=== PATIENT | female | born 1940 | race Caucasian/White ===

== ENCOUNTER → 2016-10-06 | Outpatient (CLI) | payer MEDICARE ==
--- NOTE | 2016-10-07 19:18 | Diagnostic Imaging Report ---
Bilateral screening mammogram. The current study was also evaluated with a Computer Aided Detection (CAD) system. INDICATION: Screening. No current complaints stated on the questionnaire. COMPARISON: 11/21/13. FINDINGS: The breasts are composed of scattered fibroglandular densities. There are scattered benign-appearing calcifications. Allowing for technique and positional differences, no suspicious change is seen. IMPRESSION: No significant change. ACR BI-RADS Category 2: Benign findings. Result letter will be mailed to the patient. Note: At least 10% of breast cancer is not imaged by mammography. Dictated by: Dictated on workstation # [id number]
== END ==
LOC: RAD 06:57
PROVIDERS: ATTEND Family Medicine
DX: Z12.31 Encounter for screening mammogram for malignant neoplasm of breast (principal)
CPT/HCPCS: 77067

== ENCOUNTER → 2018-02-08 | Outpatient (CLI) | payer MEDICARE ==
--- NOTE | 2018-02-08 13:16 | Diagnostic Imaging Report ---
INDICATION: Routine screening. COMPARISON: 10/06/2016 and 11/21/2013. TECHNIQUE: 2D and 3D bilateral screening mammography was performed with CAD. FINDINGS: Scattered fibroglandular densities are identified bilaterally. The parenchymal pattern is stable. There are benign calcifications bilaterally. No mass or malignant-appearing microcalcifications are seen. The axillae are unremarkable. IMPRESSION: No mammographic features suspicious for malignancy are identified. ACR BI-RADS Category 2: Benign findings. Result letter will be mailed to the patient. Note: At least 10% of breast cancer is not imaged by mammography. Dictated by: Dictated on workstation # [id number]
== END ==
LOC: RAD 07:16
PROVIDERS: ATTEND Nurse Practitioner Family
DX: Z12.31 Encounter for screening mammogram for malignant neoplasm of breast (principal)
CPT/HCPCS: 77067

== ENCOUNTER → 2018-04-02 | Day surgery (SDC) | payer MEDICARE ==
[~2018-04-02] VITALS: Ht 165.1 cm; Wt 86.2 kg
[~2018-04-02] MED LIST: ACET-2650 PO; AMLO5TAB2 PO; ASPI-983 PO; ASPIRIN 325 MG (5 GR) TABLET ONE; ASPIRIN 81 MG CHEW (CHILDREN'S ASA) PO ONE; ATROPINE INJ 0.4 MG/ML SDV ONE; ATROPINE INJECTION 1 MG/1 ML SDV IJ ONE; CALCIUM CHLORIDE 1 GM/10 ML (IMS) SYR INJ ONE; CLOP75TA28 PO; DICL75TA2 PO; DOCU240C24 PO; DOPamine DRIP 250 ML IV SCH; ENOXAPARIN 100 MG/1 ML (LOVENOX) SYR SC ONE; ENOXAPARIN 30 MG/0.3 ML (LOVENOX) SYR ONE; ENOXAPARIN 60 MG/0.6 ML (LOVENOX) SYR ONE; EPINEPHrine INJECTION 1 MG/ML AMP ONE; GENTAMICIN 40 MG/ML 2 ML INJ SDV ONE; HEParin (CATH LAB) 1,000 ML IV ONE; HYDR12.5 PO; IRON150C8 PO; LIDOCAINE 1% INJ 20 ML 20 ML VIAL ONE; LOSA100T28 PO; MIDAZOLAM 10 MG/2 ML (VERSED) VIAL IVP PRN; MIDAZOLAM 5 MG/5 ML (VERSED) VIAL ONE; MULT-166 PO; MULT-974 PO; NEO/POLY/BAC (NEOSPORIN) OINT 15 GM TUBE ONE; NS IV 1000 ML 1,000 ML IV ONE; NS IV 1000 ML 1,000 ML IV SCH; NS IV 1000 ML 1,000 ML ONE; OMG1KC PO; PATIENT MAY USE OWN MEDS, ALL PO SCH; SERT50TA9 PO; SIMV80TA5 PO; ceFAZolin 1,000 MG (ANCEF) VIAL ONE; ceFAZolin INJECTION 1,000 MG in NS (IVPB) 50 ML IV SCH; fentaNYL INJECTION 100 MCG/2 ML AMP ONE; morphine INJ 10 MG/ML 1ML (SYR OR VIAL) IVP STA; morphine INJ 10 MG/ML 1ML (SYR OR VIAL) ONE
[2018-04-02 19:52] LABS: BASOPHILS % (AUTO) 1 % (0-10); EOSINOPHILS # (AUTO) 0.2 10^3/uL (0.0-0.3); EOSINOPHILS % (AUTO) 3 % (0-10); HEMATOCRIT 32 % (35-52); HEMOGLOBIN 10.4 G/DL (11.5-16.0); LYMPHOCYTES # (AUTO) 1.4 X 10^3 (1.0-4.0); LYMPHOCYTES % (AUTO) 30 % (12-44); MEAN CORPUSCULAR HEMOGLOBIN 29 PG (25-34); MEAN CORPUSCULAR HGB CONC 33 G/DL (32-36); MEAN CORPUSCULAR VOLUME 89 FL (80-99); MONOCYTES # (AUTO) 0.6 X 10^3 (0.0-1.0); MONOCYTES % (AUTO) 13 % (0-12); NEUTROPHILS # (AUTO) 2.5 X 10^3 (1.8-7.8); NEUTROPHILS % (AUTO) 53 % (42-75); PLATELET COUNT 123 10^3/uL (130-400); RED BLOOD COUNT 3.58 10^6/uL (4.35-5.85); RED CELL DISTRIBUTION WIDTH 14.1 % (10.0-14.5); WHITE BLOOD COUNT 4.8 10^3/uL (4.3-11.0)
--- NOTE | 2018-04-02 19:59 | ED Cardiac General ---
History of Present Illness General Chief Complaint: Cardiac/General Problems Stated Complaint: IRREGULAR HEART RATE Nursing Triage Note: syncope, bradycardia Source: patient, EMS History of Present Illness Date Seen by Provider: Apr 02, 2018 Time Seen by Provider: 19:28 Initial Comments PT ARRIVES VIA EMS FROM HOME PT HAD SUDDEN ONSET OF FEELING LIKE SHE WAS GOING TO PASS OUT--WAS SITTING AT THE TIME, HAD JUST FINISHED EATING. 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 PT DENIES ANY HISTORY OF HEART PROBLEMS, DENIES ANY HISTORY OF IRREGULAR HEART BEAT, DENIES HISTORY OF CARDIAC CATH. STATES SHE SEES DR BALDWIN FOR HISTORY OF CAROTID DISEASE--HAD 40% BLOCKAGE OF ONE OF HER CAROTID ARTERIES --HAS BEEN SEVERAL YEARS SINCE IT WAS LAST CHECKED, PER PT. TAKES PLAVIX FOR THIS PROBLEM. HAS HISTORY OF HTN PCP: DR. NIETO--JUST SWITCHED F Allergies and Home Medications Allergies Coded Allergies: codeine (Unverified Allergy, Unknown, 04/02/18) Patient Home Medication List Home Medication List Reviewed: Yes Review of Systems Constitutional: No diaphoresis; dizziness EENTM: No Symptoms Reported Respiratory: See HPI, Shortness of Air Cardiovascular: See HPI, Chest Pain; Denies Edema; Irregular Heart Rate, Lightheadedness Gastrointestinal: No Symptoms Reported; Denies Abdominal Pain, Denies Nausea, Denies Vomiting Genitourinary: No Symptoms Reported Musculoskeletal: no symptoms reported Skin: no symptoms reported Psychiatric/Neurological: No Symptoms Reported Endocrine: No Symptoms Reported Hematologic/Lymphatic: No Symptoms Reported Past Nkszjfo-Qcbjir-Yufmnn Hx Patient Social History Alcohol Use: Denies Use Recreational Drug Use: No Smoking Status: Former Smoker (1 PPD, QUIT 2000) 2nd Hand Smoke Exposure: No Recent Foreign Travel: No Contact w/Someone Who Travel: No Recent Infectious Disease Expo: No Recent Hopitalizations: No Immunizations Up To Date Tetanus Booster (TDap): Unknown Seasonal Allergies Seasonal Allergies: No Past Medical History Surgeries: Yes (LEFT KNEE REPLACEMENT 2009, COLONOSCOPY) Adenoidectomy, Tonsillectomy Respiratory: No Cardiac: Yes (CAROTID DISEASE; RBBB ON EKG 08/26/2009) High Cholesterol, Hypertension 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 oz. 86.917562bi; BMI Method:Estimated General Appearance: WD/WN, Anxious, Mild Distress, Other (MOANING) HEENT: PERRL/EOMI Neck: Full Range of Motion, Normal Inspection, Non Tender, Supple; No JVD Respiratory: Normal Breath Sounds, No Accessory Muscle Use, No Respiratory Distress Cardiovascular: No Edema, No JVD, No Murmur, Normal Peripheral Pulses, Bradycardia Gastrointestinal: Normal Bowel Sounds, No Organomegaly, No Pulsatile Mass, Non Tender, Soft Extremity: Normal Capillary Refill, Normal Inspection, Normal Range of Motion, Non Tender, No Calf Tenderness, No Pedal Edema Neurologic/Psychiatric: Alert, Oriented x3, No Motor/Sensory Deficits, Normal Mood/Affect, colleter II-XII Norm as Tested Skin: Warm/Dry; No Diaphoresis; Pallor Progress/Results/Core Measures Results/Orders Lab Results Laboratory Tests Test 04/02/18 19:40 Range/Units White Blood Count 4.8 4.3-11.0 10^3/uL Red Blood Count 3.58 L 4.35-5.85 10^6/uL Hemoglobin 10.4 L 11.5-16.0 G/DL Hematocrit 32 L 35-52 % Mean Corpuscular Volume 89 80-99 FL Mean Corpuscular Hemoglobin 29 25-34 PG Mean Corpuscular Hemoglobin Concent 33 32-36 G/DL Red Cell Distribution Width 14.1 10.0-14.5 % Platelet Count 123 L 130-400 10^3/uL Mean Platelet Volume 10.0 7.4-10.4 FL Neutrophils (%) (Auto) 53 42-75 % Lymphocytes (%) (Auto) 30 12-44 % Monocytes (%) (Auto) 13 H 0-12 % Eosinophils (%) (Auto) 3 0-10 % Basophils (%) (Auto) 1 0-10 % Neutrophils # (Auto) 2.5 1.8-7.8 X 10^3 Lymphocytes # (Auto) 1.4 1.0-4.0 X 10^3 Monocytes # (Auto) 0.6 0.0-1.0 X 10^3 Eosinophils # (Auto) 0.2 0.0-0.3 10^3/uL Basophils # (Auto) 0.0 0.0-0.1 10^3/uL Prothrombin Time 15.0 H 12.2-14.7 SEC INR Comment 1.2 0.8-1.4 Activated Partial Thromboplast Time 32 24-35 SEC Sodium Level 140 135-145 MMOL/L Potassium Level 4.5 3.6-5.0 MMOL/L Chloride Level 106 98-107 MMOL/L Carbon Dioxide Level 21 21-32 MMOL/L Anion Gap 13 5-14 MMOL/L Blood Urea Nitrogen 29 H 7-18 MG/DL Creatinine 1.64 H 0.60-1.30 MG/DL Estimat Glomerular Filtration Rate 30 BUN/Creatinine Ratio 18 Glucose Level 138 H 70-105 MG/DL Calcium Level 10.3 H 8.5-10.1 MG/DL Magnesium Level 2.3 1.8-2.4 MG/DL Total Bilirubin 0.5 0.1-1.0 MG/DL Aspartate Amino Transf (AST/SGOT) 41 H 5-34 U/L Alanine Aminotransferase (ALT/SGPT) 27 0-55 U/L Alkaline Phosphatase 244 H 40-136 U/L Total Creatine Kinase 39 29-168 U/L Creatine Kinase MB 1.1 <6.6 NG/ML Myoglobin 90.9 10.0-92.0 NG/ML Troponin I < 0.30 <0.30 NG/ML B-Type Natriuretic Peptide 295.8 H <100.0 PG/ML Total Protein 7.9 6.4-8.2 GM/DL Albumin 4.1 3.2-4.5 GM/DL Free Thyroxine 0.92 0.70-1.48 NG/DL TSH [place] Testing 8.51 H 0.35-4.94 UIU/ML My Orders Orders - MARLENE BRYAN DO Morphine Injection (Morphine Injection (04/02/18 19:40) Saline Lock/Iv-Start (04/02/18 19:42) Ekg Tracing (04/02/18:42) Catheter(Urinary) Insert & Ass 03,15 (04/02/18 19:42) O2 (04/02/18:42) Monitor-Rhythm Ecg Trace Only (04/02/18:42) BNP (04/02/18:42) Cbc With Automated Diff (04/02/18:42) Comprehensive Metabolic Panel (04/02/18:42) Creatine Kinase (04/02/18:42) Creatine Kinase Mb (04/02/18:42) Magnesium (04/02/18:42) Protime With Inr (04/02/18:42) Partial Thromboplastin Time (04/02/18:42) Thyroid Analyzer (04/02/18:42) Troponin I (04/02/18:42) Chest 1 View, Ap/Pa Only (04/02/18 19:42) Cardiac Profile 1 (04/02/18:42) Myoglobin Serum (04/02/18:42) O2 (04/02/18:42) Lipid Panel (04/03/18 06:00) Aspirin Chewable Tablet (Baby Aspirin Ch (04/02/18 19:45) Saline Lock/Iv-Start (04/02/18 19:42) Enoxaparin Injection (Lovenox Injection) (04/02/18 19:45) Aspirin Tablet (Aspirin Tablet) (04/02/18 19:44) Enoxaparin Injection (Lovenox Injection) (04/02/18 19:44) Enoxaparin Injection (Lovenox Injection) (04/02/18 19:44) Saline Lock/Iv-Start (04/02/18 19:52) Ns Iv 1000 Ml (Sodium Chloride 0.9%) (04/02/18 19:52) Atropine Injection (Atropine Injection) (04/02/18 20:00) Morphine Injection (Morphine Injection (04/02/18 20:04) Midazolam Injection (Versed Injection) (04/02/18 20:05) Midazolam Injection (Versed Injection) (04/02/18 20:15) Morphine Injection (Morphine Injection (04/02/18 20:11) Morphine Injection (Morphine Injection (04/02/18 20:11) Morphine Injection (Morphine Injection (04/02/18 20:12) Free T4 (Free Thyroxine) (04/02/18 19:40) Medications Given in ED Current Medications Medications Dose Ordered Sig/Bryan Route Start Time Stop Time Status Last Admin Dose Admin Aspirin 325 mg STK-MED ONCE .ROUTE 04/02/18 19:44 04/02/18 19:47 DC 04/02/18 19:46 325 MG Atropine Sulfate 1 mg ONCE ONCE IJ 04/02/18 20:00 04/02/18 20:22 DC 04/02/18 19:35 1 MG Enoxaparin Sodium 30 mg STK-MED ONCE .ROUTE 04/02/18 19:44 04/02/18 19:48 DC 04/02/18 19:47 30 MG Enoxaparin Sodium 60 mg STK-MED ONCE .ROUTE 04/02/18 19:44 04/02/18 19:48 DC 04/02/18 19:47 60 MG Midazolam HCl PRN PRN IVP 04/02/18 20:15 04/02/18 20:15 1 MG Midazolam HCl 5 mg STK-MED ONCE .ROUTE 04/02/18 20:05 04/02/18 20:08 DC 04/02/18 20:06 1 MG Morphine Sulfate 10 mg STK-MED ONCE .ROUTE 04/02/18 19:40 04/02/18 19:43 DC 04/02/18 19:41 10 MG Morphine Sulfate 10 mg STK-MED ONCE .ROUTE 04/02/18 20:04 04/02/18 20:07 DC 04/02/18 20:05 10 MG Sodium Chloride 1,000 ml @ 0 mls/hr Q0M ONCE IV 04/02/18 19:52 04/02/18 19:54 DC 04/02/18 20:11 0 MLS/HR Vital Signs/I&O 04/02/18 04/02/18 04/02/18 04/02/18 19:30 19:30 19:35 19:50 Temp 97.9 97.9 Pulse 36 Resp 18 B/P (MAP) 186/84 (118) Pulse Ox 98 98 97 O2 Delivery Room Air Room Air Nasal Cannula O2 Flow Rate 2.00 Blood Pressure Mean: 118 Progress Progress Note : Progress Note PT INITIALLY HYPERTENSIVE WITH HEART RATE IN 30'S GIVEN ATROPINE--NO IMPROVEMENT GIVEN EPINEPHRINE--PT WENT INTO V-TACH/VFIB, SINUS TACH, INTERMITTENT ATRIAL FIB GIVEN ASPIRIN AND LOVENOX PT'S BP AND HEART RATE BEGAN TO DROP, GIVEN FLUIDS, AND PLACED ON EXTERNAL PACEMAKER, WITH CAPTURE IN 70'S AND BP UP TO 110'S SYSTOLIC. PT GIVEN MORPHINE AND VERSED. AND PAIN IMPROVED WITH MORPHINE, PT CALMER WITH VERSED. PT BEGAN TO HAVE DROP IN BP AGAIN, AND ADDITIONAL FLUIDS AND DOPAMINE ORDERED BY DR. THAKKAR CALCIUM ALSO ORDERED BY DR. THAKKAR SEE NURSING/CRITICAL CARE NOTES FOR DETAILS Initial ECG Impression Date: Apr 02, 2018 Initial ECG Impression Time: 19:32 Initial ECG Rate: 35 Initial ECG Rhythm: S.Paul (RBBB, ? HEART BLOCK ? ) Initial ECG Comparisson: Unchanged (EXCEPT FOR DECREASED HEART RATE) EKG : EKG Time: 19:34 Rate: 34 Rhythm: S.Paul (RBBB) Comment EKG #3 AT 1938, RATE 42, IRREGULAR, PAUL CARDIA NOW WITH LBBB EKG #4 AT 1941, RATE 132, IRREGULAR, ATRIAL FIB WITH PVC'S / SHORT RUN OF V-TACH , RBBB AND LAFB EKG #5 AT 1944, RATE 56, ARRHYTHMIA/ ATRIAL FIB, ST DEPRESSION DIFFUSE, RBBB AND LAFB EKG #6 AT 1945, RATE 60, NSR, 1ST DEGREE AV BLOCK, RBBB AND LAFB EKG #7 AT 1950, RATE 59, NSR, 1ST DEGREE AV BLOCK, RBBB AND LAFB Diagnostic Imaging Comments CXR--MILD CARDIOMEGALY AND VASCULAR CONGESTION, PER RADIOLOGIST REPORT @ 2021 Reviewed: Reviewed by Me Critical Care Note Critical Care Start Time: 19:28 Departure Communication (Admissions) 1941--SPOKE WITH DR. THAKKAR, HE WILL BE IN TO SEE PT 2013--DR. THAKKAR HERE, CARE TURNED OVER TO HIM. Impression Primary Impression: Bradycardia Additional Impressions: Heart block CHF (congestive heart failure) Renal insufficiency VENTICULAR ARRHYTHMIAS Transient atrial fibrillation Disposition: ADMITTED INPATIENT Condition: Stable (BUT SERIOUS) Admissions Decision to Admit Reason: Admit from ER (General) (TO CAREGIVERS NON MEDICAL) Decision to Admit/Date: Apr 02, 2018 Time/Decision to Admit Time: 20:15 Departure-Patient Inst. Referrals: CUBA NIETO MD (PCP/Family) Primary Care Physician MARLENE BRYAN DO Apr 02, 2018 19:59
[2018-04-02 20:00] LABS: INR 1.2 (0.8-1.4)
[2018-04-02 20:08] LABS: ALANINE AMINOTRANSFERASE 27 U/L (0-55); ALBUMIN 4.1 GM/DL (3.2-4.5); ALKALINE PHOSPHATASE 244 U/L (40-136); BILIRUBIN,TOTAL 0.5 MG/DL (0.1-1.0); BUN/CREATININE RATIO 18; CALCIUM 10.3 MG/DL (8.5-10.1); CARBON DIOXIDE 21 MMOL/L (21-32); CHLORIDE 106 MMOL/L (98-107); CREATINE KINASE 39 U/L (29-168); CREATININE SERUM 1.64 MG/DL (0.60-1.30); GFR ESTIMATED 30; GLUCOSE 138 MG/DL (70-105); MAGNESIUM 2.3 MG/DL (1.8-2.4); POTASSIUM 4.5 MMOL/L (3.6-5.0); SODIUM 140 MMOL/L (135-145); TOTAL PROTEIN 7.9 GM/DL (6.4-8.2)
--- NOTE | 2018-04-02 20:19 | Diagnostic Imaging Report ---
PATIENT HISTORY: Syncope, bradycardia. TECHNIQUE: Single frontal view of the chest COMPARISON: None FINDINGS: Lung volumes are normal. There is mild cardiomegaly with central vascular congestion. No focal consolidation is seen. There is no pleural effusion or pneumothorax. Aortic atherosclerosis is present. There are degenerative changes in the shoulders and spine. IMPRESSION: Mild cardiomegaly with central vascular congestion. Dictated by: Dictated on workstation # [id number]
[2018-04-02 20:27] LABS: MYOGLOBIN SERUM 90.9 NG/ML (10.0-92.0)
[2018-04-02 20:38] LABS: CREATINE KINASE MB 1.1 NG/ML (<6.6); TSH (THYROID ANALYZER) 8.51 UIU/ML (0.35-4.94)
--- OUTSIDE RECORDS SUMMARY | 2018-04-02 20:40 | XMS REPORT ---
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 Role Phone MARC SWANN Unavailable PROBLEMS Type Condition ICD9-CM Code CVA11-AN Code Onset Dates Condition Status SNOMED Code Problem Periodontitis K05.30 Active 12527638 Problem Mixed hyperlipidemia E78.2 Active 817873180 Problem Cerebrovascular accident (CVA), unspecified mechanism I63.9 Active 773294780 Problem Essential hypertension I10 Active 65049026 Problem Arthritis M19.90 Active 9219506 ALLERGIES Substance Reaction Event Type Date Status Codeine Sulfate Unknown Drug Allergy Nov, Active ENCOUNTERS Encounter Location Date Diagnosis [facility] [address] [phone] Jun, [facility] [id number] [place] [phone] Mar, [facility] [address] [address] Feb, Periodontitis K05.30 [facility] [id number] [place] [phone] Feb, [facility] [id number] [place] [phone] Feb, Essential hypertension I10 ; Mixed hyperlipidemia E78.2 ; Arthritis M19.90 and Cerebrovascular accident (CVA), unspecified mechanism I63.9 [facility] [id number] [place] [phone] Jan, Dental examination Z01.20 [facility] [id number] [place] [address] [phone] Jan, Dental examination Z01.20 [facility] [id number] [place] [address] [phone] December, Dental examination Z01.20 [facility] [address] [id number] [phone] Nov, Dental examination Z01.20 [facility] [address] [id number][place] [phone] Nov, Dental examination Z01.20 [facility] [address] [id number][place] [phone] Sep, Dental examination Z01.20 [facility] [address] [id number][place] [phone] Sep, [facility] [id number] [place] [phone] Aug, Dental examination Z01.20 [facility] [address] [id number][place] [phone] Aug, Dental examination Z01.20 [facility] [address] [id number][place] [phone] Aug, Dental caries K02.9 [facility] [id number] [place] [phone] Aug, Dental examination Z01.20 [facility] [id number] [place] [address] [phone] Jul, Dental examination Z01.20 [facility] [address] [id number][place] [address] Jul, [facility] [address] [id number][place] [phone] Jun, Dental examination Z01.20 [facility] [address] [id number][place] [phone] Jun, Dental examination Z01.20 [facility] [address] [id number][place] [phone] Jun, Dental examination Z01.20 [facility] [address] [id number][place] [phone] May, Dental examination Z01.20 [facility] [address] [id number][place] [phone] May, Dental examination Z01.20 [facility] [address] [id number][place] [phone] May, Dental examination Z01.20 [facility] [address] [id number][place] [phone] May, Dental examination Z01.20 [facility] [address] [id number][place] [phone] Apr, Dental examination Z01.20 [facility] [id number] [place] [phone] Apr, [facility] [id number] [place] [address] [phone] Apr, [facility] [address] [id number] [place] [phone] Mar, Dental examination Z01.20 [facility] [address] [id number], [place] [phone] December, Dental examination Z01.20 [facility] [address] [id number], [place] [phone] Oct, Dental examination Z01.20 [facility] [address] [id number], [place] [phone] Sep, Dental examination Z01.20 [facility] [address] [id number], [place] [phone] Aug, Dental examination Z01.20 [facility] [address] [id number], [place] [phone] Jul, Dental examination Z01.20 [facility] [address] [id number], [place] [phone] Apr, Encounter for dental examination Z01.20 [facility] [address] [id number], [place] [phone] Feb, Dental examination Z01.20 [facility] [address] [facility] [id number][place] [phone] December, Dental examination Z01.20 [facility] [address] [phone] December, [facility] [address]00565100[place] [phone] Nov, Encounter for dental examination Z01.20 [facility] [id number] [place] [address] [phone] Oct, Dental examination Z01.20 [facility] [id number] [place] [phone] Oct, Encounter for dental examination Z01.20 [facility] [id number] [place] [phone] Oct, [facility] [id number] [place] [address] [phone] Oct, Dental examination Z01.20 [facility] [address] [phone] Apr, Dental examination V72.2 [facility] [id number] [place] [phone] Jan, Dental examination V72.2 IMMUNIZATIONS No Known Immunizations SOCIAL HISTORY Never Assessed REASON FOR VISIT crown prep #19 PLAN OF CARE Activity Details Follow Up 3 Weeks Reason:seat crown #19 VITAL SIGNS Blood pressure systolic 146 mmHg 2017-12-10 Blood pressure diastolic 90 mmHg 2017-12-10 MEDICATIONS Medication Instructions Dosage Frequency Start Date End Date Duration Status Amoxicillin 500 MG Orally 1 hour before dental treatment 4 capsules 1 days Active Hydrochlorothiazide Active Amoxicillin Not-Taking Plavix Active Simvastatin Active Diclofenac Active Amlodipine Besy-Benazepril HCl Active Losartan Potassium-HCTZ Active RESULTS No Results PROCEDURES Procedure Date Ordered Result Body Site CROWN - PORCELAIN/CERAMIC SUBSTRATE Jun 25, 2017 INSTRUCTIONS MEDICATIONS ADMINISTERED No Known Medications MEDICAL (GENERAL) HISTORY Type Description Date Medical History HTN Medical History Joint Replacement- Left Knee- 10 years ago Medical History Surgery Requiring rods, pins, screws Medical History Bone Density Medication (Bisphosphonates) (Patient is not aware that she has taken this medication, now or in the past 1-3-18) Medical History ? CVA on plavix Medical History Arthritis Surgical History Knee Replacement 2007 Hospitalization History Knee replacement
--- OUTSIDE RECORDS SUMMARY | 2018-04-02 20:40 | XMS REPORT ---
Author Author MARC SWANN [facility] Address Unknown Care Team Providers Care Block Hand Name Role Phone MARC SWANN Unavailable PROBLEMS Unknown Problems ALLERGIES Substance Reaction Event Type Date Status Codeine Sulfate Unknown Drug Allergy May, Active ENCOUNTERS Encounter Location Date Diagnosis [facility] [address] [id number] [place] [address] [phone] Jan, [facility] [address] [id number] [place] [address] [phone] December, Dental examination Z01.20 [facility] [address] [id number] [place] [address] [phone] Nov, Dental examination Z01.20 [facility] [id number] [place] [address] [phone] Nov, Dental examination Z01.20 [facility] [address] [id number] [place] [address] [phone] Sep, Dental examination Z01.20 [facility] [address] [id number] [place] [address] [phone] Sep, [facility] [address] [id number] [place] [address] [phone] Aug, Dental examination Z01.20 [facility] [address] [id number] [place] [address] [phone] Aug, Dental examination Z01.20 [facility] [address] [id number] [place] [address] [phone] Aug, Dental caries K02.9 [facility] [address] [id number] [place] [address] [phone] Aug, Dental examination Z01.20 [facility] [address] [id number][place] [phone] Jul, Dental examination Z01.20 [facility] [address] [id number][place] [address] Jul, [facility] [address] [id number], [place] [phone] Jun, Dental examination Z01.20 [facility] [address] [id number][place] [phone] Jun, Dental examination Z01.20 [facility] [address] [id number] [place] [address] [phone] Jun, Dental examination Z01.20 [facility] [address] [id number] [place] [address] [phone] May, Dental examination Z01.20 [facility] [address] [id number], [place] [phone] May, Dental examination Z01.20 [facility] [address] [id number], [place] [phone] May, Dental examination Z01.20 [facility] [address] [id number] [place] [address] [phone] May, Dental examination Z01.20 [facility] [address] [id number], [place] [phone] Apr, Dental examination Z01.20 [facility] [address] [id number], [place] [phone] Apr, [facility] [address] [id number], [place] [phone] Apr, [facility] [address] [id number], [place] [phone] Mar, Dental examination Z01.20 [facility] [address] [id number], [place] [phone] December, Dental examination Z01.20 [facility] [address] [id number], [place] [phone] Oct, Dental examination Z01.20 [facility] [address] [id number], [place] [phone] Sep, Dental examination Z01.20 [facility] [address] [id number], [place] [phone] Aug, Dental examination Z01.20 [facility] [address] [id number], [place] [phone] Jul, Dental examination Z01.20 [facility] [address] [id number] [place] [address] [phone] Apr, Encounter for dental examination Z01.20 [facility] [address] [id number] [place] [address] [phone] Feb, Dental examination Z01.20 [facility] [address] [id number] [place] [address] [phone] December, Dental examination Z01.20 [facility] [address] [id number], [place] [phone] December, [facility] [address] [id number] [place] [address] [phone] Nov, Encounter for dental examination Z01.20 [facility] [address] [id number][place] [phone] Oct, Dental examination Z01.20 [facility] [address] [id number], [place] [phone] Oct, Encounter for dental examination Z01.20 [facility] [address] [id number] [phone] Oct, [facility] [address] [id number] [place] [address] [phone] Oct, Dental examination Z01.20 [facility] [address] [id number], [place] [phone] Apr, Dental examination V72.2 [facility] [address] [id number] [place] [address] [phone] Jan, Dental examination V72.2 IMMUNIZATIONS No Known Immunizations SOCIAL HISTORY Never Assessed REASON FOR VISIT MAIK PLAN OF CARE Activity Details Follow Up prn Reason:ENDO VITAL SIGNS MEDICATIONS Medication Instructions Dosage Frequency Start Date End Date Duration Status Diclofenac Active Hydrochlorothiazide Active Losartan Potassium-HCTZ Active Plavix Active Amoxicillin Active Simvastatin Active Amlodipine Besy-Benazepril HCl Active RESULTS No Results PROCEDURES Procedure Date Ordered Result Body Site LTD ORAL EVALUATION - PROBLEM FOCUS Jun 08, 2017 Dental no charge Jun 08, 2017 INSTRUCTIONS MEDICATIONS ADMINISTERED No Known Medications MEDICAL (GENERAL) HISTORY Type Description Date Medical History HBP Medical History Joint Replacement Medical History Surgery Requiring rods, pins, screws Medical History Bone Density Medication (Bisphosphonates) (Patient is not aware that she has taken this medication, now or in the past 1-3-18) Medical History Blood Thinners Medical History Arthritis Surgical History Knee Replacement 2007
--- OUTSIDE RECORDS SUMMARY | 2018-04-02 20:41 | XMS REPORT ---
Author Author MARC SWANN [facility] Address Unknown Care Team Providers Care Coat Checker Name Role Phone MARC SWANN Unavailable PROBLEMS Unknown Problems ALLERGIES Substance Reaction Event Type Date Status Codeine Sulfate Unknown Drug Allergy May, Active ENCOUNTERS Encounter Location Date Diagnosis [facility] [address] [id number] [place] [address] [phone] Jan, [facility] [address] [id number] [place] [address] [phone] December, Dental examination Z01.[address] [facility] [address] [id number] [place] [address] [phone] Nov, Dental examination Z01.20 [facility] [address] [id number] [place] [address] [phone] Nov, Dental examination Z01.[address] [facility] [address] [address] [id number] [place] [address] [phone] Sep, Dental examination Z01.[address] [facility] [address] [id number] [place] [address] [phone] Sep, [facility] [address] [id number] [place] [address] [phone] Aug, Dental examination Z01.[address] [facility] [address] [id number] [place] [address] [phone] Aug, Dental examination Z01.[address] [facility] [address] [id number] [place] [address] [phone] Aug, Dental caries K02.[address] [facility] [address] [id number] [place] [address] [id number] Aug, Dental examination Z01.20 [facility] [address] [id number] [place] [phone] Jul, Dental examination Z01.20 [facility] [address] [id number] [place] [address] Jul, [facility] [address] [id number] [place] [phone] Jun, Dental examination Z01.[address] [address] [id number] [place], [place] [phone] Jun, Dental examination Z01.[address] [facility] [address] [id number] [place] [address] [phone] Jun, Dental examination Z01.[address] [address] [id number] [place] [address] [phone] May, Dental examination Z01.[address] [facility] [address] [id number] [place], [place] [phone] May, Dental examination Z01.[address] [facility] [address] [id number] [place] [phone] May, Dental examination Z01.20 [facility] [address] [id number] [place] [address] [phone] May, Dental examination Z01.[address] [address] [id number] [place] [phone] Apr, Dental examination Z01.20 [facility] [address] [id number] [place], [place] [phone] Apr, [facility] [address] [id number] [place], [place] [phone] Apr, [facility] [address] [id number] [place], [place] [phone] Mar, Dental examination Z01.[address] [address] [id number] [place], [place] [phone] December, Dental examination Z01.20 [facility] [address] [id number] [place], [place] [phone] Oct, Dental examination Z01.20 [facility] [address] [id number] [place], [place] [phone] Sep, Dental examination Z01.20 [facility] [address] [id number] [place] [phone] Aug, Dental examination Z01.20 [facility] [address] [id number] [place] [phone] Jul, Dental examination Z01.20 [facility] [address] [id number] [place] [address] [id number] Apr, Encounter for dental examination Z01.20 [facility] [address] [id number] [place] [address] [id number] Feb, Dental examination Z01.20 [facility] [address] [id number] [place] [address] [phone] December, Dental examination Z01.20 [facility] [address] [id number] [place], [place] [phone] December, [facility] [address] [id number] [place] [address] [id number] Nov, Encounter for dental examination Z01.20 [facility] [address] [id number] [place], [place] [phone] Oct, Dental examination Z01.20 [facility] [address] [id number] [place] [phone] Oct, Encounter for dental examination Z01.20 [facility] [address] [id number] [place] [address] Oct, [facility] [address] [id number] [place] [address] [id number] Oct, Dental examination Z01.20 [facility] [address] [id number] [place], [place] [phone] Apr, Dental examination V72.2 [facility] [address] [id number] [place] [address] [id number] Jan, Dental examination V72.2 IMMUNIZATIONS No Known Immunizations SOCIAL HISTORY Never Assessed REASON FOR VISIT PLAN OF CARE Activity Details Follow Up prn Reason:build up #29 VITAL SIGNS Blood pressure systolic 160 mmHg 2017-06-17 Blood pressure diastolic 73 mmHg 2017-06-17 MEDICATIONS Medication Instructions Dosage Frequency Start Date End Date Duration Status Amoxicillin Active Plavix Active Amlodipine Besy-Benazepril HCl Active Hydrochlorothiazide Active Simvastatin Active Diclofenac Active Losartan Potassium-HCTZ Active RESULTS No Results PROCEDURES Procedure Date Ordered Result Body Site ANTERIOR Jun 17, 2017 INSTRUCTIONS MEDICATIONS ADMINISTERED No Known Medications [...]
--- OUTSIDE RECORDS SUMMARY | 2018-04-02 20:41 | XMS REPORT ---
Author Author MARC SWANN [facility] Address Unknown Care Team Providers Care Casualty Claims Supervisor Name Role Phone MARC SWANN Unavailable PROBLEMS Unknown Problems ALLERGIES No Information ENCOUNTERS Encounter Location Date Diagnosis [facility] [id number] [place] [address] [phone] December, [facility] [address] [phone] Nov, Dental examination Z01.20 [facility] [address] [phone] Sep, Dental examination Z01.20 [facility] [address] [id number] [place] [address] [phone] Sep, [facility] [id number] [place] [address] [phone] Aug, Dental examination Z01.20 [facility] [id number] [place] [address] [phone] Aug, Dental examination Z01.20 [facility] [id number] [place] [address] [phone] Aug, Dental caries K02.9 [facility] [id number] [place] [address] [phone] Aug, Dental examination Z01.20 [facility] [id number] [place] [address] [phone] Jul, Dental examination Z01.20 [facility] [address] [id number] [place] [address] [phone] Jul, [facility] [id number] [place] [address] [phone] Jun, Dental examination Z01.20 [facility] [address] [id number][place] [phone] Jun, Dental examination Z01.20 [facility] [address] [id number], [place] [phone] Jun, Dental examination Z01.20 [facility] [address] [id number], [place] [phone] May, Dental examination Z01.20 [facility] [address] [id number], [place] [phone] May, Dental examination Z01.20 [facility] [address] [id number] [place] [address] [id number] May, Dental examination Z01.20 [facility] [address] [id number] [place] [address] [id number] May, Dental examination Z01.20 [facility] [address] [id number], [place] [phone] Apr, Dental examination Z01.20 [facility] [address] [id number], [place] [phone] Apr, [facility] [address] [id number] [place] [address] [phone] Apr, [facility] [address] [id number], [place] [phone] Mar, Dental examination Z01.20 [facility] [address] [id number], [place] [phone] December, Dental examination Z01.20 [facility] [address] [id number], [place] [phone] Oct, Dental examination Z01.20 [facility] [address] [id number], [place] [phone] Sep, Dental examination Z01.20 [facility] [address] [id number], [place] [phone] Aug, Dental examination Z01.20 [facility] [address]005[place] [phone] Jul, Dental examination Z01.20 [facility] [id number] [place] [address] [id number] Apr, Encounter for dental examination Z01.20 [facility] [address]00565100[place] [phone] Feb, Dental examination Z01.20 [facility] [id number] [place] [address] [phone] December, Dental examination Z01.20 [facility] [id number] [place] [address] [id number] December, [facility] [id number] [place] [address] [id number] Nov, Encounter for dental examination Z01.20 [facility] [id number] [place] [address] [id number] Oct, Dental examination Z01.20 [facility] [id number] [place] [address] [phone] Oct, Encounter for dental examination Z01.20 [facility] [id number] [place] [address] [phone] Oct, [facility] [address] [place] [address] [phone] Oct, Dental examination Z01.20 [facility] [address] [place] [address] [phone] Apr, Dental examination V72.2 [facility] [address] [place] [address] [phone] Jan, Dental examination V72.2 IMMUNIZATIONS No Known Immunizations SOCIAL HISTORY Never Assessed REASON FOR VISIT PLAN OF CARE VITAL SIGNS MEDICATIONS Unknown Medications RESULTS No Results PROCEDURES No Known procedures INSTRUCTIONS MEDICATIONS ADMINISTERED No Known Medications MEDICAL [...]
--- OUTSIDE RECORDS SUMMARY | 2018-04-02 20:41 | XMS REPORT ---
Author Author MARC SWANN [facility] Address Unknown Care Team Providers Care Carbon Grinder Name Role Phone MARC SWANN Unavailable PROBLEMS Unknown Problems ALLERGIES Substance Reaction Event Type Date Status Codeine Sulfate Unknown Drug Allergy May, Active ENCOUNTERS Encounter Location Date Diagnosis [facility] [address] [id number] [place] [address] [phone] Jan, [facility] [address] [id number] [place] [address] [phone] December, [facility]01.20 [facility] [address] [id number] [place] [address] [phone] Nov, Dental examination Z01.20 [facility] [address] [id number] [place] [address] [phone] Nov, [facility]01.20 [facility] [address] [id number] [place] [address] [phone] Sep, [facility] examination Z01.20 [facility] [address] [id number] [place] [address] [id number] Sep, [facility] [address] [id number] [place] [address] [phone] Aug, [facility] examination Z01.20 [facility] [address] [id number] [place] [address] [phone] Aug, Dental examination Z01.20 [facility] [address] [id number] [place] [address] [phone] Aug, Dental caries K02.9 [facility] [address] [id number] [place] [address] [id number] Aug, Dental examination Z01.20 [facility] [address] [id number] [place] [phone] Jul, Dental examination Z01.20 [facility] [address] [id number] [place] [address] Jul, [facility] [address] [id number] [place]ACH[place] [phone] Jun, Dental examination Z01.20 [facility] [address] [id number] [place]ACH[place] [phone] Jun, Dental examination Z01.20 [facility] [address] [id number] [place] [address] [phone] Jun, Dental examination Z01.20 [facility] [address] [id number] [place] [address] [phone] May, Dental examination Z01.20 [facility] [address] [id number] [place]ACH[place] [phone] May, Dental examination Z01.20 [facility] [address] [id number] [place] [phone] May, Dental examination Z01.20 [facility] [address] [id number] [place] [address] [id number] May, Dental examination Z01.20 [facility] [address] [id number] [place]ACH[place] [phone] Apr, Dental examination Z01.20 [facility] [address] [id number] [place] [phone] Apr, [facility] [address] [id number] [place]ACH[place] [phone] Apr, [facility] [address] [id number] [place]ACH[place] [phone] Mar, Dental examination Z01.20 [facility] [address] [id number] [place] [phone] December, Dental examination Z01.20 [facility] [address] [id number] [place]ACH[place] [phone] Oct, Dental examination Z01.20 [facility] [address] [id number] [place]ACH[place] [phone] Sep, Dental examination Z01.20 [facility] [address] [id number] [place]ACH[place] [phone] Aug, Dental examination Z01.20 [facility] [address] [id number] [place]ACH[place] [phone] Jul, Dental examination Z01.20 [facility] [address] [id number] [place] [address] [phone] Apr, Encounter for dental examination Z01.20 [facility] [address] [id number] [place] [address] [phone] Feb, Dental examination Z01.20 [facility] [address] [id number] [place] [address] [phone] December, Dental examination Z01.20 [facility] [address] [id number] [place] [phone] December, [facility] [address] [id number] [place] [address] [id number] Nov, Encounter for dental examination Z01.20 [facility] [address] [id number] [place]ACH[place] [phone] Oct, Dental examination Z01.20 [facility] [address] [id number] [place]ACH[place] [phone] Oct, Encounter for dental examination Z01.20 [facility] [address] [id number] [place] [address] Oct, [facility] [address] [id number] [place] [address] [phone] Oct, Dental examination Z01.20 [facility] [address] [id number] [place]ACH[place] [phone] Apr, Dental examination V72.2 [facility] [address] [id number] [place] [address] [phone] Jan, Dental examination V72.2 IMMUNIZATIONS No Known Immunizations SOCIAL HISTORY Never Assessed REASON FOR VISIT MAIK PLAN OF CARE Activity Details Follow Up prn Reason: VITAL SIGNS MEDICATIONS Medication Instructions Dosage Frequency Start Date End Date Duration Status Amoxicillin Active Plavix Active Hydrochlorothiazide Active Amlodipine Besy-Benazepril HCl Active Losartan Potassium-HCTZ Active Simvastatin Active Diclofenac Active RESULTS No Results PROCEDURES Procedure Date Ordered Result Body Site LTD ORAL EVALUATION - PROBLEM FOCUS Jun 25, 2017 INTRAORL-PERIAPICAL 1 FILM [id number] Jun 25, 2017 INSTRUCTIONS MEDICATIONS ADMINISTERED No [...]
--- OUTSIDE RECORDS SUMMARY | 2018-04-02 20:41 | XMS REPORT ---
Author Author MARC SWANN [facility] Address Unknown Care Team Providers Care Field Case Manager Name Role Phone MARC SWANN Unavailable PROBLEMS Unknown Problems ALLERGIES Substance Reaction Event Type Date Status Codeine Sulfate Unknown Drug Allergy Sep, Active ENCOUNTERS Encounter Location Date Diagnosis [facility] [id number] [place] [address] [phone] Feb, [facility] [address] [id number] [place] [address] [phone] Jan, Dental examination Z01.20 [facility] [address] [id number] [place] [address] [phone] Jan, Dental examination Z01.20 [facility] [address] [id number] [place] [address] [phone] December, Dental examination Z01.20 [facility] [address] [id number] [place] [address] [phone] Nov, Dental examination Z01.20 [facility] [address] [id number], [place] [phone] Nov, Dental examination Z01.20 [facility] [address] [id number] [place] [address] [phone] Sep, Dental examination Z01.20 [facility] [address] [id number] [place] [address] [phone] Sep, [facility] [address] [id number] [place] [address] [phone] Aug, Dental examination Z01.20 [facility] [address] [id number], [place] [phone] Aug, Dental examination Z01.20 [facility] [address] [id number], [place] [phone] Aug, Dental caries K02.9 [facility] [address] [id number], [place] [phone] Aug, Dental examination Z01.20 [facility] [address] [id number], [place] [phone] Jul, Dental examination Z01.20 [facility] [address] [id number], [place] [address] Jul, [facility] [address] [id number] [place] [address] [phone] Jun, Dental examination Z01.20 [facility] [address] [id number] [place] [address] [id number] Jun, Dental examination Z01.20 [facility] [address] [id number] [place] [address] [id number] Jun, Dental examination Z01.20 [facility] [address] [id number], [place] [phone] May, Dental examination Z01.20 [facility] [address] [id number] [place] [address] [phone] May, Dental examination Z01.20 [facility] [address] [id number] [place] [address] [phone] May, Dental examination Z01.20 [facility] [address] [id number], [place] [phone] May, Dental examination Z01.20 [facility] [address] [id number], [place] [phone] Apr, Dental examination Z01.20 [facility] [address] [id number], [place] [phone] Apr, [facility] [address] [id number], [place] [phone] Apr, [facility] [address] [id number] [place] [address] [phone] Mar, Dental examination Z01.20 [facility] [address] [id number], [place] [phone] December, Dental examination Z01.20 [facility] [address] [id number], [place] [phone] Oct, Dental examination Z01.20 [facility] [address] [id number] [place] [address] [phone] Sep, Dental examination Z01.20 [facility] [address] [id number] [place] [address] [id number] Aug, Dental examination Z01.20 [facility] [address] [id number] [place] [address] [id number] Jul, Dental examination Z01.20 [facility] [address] [id number] [place] [address] [id number] Apr, Encounter for dental examination Z01.20 [facility] [address] [id number] [place] [address] [id number] Feb, Dental examination Z01.20 [facility] [address] [id number] [place] [address] [id number] December, Dental examination Z01.20 [facility] [address] [id number] [place] [address] [id number] December, [facility] [address] [id number], [place] [phone] Nov, Encounter for dental examination Z01.20 [facility] [address] [id number], [place] [phone] Oct, Dental examination Z01.20 [facility] [address] [id number] [place] [address] [id number] Oct, Encounter for dental examination Z01.20 [facility] [address] [id number], [place] [phone] Oct, [facility] [address] [id number] [place] [address] [id number] Oct, Dental examination Z01.20 [facility] [address] [id number] [place] [phone] Apr, Dental examination V72.2 [facility] [address] [id number] [place] [phone] Jan, Dental examination V72.2 IMMUNIZATIONS No Known Immunizations SOCIAL HISTORY Never Assessed REASON FOR VISIT CROWN PREP #29 PLAN OF CARE VITAL SIGNS Blood pressure systolic 146 mmHg 2017-10-27 Blood pressure diastolic 66 mmHg 2017-10-27 MEDICATIONS Medication Instructions Dosage Frequency Start Date End Date Duration Status Amoxicillin Not-Taking Diclofenac Active Hydrochlorothiazide Active Simvastatin Active Amoxicillin 500 MG Orally 1 hour before dental treatment 4 capsules 1 days Active Plavix Active Amlodipine Besy-Benazepril HCl Active Losartan Potassium-HCTZ Active RESULTS No Results PROCEDURES Procedure Date Ordered Result Body Site CORE BUILDUP INCLUDING ANY PINS Oct 27, 2017 INSTRUCTIONS MEDICATIONS ADMINISTERED No Known Medications [...]
--- OUTSIDE RECORDS SUMMARY | 2018-04-02 20:41 | XMS REPORT ---
Author Author TINY GALLARDO [facility] eClinical[employer] Address Unknown Phone Unavailable Care Team Providers Care Sanitation Truck Driver Name Role Phone TINY GALLARDO CP Unavailable Allergies, Adverse Reactions, Alerts Substance Reaction Event Type Codeine Sulfate Info Not Available Drug Allergy Problems Problem Type Condition Code Onset Dates Condition Status Assessment Dental examination Z01.20 Active Medications No Known Medications Procedures Procedure Coding System Code Date Dental no charge CPT-4 D0099 March 26, 2016 Results No Known Results Summary Purpose eClinicalWorks Submission
--- OUTSIDE RECORDS SUMMARY | 2018-04-02 20:41 | XMS REPORT ---
Author Author NANCY MUNOZ Organization [facility] Address [address] [place] [address] Care Team Providers Care Nuclear Fuel Enrichment Technician Name Role Phone NANCY MUNOZ Unavailable PROBLEMS Unknown Problems ALLERGIES Substance Reaction Event Type Date Status Codeine Sulfate Unknown Drug Allergy May, Active ENCOUNTERS Encounter Location Date Diagnosis [facility] [address] [place] [address] [phone] Jan, [facility] [address] [place] [address] [phone] December, Dental examination Z01.20 [facility] [address] [place] [address] [phone] Nov, Dental examination Z01.20 [facility] [address] [id number] [place] [address] [phone] Nov, Dental examination Z01.20 [facility] [address] [id number] [place] [address] [phone] Sep, Dental examination Z01.20 [facility] [address] [id number] [place] [address] [id number] Sep, [facility] [address] [id number] [place] [address] [phone] Aug, Dental examination Z01.20 [facility] [address] [id number] [place] [address] [phone] Aug, Dental examination Z01.20 [facility] [address] [id number] [place] [address] [id number] Aug, Dental caries K02.9 [facility] [address] [id number] [place] [address] [phone] Aug, Dental examination Z01.20 [facility] [address] [id number] CITY, [place] [phone] Jul, Dental examination Z01.20 [facility] [address] [id number] [place] [address] Jul, [facility] [address] [id number] CITY, [place] [phone] Jun, Dental examination Z01.20 [facility] [address] [id number] CITY, [place] [phone] Jun, Dental examination Z01.20 [facility] [address] [id number] CITY, [place] [phone] Jun, Dental examination Z01.20 [facility] [address] [id number] CITY, [place] [phone] May, Dental examination Z01.20 [facility] [address] [id number] [place], [place] [phone] May, [facility]01.20 [facility] [address] [id number] CITY, [place] [phone] May, Dental examination Z01.20 [facility] [address] [id number] CITY, [place] [phone] May, Dental examination Z01.20 [facility] [address] [id number] CITY, [place] [phone] Apr, Dental examination Z01.20 [facility] [address] [id number] CITY, [place] [phone] Apr, [facility] [address] [id number] CITY, [place] [phone] Apr, [facility] [address] [id number] CITY, [place] [phone] Mar, Dental examination Z01.20 [facility] [address] [id number] [place], [place] [phone] December, Dental examination Z01.20 [facility] [address] [id number] [place] [phone] Oct, Dental examination Z01.20 [facility] [address] [id number] CITY[place] [phone] Sep, Dental examination Z01.20 [facility] [address] [id number] CITY, [place] [phone] Aug, Dental examination Z01.20 [facility] [address] [id number] [place], [place] [phone] Jul, Dental examination Z01.20 [facility] [address] [id number] [place] [phone] Apr, Encounter for dental examination Z01.20 [facility] [address] [id number] CITY, [place] [phone] Feb, Dental examination Z01.20 [facility] [address] [id number] [place], [place] [phone] December, Dental examination Z01.20 [facility] [address] [id number] CITY, [place] [phone] December, [facility] [address] [id number] [place], [place] [phone] Nov, Encounter for dental examination Z01.20 [facility] [address] [id number] [place], [place] [phone] Oct, Dental examination Z01.20 [facility] [address] [id number] [place], [place] [phone] Oct, Encounter for dental examination Z01.20 [facility] [address] [id number] [place] [address] Oct, [facility] [address] [id number] CITY, [place] [phone] Oct, Dental examination Z01.20 [facility] [address] [id number] [place], [place] [phone] Apr, Dental examination V72.2 [facility] [address] [id number] [place] [phone] Jan, Dental examination V72.2 IMMUNIZATIONS No Known Immunizations SOCIAL HISTORY Never Assessed REASON FOR VISIT chelsi PLAN OF CARE Activity Details Follow Up prn Reason:endo VITAL SIGNS MEDICATIONS Medication Instructions Dosage Frequency Start Date End Date Duration Status Plavix Active Amoxicillin Active Losartan Potassium-HCTZ Active Hydrochlorothiazide Active Simvastatin Active Diclofenac Active Amlodipine Besy-Benazepril HCl Active RESULTS No Results PROCEDURES Procedure Date Ordered Result Body Site LTD ORAL EVALUATION - PROBLEM FOCUS Jun 07, 2017 INTRAORL-PERIAPICAL 1 FILM [id number] Jun 07, 2017 INSTRUCTIONS MEDICATIONS ADMINISTERED No Known Medications [...]
--- OUTSIDE RECORDS SUMMARY | 2018-04-02 20:41 | XMS REPORT ---
Author Author MARC SWANN [facility] Address Unknown Care Team Providers Care Take Away Worker Name Role Phone [facility]RC SWANN Unavailable PROBLEMS Unknown Problems ALLERGIES No Information ENCOUNTERS Encounter Location Date Diagnosis [facility] [id number] [place] [address] [phone] Feb, [facility] [id number] [place] [address] [phone] Jan, Dental examination Z01.20 [facility] [id number] [place] [address] [phone] Jan, Dental examination Z01.20 [facility] [address] [id number] [place] [address] [phone] December, Dental examination Z01.20 [facility] [address] [id number] [place] [address] [phone] Nov, Dental examination Z01.20 [facility] [id number] [place] [address] [phone] Nov, Dental examination Z01.20 [facility] [address] [id number] [place] [address] [phone] Sep, Dental examination Z01.20 [facility] [address] [id number] [place] [address] [phone] Sep, [facility] [address] [id number] [place] [address] [phone] Aug, Dental examination Z01.20 [facility] [address] [id number] [place] [address] [phone] Aug, Dental examination Z01.20 [facility] [address] [id number] [place] [address] [phone] Aug, Dental caries K02.9 [facility] [address] [id number], [place] [phone] Aug, Dental examination Z01.20 [facility] [address] [id number], [place] [phone] Jul, Dental examination Z01.20 [facility] [address] [id number], [place] [phone] Jul, [facility] [address] [id number] [place] [address] [phone] Jun, Dental examination Z01.20 [facility] [address] [id number] [place] [address] [phone] Jun, Dental examination Z01.20 [facility] [address] [id number] [place] [address] [phone] Jun, Dental examination Z01.20 [facility] [address] [id number] [place] [address] [phone] May, Dental examination Z01.20 [facility] [address] [id number], [place] [phone] May, Dental examination Z01.20 [facility] [address] [id number], [place] [phone] May, Dental examination Z01.20 [facility] [address] [id number], [place] [phone] May, Dental examination Z01.20 [facility] [address] [id number], [place] [phone] Apr, Dental examination Z01.20 [facility] [address] [id number], [place] [phone] Apr, [facility] [address] [id number], [place] [phone] Apr, [facility] [address] [id number], [place] [phone] Mar, Dental examination Z01.20 [facility] [address] [id number], [place] [phone] December, Dental examination Z01.20 [facility] [address] [id number], [place] [phone] Oct, Dental examination Z01.20 [facility] [address] [id number], [place] [phone] Sep, Dental examination Z01.20 [facility] [address] [id number] [place] [address] [phone] Aug, Dental examination Z01.20 [facility] [address] [id number] [place] [address] [phone] Jul, Dental examination Z01.20 [facility] [address] [id number] [place] [address] [phone] Apr, Encounter for dental examination Z01.20 [facility] [address] [id number] [place] [address] [phone] Feb, Dental examination Z01.20 [facility] [address] [id number], [place] [phone] December, Dental examination Z01.20 [facility] [address] [id number], [place] [phone] December, [facility] [address] [id number], [place] [phone] Nov, Encounter for dental examination Z01.20 [facility] [address] [id number], [place] [phone] Oct, Dental examination Z01.20 [facility] [address] [id number], [place] [phone] Oct, Encounter for dental examination Z01.20 [facility] [address] [id number], [place] [address] Oct, [facility] [address] [id number], [place] [phone] Oct, Dental examination Z01.20 [facility] [address] [facility] [id number] [place] [phone] Apr, Dental examination V72.2 [facility] [address] [facility] [id number] [place] [phone] Jan, Dental examination V72.2 IMMUNIZATIONS No Known Immunizations SOCIAL HISTORY Never Assessed REASON FOR VISIT Requesting pre-med PLAN OF CARE VITAL SIGNS MEDICATIONS Medication Instructions Dosage Frequency Start Date End Date Duration Status Amoxicillin 500 MG Orally 1 hour before dental treatment 4 capsules Sep, 1 days Active RESULTS No Results PROCEDURES No Known procedures [...]
--- OUTSIDE RECORDS SUMMARY | 2018-04-02 20:42 | XMS REPORT ---
Author Author MARC SWANN [facility] Address Unknown Care Team Providers Care American Indian Policy Specialist Name Role Phone MARC SWANN Unavailable PROBLEMS Unknown Problems ALLERGIES Substance Reaction Event Type Date Status Codeine Sulfate Unknown Drug Allergy Aug, Active ENCOUNTERS Encounter Location Date Diagnosis [facility] [id number] [place] [address] [phone] Feb, [facility] [address] [id number] [place] [address] [phone] Jan, [facility] [id number] [place] [address] [phone] Jan, Dental examination Z01.20 [facility] [address] [id number] [place] [address] [phone] December, Dental examination Z01.20 [facility] [address] [id number] [place] [address] [phone] Nov, Dental examination Z01.20 [facility] [address] [id number] [place] [address] [phone] Nov, Dental examination Z01.20 [facility] [address] [id number] [place] [address] [phone] Sep, Dental examination Z01.20 [facility] [address] [id number] [place] [address] [phone] Sep, [facility] [address] [id number] [place] [address] [phone] Aug, Dental examination Z01.20 [facility] [address] [id number] [place] [address] [phone] Aug, Dental examination Z01.20 [facility] [address] [id number] [place] [address] [phone] Aug, Dental caries K02.9 [facility] [address] [id number], [place] [phone] Aug, Dental examination Z01.20 [facility] [address] [id number], [place] [phone] Jul, Dental examination Z01.20 [facility] [address] [id number], [place] [address] Jul, [facility] [address] [id number] [place] [address] [phone] Jun, Dental examination Z01.20 [facility] [address] [id number] [place] [address] [phone] Jun, Dental examination Z01.20 [facility] [address] [id number], [place] [phone] Jun, Dental examination Z01.20 [facility] [address] [id number], [place] [phone] May, Dental examination Z01.20 [facility] [address] [id number] [place] [address] [id number] May, Dental examination Z01.20 [facility] [address] [id number], [place] [phone] May, Dental examination Z01.20 [facility] [address] [id number], [place] [phone] May, Dental examination Z01.20 [facility] [address] [id number], [place] [phone] Apr, Dental examination Z01.20 [facility] [address] [id number], [place] [phone] Apr, [facility] [address] [id number], [place] [phone] Apr, [facility] [address] [id number], [place] [phone] Mar, Dental examination Z01.20 [facility] [address] [id number], [place] [phone] December, Dental examination Z01.20 [facility] [address] [id number], [place] [phone] Oct, Dental examination Z01.20 [facility] [address] [id number], [place] [phone] Sep, Dental examination Z01.20 [facility] [address] [id number] [place] [address] [phone] Aug, Dental examination Z01.20 [facility] [address] [id number] [place] [address] [phone] Jul, Dental examination Z01.20 [facility] [address] [id number], [place] [phone] Apr, Encounter for dental examination Z01.20 [facility] [address] [id number] [place] [address] [phone] Feb, Dental examination Z01.20 [facility] [address] [id number], [place] [phone] December, Dental examination Z01.20 [facility] [address] [id number], [place] [phone] December, [facility] [address] [id number], [place] [phone] Nov, Encounter for dental examination Z01.20 [facility] [address] [id number], [place] [phone] Oct, Dental examination Z01.20 [facility] [address] [id number], [place] [phone] Oct, Encounter for dental examination Z01.20 [facility] [address] [id number] [place] [address] Oct, [facility] [address] [id number], [place] [phone] Oct, Dental examination Z01.20 [facility] [address] [id number] [place] [phone] Apr, Dental examination V72.2 [facility] [address] [id number] [place] [phone] Jan, Dental examination V72.2 IMMUNIZATIONS No Known Immunizations SOCIAL HISTORY Never Assessed REASON FOR VISIT chelsi PLAN OF CARE Activity Details Follow Up prn Reason:O & R #14- 1 hour VITAL SIGNS Blood pressure systolic 147 mmHg 2017-09-14 Blood pressure diastolic 70 mmHg 2017-09-14 MEDICATIONS Medication Instructions Dosage Frequency Start Date End Date Duration Status Amoxicillin 500 MG Orally at once 4 capsules 20 Aug, 2017 1 days Active Amoxicillin Not-Taking Hydrochlorothiazide Active Plavix Active Amoxicillin 500 MG Orally 1 hour before dental treatment 4 capsules 1 days Active Diclofenac Active Simvastatin Active Losartan Potassium-HCTZ Active Amlodipine Besy-Benazepril HCl Active RESULTS No Results PROCEDURES Procedure Date Ordered Result Body Site LTD ORAL EVALUATION - PROBLEM FOCUS Sep 14, 2017 INTRAORL-PERIAPICAL 1 FILM [id number] Sep 14, 2017 BITEWING - SINGLE FILM Sep 14, 2017 INSTRUCTIONS MEDICATIONS ADMINISTERED No Known Medications [...]
--- OUTSIDE RECORDS SUMMARY | 2018-04-02 20:42 | XMS REPORT ---
Author Author MARC SWANN [facility] Address Unknown Care Team Providers Care Filter Cleaner Name Role Phone MARC SWANN Unavailable PROBLEMS Unknown Problems ALLERGIES Substance Reaction Event Type Date Status Codeine Sulfate Unknown Drug Allergy Jul, Active ENCOUNTERS Encounter Location Date Diagnosis [facility] [address] [id number] [place] [address] [phone] Jan, [facility] [address] [id number] [place] [address] [phone] December, Dental examination Z01.20 [facility] [address] [id number] [place] [address] [phone] Nov, Dental examination Z01.20 [facility] [address] [id number] [place] [address] [phone] Nov, Dental examination Z01.20 [facility] [address] [id number] [place] [address] [phone] Sep, Dental examination Z01.20 [facility] [address] [id number] [place] [address] [phone] Sep, [facility] [address] [id number] [place] [address] [phone] Aug, Dental examination Z01.20 [facility] [address] [id number] [place] [address] [phone] Aug, Dental examination Z01.20 [facility] [address] [id number] [place] [address] [phone] Aug, Dental caries K02.9 [facility] [address] [id number] [place] [address] [phone] Aug, Dental examination Z01.20 [facility] [address] [id number] [place] [phone] Jul, Dental examination Z01.20 [facility] [address] [id number] [place] [phone]- [phone] Jul, [facility] [address] [id number] [place] [phone] Jun, Dental examination Z01.20 [facility] [address] [id number] [place]AMP, [place] [phone] Jun, Dental examination Z01.20 [facility] [address] [id number] [place] [address] [phone] Jun, Dental examination Z01.20 [facility] [address] [id number] [place] [address] [phone] May, Dental examination Z01.20 [facility] [address] [id number] [place] [phone] May, Dental examination Z01.20 [facility] [address] [id number] [place] [phone] May, Dental examination Z01.20 [facility] [address] [id number] [place] [address] [phone] May, Dental examination Z01.20 [facility] [address] [id number] [place] [phone] Apr, Dental examination Z01.20 [facility] [address] [id number] [place], [place] [phone] Apr, [facility] [address] [id number] [place] [phone] Apr, [facility] [address] [id number] [place], [place] [phone] Mar, Dental examination Z01.20 [facility] [address] [id number] [place] [phone] December, Dental examination Z01.20 [facility] [address] [id number] [place] [phone] Oct, Dental examination Z01.20 [facility] [address] [id number] [place] [phone] Sep, Dental examination Z01.20 [facility] [address] [id number] [place] [phone] Aug, Dental examination Z01.20 [facility] [address] [id number] [place] [phone] Jul, Dental examination Z01.20 [facility] [address] [id number] [place] [address] [phone] Apr, Encounter for dental examination Z01.20 [facility] [address] [id number] [place] [address] [phone] Feb, Dental examination Z01.20 [facility] [address] [id number] [place] [address] [phone] December, Dental examination Z01.20 [facility] [address] [id number] [place] [phone] December, [facility] [address] [id number] [place] [address] [phone] Nov, Encounter for dental examination Z01.20 [facility] [address] [id number] [place]AMP, [place] [phone] Oct, Dental examination Z01.20 [facility] [address] [id number] [place] [phone] Oct, Encounter for dental examination Z01.20 [facility] [address] [id number] [place] [address]- [address] Oct, [facility] [address] [id number] [place] [address] [phone] Oct, Dental examination Z01.20 [facility] [address] [id number] [place], [place] [phone] Apr, Dental examination V72.2 [facility] [address] [id number] [place] [address] [phone] Jan, Dental examination V72.2 IMMUNIZATIONS No Known Immunizations SOCIAL HISTORY Never Assessed REASON FOR VISIT crown prep PLAN OF CARE Activity Details Follow Up 3 Weeks Reason:seat crown # 29 VITAL SIGNS Blood pressure systolic 173 mmHg 2017-08-06 Blood pressure diastolic 80 mmHg 2017-08-06 MEDICATIONS Medication Instructions Dosage Frequency Start Date End Date Duration Status Plavix Active Amoxicillin Active Amlodipine Besy-Benazepril HCl Active Hydrochlorothiazide Active Losartan Potassium-HCTZ Active Simvastatin Active Amoxicillin 500 MG Orally 1 hour before dental treatment 4 capsules 1 days Active Diclofenac Active RESULTS No Results PROCEDURES Procedure Date Ordered Result Body Site CROWN - PORCELAIN/CERAMIC SUBSTRATE Apr 01, 2017 INSTRUCTIONS MEDICATIONS ADMINISTERED No Known Medications [...]
--- OUTSIDE RECORDS SUMMARY | 2018-04-02 20:42 | XMS REPORT ---
Author Author MARC SWANN [facility] Address Unknown Care Team Providers Care News Agent Name Role Phone MARC SWANN Unavailable PROBLEMS Unknown Problems ALLERGIES No Information ENCOUNTERS Encounter Location Date Diagnosis [facility] [id number] [place] [address] [phone] December, [facility] [address] [phone] Nov, Dental examination Z01.20 [facility] [address] [phone] Sep, Dental examination Z01.20 [facility] [address] [id number] [place] [address] [phone] Sep, [facility] [id number] [place] [address] [phone] Aug, Dental examination Z01.20 [facility] [id number] [place] [address] [phone] Aug, Dental examination Z01.20 [facility] [id number] [place] [address] [phone] Aug, Dental caries K02.9 [facility] [id number] [place] [address] [phone] Aug, Dental examination Z01.20 [facility] [id number] [place] [address] [phone] Jul, Dental examination Z01.20 [facility] [address] [id number] [place] [address] [phone] Jul, [facility] [id number] [place] [address] [phone] Jun, Dental examination Z01.20 [facility] [address] [id number] MILLS[place] [phone] Jun, [facility] Z01.20 [facility] [address] [id number] MILLS, [place] [phone] Jun, [facility] examination Z01.20 [facility] [address] [id number] MILLS, [place] [phone] May, Dental examination Z01.20 [facility] [address] [id number] MILLS, [place] [phone] May, Dental examination Z01.20 [facility] [address] [id number] [place] [address] [phone] May, Dental examination Z01.20 [facility] [address] [id number] [place] [address] [phone] May, Dental examination Z01.20 [facility] [address] [id number] MILLS[place] [phone] Apr, Dental examination Z01.20 [facility] [address] [id number] MILLS, [place] [phone] Apr, [facility] [address] [id number] [place] [address] [phone] Apr, [facility] [address] [id number] MILLS, [place] [phone] Mar, Dental examination Z01.20 [facility] [address] [id number] MILLS, [place] [phone] December, Dental examination Z01.20 [facility] [address] [id number] MILLS[place] [phone] Oct, Dental examination Z01.20 [facility] [address] [id number] MILLS, [place] [phone] Sep, Dental examination Z01.20 [facility] [address] [id number] MILLS, [place] [phone] Aug, Dental examination Z01.20 [facility] [address]00565100[place] [phone] Jul, Dental examination Z01.20 [facility] [id number] [place] [address] [phone] Apr, Encounter for dental examination Z01.20 [facility] [address]00565100[place] [phone] Feb, Dental examination Z01.20 [facility] [id number] [place] [address] [phone] December, Dental examination Z01.20 [facility] [id number] [place] [address] [phone] December, [facility] [id number] [place] [address] [phone] Nov, Encounter for dental examination Z01.20 [facility] [id number] [place] [address] [phone] Oct, Dental examination Z01.20 [facility] [address] [place] [address] [phone] Oct, Encounter for dental examination Z01.20 [facility] [address] [place] [address] [phone] Oct, [facility] [id number] [place] [address] [phone] Oct, Dental examination Z01.20 [facility] [address] [place] [address] [phone] Apr, Dental examination V72.2 [facility] [address] [place] [address] [phone] Jan, Dental examination V72.2 IMMUNIZATIONS No Known [...]
--- OUTSIDE RECORDS SUMMARY | 2018-04-02 20:42 | XMS REPORT ---
Author Author MARC SWANN [facility] Address Unknown Care Team Providers Care Die Cast Operator Name Role Phone MARC SWANN Unavailable PROBLEMS Type Condition ICD9-CM Code OFL62-CO Code Onset Dates Condition Status SNOMED Code Problem Encounter for dental examination Z01.20 Active 772234044 ALLERGIES Unknown Allergies SOCIAL HISTORY No smoking Hx information available PLAN OF CARE VITAL SIGNS MEDICATIONS Unknown Medications RESULTS No Results PROCEDURES Procedure Date Ordered Related Diagnosis Body Site Billing Notes on claim Aug 11, 2016 IMMUNIZATIONS No Known Immunizations
--- OUTSIDE RECORDS SUMMARY | 2018-04-02 20:42 | XMS REPORT ---
Author Author MARC SWANN [facility] Address Unknown Care Team Providers Care Litigator Name Role Phone HUE MARC Unavailable PROBLEMS Type Condition ICD9-CM Code DMC87-TS Code Onset Dates Condition Status SNOMED Code Problem Encounter for dental examination Z01.20 Active 190403214 ALLERGIES Substance Reaction Event Type Date Status Codeine Sulfate Unknown Drug Allergy December, Active SOCIAL HISTORY Never Assessed PLAN OF CARE Activity Details Follow Up prn Reason:o&r VITAL SIGNS Blood pressure systolic 153 mmHg 2017-01-12 Blood pressure diastolic 83 mmHg 2017-01-12 MEDICATIONS Medication Instructions Dosage Frequency Start Date End Date Duration Status Diclofenac Active Amoxicillin Active Hydrochlorothiazide Active Losartan Potassium-HCTZ Active Amoxicillin 500 MG Orally 1 hour before dental treatment 4 capsules December, 1 days Active Simvastatin Active Plavix Active Amlodipine Besy-Benazepril HCl Active RESULTS No Results PROCEDURES Procedure Date Ordered Result Body Site Dental no charge January 12, 2017 IMMUNIZATIONS No Known Immunizations MEDICAL (GENERAL) HISTORY Type Description Date Medical History HBP Medical History Joint Replacement Medical History Surgery Requiring rods, pins, screws Medical History Bone Density Medication (Bisphosphonates) Medical History Blood Thinners Medical History Arthritis Surgical History Knee Replacement 2007
--- OUTSIDE RECORDS SUMMARY | 2018-04-02 20:42 | XMS REPORT ---
Author Author MARC SWANN [facility] Address Unknown Care Team Providers Care Change Management Administrator Name Role Phone MARC SWANN Unavailable PROBLEMS Unknown Problems ALLERGIES No Information ENCOUNTERS Encounter Location Date Diagnosis [facility] [id number] [place] [address] [phone] Jan, [facility] [address] [place] [address] [phone] December, Dental examination Z01.20 [facility] [address] [place] [address] [phone] Nov, Dental examination Z01.20 [facility] [id number] [place] [address] [phone] Nov, Dental examination Z01.20 [facility] [address] [id number] [place] [address] [phone] Sep, Dental examination Z01.20 [facility] [address] [id number] [place] [address] [phone] Sep, [facility] [id number] [place] [address] [phone] Aug, Dental examination Z01.20 [facility] [id number] [place] [address] [phone] Aug, Dental examination Z01.20 [facility] [address] [id number] [place] [address] [phone] Aug, Dental caries K02.9 [facility] [address] [id number] [place] [address] [phone] Aug, Dental examination Z01.20 [facility] [id number] [place] [address] [phone] Jul, Dental examination Z01.20 [facility] [address] [id number], [place] [phone] Jul, [facility] [address] [id number], [place] [phone] Jun, Dental examination Z01.20 [facility] [address] [id number], [place] [phone] Jun, Dental examination Z01.20 [facility] [address] [id number], [place] [phone] Jun, Dental examination Z01.20 [facility] [address] [id number] [place] [address] [phone] May, Dental examination Z01.20 [facility] [address] [id number], [place] [phone] May, Dental examination Z01.20 [facility] [id number] [place] [address] [phone] May, Dental examination Z01.20 [facility] [address] [id number], [place] [phone] May, Dental examination Z01.20 [facility] [address] [id number] [place] [address] [phone] Apr, Dental examination Z01.20 [facility] [address] [id number], [place] [phone] Apr, [facility] [address] [id number], [place] [phone] Apr, [facility] [address] [id number], [place] [phone] Mar, Dental examination Z01.20 [facility] [address] [id number], [place] [phone] December, Dental examination Z01.20 [facility] [address] [id number], [place] [phone] Oct, Dental examination Z01.20 [facility] [address] [id number], [place] [phone] Sep, Dental examination Z01.20 [facility] [address] [id number], [place] [phone] Aug, Dental examination Z01.20 [facility] [address] [id number], [place] [phone] Jul, Dental examination Z01.20 [facility] [address] [id number] [place] [address] [phone] Apr, Encounter for dental examination Z01.20 [facility] [id number] [place] [address] [phone] Feb, Dental examination Z01.20 [facility] [address] [id number] [place] [address] [phone] December, Dental examination Z01.20 [facility] [id number] [place] [address] [phone] December, [facility] [address] [id number] [place] [address] [phone] Nov, Encounter for dental examination Z01.20 [facility] [address] [id number], [place] [phone] Oct, Dental examination Z01.20 [facility] [address] [id number], [place] [phone] Oct, Encounter for dental examination Z01.20 [facility] [address] [id number], [place] [phone] Oct, [facility] [address] [id number], [place] [phone] Oct, Dental examination Z01.20 [facility] [address] [id number], [place] [phone] Apr, Dental examination V72.2 [facility] [address] [id number], [place] [phone] Jan, Dental examination V72.2 IMMUNIZATIONS No Known Immunizations SOCIAL HISTORY Never Assessed REASON FOR VISIT Medication PLAN OF CARE VITAL SIGNS MEDICATIONS Unknown [...]
--- OUTSIDE RECORDS SUMMARY | 2018-04-02 20:42 | XMS REPORT ---
Author Author AR Velasco Organization [facility] Address Unknown Care Team Providers Care Sand Cutter Operator Name Role Phone AR Velasco Unavailable PROBLEMS Type Condition ICD9-CM Code HCY15-UC Code Onset Dates Condition Status SNOMED Code Problem Encounter for dental examination Z01.20 Active 130464182 ALLERGIES Substance Reaction Event Type Date Status Codeine Sulfate Unknown Drug Allergy Sep, Active SOCIAL HISTORY Never Assessed PLAN OF CARE Activity Details Follow Up 3-4 Weeks Reason:Gaffney seat #13 VITAL SIGNS Blood pressure systolic 167 mmHg 2016-10-26 Blood pressure diastolic 69 mmHg 2016-10-26 MEDICATIONS Medication Instructions Dosage Frequency Start Date End Date Duration Status Diclofenac Active Hydrochlorothiazide Active Amoxicillin 500 MG Orally 1 hrs Before Appointment 4 tablet Sep, 1 days Active Amoxicillin Active Simvastatin Active Losartan Potassium-HCTZ Active Amlodipine Besy-Benazepril HCl Active Plavix Active RESULTS No Results PROCEDURES Procedure Date Ordered Result Body Site CROWN - PORCELAIN/CERAMIC SUBSTRATE Sep 07, 2016 IMMUNIZATIONS No Known Immunizations MEDICAL (GENERAL) HISTORY Type Description Date Medical History HBP Medical History Joint Replacement Medical History Surgery Requiring rods, pins, screws Medical History Bone Density Medication (Bisphosphonates) Medical History Blood Thinners Medical History Arthritis Surgical History Knee Replacement 2007
--- OUTSIDE RECORDS SUMMARY | 2018-04-02 20:42 | XMS REPORT ---
Author Author [facility]ARC SWANN [facility] Address Unknown Care Team Providers Care Metal Hanging Supervisor Name Role Phone MARC SWANN Unavailable PROBLEMS Unknown Problems ALLERGIES Substance Reaction Event Type Date Status Codeine Sulfate Unknown Drug Allergy Jun, Active ENCOUNTERS Encounter Location Date Diagnosis [facility] [address] [id number] [place] [address] [phone] Jan, [facility] [address] [id number] [place] [address] [phone] December, Dental examination Z01.20 [facility] [address] [id number] [place] [address] [phone] Nov, Dental examination Z01.20 [facility] [address] [id number] [place] [address] [phone] Nov, Dental examination Z01.20 [facility] [address] [id number] [place] [address] [phone] Sep, Dental examination Z01.20 [facility] [address] [id number] [place] [address] [phone] Sep, [facility] [address] [id number] [place] [address] [phone] Aug, Dental examination Z01.20 [facility] [address] [id number] [place] [address] [phone] Aug, Dental examination Z01.20 [facility] [address] [id number] [place] [address] [phone] Aug, Dental caries K02.9 [facility] [address] [id number] [place] [address] [phone] Aug, Dental examination Z01.20 [facility] [address] [id number], [place] [phone] Jul, Dental examination Z01.20 [facility] [address] [id number], [place] [phone] Jul, [facility] [address] [id number], [place] [phone] Jun, Dental examination Z01.20 [facility] [address] [id number], [place] [phone] Jun, Dental examination Z01.20 [facility] [address] [id number] [place] [address] [phone] Jun, Dental examination Z01.20 [facility] [address] [id number] [place] [address] [phone] May, Dental examination Z01.20 [facility] [address] [id number], [place] [phone] May, Dental examination Z01.20 [facility] [address] [id number], [place] [phone] May, Dental examination Z01.20 [facility] [address] [id number] [place] [address] [phone] May, Dental examination Z01.20 [facility] [address] [id number], [place] [phone] Apr, Dental examination Z01.20 [facility] [address] [id number], [place] [phone] Apr, [facility] [address] [id number], [place] [phone] Apr, [facility] [address] [id number], [place] [phone] Mar, Dental examination Z01.20 [facility] [address] [id number], [place] [phone] December, Dental examination Z01.20 [facility] [address] [id number], [place] [phone] Oct, Dental examination Z01.20 [facility] [address] [id number], [place] [phone] Sep, Dental examination Z01.20 [facility] [address] [id number], [place] [phone] Aug, Dental examination Z01.20 [facility] [address] [id number], [place] [phone] Jul, Dental examination Z01.20 [facility] [address] [id number] [place] [address] [phone] Apr, Encounter for dental examination Z01.20 [facility] [address] [id number] [place] [address] [phone] Feb, Dental examination Z01.20 [facility] [address] [id number] [place] [address] [phone] December, Dental examination Z01.20 [facility] [address] [id number], [place] [phone] December, [facility] [address] [id number] [place] [address] [phone] Nov, Encounter for dental examination Z01.20 [facility] [address] [id number], [place] [phone] Oct, Dental examination Z01.20 [facility] [address] [id number], [place] [phone] Oct, Encounter for dental examination Z01.20 [facility] [address] [id number], [place] [phone] Oct, [facility] [id number] [place] [address] [phone] Oct, Dental examination Z01.20 [facility] [address] [id number], [place] [phone] Apr, Dental examination V72.2 [facility] [address] [id number] [place] [address] [phone] Jan, Dental examination V72.2 IMMUNIZATIONS No Known Immunizations SOCIAL HISTORY Never Assessed REASON FOR VISIT build up #7 PLAN OF CARE Activity Details Follow Up prn Reason:crown prep #7 VITAL SIGNS Blood pressure systolic 149 mmHg 2017-07-07 Blood pressure diastolic 63 mmHg 2017-07-07 MEDICATIONS Medication Instructions Dosage Frequency Start Date End Date Duration Status Amoxicillin Active Plavix Active Diclofenac Active Hydrochlorothiazide Active Losartan Potassium-HCTZ Active Amlodipine Besy-Benazepril HCl Active Simvastatin Active RESULTS No Results PROCEDURES Procedure Date Ordered Result Body Site PREFABR POST Jul 07, 2017 INSTRUCTIONS MEDICATIONS ADMINISTERED No Known [...]
--- OUTSIDE RECORDS SUMMARY | 2018-04-02 20:42 | XMS REPORT ---
Author Author TINY GALLARDO Organization [employer] Address Unknown Phone Unavailable Care Team Providers Care Paramedic Name Role Phone TINY GALLARDO CP Unavailable Allergies, Adverse Reactions, Alerts Substance Reaction Event Type Codeine Sulfate Info Not Available Drug Allergy Problems Problem Type Condition Code Onset Dates Condition Status Assessment Dental examination Z01.20 Active Medications Medication Code System Code Instructions Start Date End Date Status Dosage Amoxicillin [facility] [address]-59 500 MG Orally Take 4 capsules one hour before dental appointment January 13, 2016 January 17, 2016 4 capsules Hydrochlorothiazide [facility] [address]-03 not defined Amoxicillin [facility] [address]-71 not defined Plavix [facility] [address]-44 not defined Simvastatin [facility] [address]-96 not defined Losartan Potassium-HCTZ [facility] [address]-80 not defined Diclofenac [facility] [address]-01 not defined Amlodipine Besy-Benazepril HCl [facility] [address]-78 not defined Procedures Procedure Coding System Code Date CORE BUILDUP INCLUDING ANY PINS CPT-4 D2950 January 16, 2016 CROWN - PORCELAIN/CERAMIC SUBSTRATE CPT-4 D2740 January 16, 2016 Vital Signs Date/Time: January 16, 2016 Blood Pressure Diastolic 77 mmHg Blood Pressure Systolic 142 mmHg Results No Known Results Summary Purpose [employer] Submission
--- OUTSIDE RECORDS SUMMARY | 2018-04-02 20:42 | XMS REPORT ---
Author Author TANYA SCHROEDER [facility] Address [address] [place] [address] Care Team Providers Care Head Athletic Trainer/Strength Coach Name Role Phone ALEXANDRETANYA Unavailable PROBLEMS Type Condition ICD9-CM Code TIQ88-WK Code Onset Dates Condition Status SNOMED Code Problem Encounter for dental examination Z01.20 Active 820814757 Assessment Encounter for dental examination Z01.20 Apr, Active 012482396 ALLERGIES Substance Reaction Event Type Date Status Codeine Sulfate Unknown Drug Allergy Apr, Active SOCIAL HISTORY No smoking Hx information available PLAN OF CARE VITAL SIGNS Heart Rate 62 bpm 2016-05-19 Blood pressure systolic 147 mmHg 2016-05-19 Blood pressure diastolic 60 mmHg 2016-05-19 MEDICATIONS Medication Instructions Dosage Frequency Start Date End Date Duration Status Losartan Potassium-HCTZ Active Amlodipine Besy-Benazepril HCl Active Hydrochlorothiazide Active Plavix Active Amoxicillin Active Simvastatin Active Diclofenac Active RESULTS No Results PROCEDURES Procedure Date Ordered Related Diagnosis Body Site PERIODIC ORAL EXAMINATION May 19, 2016 INTRAORL-PERIAPICAL 1 FILM 54517 May 19, 2016 BITEWINGS - TWO FILMS May 19, 2016 BITEWING - SINGLE FILM May 19, 2016 TOPICAL FLUORIDE VARNISH May 19, 2016 Periodontal maint procedures May 19, 2016 IMMUNIZATIONS No Known Immunizations
--- OUTSIDE RECORDS SUMMARY | 2018-04-02 20:42 | XMS REPORT ---
Author Author AR Velasco Organization [facility] Address Unknown Care Team Providers Care Wood Scrap Handler Name Role Phone AR Velasco Unavailable PROBLEMS Type Condition ICD9-CM Code XTR63-NA Code Onset Dates Condition Status SNOMED Code Problem Encounter for dental examination Z01.20 Active 528242968 ALLERGIES Substance Reaction Event Type Date Status Codeine Sulfate Unknown Drug Allergy Aug, Active SOCIAL HISTORY No smoking Hx information available PLAN OF CARE Activity Details Follow Up prn Reason:crown #13 VITAL SIGNS Blood pressure systolic 122 mmHg 2016-09-07 Blood pressure diastolic 43 mmHg 2016-09-07 MEDICATIONS Medication Instructions Dosage Frequency Start Date End Date Duration Status Plavix Active Amoxicillin Active Simvastatin Active Hydrochlorothiazide Active Losartan Potassium-HCTZ Active Amlodipine Besy-Benazepril HCl Active Diclofenac Active RESULTS No Results PROCEDURES Procedure Date Ordered Related Diagnosis Body Site LTD ORAL EVALUATION - PROBLEM FOCUS Sep 07, 2016 INTRAORL-PERIAPICAL 1 FILM 50076 Sep 07, 2016 IMMUNIZATIONS No Known Immunizations
--- OUTSIDE RECORDS SUMMARY | 2018-04-02 20:43 | XMS REPORT ---
Author Author MARC SWANN [facility] Address Unknown Care Team Providers Care Financial Services Sales Representative Name Role Phone MARC SWANN Unavailable PROBLEMS Unknown Problems ALLERGIES Substance Reaction Event Type Date Status Codeine Sulfate Unknown Drug Allergy Aug, Active ENCOUNTERS Encounter Location Date Diagnosis [facility] [id number] [place] [phone] Feb, [facility] [id number] [place] [address] [phone] Jan, [facility] [id number] [place] [address] [phone] Jan, Dental examination Z01.20 [facility] [address] [id number] [place] [address] [phone] December, Dental examination Z01.20 [facility] [address] [id number] [place] [address] [phone] Nov, Dental examination Z01.20 [facility] [id number] [place] [address] [phone] Nov, Dental examination Z01.20 [facility] [address] [id number] [place] [address] [phone] Sep, Dental examination Z01.20 [facility] [address] [id number] [place] [address] [phone] Sep, [facility] [address] [id number] [place] [address] [phone] Aug, Dental examination Z01.20 [facility] [address] [id number] [place] [address] [phone] Aug, Dental examination Z01.20 [facility] [address] [id number] [place] [address] [phone] Aug, Dental caries K02.9 [facility] [address] [id number], [place] [phone] Aug, Dental examination Z01.20 [facility] [address] [id number], [place] [phone] Jul, Dental examination Z01.20 [facility] [address] [id number], [place] [address] Jul, [facility] [address] [id number] [place] [address] [phone] Jun, Dental examination Z01.20 [facility] [address] [id number] [place] [address] [phone] Jun, Dental examination Z01.20 [facility] [address] [id number], [place] [phone] Jun, Dental examination Z01.20 [facility] [address] [id number], [place] [phone] May, Dental examination Z01.20 [facility] [id number] [place] [address] [phone] May, Dental examination Z01.20 [facility] [address] [id number], [place] [phone] May, Dental examination Z01.20 [facility] [address] [id number], [place] [phone] May, Dental examination Z01.20 [facility] [address] [id number], [place] [phone] Apr, Dental examination Z01.20 [facility] [address] [id number], [place] [phone] Apr, [facility] [address] [id number], [place] [phone] Apr, [facility] [address] [id number], [place] [phone] Mar, Dental examination Z01.20 [facility] [address] [id number], [place] [phone] December, Dental examination Z01.20 [facility] [address] [id number], [place] [phone] Oct, Dental examination Z01.20 [facility] [address] [id number], [place] [phone] Sep, Dental examination Z01.20 [facility] [address] [id number] [place] [address] [phone] Aug, Dental examination Z01.20 [facility] [address] [id number] [place] [address] [id number] Jul, Dental examination Z01.20 [facility] [address] [id number], [place] [phone] Apr, Encounter for dental examination Z01.20 [facility] [address] [id number] [place] [address] [id number] Feb, Dental examination Z01.20 [facility] [address] [id number], [place] [phone] December, Dental examination Z01.20 [facility] [address] [id number], [place] [phone] December, [facility] [address] [id number], [place] [phone] Nov, Encounter for dental examination Z01.20 [facility] [address] [id number], [place] [phone] Oct, Dental examination Z01.20 [facility] [address] [id number], [place] [phone] Oct, Encounter for dental examination Z01.20 [facility] [address] [id number] [place] [address] Oct, [facility] [address] [id number], [place] [phone] Oct, Dental examination Z01.20 [facility] [address] [id number] [place] [phone] Apr, Dental examination V72.2 [facility] [address] [id number] [place] [phone] Jan, Dental examination V72.2 IMMUNIZATIONS No Known Immunizations SOCIAL HISTORY Never Assessed REASON FOR VISIT ext #15 PLAN OF CARE Activity Details Follow Up prn Reason: VITAL SIGNS Blood pressure systolic 167 mmHg 2017-09-03 Blood pressure diastolic 83 mmHg 2017-09-03 MEDICATIONS Medication Instructions Dosage Frequency Start Date End Date Duration Status Plavix Active Amoxicillin 500 MG Orally 1 hour before dental treatment 4 capsules 1 days Active Amlodipine Besy-Benazepril HCl Active Simvastatin Active Amoxicillin Not-Taking Hydrochlorothiazide Active Losartan Potassium-HCTZ Active Diclofenac Active RESULTS No Results PROCEDURES Procedure Date Ordered Result Body Site EXTRAC ERUPTED TOOTH/EXPOSED ROOT Sep 03, 2017 INSTRUCTIONS MEDICATIONS ADMINISTERED No Known Medications [...]
--- OUTSIDE RECORDS SUMMARY | 2018-04-02 20:43 | XMS REPORT ---
Author Author TINY GALLARDO Organization [employer] Address Unknown Phone Unavailable Care Team Providers Care Director Mortgage Name Role Phone TINY GALLARDO CP Unavailable Allergies, Adverse Reactions, Alerts Substance Reaction Event Type Codeine Sulfate Info Not Available Drug Allergy Problems Problem Type Condition Code Onset Dates Condition Status Assessment Dental examination Z01.20 Active Medications No Known Medications Procedures Procedure Coding System Code Date INTRAORL-PERIAPICAL 1 FILM 23141 CPT-4 D0220 October 29, 2015 BITEWING - SINGLE FILM CPT-4 D0270 October 29, 2015 LTD ORAL EVALUATION - PROBLEM FOCUS CPT-4 D0140 October 29, 2015 Vital Signs Date/Time: October 29, 2015 Blood Pressure Diastolic 61 mmHg Blood Pressure Systolic 139 mmHg Results No Known Results Summary Purpose [employer] Submission
--- OUTSIDE RECORDS SUMMARY | 2018-04-02 20:43 | XMS REPORT ---
Author Author MARC SWANN [facility] Address Unknown Care Team Providers Care Plant Inspector Name Role Phone MARC SWANN Unavailable PROBLEMS Unknown Problems ALLERGIES Substance Reaction Event Type Date Status Codeine Sulfate Unknown Drug Allergy Jun, Active ENCOUNTERS Encounter Location Date Diagnosis [facility] [id number] [place] [address] [phone] Jan, [facility] [address] [id number] [place] [address] [phone] December, Dental examination Z01.20 [facility] [id number] [place] [address] [phone] Nov, Dental examination Z01.20 [facility] [address] [id number] [place] [address] [phone] Nov, Dental examination Z01.20 [facility] [id number] [place] [address] [phone] Sep, Dental examination Z01.20 [facility] [address] [id number] [place] [address] [phone] Sep, [facility] [address] [id number] [place] [address] [phone] Aug, Dental examination Z01.20 [facility] [address] [id number] [place] [address] [phone] Aug, Dental examination Z01.20 [facility] [address] [id number] [place] [address] [phone] Aug, Dental caries K02.9 [facility] [address] [id number] [place] [address] [phone] Aug, Dental examination Z01.20 [facility] [address] [id number], [place] [phone] Jul, Dental examination Z01.20 [facility] [address] [id number], [place] [address] Jul, [facility] [address] [id number], [place] [phone] Jun, Dental examination Z01.20 [facility] [address] [id number], [place] [phone] Jun, Dental examination Z01.20 [facility] [address] [id number] [place] [address] [phone] Jun, Dental examination Z01.20 [facility] [address] [id number] [place] [address] [phone] May, Dental examination Z01.20 [facility] [address] [id number], [place] [phone] May, Dental examination Z01.20 [facility] [address] [id number], [place] [phone] May, Dental examination Z01.20 [facility] [address] [id number] [place] [address] [phone] May, Dental examination Z01.20 [facility] [address] [id number], [place] [phone] Apr, Dental examination Z01.20 [facility] [address] [id number], [place] [phone] Apr, [facility] [address] [id number], [place] [phone] Apr, [facility] [address] [id number], [place] [phone] Mar, Dental examination Z01.20 [facility] [address] [id number], [place] [phone] December, Dental examination Z01.20 [facility] [address] [id number], [place] [phone] Oct, Dental examination Z01.20 [facility] [address] [id number], [place] [phone] Sep, Dental examination Z01.20 [facility] [address] [id number], [place] [phone] Aug, Dental examination Z01.20 [facility] [address] [id number], [place] [phone] Jul, Dental examination Z01.20 [facility] [address] [id number] [place] [address] [phone] Apr, Encounter for dental examination Z01.20 [facility] [address] [id number] [place] [address] [phone] Feb, Dental examination Z01.20 [facility] [address] [id number] [place] [address] [phone] December, Dental examination Z01.20 [facility] [address] [id number], [place] [phone] December, [facility] [address] [id number] [place] [address] [phone] Nov, Encounter for dental examination Z01.20 [facility] [address] [id number], [place] [phone] Oct, Dental examination Z01.20 [facility] [address] [id number], [place] [phone] Oct, Encounter for dental examination Z01.20 [facility] [address] [id number], [place] [phone] Oct, [facility] [address] [id number] [place] [address] [id number] Oct, Dental examination Z01.20 [facility] [address] [id number], [place] [phone] Apr, Dental examination V72.2 [facility] [address] [id number] [place] [address] [phone] Jan, Dental examination V72.2 IMMUNIZATIONS No Known Immunizations SOCIAL HISTORY Never Assessed REASON FOR VISIT CROWN PREP PLAN OF CARE Activity Details Follow Up prn Reason:crown prep VITAL SIGNS Blood pressure systolic 165 mmHg 2017-07-21 Blood pressure diastolic 76 mmHg 2017-07-21 MEDICATIONS Medication Instructions Dosage Frequency Start Date End Date Duration Status Amoxicillin Active Plavix Active Amlodipine Besy-Benazepril HCl Active Hydrochlorothiazide Active Diclofenac Active Simvastatin Active Losartan Potassium-HCTZ Active RESULTS No Results PROCEDURES Procedure Date Ordered Result Body Site PREFABR POST Jul 21, 2017 INSTRUCTIONS MEDICATIONS ADMINISTERED No Known Medications [...]
--- OUTSIDE RECORDS SUMMARY | 2018-04-02 20:43 | XMS REPORT ---
Author Author MARC SWANN [facility] Address Unknown Care Team Providers Care Registered Nurse Practitioner Name Role Phone MARC SWANN Unavailable PROBLEMS Unknown Problems ALLERGIES Substance Reaction Event Type Date Status Codeine Sulfate Unknown Drug Allergy Aug, Active ENCOUNTERS Encounter Location Date Diagnosis [facility] [id number] [place] [address] [phone] Feb, [facility] [id number] [place] [address] [phone] Jan, [facility] [id number] [place] [address] [phone] Jan, Dental examination Z01.20 [facility] [address] [id number] [place] [address] [phone] December, Dental examination Z01.20 [facility] [address] [id number] [place] [address] [phone] Nov, Dental examination Z01.20 [facility] [address] [id number] [place] [address] [id number] Nov, Dental examination Z01.20 [facility] [address] [id number] [place] [address] [phone] Sep, Dental examination Z01.20 [facility] [address] [id number] [place] [address] [id number] Sep, [facility] [address] [id number] [place] [address] [phone] Aug, Dental examination Z01.20 [facility] [address] [id number] [place] [address] [id number] Aug, Dental examination Z01.20 [facility] [address] [id number] [place] [address] [phone] Aug, Dental caries K02.9 [facility] [address] [id number], [place] [phone] Aug, Dental examination Z01.20 [facility] [address] [id number], [place] [phone] Jul, Dental examination Z01.20 [facility] [address] [id number], [place] [address] Jul, [facility] [address] [id number] [place] [address] [phone] Jun, Dental examination Z01.20 [facility] [address] [id number] [place] [address] [phone] Jun, Dental examination Z01.20 [facility] [address] [id number], [place] [phone] Jun, Dental examination Z01.20 [facility] [address] [id number], [place] [phone] May, Dental examination Z01.20 [facility] [address] [id number] [place] [address] [id number] May, Dental examination Z01.20 [facility] [address] [id number], [place] [phone] May, Dental examination Z01.20 [facility] [address] [id number], [place] [phone] May, Dental examination Z01.20 [facility] [address] [id number], [place] [phone] Apr, Dental examination Z01.20 [facility] [address] [id number], [place] [phone] Apr, [facility] [address] [id number], [place] [phone] Apr, [facility] [address] [id number], [place] [phone] Mar, Dental examination Z01.20 [facility] [address] [id number], [place] [phone] December, Dental examination Z01.20 [facility] [address] [id number], [place] [phone] Oct, Dental examination Z01.20 [facility] [address] [id number], [place] [phone] Sep, Dental examination Z01.20 [facility] [address] [id number] [place] [address] [phone] Aug, Dental examination Z01.20 [facility] [address] [id number] [place] [address] [phone] Jul, Dental examination Z01.20 [facility] [address] [id number], [place] [phone] Apr, Encounter for dental examination Z01.20 [facility] [address] [id number] [place] [address] [phone] Feb, Dental examination Z01.20 [facility] [address] [id number], [place] [phone] December, Dental examination Z01.20 [facility] [address] [id number], [place] [phone] December, [facility] [address] [id number], [place] [phone] Nov, Encounter for dental examination Z01.20 [facility] [address] [id number], [place] [phone] Oct, Dental examination Z01.20 [facility] [address] [id number], [place] [phone] Oct, Encounter for dental examination Z01.20 [facility] [address] [id number] [place] [address] Oct, [facility] [address] [id number], [place] [phone] Oct, Dental examination Z01.20 [facility] [address] [id number] [place] [phone] Apr, Dental examination V72.2 [facility] [address] [id number] [place] [phone] Jan, Dental examination V72.2 IMMUNIZATIONS No Known Immunizations SOCIAL HISTORY Never Assessed REASON FOR VISIT chelsi PLAN OF CARE Activity Details Follow Up 2 - 3 Days Reason:te #15 VITAL SIGNS Blood pressure systolic 154 mmHg 2017-09-01 Blood pressure diastolic 73 mmHg 2017-09-01 MEDICATIONS Medication Instructions Dosage Frequency Start Date End Date Duration Status Hydrochlorothiazide Active Amoxicillin 500 MG Orally 1 hour before dental treatment 4 capsules 1 days Active Amoxicillin Active Losartan Potassium-HCTZ Active Plavix Active Simvastatin Active Diclofenac Active Amlodipine Besy-Benazepril HCl Active RESULTS No Results PROCEDURES Procedure Date Ordered Result Body Site LTD ORAL EVALUATION - PROBLEM FOCUS Sep 01, 2017 INTRAORL-PERIAPICAL 1 FILM 72912 Sep 01, 2017 INSTRUCTIONS MEDICATIONS ADMINISTERED No Known [...]
--- OUTSIDE RECORDS SUMMARY | 2018-04-02 20:44 | XMS REPORT ---
Author Author MARC SWANN [facility] Address Unknown Care Team Providers Care Cranberry Bog Supervisor Name Role Phone MARC SWANN Unavailable PROBLEMS Unknown Problems ALLERGIES Substance Reaction Event Type Date Status Codeine Sulfate Unknown Drug Allergy Jun, Active ENCOUNTERS Encounter Location Date Diagnosis [facility] [address] [id number] [place] [address] [id number] Jan, [facility] [address] [id number] [place] [address] [phone] December, Dental examination Z01.20 [facility] [address] [id number] [place] [address] [id number] Nov, Dental examination Z01.20 [facility] [id number] [place] [address] [id number] Nov, Dental examination Z01.20 [facility] [id number] [place] [address] [id number] Sep, Dental examination Z01.20 [facility] [address] [id number] [place] [address] [phone] Sep, [facility] [address] [id number] [place] [address] [id number] Aug, Dental examination Z01.20 [facility] [address] [id number] [place] [address] [id number] Aug, Dental examination Z01.20 [facility] [address] [id number] [place] [address] [id number] Aug, Dental caries K02.9 [facility] [address] [id number] [place] [address] [id number] Aug, Dental examination Z01.20 [facility] [address] [id number], [place] [phone] Jul, Dental examination Z01.20 [facility] [address] [id number], [place] [address] Jul, [facility] [address] [id number][place] [phone] Jun, Dental examination Z01.20 [facility] [address] [id number], [place] [phone] Jun, Dental examination Z01.20 [facility] [address] [id number] [place] [address] [id number] Jun, Dental examination Z01.20 [facility] [address] [id number] [place] [address] [id number] May, Dental examination Z01.20 [facility] [address] [id number], [place] [phone] May, Dental examination Z01.20 [facility] [address] [id number][place] [phone] May, Dental examination Z01.20 [facility] [address] [id number] [place] [address] [id number] May, Dental examination Z01.20 [facility] [address] [id number], [place] [phone] Apr, Dental examination Z01.20 [facility] [address] [id number], [place] [phone] Apr, [facility] [address] [id number], [place] [phone] Apr, [facility] [address] [id number], [place] [phone] Mar, Dental examination Z01.20 [facility] [address] [id number], [place] [phone] December, Dental examination Z01.20 [facility] [address] [id number], [place] [phone] Oct, Dental examination Z01.20 [facility] [address] [id number], [place] [phone] Sep, Dental examination Z01.20 [facility] [address] [id number], [place] [phone] Aug, Dental examination Z01.20 [facility] [address] [id number], [place] [phone] Jul, Dental examination Z01.20 [facility] [address] [id number] [place] [address] [id number] Apr, Encounter for dental examination Z01.20 [facility] [address] [id number] [place] [address] [id number] Feb, Dental examination Z01.20 [facility] [address] [id number] [place] [address] [id number] December, Dental examination Z01.20 [facility] [address] [id number], [place] [phone] December, [facility] [address] [id number] [place] [address] [id number] Nov, Encounter for dental examination Z01.20 [facility] [address] [id number], [place] [phone] Oct, Dental examination Z01.20 [facility] [address] [id number], [place] [phone] Oct, Encounter for dental examination Z01.20 [facility] [address] [id number], [place] [address] Oct, [facility] [address] [id number] [place] [address] [id number] Oct, Dental examination Z01.20 [facility] [address] [id number], [place] [phone] Apr, Dental examination V72.2 [facility] [address] [id number] [place] [address] [phone] Jan, Dental examination V72.2 IMMUNIZATIONS No Known Immunizations SOCIAL HISTORY Never Assessed REASON FOR VISIT MAIK PLAN OF CARE Activity Details Follow Up prn Reason:hygiene/finish crowns VITAL SIGNS MEDICATIONS Medication Instructions Dosage Frequency Start Date End Date Duration Status Losartan Potassium-HCTZ Active Simvastatin Active Hydrochlorothiazide Active Diclofenac Active Amlodipine Besy-Benazepril HCl Active Amoxicillin Active Plavix Active RESULTS No Results PROCEDURES Procedure Date Ordered Result Body Site LTD ORAL EVALUATION - PROBLEM FOCUS Jul 15, 2017 INTRAORL-PERIAPICAL 1 FILM 99307 Jul 15, 2017 BITEWING - SINGLE FILM Jul 15, 2017 INSTRUCTIONS MEDICATIONS ADMINISTERED No Known Medications [...]
--- OUTSIDE RECORDS SUMMARY | 2018-04-02 20:44 | XMS REPORT ---
Author Author TINY GALLARDO Organization [employer] Address Unknown Phone Unavailable Care Team Providers Care Industrial Manufacturing Technician Name Role Phone TINY GALLARDO CP Unavailable Allergies, Adverse Reactions, Alerts Substance Reaction Event Type Codeine Sulfate Info Not Available Drug Allergy Problems Problem Type Condition ICD-9 Code Onset Dates Condition Status Assessment Dental examination V72.2 Active Medications Medication Code System Code Instructions Start Date End Date Status Dosage Diclofenac [facility] [address]-71 not defined Ferrex 150 [facility] [address]-14 not defined Losartan Potassium [facility] [address]-61 not defined Amoxicillin [facility] [address]-49 500 MG Orally May 14, 2015 May 16, 2015 4 capsules one hour prior to dental appt Clopidogrel Bisulfate [facility] [address]-43 not defined Simvastatin [facility] [address]-73 not defined Plavix [facility] [address]-31 not defined Hydrochlorothiazide [facility] [address]-59 not defined Amlodipine Besy-Benazepril HCl [facility] [address]-53 not defined Sertraline HCl [facility] [address]-75 not defined Procedures Procedure Coding System Code Date AMALGAM-TWO SURFACES PRIMARY/PERM CPT-4 D2150 May 14, 2015 Vital Signs Date/Time: May 14, 2015 Blood Pressure Diastolic 75 mmHg Blood Pressure Systolic 159 mmHg Results No Known Results Summary Purpose [employer] Submission
--- OUTSIDE RECORDS SUMMARY | 2018-04-02 20:44 | XMS REPORT | Continuity of Care Document ---
Author Author [facility] Organization [facility] Address Unknown Phone Unavailable Allergies Active Description Code Type Severity Reaction Onset Reported/Identified Relationship to Patient Clinical Status Yes codeine [id number] Drug Allergy Unknown N/A 04/27/2011 Medications There is no data. Problems Date Dx Coded Attending Type Code Diagnosis Diagnosed By 04/27/2011 Ot 558.9 NONINF GASTROENTERIT NEC 04/27/2011 Ot 562.10 DIVERTICULOSIS COLON (W/O MENT OF HEMORR 04/27/2011 Ot 569.82 ULCERATION OF INTESTINE 04/27/2011 Ot V12.72 PERSONAL HISTORY OF COLONIC POLYPS 04/27/2011 Ot V16.0 FAMILY HX-GI MALIGNANCY 04/27/2011 Ot V58.63 LONG-TERM( CURRENT)USE OF ANTIPLATELET/AN 04/27/2011 Ot V58.66 LONG-TERM ( CURRENT) USE OF ASPIRIN 04/27/2011 Ot V58.69 OTH MED,LT, CURRENT USE 04/27/2011 Ot V76.51 SCREEN MAL NEOP-COLON 08/08/2015 Ot V76.12 08/08/2015 GERSON BERGERON, CUBA R Ot V76.12 08/29/2015 GERSON BERGERON, CUBA R Ot S09.90XA 08/29/2015 GERSON BERGERON, CUBA R Ot W19.XXXA 08/29/2015 GERSON BERGERON, CUBA R Ot Y99.8 08/29/2015 GERSON BERGERON, CUBA R Ot Z79.01 10/01/2016 Ot V76.12 OTH SCREEN MAMMO-MALIGN NEOPLASM OF DONTRELL 10/01/2016 GERSON BERGERON, CUBA R Ot V76.12 OTH SCREEN MAMMO-MALIGN NEOPLASM OF DONTRELL 10/01/2016 GERSON BERGERON, CUBA R Ot S09.90XA UNSPECIFIED INJURY OF HEAD, INITIAL ENCO 10/01/2016 GERSON BERGERON, CUBA R Ot W19.XXXA UNSPECIFIED FALL, INITIAL ENCOUNTER 10/01/2016 GERSON BERGERON, CUBA R Ot Y99.8 OTHER EXTERNAL CAUSE STATUS 10/01/2016 CUBA NIETO MD Ot Z79.01 SKILLED NURSING (CURRENT) USE OF ANTICOAGULANT 10/07/2016 CUBA NIETO MD R Ot Z12.31 ENCNTR SCREEN MAMMOGRAM FOR MALIGNANT NE 10/07/2016 CUBA NIETO MD Ot Z12.31 ENCNTR SCREEN MAMMOGRAM FOR MALIGNANT NE 10/12/2016 UCBA NIETO MD R Ot Z12.31 ENCNTR SCREEN MAMMOGRAM FOR MALIGNANT NE 10/27/2016 CUBA NIETO MD Ot Z12.31 ENCNTR SCREEN MAMMOGRAM FOR MALIGNANT NE 02/09/2018 CASSANDRA ROCHE APRN Ot Z12.31 ENCNTR SCREEN MAMMOGRAM FOR MALIGNANT NE 03/03/2018 CASSANDRA ROCHE APRN Ot Z12.31 ENCNTR SCREEN MAMMOGRAM FOR MALIGNANT NE Procedures There is no data. Results There is no data. Encounters ACCT No. Visit Date/Time Discharge Status Pt. Type Provider Facility Loc./Unit Complaint [id number] 02/08/2018 07:16:00 02/08/2018 23:59:59 CLS Outpatient CASSANDRA ROCHE APRN [facility] RAD SCREENING [id number] 10/06/2016 06:57:00 10/06/2016 23:59:59 CLS Outpatient CUBA NIETO MD [facility] RAD SCREENING [id number] 03/05/2016 15:17:00 03/05/2016 23:59:59 CLS Outpatient ARNOLD RESENDEZ [facility] OCC [id number] 08/08/2015 14:18:00 08/08/2015 23:59:59 CLS Outpatient CUBA NIETO MD [facility] RAD FALL [id number] 11/21/2013 08:41:00 11/21/2013 23:59:59 CLS Outpatient CUBA NIETO MD [facility] RAD ROUTINE [id number] 10/05/2011 08:12:00 Document Registration [id number] 04/27/2011 09:54:00 Document Registration [id number] 03/15/2018 09:30:00 03/15/2018 23:59:59 CLS [facility]
[2018-04-02 21:13] LABS: FREE T4 (FREE THYROXINE) 0.92 NG/DL (0.70-1.48)
--- NOTE | 2018-04-02 21:17 | Cardiology History & Physical ---
HPI-Cardiology Cardiology Consultation Date of Consultation 04/02/18 Date of Admission Time Seen by Provider: 21:12 Indication: Complete heart block HPI 77 years old lady with history of hypertension, hyperlipidemia and peripheral arterial disease. Patient was in her usual state of health until this afternoon when she started feeling extremely weak and lethargic, fell to the floor, questionable syncope. Breath by ambulance and she was noted to have complete heart block with a heart rate in the 30s. She was given atropine and epinephrine which induced nonsustained ventricular tachycardia. Transcutaneous pacemaker was placed. She is awake but lethargic:. Denied any palpitation. Denied any similar episode in the past. Had some chest pain after given epinephrine. She has been slightly hypotensive which has been worsening. Started her on dopamine drip and will proceed for emergency pacemaker implant PMH-Cardiology Immunizations Up To Date Tetanus Booster (DTap): Unknown Seasonal Allergies Seasonal Allergies: No Surgeries Yes (LEFT KNEE REPLACEMENT 2009, COLONOSCOPY) Respiratory No Cardiovascular Yes (CAROTID DISEASE; RBBB ON EKG 08/26/2009) Neurological No Reproductive System Menopausal Genitourinary No Gastrointestinal Yes (ILEOCECAL VALVE ULCER, SIGMOID COLITIS, DIVERTICULOSIS NOTED ON SCREENING COLONOSCOPY 08/26/2009) Colitis, Diverticulosis, Ulcer Musculoskeletal Yes Arthritis Endocrine No HEENT No Cancer No Psychosocial No Integumentary No Blood Transfusions No Other PMHx Discussed below Social History Patient Social History Marrital Status: Employed/Student: retired Alcohol Use: Denies Use Recreational Drug Use: No Smoking: Former smoker Recent Foreign Travel: No Contact w/other who traveled: No Recent Infectious Disease Expo: No Family Hx Other Noncontributory to her current condition ROS-Cardiology Review of Systems General: No Chills, No Night Sweats, No Fatigue, No Malaise, No Appetite HEENT: No Head Aches, No Visual Changes, No Eye Pain, No Ear Pain, No Dysphasia , No Sinus Congestion, No Post Nasal Drip, No Sore Throat Pulmonary: No Dyspnea, No Cough, No Pleuritic Chest Pain Cardiovascular: Chest Pain, Lt Headedness; No: Palpitations, Orthopnea, Paroxysmal Noc. Dyspnea, Edema Gastrointestinal: No: Nausea, Vomiting, Abdominal Pain, Diarrhea, Constipation , Melena, Hematochezia Genitourinary: No Dysuria, No Frequency, No Incontinence, No Hematuria, No Retention Musculoskeletal: No: neck pain, shoulder pain, arm pain, back pain, hand pain, leg pain, foot pain Neurological: No: Weakness, Numbness, Incoordination, Change in speech, Confusion, Seizures Home Medications & Allergies Allergies: Coded Allergies: codeine (Unverified Allergy, Unknown, 04/02/18) Home Medication List Reviewed: Yes Exam-Cardiology Vital Signs Vital Signs Date Time Temp Pulse Resp B/P (MAP) Pulse Ox O2 Delivery O2 Flow Rate FiO2 04/02/18 20:54 97.9 36 18 186/84 97 Nasal Cannula 2.00 Exam General Appearance: Alert, Oriented X3, Cooperative, No Acute Distress HEENT: Atraumatic, PERRLA Respiratory: Clear to Auscultation, Normal Air Movement Cardiovascular: Normal S1, Normal S2, Other (Bradycardia, diminished pulse) Abdominal: Normal Bowel Sounds, Soft, No Tenderness, No Hepatosplenomegaly, No Masses Extremities: No Clubbing, No Cyanosis, No Edema, Normal Pulses, No Tenderness/ Swelling Skin: No Rashes, No Breakdown, No Significant Lesion Neuro: Normal Gait, Normal Speech, Strength at 5/5 X4 Ext, Normal Tone, Sensation Intact Psych/Mental Status: Mental Status NL, Mood NL Results Labs Labs Laboratory Tests 04/02/18 19:40: White Blood Count 4.8, Red Blood Count 3.58L, Hemoglobin 10.4L, Hematocrit 32L, Mean Corpuscular Volume 89, Mean Corpuscular Hemoglobin 29, Mean Corpuscular Hemoglobin Concent 33, Red Cell Distribution Width 14.1, Platelet Count 123L, Mean Platelet Volume 10.0, Neutrophils (%) (Auto) 53, Lymphocytes (%) (Auto) 30 , Monocytes (%) (Auto) 13H, Eosinophils (%) (Auto) 3, Basophils (%) (Auto) 1, Neutrophils # (Auto) 2.5, Lymphocytes # (Auto) 1.4, Monocytes # (Auto) 0.6, Eosinophils # (Auto) 0.2, Basophils # (Auto) 0.0, Prothrombin Time 15.0H, INR Comment 1.2, Activated Partial Thromboplast Time 32, Sodium Level 140, Potassium Level 4.5, Chloride Level 106, Carbon Dioxide Level 21, Anion Gap 13, Blood Urea Nitrogen 29H, Creatinine 1.64H, Estimat Glomerular Filtration Rate 30 , BUN/Creatinine Ratio 18, Glucose Level 138H, Calcium Level 10.3H, Magnesium Level 2.3, Total Bilirubin 0.5, Aspartate Amino Transf (AST/SGOT) 41H, Alanine Aminotransferase (ALT/SGPT) 27, Alkaline Phosphatase 244H, Total Creatine Kinase 39, Creatine Kinase MB 1.1, Myoglobin 90.9, Troponin I < 0.30, B-Type Natriuretic Peptide 295.8H, Total Protein 7.9, Albumin 4.1, TSH Norton Testing 8.51H A/P-Cardiology Admission Diagnosis Complete heart block Syncope Severe bradycardia Hypertension Hyperlipidemia Admission Status: Observation Assessment/Plan Complete heart block, patient is severely bradycardic and hypotensive. Did not respond to atropine or epinephrine or calcium, started on dopamine drip, still hypotensive, I'll proceed with pacemaker implantation. Hypertension, currently hypotensive shock due to bradycardia. Monitor blood pressure and restart medications once patient is more stable Hyperlipidemia maintained on simvastatin Carotid stenosis, followed with her care mgr Dr. Brooks. Tobaccoism, stopped smoking in 2010. SHANI THAKKAR MD Apr 02, 2018 21:17
--- NOTE | 2018-04-02 21:18 | Cardiac Procedure Note-CS/ASA ---
Pre-Procedure Note Pre-Op Procedure Note H&P Reviewed The H&P was reviewed, patient examined and no changes noted. Date H&P Reviewed: Apr 02, 2018 Time H&P Reviewed: 21:17 Conscious Sedation Pre-Proced Time Reviewed: 21:17 ASA Class: 3 Airway Mallampati Classification: (comanche appropriate class) I. II. III, IV Lungs Heart ASA score ASA 1: a normal healthy patient ASA 2: a patient with a mild systemic disease (mid diabetes, controlled hypertension, obesity x ASA 3: a patient with a severe systemic disease that limits activity (angina , COPD, prior Myocardial infarction) ASA 4: a patient with an incapacitating disease that is a constant threat to life (CHF, renal failure) ASA 5: a moribund patient not expected to survive 24 hrs. (ruptured aneurysm) ASA 6: a declared brain patient whose organs are being harvested. For emergent operations, add the letter E after the classification Grade 3 Sedation Plan: Analgesia, Amnesia, Plan communicated to team members, Discussed options with patient/fam, Discussed risks with patient/fam Note The patient is an appropriate candidate to undergo the planned procedure, sedation, and anesthesia. The patient immediately re-assessed prior to indication. SHANI THAKKAR MD Apr 02, 2018 21:18
[2018-04-02 21:20] VITALS: BP 93/38
--- NOTE | 2018-04-03 00:52 | Cardiology Discharge Summary ---
Diagnosis/Chief Complaint Date of Admission August 02, 2008 Date of Discharge August 03, 2018 Admission Diagnosis Complete heart block Syncope Severe bradycardia Hypertension Hyperlipidemia Discharge Diagnosis Complete heart block Syncope Pericardial tamponade Hypertension Hyperlipidemia Peripheral arterial disease Chief Complaint/HPI Chief Complaint/HPI Patient was admitted through the emergency room with severe hypotension and severe bradycardia with heart rate 30. Patient has been complaining of fatigue and lethargy and orthostatic hypotension for few weeks, in the afternoon of the admission she had a syncopal episode, she was extremely tired. EMT were called , patient was brought to the emergency room. She was given atropine without improvement, given epinephrine which induced nonsustained ventricular tachycardia and started to have chest pain, return to bradycardia with hypotension with blood pressure ranging between 50 and 80 systolic. Given the large amount of IV fluid and dopamine drip was initiated. Transcutaneous pacing was initiated with persistent hypotension. Patient was brought to the cardiac catheterization laboratory for dual-chamber pacemaker implantation Discharge Summary Hospital Course Hospital Course Patient was brought to the cardiac catheterization laboratory, dual-chamber pacemaker was placed. Good sensing and capture activity. Patient continued to be severely hypotensive. Echocardiogram was done urgently which showed large pericardial effusion and pericardial tamponade. Arrangement for transfer to [facility], Dr. Masterson was called, after discussing the case with him and recommendation was to proceed with pericardiocentesis prior to transferring the patient to achieve adequate blood pressure stabilization prior to the transfer. I visited with the family and explained the situation to them, explained the risks and benefits and decided to proceed with a pericardiocentesis which was done in the [facility], 270 mL of bloody fluid were removed, blood pressure improved, repeat ultrasound showed significant improvement in the pericardial effusion and expansion of the right ventricle. The pigtail catheter was left in the pericardium, patient was arranged to be transfer by air to [place]. I visited with family explain her condition, explained the possibility of having pericardial effusion as a result of the pacemaker versus having underlying pericardial effusion as a cause for her persistent hypotension despite of her percutaneous pacing. They understand the benefit and risk of transfer and approved it. Labs Laboratory Tests 04/02/18 19:40: Red Blood Count 3.58L, Hemoglobin 10.4L, Hematocrit 32L, Platelet Count 123L, Monocytes (%) (Auto) 13H, Prothrombin Time 15.0H, Blood Urea Nitrogen 29H, Creatinine 1.64H, Glucose Level 138H, Calcium Level 10.3H, Aspartate Amino Transf (AST/SGOT) 41H, Alkaline Phosphatase 244H, B-Type Natriuretic Peptide 295.8H, TSH Ney Testing 8.51H Procedures None. Discharge Physical Examination Allergies: Coded Allergies: codeine (Unverified Allergy, Unknown, 04/02/18) Vitals & I&Os Vital Signs Date Time Temp Pulse Resp B/P (MAP) Pulse Ox O2 Delivery O2 Flow Rate FiO2 04/02/18 21:20 98.1 68 16 93/38 98 OxyMask 6.00 General Appearance: Alert, Oriented X3, Cooperative HEENT: Atraumatic, PERRLA Respiratory: Clear to Auscultation Cardiovascular: Regular Rate, Normal S1, Normal S2 Abdominal: Normal Bowel Sounds, Soft Extremities: No Clubbing, No Cyanosis Skin: No Rashes, No Breakdown Neuro: Normal Speech Discharge Home Medications Reviewed and agree with Discharge Medication list on patient's Discharge Instruction sheet Instructions to Patient/Family Please see electronic discharge instructions given to patient. Clinical Quality Measures End of Life/Advance Care Plan: Advance Care discuss with: patient Admission Status Admission Status: Observation SHANI THAKKAR MD Apr 03, 2018 00:52
--- NOTE | 2018-04-03 02:17 | OPERATIVE REPORT ---
DATE OF SERVICE: BRIEF HISTORY: The patient is a 77-year-old lady admitted through the emergency room with severe bradycardia, complete heart block, heart rate 30 and blood pressure 70/50 had few episodes of systolic blood pressure of 50 mmHg. Did not respond to atropine and/or epinephrine, started on dopamine drip with a blood pressure in the 70s and 80s systolic, received large amount of IV fluid bolus. A transcutaneous pacemaker was applied without much improvement in the blood pressure then she was brought to the cardiac catheterization laboratory for emergency dual chamber pacemaker implantation. PROCEDURE NOTE: After explaining the procedure to the patient and her family, all pros and cons were explained, all questions were answered, the patient signed a consent, then placed on the cardiac catheterization laboratory. The left pectoral area was prepped in a sterile fashion, local anesthesia applied. Then, using modified Seldinger technique with Cook needle, I accessed the left subclavian vein, placed a J wire then a separate access to the vein again with the second J wire was placed. Then, a skin incision was made with cauterization and skin pocket was made. Two antibiotic soaks were placed in the pocket. Then, I proceeded with implantation of the ventricular lead. Sheath was placed. Then Medtronic ventricular lead with a serial #[id number] to advance to the right ventricular apex. I was unable to get a good capture, sensing was low. The lead was repositioned without success. After 4 attempts, I readvanced the lead up to the pulmonary artery, then retracted and positioned it again without success in achieving adequate sensing or capture activity. After a total of 7 attempts, I was able to achieve a point with a good sensing and capture activity. The R-wave was measured at 10.1 with impedance of 741. Capture was a pulse width of 0.5 millisecond and 0.9 volts. Then, the lead was secured and I placed an atrial lead. With the first attempt, I was able to achieve adequate sensing. The patient was in atrial tachycardia with a rate of 130 to 140. I was unable to pace the atrium. The T-wave was measured at 3 millivolts with impedance of 600. The atrial lead was Medtronic with serial #[id number]. Then, the skin pocket was irrigated with antibiotic solution and a [employer] device [employer]a MRI DR serial #[id number] attached to the lead and inserted in the pocket. The patient was continuously hypotensive. She has an episode of adequate blood pressure of 150 early in the procedure. After securing the lead and securing the pocket and closing the pocket, I requested an emergency echocardiogram, which showed large pericardial effusion. I assumed it is postoperative finding, although the patient was hypotensive previously and she has been symptomatic according to the family. I discussed the management plan with Dr. Darrius Sorto at [place] who requested that I proceed with pericardiocentesis to stabilize the blood pressure prior to transferring her, pericardiocentesis procedure was done and 270 mL of fluid was removed. Blood pressure has improved 128/66, mean of 80. Arrangement to transfer was made. CONCLUSION: Successful dual chamber pacemaker implantation. Job ID: [id number] DocumentID: [id number] Dictated Date: 04/03/2018 00:39:49 Picking Supervisor Date: 04/03/2018 02:16:35 Dictated By: SHANI THAKKAR MD
--- NOTE | 2018-04-03 02:39 | OPERATIVE REPORT ---
DATE OF SERVICE: 04/02/2018 PERICARDIOCENTESIS REPORT BRIEF HISTORY: The patient is a 77-year-old lady admitted with severe bradycardia and hypotensive shock, underwent emergency dual chamber pacemaker implantation. The patient continued to be severely hypotensive. Bedside echocardiogram was done in the lab clerk, which showed large amount of pericardial effusion, arrangements to transfer the patient to [place] with Dr. Masterson who requested that I proceed with pericardiocentesis prior to transferring her. Procedure was planned to establish adequate blood pressure prior to the transfer. PROCEDURE NOTE: After explaining the procedure to the patient and to her family, the patient was sedated, verbal consent was obtained from the family. Local anesthesia applied. Sterile drapes were placed, then subxiphoid incision was made and using long Cook needle, I advanced it under echocardiograph until I reach serosanguinous blood return. I advanced a J wire, then a dilator, then a pigtail was advanced over the wire with the dilator inside the pigtail. A 270 mL of bloody fluid was removed. Blood pressure has improved immediately to 130/50. The pigtail was taped at the site and stopcock was placed on it. CONCLUSION: Successful pericardiocentesis procedure was done with improvement in the blood pressure. Job ID: [id number] DocumentID: [id number] Dictated Date: 04/03/2018 00:46:12 Senior Manager Mergers & Acquisitions Date: 04/03/2018 02:39:19 Dictated By: SHANI THAKKAR MD [facility]
== END | disposition short-term general hospital (02) ==
LOC: EDUNIT# 19:28 → ER 19:29 → CATH 20:33
PROVIDERS: ATTEND Internal Medicine Cardiovascular Disease
DX: I44.2 Atrioventricular block, complete (principal); I31.3 Pericardial effusion (noninflammatory); I31.4 Cardiac tamponade; I10 Essential (primary) hypertension; E78.5 Hyperlipidemia, unspecified; I73.9 Peripheral vascular disease, unspecified; Z87.891 Personal history of nicotine dependence; Z96.652 Presence of left artificial knee joint
CPT/HCPCS: 33208; 36415; 71045; 80053; 82550; 82553; 83735; 83874; 83880; 84439; 84443; 84484; 85025; 85610; 85730; 93005; 93041; 93306; 96361; 96365; 96372; 96375; 96376

== ENCOUNTER → 2018-08-16 | Outpatient (CLI) | payer MEDICARE ==
[~2018-08-16] MED LIST changes: +AMIO200T4 PO; -AMLO5TAB2 PO; +AMLO5TAB7 PO; -ASPIRIN 325 MG (5 GR) TABLET ONE; -ASPIRIN 81 MG CHEW (CHILDREN'S ASA) PO ONE; -ATROPINE INJ 0.4 MG/ML SDV ONE; -ATROPINE INJECTION 1 MG/1 ML SDV IJ ONE; -CALCIUM CHLORIDE 1 GM/10 ML (IMS) SYR INJ ONE; -DOPamine DRIP 250 ML IV SCH; -ENOXAPARIN 100 MG/1 ML (LOVENOX) SYR SC ONE; -ENOXAPARIN 30 MG/0.3 ML (LOVENOX) SYR ONE; -ENOXAPARIN 60 MG/0.6 ML (LOVENOX) SYR ONE; -EPINEPHrine INJECTION 1 MG/ML AMP ONE; +FURO20TA4 PO; -GENTAMICIN 40 MG/ML 2 ML INJ SDV ONE; -HEParin (CATH LAB) 1,000 ML IV ONE; -LIDOCAINE 1% INJ 20 ML 20 ML VIAL ONE; -LOSA100T28 PO; +LOSA100T8 PO; -MIDAZOLAM 10 MG/2 ML (VERSED) VIAL IVP PRN; -MIDAZOLAM 5 MG/5 ML (VERSED) VIAL ONE; -NEO/POLY/BAC (NEOSPORIN) OINT 15 GM TUBE ONE; -NS IV 1000 ML 1,000 ML IV ONE; -NS IV 1000 ML 1,000 ML IV SCH; -NS IV 1000 ML 1,000 ML ONE; -PATIENT MAY USE OWN MEDS, ALL PO SCH; +POTA20TA8 PO; +RIVA15TA PO; -ceFAZolin 1,000 MG (ANCEF) VIAL ONE; -ceFAZolin INJECTION 1,000 MG in NS (IVPB) 50 ML IV SCH; -fentaNYL INJECTION 100 MCG/2 ML AMP ONE; -morphine INJ 10 MG/ML 1ML (SYR OR VIAL) IVP STA; -morphine INJ 10 MG/ML 1ML (SYR OR VIAL) ONE
[2018-08-16 08:57] LABS: CREATININE SERUM 1.52 MG/DL (0.60-1.30)
== END ==
LOC: RAD 08:06
PROVIDERS: ATTEND Internal Medicine Cardiovascular Disease
DX: I65.23 Occlusion and stenosis of bilateral carotid arteries (principal)
CPT/HCPCS: 36415; 82565; 84520

== ENCOUNTER → 2018-09-20 | Outpatient (CLI) | payer MEDICARE ==
[~2018-09-20] MED LIST changes: -AMLO5TAB7 PO; +AMLO5TAB9 PO; +LOSA100T57 PO; -LOSA100T8 PO; +SIMV80TA21 PO; -SIMV80TA5 PO
[2018-09-20 09:24] LABS: CREATININE SERUM 1.67 MG/DL (0.60-1.30)
== END ==
LOC: RAD 08:54
PROVIDERS: ATTEND Internal Medicine Cardiovascular Disease
DX: I65.23 Occlusion and stenosis of bilateral carotid arteries (principal)
CPT/HCPCS: 36415; 82565; 84520

== ENCOUNTER → 2019-01-17 | Outpatient (CLI) | payer MEDICARE ==
[~2019-01-17] MED LIST changes: -RIVA15TA PO; +RIVA15TA2 PO
--- NOTE | 2019-01-17 09:23 | Diagnostic Imaging Report ---
INDICATION: Post menopausal COMPARISON: None FINDINGS: AP Spine L1-L4: [BMD (g/cm2): 1.150] [T-Score: -0.4] [Z-Score: 0.9] [BMD Previous: N/A] [BMD % Change: N/A] LT Hip Neck: [BMD (g/cm2): 0.917] [T-Score: -0.9] [Z-Score: 0.9] LT Hip Total: [BMD (g/cm2):0.975] [T-Score:-0.3] [Z-Score: 1.4] [BMD Previous: N/A] [BMD % Change: N/A] RT Hip Neck: [BMD (g/cm2):0.901] [T-Score:-1.0] [Z-Score:0.8] RT Hip Total: [BMD (g/cm2):0.950] [T-score:-0.5] [Z-Score:1.2] [BMD Previous:N/A] [BMD % Change:N/A] *Indicates significant change from prior examination based on 95% confidence level. World Health Organization criteria for BMD interpretation classify patients as Normal (T-score at or above -1.0), Osteopenic (T-score between -1.0 and -2.5) or Osteoporotic (T-score at or below -2.5). LIMITATIONS AND MODIFICATION: None. FRACTURE RISK (FRAX SCORE): The ten year probability of (%): Major Osteoporotic Fracture: [N/A] Hip Fracture: [N/A] IMPRESSION: 1. Normal Bone mineral density. 2. Baseline examination. 3. See below National Osteoporosis Foundation guidelines on when to potentially initiate pharmacologic therapy. Based on the National Osteoporosis Foundation Guidelines, pharmacologic treatment should be initiated in any of the following, unless clinical conditions suggest otherwise: * Any patient with prior fragility fracture of the hip or vertebrae. A spine fracture indicates 5X risk for subsequent spine fracture and 2X risk for subsequent hip fracture. * Osteoporosis (T-score <-2.5). * Postmenopausal women and men age 50 and older with low bone mass/osteopenia (T-score between -1.0 and -2.5) by DXA and 10-year major osteoporotic fracture greater than 20% or a 10-year probability of hip fracture greater than 3%. These fracture risks are supplied above in the FRAX score, if applicable. * Clinician judgement and/or patient preferences may indicate treatment for people with 10-year fracture probabilities above or below these levels. Dictated by: Dictated on workstation # [id number]
== END ==
LOC: RAD 08:15
PROVIDERS: ATTEND Family Medicine
DX: Z78.0 Asymptomatic menopausal state (principal)
CPT/HCPCS: 77080

== ENCOUNTER → 2019-01-31 | Outpatient (CLI) | payer MEDICARE | LOC: CARD 12:02 | PROVIDERS: ATTEND Nurse Practitioner Family | DX: R05 Cough (principal); R79.89 Other specified abnormal findings of blood chemistry; I31.3 Pericardial effusion (noninflammatory) | CPT/HCPCS: 93306 ==

== ENCOUNTER → 2019-06-23 | Outpatient (CLI) | payer MEDICARE, OTHER ==
--- NOTE | 2019-06-23 11:55 | Diagnostic Imaging Report ---
PROCEDURE: US Renal Bilateral. TECHNIQUE: Multiple real-time grayscale images were obtained over the kidneys in various projections bilaterally. INDICATION: Chronic kidney disease, stage III and hypertension. FINDINGS: Right kidney measures 10.8 x 3.5 x 4.7 cm and the left kidney measures 10.0 x 3.3 x 4.5 cm. Cortical thickness and echogenicity is normal. No calculi are seen. There is no hydronephrosis. Bladder is unremarkable although bladder jets were not visualized. Note is made of splenomegaly. Spleen measures approximately 18 cm. IMPRESSION: 1. Unremarkable renal ultrasound. No calculi or hydronephrosis is detected. 2. Splenomegaly. Dictated by: Dictated on workstation # [id number]
== END ==
LOC: RAD 10:00
PROVIDERS: ATTEND Internal Medicine Nephrology
DX: I12.9 Hypertensive chronic kidney disease with stage 1 through stage 4 chronic kidney disease, or unspecified chronic kidney disease (principal); N18.3 Chronic kidney disease, stage 3 (moderate); E78.5 Hyperlipidemia, unspecified; R16.1 Splenomegaly, not elsewhere classified
CPT/HCPCS: 76770

== ENCOUNTER 2019-06-30 12:42 | Outpatient (CLI) | payer MEDICARE, OTHER ==
[~2019-06-30] VITALS: Ht 165.1 cm; Wt 85.9 kg
[2019-06-30] MEDS ORDERED: CETI10TA17 PO (12:48)
[2019-06-30] MEDS ORDERED: SERT50TA9 PO (12:48)
[2019-06-30] MEDS ORDERED: [UNRECOGNIZED DRUG - CODE] PO (12:48)
[2019-06-30] MEDS ORDERED: FLUT1BLS12 IH (12:48)
[2019-06-30] MEDS ORDERED: POTA20TA15 PO (12:48)
[2019-06-30] MEDS ORDERED: ATOR40TA70 PO (12:48)
[2019-06-30] MEDS ORDERED: METO-387 PO (12:48)
[2019-06-30] MEDS ORDERED: IRON150C3 PO (12:48)
[2019-06-30] MEDS ORDERED: MV-M1TAB57 PO (12:48)
[2019-06-30] MEDS ORDERED: ACET-2307 PO (12:48)
[2019-06-30] MEDS ORDERED: OMEG1CAP58 PO (12:48)
[2019-06-30] MEDS ORDERED: RIVA15TA PO (12:48)
[2019-06-30] MEDS ORDERED: FURO20TA4 PO (12:48)
[2019-07-04] MEDS ORDERED: PANT40TA2 PO (10:54)
== END 2019-06-30 12:50 | disposition home or self-care (01) ==
LOC: PREOP 12:42
PROVIDERS: ATTEND Surgery
DX: Z01.818 Encounter for other preprocedural examination (principal)

== ENCOUNTER → 2020-02-20 | Outpatient (CLI) | payer MEDICARE ==
[~2020-02-20] MED LIST changes: +ACET650T8 PO; +ATOR40TA70 PO; +CETI10TA17 PO; +FLUT1BLS12 IH; +IRON150C3 PO; +MTP25TSR PO; +MV-M1TAB57 PO; +OMEG1CAP58 PO; +PANT40TA2 PO; +POTA20TA15 PO; +RIVA15TA PO; +[UNRECOGNIZED DRUG - CODE] PO
== END ==
LOC: CARD 09:57
PROVIDERS: ATTEND Internal Medicine Cardiovascular Disease
DX: E78.2 Mixed hyperlipidemia (principal); I10 Essential (primary) hypertension; I44.2 Atrioventricular block, complete; I48.91 Unspecified atrial fibrillation
CPT/HCPCS: 93306

== ENCOUNTER → 2020-04-30 | Outpatient (CLI) | payer MEDICARE ==
[~2020-04-30] MED LIST changes: +CATHETER FLUSH 10 ML SYR IV PRN; +HOLD METFORMIN - RECEIVED CONTRAST 20 ML VIAL IV SCH; +IOHEXOL 350 MG/ML 100 ML (OMNIPAQUE 350) VIAL IV ONE; +NS 100 ML (IVPB) BAG IV ONE
[2020-04-30 14:32] LABS: ALBUMIN 3.3 GM/DL (3.2-4.5); CREATININE SERUM 1.39 MG/DL (0.60-1.30); POTASSIUM 4.3 MMOL/L (3.6-5.0); TOTAL PROTEIN 7.7 GM/DL (6.4-8.2)
--- NOTE | 2020-04-30 15:32 | Diagnostic Imaging Report ---
PROCEDURE: CT angiography of the head and CT angiography of the neck with and without contrast. TECHNIQUE: Contiguous noncontrast images were obtained from the skull base through the vertex. After intravenous contrast administration, helical CT angiography of the neck was performed. Source data was reformatted into 3D MIP projections. Delayed post contrast acquisition was also obtained. Auto Exposure Controls were utilized during the CT exam to meet ALARA standards for radiation dose reduction. INDICATION: Weakness, dizziness, blurry vision, headache, and left eye disturbance. FINDINGS: There is mild prominence of the ventricles and sulci. There is no hydrocephalus. There is no midline shift. There is no mass, hemorrhage, or extra-axial fluid collection. The sinuses and mastoid air cells are clear. There is no evidence of a large vessel occlusion intracranially. There are no vascular malformations or aneurysms. There is a right pleural effusion. The nasopharyngeal, oropharyngeal, and hypopharyngeal tissues are symmetrical without mass effect. The parotid and submandibular glands are unremarkable. There is a small low-density mass in the right lobe of the thyroid. There is moderate cervical spondylosis. The prevertebral soft tissues are within normal limits. The epiglottis is unremarkable. There is no pathologically enlarged adenopathy or mass in the neck. There is a normal branching pattern of the thoracic aorta. There is a dominant right vertebral artery. Both vertebral arteries are widely patent. There is moderate atherosclerotic plaque about the carotid bifurcations bilaterally, left greater than right. There appears to be a less than 50% stenosis on the right although the stenosis on the left is likely approaching 70%. Distal to the bifurcation, the internal carotid arteries are widely patent. There is no dissection or occlusion in the neck. There is very minimal intracranial atherosclerosis in the distal right internal carotid artery. IMPRESSION: Age-appropriate atrophy; however, no acute intracranial abnormality. No evidence of large vessel occlusion to suggest an acute CVA. Moderate atherosclerotic plaque about the carotid bifurcations bilaterally, left greater than right. The possibility of a hemodynamically significant stenosis on the left certainly cannot be excluded. Recommend correlation with carotid Doppler. No dissection or occlusion in the 4 major vessels of the neck. No other acute abnormality in the neck. Dictated by: Dictated on workstation # [id number]
== END ==
LOC: RAD 14:45
PROVIDERS: ATTEND Family Medicine
DX: I63.9 Cerebral infarction, unspecified (principal); I25.10 Atherosclerotic heart disease of native coronary artery without angina pectoris; I65.23 Occlusion and stenosis of bilateral carotid arteries
CPT/HCPCS: 36415; 70496; 70498; 80053

== ENCOUNTER 2020-05-19 08:55 | Outpatient (RCR) | payer MEDICARE ==
[2020-05-17 12:33] VITALS: BP 125/70
[2020-05-17] MEDS: methylPREDNISolone SOD SUCC 1,000 MG in NS (IVPB) 100 ML IV SCH (12:39)
[2020-05-18 08:55] VITALS: BP 123/63
[2020-05-18] MEDS: methylPREDNISolone SOD SUCC 1,000 MG in NS (IVPB) 100 ML IV SCH (09:14)
[~2020-05-19] VITALS: Ht 165 cm
[2020-05-19 08:55] VITALS: BP 135/64
[~2020-05-19 08:55] MED LIST changes: +ASPI-1238 PO; -ASPI-983 PO; -CATHETER FLUSH 10 ML SYR IV PRN; -HOLD METFORMIN - RECEIVED CONTRAST 20 ML VIAL IV SCH; -IOHEXOL 350 MG/ML 100 ML (OMNIPAQUE 350) VIAL IV ONE; -NS 100 ML (IVPB) BAG IV ONE
[2020-05-19] MEDS: methylPREDNISolone SOD SUCC 1,000 MG in NS (IVPB) 100 ML IV SCH (09:05)
== END 2020-05-19 10:10 | disposition home or self-care (01) ==
LOC: SDC 08:55
PROVIDERS: ATTEND Family Medicine
DX: M31.6 Other giant cell arteritis (principal)
CPT/HCPCS: 96365

== ENCOUNTER 2020-05-22 05:39 | Outpatient (CLI) | payer MEDICARE ==
[~2020-05-22] VITALS: Ht 165 cm; Wt 80.9 kg
[2020-05-22] MEDS ORDERED: CITA20TA9 PO (13:08)
[2020-05-22] MEDS ORDERED: FLUT1DIS26 IH (13:09)
== END 2020-05-22 13:18 ==
LOC: PREOP 05:39
PROVIDERS: ATTEND Surgery
DX: Z01.818 Encounter for other preprocedural examination (principal)

== ENCOUNTER 2020-05-23 07:10 | Day surgery (SDC) | payer MEDICARE ==
[~2020-05-23] VITALS: Ht 165 cm; Wt 80.9 kg
[2020-05-23] VITALS (11 sets, daily range): BP systolic 151–171; BP diastolic 69–82
[~2020-05-23 07:10] MED LIST changes: +CITA20TA9 PO; +FLUT1DIS26 IH
[2020-05-23] MEDS ORDERED: BUP/EPI 0.25% 1:200,000 (MARCAINE) 30 ML VIAL ONE (07:16)
[2020-05-23] MEDS ORDERED: LACTATED RINGERS 1,000 ML IV PRN (07:40)
[2020-05-23] MEDS ORDERED: ceFAZolin INJECTION 1,000 MG in WATER (STERILE) FOR INJECTION 10 ML IV ONE (07:45)
--- NOTE | 2020-05-23 07:56 | Progress Note-Pre Operative ---
Pre-Operative Progress Note H&P Reviewed The H&P was reviewed, patient examined and no changes noted. Date Seen by Provider: May 23, 2020 Time Seen by Provider: 07:43 Date H&P Reviewed: May 23, 2020 Time H&P Reviewed: 07:43 Pre-Operative Diagnosis: giant cell arteritis TRINIDAD ADAMS DO May 23, 2020 07:56
[2020-05-23] MEDS ORDERED: CATHETER FLUSH 10 ML SYR IV PRN (08:00)
[2020-05-23 08:05] LABS: BASOPHILS % (AUTO) 0 % (0-10); EOSINOPHILS % (AUTO) 1 % (0-10); HEMATOCRIT 31 % (35-52); HEMOGLOBIN 8.9 g/dL (11.5-16.0); LYMPHOCYTES # (AUTO) 0.7 10^3/uL (1.0-4.0); LYMPHOCYTES % (AUTO) 14 % (12-44); MEAN CORPUSCULAR HEMOGLOBIN 24 pg (25-34); MEAN CORPUSCULAR HGB CONC 29 g/dL (32-36); MEAN CORPUSCULAR VOLUME 84 fL (80-99); MEAN PLATELET VOLUME 10.3 fL (9.0-12.2); MONOCYTES # (AUTO) 0.5 10^3/uL (0.0-1.0); MONOCYTES % (AUTO) 10 % (0-12); NEUTROPHILS # (AUTO) 3.6 10^3/uL (1.8-7.8); NEUTROPHILS % (AUTO) 74 % (42-75); PLATELET COUNT 96 10^3/uL (130-400); WHITE BLOOD COUNT 4.8 10^3/uL (4.3-11.0)
[2020-05-23] MEDS ORDERED: proPOfol 200 MG/20 ML (DIPRIVAN) VIAL IV ONE (08:48)
[2020-05-23] MEDS ORDERED: fentaNYL INJECTION 100 MCG/2 ML AMP ONE (08:48)
[2020-05-23] MEDS ORDERED: LIDOCAINE PF 2% 5 ML (XYLOCAINE) VIAL ONE (08:48)
[2020-05-23] MEDS ORDERED: MIDAZOLAM 2 MG/2 ML (VERSED) VIAL ONE (09:04)
[2020-05-23] MEDS ORDERED: SEVOFLURANE (ULTANE) 15 ML INHAL SOLN ONE (10:04)
[2020-05-23] MEDS ORDERED: ONDANSETRON 4 MG/2 ML (SDV) Z0FRAN ONE (10:04)
[2020-05-23] MEDS ORDERED: MUPIROCIN 2% OINT 22 GM (BACTROBAN) TUBE ONE (10:05)
--- NOTE | 2020-05-23 10:22 | Discharge Inst-Simple/Standard ---
Discharge Inst-Standard Patient Instructions/Follow Up Plan of Care/Instructions/FU: 7-10 days Lesly Activity as Tolerated: Yes Discharge Diet: Regular Diet Other Inst to Patient Follow up Appt: Make appointment for 7-10 days Lesly Instructions: No strenuous activity. May shower in 24 hours, no tub bath or soaking. Use incentive spirometer at home as directed. No Smoking Skin/Wound Care: Keep area clean and dry. Symptoms to Report: Appetite Changes, Extremity Discoloration, Numbness/Tingling, Swelling Increased, Bleeding Excessive, Eyesight Changes, Pain Increased, Urine Color Change, Constipation(Persistent), Fever over 101 degree F, Pain/Pressure in chest, Urinating Difficulty, Cough Up/Vomit Blood, Heart Beat Irreg/Pounding, Pain/Pressure in jaw, Vaginal Bleeding Increase, Cramps in feet or legs, Lightheadedness, Pain/Pressure in shoulder, Diarrhea(Persistent), Memory Changes Suddenly, Questions/Concerns, Weight gain consecutive days, Dizziness/Fainting, Nausea/Vomiting, Shortness of Breath, Weight gain over 2 pounds If questions or concerns contact your physician Or seek help at emergency department. TRINIDAD ADAMS DO May 23, 2020 10:22
--- NOTE | 2020-05-23 10:29 | Progress Note-Post Operative ---
Post-Operative Progess Note Surgeon (s)/Crime Victim Specialist (s) Surgeon TRINIDAD ADAMS DO Crime Victim Specialist: na Pre-Operative Diagnosis giant cell arteritis Post-Operative Diagnosis same Procedure & Operative Findings Date of Procedure 05/23/20 Procedure Performed/Findings left temporal artery biopsy Anesthesia Type gen Estimated Blood Loss Estimated blood loss (mL): minimal Specimens/Packing Specimens Removed left temporal artery TRINIDAD ADAMS DO May 23, 2020 10:29
[2020-05-23] MEDS ORDERED: ONDANSETRON 4 MG/2 ML (SDV) Z0FRAN IVP PRN (10:30)
[2020-05-23] MEDS ORDERED: morphine INJ 10 MG/ML 1ML (SYR OR VIAL) IVP ONE (10:30)
[2020-05-23] MEDS ORDERED: MEPERIDINE (DEMEROL) INJ 50 MG/ML IVP ONE (10:30)
[2020-05-23] MEDS ORDERED: HYDROcodone/APAP 5 MG/325 MG (LORTAB) TAB ONE (11:49)
[2020-05-23] MEDS ORDERED: HYDROcodone/APAP 5 MG/325 MG (LORTAB) TAB PO ONE (12:00)
--- NOTE | 2020-05-23 12:26 | Anesthesia-General Post-Op ---
General Patient Condition Mental Status/LOC: Same as Preop Cardiovascular: Satisfactory Nausea/Vomiting: Absent Respiratory: Satisfactory Pain: Controlled Complications: Absent Post Op Complications Complications None Follow Up Care/Instructions Patient Instructions None needed. Anesthesia/Patient Condition Patient Condition Patient is doing well, no complaints, stable vital signs, no apparent adverse anesthesia problems. No complications reported per nursing. ANGE WALLACE CRNA May 23, 2020 12:26
--- NOTE | 2020-05-24 01:26 | OPERATIVE REPORT ---
DATE OF SERVICE: 05/23/2020 PREOPERATIVE DIAGNOSIS: Giant cell arteritis. POSTOPERATIVE DIAGNOSIS: Giant cell arteritis. PROCEDURE: Left temporal artery biopsy. SURGEON: Trinidad Grace DO ANESTHESIA: General. ESTIMATED BLOOD LOSS: Minimal. COMPLICATIONS: None. INDICATIONS: The patient is an 80-year-old female, felt to have a giant cell arteritis. She was recommended left temporal artery biopsy. She understands the risks and benefits of procedure and wished to proceed with procedure. Consent was signed in the chart. DESCRIPTION OF PROCEDURE: The patient was taken to the operating suite. She was prepped and draped in sterile fashion. Timeout was performed. A 15 blade scalpel was used to make a small skin incision over the left temporal artery that was found by Doppler. [place] were used to dissect down through the subcutaneous tissues and using Doppler to continue to guide dissection. The left temporal artery was then located. This was then dissected around. Using a 3-0 silk suture proximally and distally, this was tied off and an approximately 1.4 cm portion of the temporal artery was sent for pathology. The area was then washed and dried and the skin was then closed using 5-0 Prolene in simple interrupted fashion. The patient tolerated procedure well without any complications. She was taken to recovery room in stable condition. Job ID: [id number] DocumentID: [id number] Dictated Date: 05/23/2020 15:36:04 Transportation Security Screener Date: 05/24/2020 01:25:30 Dictated By: TRINIDAD GRACE DO
== END 2020-05-23 12:24 | disposition home or self-care (01) ==
LOC: SDC 07:10
PROVIDERS: ATTEND Surgery
DX: M31.6 Other giant cell arteritis (principal); I25.10 Atherosclerotic heart disease of native coronary artery without angina pectoris; J44.9 Chronic obstructive pulmonary disease, unspecified; K21.9 Gastro-esophageal reflux disease without esophagitis; M06.9 Rheumatoid arthritis, unspecified; E11.9 Type 2 diabetes mellitus without complications; E78.2 Mixed hyperlipidemia; I48.0 Paroxysmal atrial fibrillation; D63.1 Anemia in chronic kidney disease; I12.9 Hypertensive chronic kidney disease with stage 1 through stage 4 chronic kidney disease, or unspecified chronic kidney disease; N18.9 Chronic kidney disease, unspecified; F17.210 Nicotine dependence, cigarettes, uncomplicated; Z79.01 Long term (current) use of anticoagulants; Z79.899 Other long term (current) drug therapy; Z79.82 Long term (current) use of aspirin; Z88.5 Allergy status to narcotic agent; Z80.9 Family history of malignant neoplasm, unspecified
CPT/HCPCS: 36415; 85025; 87081; 88305

== ENCOUNTER 2020-05-27 14:41 | Outpatient (RCR) | payer MEDICARE ==
[2020-05-03] MEDS: IRON SUCROSE 200 MG/10 ML (VENOFER) VIAL IV SCH (12:52)
[2020-05-03 13:45] VITALS: BP 124/62
[2020-05-13] MEDS: IRON SUCROSE 200 MG/10 ML (VENOFER) VIAL IV SCH (10:31)
[2020-05-13 10:50] VITALS: BP 122/66
[2020-05-20 09:55] VITALS: BP 157/79
[2020-05-20] MEDS: IRON SUCROSE 200 MG/10 ML (VENOFER) VIAL IV SCH (10:07)
[~2020-05-27] VITALS: Ht 160 cm; Wt 85.9 kg
[~2020-05-27 14:41] MED LIST changes: +IRON SUCROSE 200 MG/10 ML (VENOFER) VIAL IV ONE
[2020-05-27] MEDS: IRON SUCROSE 200 MG/10 ML (VENOFER) VIAL IV SCH (15:07)
[2020-05-27 15:42] VITALS: BP 184/87
== END 2020-05-27 15:42 | disposition home or self-care (01) ==
LOC: SDC 14:41
PROVIDERS: ATTEND Family Medicine
DX: D64.9 Anemia, unspecified (principal)
CPT/HCPCS: 96365

== ENCOUNTER → 2020-05-27 | Outpatient (CLI) | payer MEDICARE | LOC: PREOP 05:45 | PROVIDERS: ATTEND Surgery | DX: Z01.818 Encounter for other preprocedural examination (principal) ==

== ENCOUNTER → 2020-06-24 | Outpatient (CLI) | payer MEDICARE ==
[~2020-06-24] MED LIST changes: -AMIO200T4 PO; +AMIO200T6 PO; +AMLO-250 PO; -AMLO5TAB9 PO; -IRON SUCROSE 200 MG/10 ML (VENOFER) VIAL IV ONE
[2020-06-24 16:01] LABS: GLUCOSE,BODY FLUID 164 MG/DL
[2020-06-24 16:02] LABS: AMYLASE,BODY FLUID 47 U/L; LDH,BODY FLUID 39 U/L; TOTAL PROTEIN,BODY FLUID < 0.8 G/DL
[2020-06-24 17:36] LABS: BODY FLUID APPEARENCE SLT CLDY; BODY FLUID COLOR YELLOW; BODY FLUID RBC COUNT 80 /uL; BODY FLUID SOURCE ASCITES; BODY FLUID WBC TOTAL COUNT 83 /uL
[2020-06-24 17:37] LABS: BF OTHER CELLS 15 %; LYMPHOCYTES,BODY FLUID 29 %
--- NOTE | 2020-06-25 04:42 | OPERATIVE REPORT ---
DATE OF SERVICE: 06/24/2020 PREOPERATIVE DIAGNOSIS: Symptomatic ascites. POSTOPERATIVE DIAGNOSIS: Symptomatic ascites. PROCEDURE: Ultrasound-guided paracentesis. SURGEON: Trinidad Grace DO ANESTHESIA: A 4 mL of 1% lidocaine. ESTIMATED BLOOD LOSS: None. COMPLICATIONS: None. INDICATIONS: The patient is an 80-year-old female with symptomatic ascites. She understands risks and benefits of procedure and wished to proceed with procedure. Consent was signed in the chart. DESCRIPTION OF PROCEDURE: The patient was taken to the procedure room. Ultrasound was used to isolate the largest pocket, which was in the left side of the abdomen. The area was then prepped and draped in sterile fashion. A timeout was performed. Local anesthetic was infiltrated and 11 blade scalpel was used to make a small skin incision and [id number]-M-[id number] needle and catheter were then advanced through the abdominal wall in the area isolated by ultrasound until straw-colored fluid was withdrawn. The catheter was then inserted and the needle was removed. A total of 3075 mL of straw-colored fluid was withdrawn. Once done draining the knee, the catheter was then removed and sterile bandage was applied. The patient tolerated the procedure well without any complications. RECOMMENDATIONS: The patient has followup appointment set up with . Job ID: [id number] DocumentID: [id number] Dictated Date: 06/24/2020 22:42:38 Behavioral Health Tech Date: 06/25/2020 04:42:06 Dictated By: TRINIDAD GRACE DO
--- NOTE | 2020-06-25 08:09 | Diagnostic Imaging Report ---
INDICATION: Ascites. Sonographic interrogation of all 4 quadrants of the abdomen was performed to evaluate for ascites. There is moderate ascites present. Largest pocket is located in the left lower quadrant. Guidance was provided for Dr. Grace for performance of paracentesis. IMPRESSION: Moderate ascites. Guidance was provided for Dr. Grace for performance of paracentesis. Dictated by: Dictated on workstation # [id number]
== END ==
LOC: SDC 11:44
PROVIDERS: ATTEND Surgery
DX: R18.8 Other ascites (principal)
CPT/HCPCS: 49083; 82150; 82570; 82945; 83615; 84157; 87070; 87075; 87205; 89051; A7048

== ENCOUNTER → 2021-01-28 | Outpatient (CLI) | payer MEDICARE ==
[~2021-01-28] MED LIST changes: +SERT-413 PO; -SERT50TA9 PO
[2021-01-28 11:03] LABS: BASOPHILS # (AUTO) 0.1 10^3/uL (0.0-0.1); BASOPHILS % (AUTO) 1 % (0-10); EOSINOPHILS # (AUTO) 0.1 10^3/uL (0.0-0.3); EOSINOPHILS % (AUTO) 1 % (0-10); HEMATOCRIT 34 % (35-52); HEMOGLOBIN 10.8 g/dL (11.5-16.0); LYMPHOCYTES % (AUTO) 14 % (12-44); MEAN CORPUSCULAR HEMOGLOBIN 33 pg (25-34); MEAN CORPUSCULAR HGB CONC 32 g/dL (32-36); MEAN CORPUSCULAR VOLUME 101 fL (80-99); MEAN PLATELET VOLUME 9.9 fL (9.0-12.2); MONOCYTES # (AUTO) 0.6 10^3/uL (0.0-1.0); MONOCYTES % (AUTO) 8 % (0-12); NEUTROPHILS # (AUTO) 5.6 10^3/uL (1.8-7.8); NEUTROPHILS % (AUTO) 75 % (42-75); PLATELET COUNT 139 10^3/uL (130-400); WHITE BLOOD COUNT 7.4 10^3/uL (4.3-11.0)
[2021-01-28 11:14] LABS: ALBUMIN 3.2 GM/DL (3.2-4.5)
[2021-01-28 11:15] LABS: POTASSIUM 4.3 MMOL/L (3.6-5.0)
[2021-01-28 11:16] LABS: CALCIUM 8.8 MG/DL (8.5-10.1)
[2021-01-28 11:17] LABS: TOTAL PROTEIN 7.1 GM/DL (6.4-8.2)
[2021-01-28 11:19] LABS: BILIRUBIN,TOTAL 2.3 MG/DL (0.1-1.0)
[2021-01-28 11:21] LABS: CREATININE SERUM 1.98 MG/DL (0.60-1.30)
--- NOTE | 2021-01-28 13:48 | Diagnostic Imaging Report ---
EXAMINATION: CT abdomen and pelvis without contrast. TECHNIQUE: Multiple contiguous axial images were obtained through the abdomen and pelvis without the use of intravenous contrast. All CT scans use one or more of the following dose optimizing techniques: automated exposure control, MA and/or KvP adjustment based on patient size and exam type or iterative reconstruction. HISTORY: Rectal bleeding. COMPARISON: None available. FINDINGS: Limited views of the lower thorax show a pacemaker. Liver is cirrhotic. No focal liver lesions are seen. There is no biliary ductal dilation. Gallbladder is filled with numerous stones. Pancreas is normal. Spleen is enlarged. Adrenal glands are normal. The kidneys are normal. There is no hydronephrosis. Urinary bladder is normal. Visualized bowel is normal in caliber without obstruction or inflammation. There is a small amount of ascites. There is stranding in the omentum likely related to edema. There is a fat-containing lesion with stippled calcifications in the right gluteus mabel measuring 3.0 x 3.0 cm. There is no free air. No abdominal or pelvic lymphadenopathy. There is a 3.7 x 3.0 cm abdominal aortic aneurysm. There are no suspicious osseous lesions. IMPRESSION: 1. Cirrhotic liver with splenomegaly, small volume ascites and omental edema. 2. Indeterminate fat-containing lesion in the right gluteus mabel with internal stippled calcifications. Three-month follow-up is recommended to ensure stability that this is a benign process. Dictated by: Dictated on workstation # [id number]
== END ==
LOC: RAD 10:30
PROVIDERS: ATTEND Family Medicine
DX: K74.60 Unspecified cirrhosis of liver (principal); R16.1 Splenomegaly, not elsewhere classified
CPT/HCPCS: 36415; 74176; 80053; 85025

== ENCOUNTER → 2021-01-31 | Outpatient (CLI) | payer MEDICARE ==
[2021-01-31 11:28] LABS: MEAN CORPUSCULAR VOLUME 100 fL (80-99); MONOCYTES # (AUTO) 0.4 10^3/uL (0.0-1.0)
[2021-01-31 11:30] LABS: BASOPHILS % (AUTO) 1 % (0-10); EOSINOPHILS # (AUTO) 0.1 10^3/uL (0.0-0.3); EOSINOPHILS % (AUTO) 3 % (0-10); HEMATOCRIT 28 % (35-52); HEMOGLOBIN 8.9 g/dL (11.5-16.0); LYMPHOCYTES # (AUTO) 0.7 10^3/uL (1.0-4.0); LYMPHOCYTES % (AUTO) 18 % (12-44); MEAN CORPUSCULAR HEMOGLOBIN 32 pg (25-34); MEAN CORPUSCULAR HGB CONC 32 g/dL (32-36); MEAN PLATELET VOLUME 10.1 fL (9.0-12.2); MONOCYTES % (AUTO) 10 % (0-12); NEUTROPHILS # (AUTO) 2.5 10^3/uL (1.8-7.8); NEUTROPHILS % (AUTO) 68 % (42-75); PLATELET COUNT 93 10^3/uL (130-400); WHITE BLOOD COUNT 3.7 10^3/uL (4.3-11.0)
[2021-01-31 11:49] LABS: ALBUMIN 3.2 GM/DL (3.2-4.5); BILIRUBIN,TOTAL 2.2 MG/DL (0.1-1.0); CALCIUM 8.6 MG/DL (8.5-10.1); CREATININE SERUM 2.27 MG/DL (0.60-1.30); POTASSIUM 4.5 MMOL/L (3.6-5.0)
== END ==
LOC: LAB 11:08
PROVIDERS: ATTEND Family Medicine
DX: K62.5 Hemorrhage of anus and rectum (principal)
CPT/HCPCS: 36415; 80053; 85025

== ENCOUNTER → 2021-02-03 | Outpatient (CLI) | payer MEDICARE ==
[2021-02-03 09:31] LABS: BASOPHILS % (AUTO) 1 % (0-10); EOSINOPHILS # (AUTO) 0.1 10^3/uL (0.0-0.3); EOSINOPHILS % (AUTO) 4 % (0-10); HEMATOCRIT 28 % (35-52); HEMOGLOBIN 8.9 g/dL (11.5-16.0); LYMPHOCYTES # (AUTO) 0.6 X 10^3 (1.0-4.0); LYMPHOCYTES % (AUTO) 18 % (12-44); MEAN CORPUSCULAR HEMOGLOBIN 33 pg (25-34); MEAN CORPUSCULAR HGB CONC 32 g/dL (32-36); MEAN CORPUSCULAR VOLUME 101 fL (80-99); MEAN PLATELET VOLUME 9.7 fL (9.0-12.2); MONOCYTES # (AUTO) 0.3 X 10^3 (0.0-1.0); MONOCYTES % (AUTO) 9 % (0-12); NEUTROPHILS # (AUTO) 2.3 X 10^3 (1.8-7.8); NEUTROPHILS % (AUTO) 68 % (42-75); PLATELET COUNT 94 10^3/uL (130-400); WHITE BLOOD COUNT 3.4 10^3/uL (4.3-11.0)
[2021-02-03 09:52] LABS: ALBUMIN 3.3 GM/DL (3.2-4.5); BILIRUBIN,TOTAL 2.1 MG/DL (0.1-1.0); CREATININE SERUM 2.29 MG/DL (0.60-1.30); POTASSIUM 4.2 MMOL/L (3.6-5.0); TOTAL PROTEIN 7.4 GM/DL (6.4-8.2)
== END ==
LOC: LAB 09:07
PROVIDERS: ATTEND Family Medicine
DX: N18.2 Chronic kidney disease, stage 2 (mild) (principal); Z86.2 Personal history of diseases of the blood and blood-forming organs and certain disorders involving the immune mechanism
CPT/HCPCS: 36415; 80053; 85025

== ENCOUNTER 2021-03-03 08:09 | Emergency (ER) | payer MEDICARE ==
[~2021-03-03] VITALS: Ht 165.1 cm; Wt 65.8 kg
[2021-03-03 08:35] LABS: BASOPHILS % (AUTO) 1 % (0-10); EOSINOPHILS # (AUTO) 0.2 10^3/uL (0.0-0.3); EOSINOPHILS % (AUTO) 4 % (0-10); HEMATOCRIT 32 % (35-52); HEMOGLOBIN 9.8 g/dL (11.5-16.0); LYMPHOCYTES # (AUTO) 1.1 10^3/uL (1.0-4.0); LYMPHOCYTES % (AUTO) 20 % (12-44); MEAN CORPUSCULAR HEMOGLOBIN 31 pg (25-34); MEAN CORPUSCULAR HGB CONC 31 g/dL (32-36); MEAN CORPUSCULAR VOLUME 102 fL (80-99); MEAN PLATELET VOLUME 9.7 fL (9.0-12.2); MONOCYTES # (AUTO) 0.5 10^3/uL (0.0-1.0); MONOCYTES % (AUTO) 9 % (0-12); NEUTROPHILS # (AUTO) 3.7 10^3/uL (1.8-7.8); NEUTROPHILS % (AUTO) 65 % (42-75); PLATELET COUNT 169 10^3/uL (130-400); WHITE BLOOD COUNT 5.6 10^3/uL (4.3-11.0)
[2021-03-03 08:49] LABS: ALBUMIN 3.2 GM/DL (3.2-4.5); POTASSIUM 4.5 MMOL/L (3.6-5.0)
[2021-03-03 08:50] LABS: CALCIUM 8.9 MG/DL (8.5-10.1)
[2021-03-03 08:51] LABS: INR 1.2 (0.8-1.4); PROTHROMBIN TIME PATIENT 15.8 SEC (12.2-14.7)
[2021-03-03 08:52] LABS: TOTAL PROTEIN 7.6 GM/DL (6.4-8.2)
[2021-03-03 08:53] LABS: BILIRUBIN,TOTAL 2.2 MG/DL (0.1-1.0)
[2021-03-03 08:55] LABS: CREATININE SERUM 2.01 MG/DL (0.60-1.30)
--- NOTE | 2021-03-03 09:17 | ED GI ---
General Chief Complaint: Rect Problems Stated Complaint: RETCAL BLEEDING, DIARRHEA Nursing Triage Note: PT ARRIVED BY PRIVATE VEHICLE WITH CHIEF COMPLAINT OF DIARRHEA AND BLOODY STOOL. PT WAS ALERT, ORIENTED X 4 AND AMBULATORY WITH ASSISTANCE TO ROOM 5. PT STATED DIARRHEA STARTED 3 DAYS AGO, UT BLEEDING STARTED AROUND 1130 LAST NIGHT AND AGAIN AT 0530 THIS MORNING. DAUGHTER STATED THE BLOOD WAS BRIGHT RED. PT HAD THIS ISSUE ABOUT A MONTH AGO AND SAW DR. FERGUSON, BUT IT WENT AWAY ON ITS OWN. PT'S DAUGHTER STATED THEY CALLED DR. FERGUSON THIS MORNING AND SHE SAID TO GO TO ER. PT HAS HISTORY OF CIRRHOSIS. PT HAS RECTAL PAIN OF ABOUT A 10. PT HAS HISTORY OF CARDIAC ISSUES AND COPD, KNEE SURGERY AND PACEMAKER. PT IS A FORMER SMOKER. PT HAS HAD BOTH HER MODERNA COVID VACCINES. PT PER REQUEST IS A DNR. VITALS WERE TAKEN, IV WAS STARTED WITH BLOOD DRAW. REPORT GIVEN TO PROVIDER. Source of Information: Patient Exam Limitations: No Limitations History of Present Illness Date Seen by Provider: Mar 03, 2021 Time Seen by Provider: 08:11 Initial Comments This delightful 80-year-old woman presents to the emergency room via private vehicle with complaints of diarrhea and bloody stools. She has had episodes of this intermittently over many months but she had an acute episode that started last night. She had an episode again this morning that was bright red that concerned her and her daughter. This prompted a phone call to the clinic and referral to the emergency department. Vital signs are stable. She denies significant abdominal pain but does have some rectal pain. She has history of diverticulosis. She is afebrile. Allergies and Home Medications Allergies Coded Allergies: codeine (Unverified Allergy, Unknown, Pt has received Morphine in the paste, 05/23/20) Home Medications Atorvastatin Calcium 40 Mg Tablet, 20 MG PO HS, (Reported) Cetirizine HCl 10 Mg Tablet, 10 MG PO DAILY, (Reported) Ciprofloxacin HCl 500 Mg Tablet, 500 MG PO BID Prescribed by: DUNCAN HEMPHILL on 03/03/21 1110 Citalopram Hydrobromide 20 Mg Tablet, 20 MG PO DAILY, (Reported) Fluticasone/Salmeterol 1 Each Blst.w.dev, 1 EACH IH BID, (Reported) Iron Polysaccharide Complex 150 Mg Capsule, 150 MG PO DAILY, (Reported) Metoprolol Succinate 25 Mg Tab.er.24h, 12.5 MG PO HS, (Reported) Metronidazole 500 Mg Tablet, 500 MG PO BID Prescribed by: DUNCAN HEMPHILL on 03/03/21 1110 Mv-Mn/Folic Acid/Calcium/Vit K 1 Each Tablet, 1 EACH PO DAILY, (Reported) Pantoprazole Sodium 40 Mg Tablet.dr, 40 MG PO DAILY Prescribed by: TRINIDAD ADAMS on 07/04/19 1054 Potassium Chloride 20 Meq Tab.er.prt, 10 MEQ PO DAILY, (Reported) Patient Home Medication List Home Medication List Reviewed: Yes Review of Systems Review of Systems Constitutional: no symptoms reported EENTM: No Symptoms Reported Respiratory: No Symptoms Reported Cardiovascular: No Symptoms Reported Gastrointestinal: See HPI Genitourinary: No Symptoms Reported Musculoskeletal: no symptoms reported Skin: no symptoms reported Psychiatric/Neurological: No Symptoms Reported Endocrine: No Symptoms Reported Hematologic/Lymphatic: See HPI Past Rlfrvvg-Wnmsji-Jdupis Hx Patient Social History Tobacco Use?: No Smoking Status: Former Smoker Substance use?: No Alcohol Use?: No Pt feels they are or have been: No Immunizations Up To Date Tetanus Booster (TDap): Unknown COVID19 Vaccine Recoverer: Moderna Seasonal Allergies Seasonal Allergies: Yes Past Medical History Surgeries: Yes (LEFT KNEE REPLACEMENT 2009, ) Adenoidectomy, Pacemaker, Tonsillectomy Respiratory: Yes COPD Currently Using CPAP: No Currently Using BIPAP: No Cardiac: Yes (CAROTID DISEASE; RBBB ON EKG, PACEMAKER) High Cholesterol, Hypertension Neurological: No LAB 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 Sexually Transmitted Disease: No HIV/AIDS: No Genitourinary: No Gastrointestinal: Yes Colitis, Gastroesophageal Reflux, Diverticulosis, Hemorrhoids, Ulcer Musculoskeletal: Yes Arthritis Endocrine: No HEENT: Yes (GLASSES) Loss of Vision: Denies Hearing Impairment: Denies Cancer: No Psychosocial: Yes Anxiety Integumentary: No Blood Disorders: Yes (IRON DEF ANEMIA) Adverse Reaction/Blood Tranf: Yes (HAS HAD BLOOD WITH NO REACTION) Family Medical History Cardiovascular disease SON No Pertinent Family Hx Physical Exam Vital Signs Vital Signs - First Documented 03/03/21 08:25 Temp 35.4 Pulse 82 Resp 18 B/P (MAP) 129/65 (86) Pulse Ox 98 O2 Delivery Room Air Capillary Refill : Less Than 3 Seconds Height/Weight/BMI Height: 5'5.00" Weight: 184lbs. 8.0oz. 83.428290wv; 24.00 BMI Method:Estimated General Appearance: WD/WN, no apparent distress HEENT: normal ENT inspection Neck: normal inspection Respiratory: lungs clear, normal breath sounds, no respiratory distress Cardiovascular: regular rate, rhythm, no edema, no murmur Gastrointestinal: normal bowel sounds, non tender, soft Rectal: hemorrhoids (External, without thrombosis or active bleed) Extremities: normal inspection, no pedal edema Neurologic/Psychiatric: director systems II-XII nml as tested, no motor/sensory deficits, alert, normal mood/affect, oriented x 3 Skin: normal color, warm/dry Progress/Results/Core Measures Results/Orders Lab Results Laboratory Tests Test 03/03/21 08:29 03/03/21 08:52 Range/Units White Blood Count 5.6 4.3-11.0 10^3/uL Red Blood Count 3.12 L 3.80-5.11 10^6/uL Hemoglobin 9.8 L 11.5-16.0 g/dL Hematocrit 32 L 35-52 % Mean Corpuscular Volume 102 H 80-99 fL Mean Corpuscular Hemoglobin 31 25-34 pg Mean Corpuscular Hemoglobin Concent 31 L 32-36 g/dL Red Cell Distribution Width 13.5 10.0-14.5 % Platelet Count 169 130-400 10^3/uL Mean Platelet Volume 9.7 9.0-12.2 fL Immature Granulocyte % (Auto) 1 % Neutrophils (%) (Auto) 65 42-75 % Lymphocytes (%) (Auto) 20 12-44 % Monocytes (%) (Auto) 9 0-12 % Eosinophils (%) (Auto) 4 0-10 % Basophils (%) (Auto) 1 0-10 % Neutrophils # (Auto) 3.7 1.8-7.8 10^3/uL Lymphocytes # (Auto) 1.1 1.0-4.0 10^3/uL Monocytes # (Auto) 0.5 0.0-1.0 10^3/uL Eosinophils # (Auto) 0.2 0.0-0.3 10^3/uL Basophils # (Auto) 0.0 0.0-0.1 10^3/uL Immature Granulocyte # (Auto) 0.0 0.0-0.1 10^3/uL Prothrombin Time 15.8 H 12.2-14.7 SEC INR Comment 1.2 0.8-1.4 Activated Partial Thromboplast Time 33 24-35 SEC Sodium Level 138 135-145 MMOL/L Potassium Level 4.5 3.6-5.0 MMOL/L Chloride Level 109 H 98-107 MMOL/L Carbon Dioxide Level 18 L 21-32 MMOL/L Anion Gap 11 5-14 MMOL/L Blood Urea Nitrogen 39 H 7-18 MG/DL Creatinine 2.01 H 0.60-1.30 MG/DL Estimat Glomerular Filtration Rate 24 BUN/Creatinine Ratio 19 Glucose Level 105 70-105 MG/DL Calcium Level 8.9 8.5-10.1 MG/DL Corrected Calcium 9.5 8.5-10.1 MG/DL Total Bilirubin 2.2 H 0.1-1.0 MG/DL Aspartate Amino Transf (AST/SGOT) 40 H 5-34 U/L Alanine Aminotransferase (ALT/SGPT) 18 0-55 U/L Alkaline Phosphatase 260 H 40-136 U/L C-Reactive Protein High Sensitivity 4.24 H 0.00-0.50 MG/DL Total Protein 7.6 6.4-8.2 GM/DL Albumin 3.2 3.2-4.5 GM/DL Influenza Type A (RT-PCR) Not Detected Not Detecte Influenza Type B (RT-PCR) Not Detected Not Detecte SARS-CoV-2 RNA (RT-PCR) Not Detected Not Detecte My Orders Orders - DUNCAN AGUILERA MD Cbc With Automated Diff (03/03/21 08:29) Comprehensive Metabolic Panel (03/03/21 08:29) Hs C Reactive Protein (03/03/21 08:29) Protime With Inr (03/03/21 08:29) Partial Thromboplastin Time (03/03/21 08:29) Ed Iv/Invasive Line Start (03/03/21 08:29) Covid 19 Inhouse Test (03/03/21 09:08) Influenza A And B By Pcr (03/03/21 09:08) Chest Pa/Lat (2 View) (03/03/21 09:54) Vital Signs/I&O 03/03/21 03/03/21 08:25 11:32 Temp 35.4 Pulse 82 65 Resp 18 20 B/P (MAP) 129/65 (86) 117/83 Pulse Ox 98 98 O2 Delivery Room Air Room Air Blood Pressure Mean: 86 Progress Progress Note : Progress Note Case was discussed with Dr. Ferguson who also presented to the emergency department to evaluate the patient. Because of the mildly elevated CRP in the context of diverticulosis and fresh rectal bleed, we are prescribing antibiotics. She can be discharged home with close observation. See discharge instructions. Departure Impression Primary Impression: Hematochezia Additional Impression: History of diverticulosis Disposition: HOME, SELF-CARE Condition: Stable Departure-Patient Inst. Decision time for Depature: 11:09 Referrals: MICHELINE FERGUSON MD (PCP/Family) Primary Care Physician Patient Instructions: Bloody Stools, Adult (DC), Diverticulosis Add. Discharge Instructions: Adhere to a clear liquid diet today. Gradually advance your diet with small quantities of bland food tomorrow. Complete antibiotics as prescribed. Return to the ER if you have worsening symptoms. Call with questions or concerns. Follow-up with your primary care provider soon as possible. All discharge instructions reviewed with patient and/or family. Voiced understanding. Scripts Metronidazole (Flagyl) 500 Mg Tablet 500 MG PO BID, #14 TAB Prov: DUNCAN AGUILERA MD 03/03/21 Ciprofloxacin HCl (Ciprofloxacin HCl) 500 Mg Tablet 500 MG PO BID, #14 TAB Prov: DUNCAN AGUILERA MD 03/03/21 Copy Copies To 1: MICHELINE FERGUSON MD, JOSHUA T MD Mar 03, 2021 09:17
--- NOTE | 2021-03-03 10:18 | Diagnostic Imaging Report ---
Indication: COPD, tobaccoism, gastrointestinal bleeding PA and lateral chest There is a dual-chamber pacemaker. Heart size and pulmonary vascularity are normal. Lungs are clear. There are no effusions or pneumothoraces. IMPRESSION: No acute abnormalities in the chest Dictated by: Dictated on workstation # [id number]
[2021-03-03] MEDS ORDERED: CIPR500T5 PO (11:10)
[2021-03-03] MEDS ORDERED: METR500T PO (11:10)
[2021-03-03 11:32] VITALS: BP 117/83
== END 2021-03-03 11:32 | disposition home or self-care (01) ==
LOC: EDUNIT# 08:09 → ER 08:11
DX: K92.1 Melena (principal); J44.9 Chronic obstructive pulmonary disease, unspecified; I10 Essential (primary) hypertension; E78.00 Pure hypercholesterolemia, unspecified; F41.9 Anxiety disorder, unspecified; K21.9 Gastro-esophageal reflux disease without esophagitis; Z87.891 Personal history of nicotine dependence; Z20.822 Contact with and (suspected) exposure to COVID-19; Z79.899 Other long term (current) drug therapy
CPT/HCPCS: 36415; 71046; 80053; 85025; 85610; 85730; 86141; 87636

== ENCOUNTER 2021-10-06 13:24 | Inpatient (IN) | payer MEDICARE ==
[~2021-10-06] VITALS: Ht 162.6 cm; Wt 62.4 kg
[~2021-10-06 13:24] MED LIST changes: -AMIO200T6 PO; +AMIO200T65 PO; +CIPR500T5 PO; +METR500T PO; +POTA-169 PO; +POTA-179 PO; -POTA20TA15 PO; -POTA20TA8 PO
[2021-10-06 14:06] LABS: BASOPHILS % (AUTO) 0 % (0-10); EOSINOPHILS # (AUTO) 0.1 10^3/uL (0.0-0.3); EOSINOPHILS % (AUTO) 2 % (0-10); LYMPHOCYTES # (AUTO) 0.6 10^3/uL (1.0-4.0); MEAN CORPUSCULAR VOLUME 98 fL (80-99); MEAN PLATELET VOLUME 10.1 fL (9.0-12.2)
[2021-10-06 14:07] LABS: HEMATOCRIT 31 % (35-52); LYMPHOCYTES % (AUTO) 20 % (12-44); MEAN CORPUSCULAR HEMOGLOBIN 32 pg (25-34); MEAN CORPUSCULAR HGB CONC 33 g/dL (32-36); MONOCYTES # (AUTO) 0.3 10^3/uL (0.0-1.0); MONOCYTES % (AUTO) 10 % (0-12); NEUTROPHILS # (AUTO) 2.1 10^3/uL (1.8-7.8); NEUTROPHILS % (AUTO) 67 % (42-75); PLATELET COUNT 94 10^3/uL (130-400); WHITE BLOOD COUNT 3.2 10^3/uL (4.3-11.0)
[2021-10-06 14:11] LABS: ALBUMIN 2.7 GM/DL (3.2-4.5); POTASSIUM 4.8 MMOL/L (3.6-5.0)
[2021-10-06 14:14] LABS: TOTAL PROTEIN 7.6 GM/DL (6.4-8.2)
--- NOTE | 2021-10-06 14:14 | ED Cough/URI ---
General Stated Complaint: COUGH/WEAKNESS Source: patient, family History of Present Illness Date Seen by Provider: Oct 06, 2021 Time Seen by Provider: 14:03 Initial Comments This is a well-appearing 81-year-old female who presented to the ER via POV with complaints of of cough, generalized weakness, loss of appetite ever since she was diagnosed with Covid 3 weeks ago. States she was seen at her PCP office today where they took an x-ray of her chest and was noted to have diffuse pneumonia. She was referred to the emergency department for additional workup. Received prescription for Doxycyline and steroids and took her dosing prior arrival. No fever, chills, chest pain, nausea, vomiting, abdominal pain. Allergies and Home Medications Allergies Coded Allergies: codeine (Unverified Allergy, Unknown, Pt has received Morphine in the [facility], 05/23/20) Patient Home Medication List Home Medication List Reviewed: Yes Atorvastatin Calcium (Atorvastatin Calcium) 40 Mg Tablet, 20 MG PO HS, (Reported) Entered as Reported by: ISABELLA FLORENTINO on 06/30/19 1248 Cetirizine HCl (Cetirizine HCl) 10 Mg Tablet, 10 MG PO DAILY, (Reported) Entered as Reported by: ISABELLA FLORENTINO on 06/30/19 1248 Ciprofloxacin HCl (Ciprofloxacin HCl) 500 Mg Tablet, 500 MG PO BID Prescribed by: DUNCAN HEMPHILL on 03/03/21 1110 Citalopram Hydrobromide (Citalopram HBr) 20 Mg Tablet, 20 MG PO DAILY, (Reported) Entered as Reported by: TERENCE RODRIGUEZ on 05/22/20 1308 Fluticasone/Salmeterol (Advair 250-50 Diskus) 1 Each Blst.w.dev, 1 EACH IH BID, (Reported) Entered as Reported by: TERENCE RODRIGUEZ on 05/22/20 1309 Iron Polysaccharide Complex (Ferrex 150) 150 Mg Capsule, 150 MG PO DAILY, (Reported) Entered as Reported by: ISABELLA FLORENTINO on 06/30/19 1248 Metoprolol Succinate (Metoprolol Succinate) 25 Mg Tab.er.24h, 12.5 MG PO HS, (Reported) Entered as Reported by: ISABELLA FLORENTINO on 06/30/19 1248 Metronidazole (Flagyl) 500 Mg Tablet, 500 MG PO BID Prescribed by: DUNCAN HEMPHILL on 03/03/21 1110 Mv-Mn/Folic Acid/Calcium/Vit K (Women's 50 Plus Multivit Tab) 1 Each Tablet, 1 EACH PO DAILY, (Reported) Entered as Reported by: ISABELLA FLORENTINO on 06/30/19 1248 Pantoprazole Sodium (Protonix) 40 Mg Tablet.dr, 40 MG PO DAILY Prescribed by: TRINIDAD ADAMS on 07/04/19 1054 Potassium Chloride (Potassium Chloride) 20 Meq Tab.er.prt, 10 MEQ PO DAILY, (Reported) Entered as Reported by: ISABELLA FLORENTINO on 06/30/19 1248 Review of Systems Review of Systems Constitutional: see HPI EENTM: no symptoms reported Respiratory: see HPI Cardiovascular: no symptoms reported Gastrointestinal: see HPI Genitourinary: no symptoms reported Musculoskeletal: no symptoms reported Skin: no symptoms reported Psychiatric/Neurological: No Symptoms Reported Hematologic/Lymphatic: No Symptoms Reported Immunological/Allergic: no symptoms reported Past Sxswser-Enbqdc-Arfrpx Hx Immunizations Up To Date Tetanus Booster (TDap): Unknown Seasonal Allergies Seasonal Allergies: Yes Past Medical History Surgeries: Yes (LEFT KNEE REPLACEMENT 2009, ) Adenoidectomy, Pacemaker, Tonsillectomy Respiratory: Yes COPD Currently Using CPAP: No Currently Using BIPAP: No Cardiac: Yes (CAROTID DISEASE; RBBB ON EKG, PACEMAKER) High Cholesterol, Hypertension 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 Sexually Transmitted Disease: No HIV/AIDS: No Genitourinary: No Gastrointestinal: Yes Colitis, Gastroesophageal Reflux, Diverticulosis, Hemorrhoids, Ulcer Musculoskeletal: Yes Arthritis Endocrine: No HEENT: Yes (GLASSES) Loss of Vision: Denies Hearing Impairment: Denies Cancer: No Psychosocial: Yes Anxiety Integumentary: No Blood Disorders: Yes (IRON DEF ANEMIA) Adverse Reaction/Blood Tranf: Yes (HAS HAD BLOOD WITH NO REACTION) Family Medical History Cardiovascular disease SON No Pertinent Family Hx Physical Exam Vital Signs - First Documented 10/06/21 13:40 Temp 36.1 Pulse 73 Resp 28 B/P (MAP) 166/85 (112) Pulse Ox 94 O2 Delivery Room Air Capillary Refill : Height: 5'5.00" Weight: 184lbs. 8.0oz. 83.850660lw; 24.00 BMI Method:Estimated General Appearance: WD/WN, no apparent distress Eyes: Bilateral Eye Normal Inspection, Bilateral Eye PERRL, Bilateral Eye EOMI HEENT: PERRL/EOMI, normal ENT inspection Neck: full range of motion, supple Respiratory: normal breath sounds, no respiratory distress, no accessory muscle use, decreased breath sounds Cardiovascular: regular rate, rhythm, no edema Gastrointestinal: normal bowel sounds, non tender, soft, tenderness Extremities: non-tender, normal inspection, no pedal edema Neurologic/Psychiatric: no motor/sensory deficits, alert, normal mood/affect, oriented x 3 Skin: normal color, warm/dry Progress/Results/Core Measures Suspected Sepsis SIRS Temperature: Pulse: Respiratory Rate: Laboratory Tests 10/06/21 13:50: White Blood Count 3.2L Blood Pressure / Mean: Laboratory Tests 10/06/21 13:50: Creatinine 1.58H, Platelet Count 94L, Total Bilirubin 2.1H Results/Orders Lab Results Laboratory Tests Test 10/06/21 13:50 10/06/21 14:57 Range/Units White Blood Count 3.2 L 4.3-11.0 10^3/uL Red Blood Count 3.16 L 3.80-5.11 10^6/uL Hemoglobin 10.0 L 11.5-16.0 g/dL Hematocrit 31 L 35-52 % Mean Corpuscular Volume 98 80-99 fL Mean Corpuscular Hemoglobin 32 25-34 pg Mean Corpuscular Hemoglobin Concent 33 32-36 g/dL Red Cell Distribution Width 14.1 10.0-14.5 % Platelet Count 94 L 130-400 10^3/uL Mean Platelet Volume 10.1 9.0-12.2 fL Immature Granulocyte % (Auto) 1 % Neutrophils (%) (Auto) 67 42-75 % Lymphocytes (%) (Auto) 20 12-44 % Monocytes (%) (Auto) 10 0-12 % Eosinophils (%) (Auto) 2 0-10 % Basophils (%) (Auto) 0 0-10 % Neutrophils # (Auto) 2.1 1.8-7.8 10^3/uL Lymphocytes # (Auto) 0.6 L 1.0-4.0 10^3/uL Monocytes # (Auto) 0.3 0.0-1.0 10^3/uL Eosinophils # (Auto) 0.1 0.0-0.3 10^3/uL Basophils # (Auto) 0.0 0.0-0.1 10^3/uL Immature Granulocyte # (Auto) 0.0 0.0-0.1 10^3/uL Percent Immature Platelet Fraction 1.8 0.0-7.6 % D-Dimer 7.14 H 0.00-0.49 UG/ML Sodium Level 134 L 135-145 MMOL/L Potassium Level 4.8 3.6-5.0 MMOL/L Chloride Level 109 H 98-107 MMOL/L Carbon Dioxide Level 17 L 21-32 MMOL/L Anion Gap 8 5-14 MMOL/L Blood Urea Nitrogen 30 H 7-18 MG/DL Creatinine 1.58 H 0.60-1.30 MG/DL Estimat Glomerular Filtration Rate 32 BUN/Creatinine Ratio 19 Glucose Level 119 H 70-105 MG/DL Calcium Level 8.0 L 8.5-10.1 MG/DL Corrected Calcium 9.0 8.5-10.1 MG/DL Total Bilirubin 2.1 H 0.1-1.0 MG/DL Aspartate Amino Transf (AST/SGOT) 38 H 5-34 U/L Alanine Aminotransferase (ALT/SGPT) 13 0-55 U/L Alkaline Phosphatase 209 H 40-136 U/L Total Protein 7.6 6.4-8.2 GM/DL Albumin 2.7 L 3.2-4.5 GM/DL Procalcitonin 0.13 H <0.10 NG/ML Urine Color YELLOW Urine Clarity CLOUDY Urine pH 6.0 5-9 Urine Specific [place] 1.020 1.016-1.022 Urine Protein NEGATIVE NEGATIVE Urine Glucose (UA) NEGATIVE NEGATIVE Urine Ketones NEGATIVE NEGATIVE Urine Nitrite NEGATIVE NEGATIVE Urine Bilirubin NEGATIVE NEGATIVE Urine Urobilinogen 1.0 < = 1.0 MG/DL Urine Leukocyte Esterase 3+ H NEGATIVE Urine RBC (Auto) 1+ H NEGATIVE Urine RBC NONE /HPF Urine WBC 50-100 H /HPF Urine Squamous Epithelial Cells 0-2 /HPF Urine Renal Epithelial Cells NONE /HPF Urine Crystals NONE /LPF Urine Bacteria LARGE H /HPF Urine Casts NONE /LPF Urine Mucus NEGATIVE /LPF Urine Culture Indicated YES Micro Results Microbiology 10/06/21 Urine Culture - Preliminary, Resulted Escherichia coli My Orders Orders - MATTHEW HERNANDEZ RADIOLOGY RN Cbc With Automated Diff (10/06/21 13:56) Comprehensive Metabolic Panel (10/06/21 13:56) Chest 1 View, Ap/Pa Only (10/06/21 13:56) Ekg Tracing (10/06/21 13:56) Urinalysis (10/06/21 13:56) Ns Iv 500 Ml (Sodium Chloride 0.9%) (10/06/21 14:45) Urine Culture (10/06/21 14:57) Procalcitonin (Pct) (10/06/21 15:59) Fibrin Degradation Products (10/06/21 16:06) Procalcitonin (Pct) (10/06/21 16:06) Cefepime Injection (Maxipime Injection) (10/06/21 16:15) Medications Given in ED Vital Signs/I&O 10/06/21 13:40 Temp 36.1 Pulse 73 Resp 28 B/P (MAP) 166/85 (112) Pulse Ox 94 O2 Delivery Room Air Capillary Refill : Diagnostic Imaging Diagonstic Imaging: Xray Comments [facility], [place] NAME: JANICE RUTLEDGE Josey [facility] REC#: [id number] PT STATUS: REG ER : 1940 PHYSICIAN: MATTHEW HERNANDEZ APRN ADMIT DATE: 10/06/21/ER Signed Date of Exam:10/06/21 CHEST 1 VIEW, AP/PA ONLY INDICATION: Cough COMPARISON: 03/03/2021 TECHNIQUE: Single radiograph of the chest dated 10/06/2021 FINDINGS: Pacer device is again identified with a battery pack overlying the left chest. The cardiac silhouette is at the upper limits of normal in size. No significant pulmonary vascular congestion. Extensive mixed interstitial and airspace opacities are identified bilaterally, greatest within the right midlung. Trace right pleural effusion. No significant left pleural effusion. No pneumothorax. Scattered osseous degenerative changes without acute osseous abnormality. IMPRESSION: 1. Development of extensive right greater than left pulmonary opacities, concerning for an infectious infiltrate. COVID 19 should be considered. Recommend radiographic follow-up after appropriate therapy to ensure clearance. 2. Additional postsurgical and chronic findings, as above. Dictated by: Dictated on workstation # [id number] Dict: 10/06/21 1530 Trans: 10/06/21 1556 [facility] [id number] Interpreted by: PRATIMA ROSAS MD Electronically signed by: PRATIMA ROSAS MD 10/06/21 1556 Departure Communication (Admissions) Time/Spoke to Admitting Phy: 16:00 Dr. Ferguson Impression Primary Impression: Pneumonia due to COVID-19 virus Disposition: ADMITTED INPATIENT Condition: Stable Admissions Decision to Admit Reason: Admit from ER (General) Decision to Admit/Date: Oct 06, 2021 Time/Decision to Admit Time: 16:57 Departure-Patient Inst. Referrals: MICHELINE FERGUSON MD (PCP/Family) Primary Care Physician MATTHEW HERNANDEZ RADIOLOGY RN Oct 06, 2021 14:14
[2021-10-06 14:15] LABS: BILIRUBIN,TOTAL 2.1 MG/DL (0.1-1.0)
[2021-10-06 14:17] LABS: CREATININE SERUM 1.58 MG/DL (0.60-1.30)
[2021-10-06] MEDS ORDERED: NS IV 500 ML 500 ML IV ONE (14:45)
[2021-10-06 15:08] LABS: BILIRUBIN,URINE NEGATIVE (NEGATIVE); CLARITY,URINE CLOUDY; COLOR,URINE YELLOW; GLUCOSE, URINE (UA) NEGATIVE (NEGATIVE); KETONES,URINE NEGATIVE (NEGATIVE); LEUKOCYTE ESTERASE ,URINE 3+ (NEGATIVE); NITRITE,URINE NEGATIVE (NEGATIVE); PROTEIN,URINE NEGATIVE (NEGATIVE)
[2021-10-06 15:17] LABS: BACTERIA,URINE LARGE /HPF; SQUAMOUS EPITHELIAL CELL,UR 0-2 /HPF; WBC,URINE 50-100 /HPF
--- NOTE | 2021-10-06 15:35 | Diagnostic Imaging Report ---
INDICATION: Cough COMPARISON: 03/03/2021 TECHNIQUE: Single radiograph of the chest dated 10/06/2021 FINDINGS: Pacer device is again identified with a battery pack overlying the left chest. The cardiac silhouette is at the upper limits of normal in size. No significant pulmonary vascular congestion. Extensive mixed interstitial and airspace opacities are identified bilaterally, greatest within the right midlung. Trace right pleural effusion. No significant left pleural effusion. No pneumothorax. Scattered osseous degenerative changes without acute osseous abnormality. IMPRESSION: 1. Development of extensive right greater than left pulmonary opacities, concerning for an infectious infiltrate. COVID 19 should be considered. Recommend radiographic follow-up after appropriate therapy to ensure clearance. 2. Additional postsurgical and chronic findings, as above. Dictated by: Dictated on workstation # [id number]
[2021-10-06] MEDS ORDERED: CEFEPIME INJECTION 1,000 MG in NS (IVPB) 50 ML IV ONE (16:15)
[2021-10-06] MEDS ORDERED: ENOXAPARIN 60 MG/0.6 ML (LOVENOX) SYR SC ONE (17:30)
[2021-10-06] MEDS ORDERED: ACETAMINOPHEN 325 MG TABLET PO PRN (18:30)
[2021-10-06] MEDS ORDERED: ONDANSETRON 4 MG/2 ML (SDV) Z0FRAN IV PRN (18:30)
[2021-10-06] MEDS ORDERED: RT-ALBUTEROL SULF 2.5 MG/3 ML PRE-MIX VIAL IH PRN (18:30)
[2021-10-06 19:23] VITALS: BP 141/72
[2021-10-06] MEDS ORDERED: RT-ALBUTEROL SULF 2.5 MG/3 ML PRE-MIX VIAL INH PRN (19:45)
[2021-10-06] MEDS: NS IV 1000 ML 1,000 ML IV SCH (19:52)
[2021-10-06 20:00] VITALS: BP 150/80
[2021-10-06] MEDS: FAMOTIDINE 20 MG (PEPCID) TABLET PO SCH (20:22)
[2021-10-06] MEDS: DOXYCYCLINE 100 MG (VIBRAMYCIN) TABLET PO SCH (21:38)
[2021-10-06] MEDS: RT-ALBUTEROL SULF 2.5 MG/3 ML PRE-MIX VIAL INH SCH (22:20)
[2021-10-07 00:21] VITALS: BP 113/66
[2021-10-07] MEDS: RT-ALBUTEROL SULF 2.5 MG/3 ML PRE-MIX VIAL INH SCH ×3 (02:57→21:39)
[2021-10-07 04:32] VITALS: BP 108/65
[2021-10-07 06:00] LABS: BASOPHILS % (AUTO) 0 % (0-10); EOSINOPHILS % (AUTO) 0 % (0-10); HEMOGLOBIN 7.7 g/dL (11.5-16.0); MEAN CORPUSCULAR VOLUME 97 fL (80-99)
[2021-10-07 06:02] LABS: HEMATOCRIT 23 % (35-52); LYMPHOCYTES # (AUTO) 0.5 10^3/uL (1.0-4.0); LYMPHOCYTES % (AUTO) 38 % (12-44); MEAN CORPUSCULAR HEMOGLOBIN 32 pg (25-34); MEAN CORPUSCULAR HGB CONC 33 g/dL (32-36); MEAN PLATELET VOLUME 9.9 fL (9.0-12.2); MONOCYTES # (AUTO) 0.1 10^3/uL (0.0-1.0); MONOCYTES % (AUTO) 7 % (0-12); NEUTROPHILS # (AUTO) 0.7 10^3/uL (1.8-7.8); NEUTROPHILS % (AUTO) 54 % (42-75); PLATELET COUNT 63 10^3/uL (130-400)
[2021-10-07] MEDS: CEFEPIME 1,000 MG/NS 50 ML IVPB IV SCH ×4 (06:03→18:11)
[2021-10-07 06:10] LABS: INR 1.4 (0.8-1.4)
[2021-10-07 06:14] LABS: CALCIUM 7.6 MG/DL (8.5-10.1)
[2021-10-07 06:18] LABS: CREATININE SERUM 1.25 MG/DL (0.60-1.30)
[2021-10-07 06:22] LABS: WHITE BLOOD COUNT 1.3 10^3/uL (4.3-11.0)
--- NOTE | 2021-10-07 07:34 | Diagnostic Imaging Report ---
CLINICAL INDICATION: Patient with pneumonia. EXAM: Portable chest x-ray upright view. COMPARISON: Chest x-ray dated 10/06/2021. FINDINGS: Pulmonary vasculature and cardiac silhouette is within normal limits as visualized. There is interval progression of consolidation involving right midlung field and patchy airspace infiltrates throughout the rest of the right lung field. There is slight progression of infiltrates in the left upper lung field. There is no definite pleural effusion or pneumothorax. There are degenerative spurs involving the spine. Cardiac pacemaker again seen overlying left chest. IMPRESSION: There are bilateral lung infiltrates seen which has slightly progressed in the interim. Dictated by: Dictated on workstation # [id number]
[2021-10-07 08:00] VITALS: BP 137/68
[2021-10-07] MEDS: DOXYCYCLINE 100 MG (VIBRAMYCIN) TABLET PO SCH ×2 (08:12→21:18)
--- NOTE | 2021-10-07 09:14 | Physical Therapy Evaluation ---
PT Evaluation-General Medical Diagnosis Admission Date Oct 06, 2021 at 16:16 Medical Diagnosis: PNA Onset Date: Oct 06, 2021 Therapy Diagnosis Therapy Diagnosis: impaired mobility, strength, endurance Height/Weight Height (Feet): 5 Height (Inches): 5.00 Weight (Pounds): 184 Weight (Ounces): 8.0 Precautions Precautions/Isolations: Fall Prevention, Standard Precautions Referral Physician: Renaldo Reason for Referral: Evaluation/Treatment Medical History Pertinent Medical History: HTN Additional Medical History Past Medical History Surgeries: Yes (LEFT KNEE REPLACEMENT 2009, ) Adenoidectomy, Pacemaker, Tonsillectomy Respiratory: Yes COPD Currently Using CPAP: No Currently Using BIPAP: No Cardiac: Yes (CAROTID DISEASE; RBBB ON EKG, PACEMAKER) High Cholesterol, Hypertension 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 Sexually Transmitted Disease: No HIV/AIDS: No Genitourinary: No Gastrointestinal: Yes Colitis, Gastroesophageal Reflux, Diverticulosis, Hemorrhoids, Ulcer Musculoskeletal: Yes Arthritis Endocrine: No HEENT: Yes (GLASSES) Loss of Vision: Denies Hearing Impairment: Denies Cancer: No Psychosocial: Yes Anxiety Integumentary: No Blood Disorders: Yes (IRON DEF ANEMIA) Adverse Reaction/Blood Tranf: Yes (HAS HAD BLOOD WITH NO REACTION) Reviewed History: Yes Social History Current Living Status: Children Entry Into Home: Stairs Without Railing PT Steps Into Home: 2 patient lives with her daughter Prior Prior Level of Function SCALE: Activities may be completed with or without assistive devices. 2-Tngfqzlfid-ugukdom completes the activity by him/herself with no assistance from a helper. 5-Set-up or Clean-up Assistance-helper sets up or cleans up; patient completes activity. [place] assists only prior to or following the activity. 4-Supervision or Touching Assistance-helper provides verbal cues and/or touching/steadying and/or contact guard assistance as patient completes activity. Assistance may be provided throughout the activity or intermittently. 3-Partial/Moderate Assistance-helper does LESS THAN HALF the effort. [place] lifts, holds or supports trunk or limbs, but provides less than half the effort. 2-Substantial/Maximal Assistance-helper does MORE THAN HALF the effort. [place] l ifts or holds trunk or limbs and provides more than half the effort. 8-Clhupzjrr-rozqmf does ALL the effort. Patient does none of the effort to complete the activity. Or, the assistance of 2 or more helpers is required for the patient to complete the activity. If activity was not attempted, code reason: 7-Patient Refused. 9-Not Applicable-not attempted and the patient did not perform the activity before the current illness, exacerbation or injury. 10-Not Attempted due to Environmental Limitations-(lack of equipment, weather restraints, etc.). 88-Not Attempted due to Medical Conditions or Safety Concerns. Bed Mobility: 6 Transfers (B,C,W/C): 6 Gait: 6 Stairs: 6 Indoor Mobility (Ambulation): Independent Stairs: Independent Patient states she was not using a walker or cane previously PT Evaluation-Current Subjective Patient in bed pre tx, agrees to PT, has no complaints of pain. Pt/Family Goals to be independent at home. Objective Patient Orientation: Person, Place, Situation Attachments: IV ROM/Strength ROM Lower Extremities WNL Strength Lower Extremities grossly 4/5 BLE Sensory Vision: Wears Glasses Hearing: Functional Sensation Right Lower Extremit: Intact Sensation Left Lower Extremity: Intact Transfers Roll Left to Right (QC): 6 Lying to Sitting/Side of Bed(Q: 6 Sit to Stand (QC): 4 Chair/Lcr-ju-Porwo Xfer(QC): 4 Toilet Transfer (QC): 4 Gait Does the Patient Walk?: Yes Mode of Locomotion: Walk Anticipated Mode of Locomotion: Walk Walk 10 feet (QC): 4 Walk 50 ft with 2 Turns(QC): 4 Distance: 120' Gait Assistive Device: FWW Comments/Gait Description slow ambulation, needs cues to keep walker close, slumped posture Balance Sitting Static: Normal Sitting Dynamic: Normal Standing Static: Fair Standing Dynamic: Fair Assessment/Needs Patient on toilet post tx, nurse aide notified, patient instructed to use nurse call when done. Patient has impaired mobility, strength, endurance. 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 Senior Care Goals PT Senior Care Goals Time Frame: Oct 14, 2021 Roll Left & Right (QC): 6 Sit to Lying (QC): 6 Lying-Sitting on Side/Bed(QC): 6 Sit to Stand (QC): 5 Chair/Ivc-xm-Ystfb Xfer(QC): 5 Walk 10 feet (QC): 5 Walk 50ft with 2 Turns (QC): 5 Walk 150 ft (QC): 5 PT Plan Problem List Problem List: Activity Tolerance, Functional Strength, Safety, Balance, Gait, Transfer, ROM Treatment/Plan Treatment Plan: Continue Plan of Care Treatment Plan: Education, Functional Activity [place], Functional Strength, Gait, Safety, Therapeutic Exercise, Transfers Treatment Duration: Oct 14, 2021 Frequency: 6 times per week Estimated Hrs Per Day: .25 hour per day Patient and/or Family Agrees t: Yes Safety Risks/Education Patient Education: Gait Training, Transfer Techniques, Correct Positioning, Safety Issues Teaching Recipient: Patient Teaching Methods: Demonstration, Discussion Response to Teaching: Reinforcement Needed Discharge Recommendations Plan Patient will perform bed mobility and transfer training, balance and endurance training, functional strengthening, stair training, gait training, and education, to improve functional mobility and independence at home. Therapy Discharge Recommendati: Home & Family, Post Acute PT Time/GCodes Time In: 841 Time Out: 851 Total Billed Treatment Time: 10 Total Billed Treatment 1 visit EVL BRENNA LAY PT Oct 07, 2021 09:14
[2021-10-07 12:00] VITALS: BP 137/82
--- NOTE | 2021-10-07 13:18 | History & Physical ---
MEHDI KOHLI 10/07/21 1318: History of Present Illness History of Present Illness Reason for visit/HPI Patient admitted with pneumonia superimposed on recent COVID-19 infection. PMH of cirrhosis, CKD stage 4, COPD, hx of CVA, complete heart block s/p pacemaker, and HTN. Had previously completed course of abx and antivirals outpatient at inital Covid diagnosis. Had follow-up appointment with post-covid weakness and was given nebulizers and encouraged to use IS. Had significantly decreased oral intake before admission, was coughing without sputum, and had sensation of burning during urination. Received LR bolus on admission, cefepime, and doxycycline. This AM, patient feels much better after fluids and eating. In good spirits. Denies dyspnea, chest pain, nausea. Accompanied by daughter. Date of Admission Oct 06, 2021 at 16:16 Date Seen by a Provider: Oct 07, 2021 Time Seen by a Provider: 11:00 I consulted on this patient on 10/07/21 11:00 Attending Physician Micheline Ferguson MD Admitting Physician Micheline Ferguson MD Consult Allergies and Home Medications Allergies Coded Allergies: codeine (Unverified Allergy, Unknown, Pt has received Morphine in the paste, 05/23/20) Patient Home Medication List Home Medication List Reviewed: Yes Cetirizine HCl (Cetirizine HCl) 10 Mg Tablet, 10 MG PO DAILY, (Reported) Entered as Reported by: HOLLI GARDINER on 10/07/211437 Last Action: Converted Fluticasone Propionate (Flonase Allergy Relief) 9.9 Ml Lynn.susp, 1-2 SPRAY NSEACH HS, (Reported) Entered as Reported by: HOLLI GARDINER on 10/07/211437 Last Action: Reviewed Fluticasone/Salmeterol (Advair 250-50 Diskus) 1 Each Blst.w.dev, 1 EACH IH BID, (Reported) Entered as Reported by: HOLLI GARDINER on 10/07/211437 Last Action: Converted Furosemide (Furosemide) 20 Mg Tablet, 20 MG PO Q48H, (Reported) Entered as Reported by: HOLLI GARDINER on 10/07/211437 Last Action: Reviewed Hydroxyzine HCl (Hydroxyzine HCl) 10 Mg Tablet, 10 MG PO BID, (Reported) Entered as Reported by: HOLLI GARDINER on 10/07/211437 Last Action: Continued Iron Ps Cmplx/Vit B12/FA (Ferrex 150 Forte Capsule) 1 Each Capsule, 1 EACH PO DAILY, (Reported) Entered as Reported by: HOLLI GARDINER on 10/07/211437 Last Action: Reviewed Lactulose (Lactulose) 10 Gm/15 Ml Solution, 15 ML PO DAILY, (Reported) Entered as Reported by: HOLLI GARDINER on 10/07/211437 Last Action: Reviewed Lorazepam (Ativan) 1 Mg Tablet, 0.5 MG PO BID, (Reported) Entered as Reported by: HOLLI GARDINER on 10/07/211437 Last Action: Continued Pantoprazole Sodium (Pantoprazole Sodium) 40 Mg Tablet.dr, 40 MG PO DAILY, (Reported) Entered as Reported by: HOLLI GARDINER on 10/07/211437 Last Action: Reviewed Skc929/FA/Omega3/Dha/Fish Oil ( Gummies) 1 Each Tab.chew, 1 EACH PO DAILY, (Reported) Entered as Reported by: HOLLI GARDINER on 10/07/211437 Last Action: Reviewed Spironolactone (Spironolactone) 50 Mg Tablet, 25 MG PO HS, (Reported) Entered as Reported by: HOLLI GARDINER on 10/07/211437 Last Action: Reviewed Discontinued Medications Atorvastatin Calcium (Atorvastatin Calcium) 40 Mg Tablet, 20 MG PO HS, (Reported) Discontinued Reason: No Longer Taking Entered as Reported by: ISABELLA FLORENTINO on 06/30/19 1248 Last Action: Discontinued Cetirizine HCl (Cetirizine HCl) 10 Mg Tablet, 10 MG PO DAILY, (Reported) Discontinued Reason: No Longer Taking Entered as Reported by: ISABELLA FLORENTINO on 06/30/19 124 Last Action: Discontinued Ciprofloxacin HCl (Ciprofloxacin HCl) 500 Mg Tablet, 500 MG PO BID Discontinued Reason: No Longer Taking Prescribed by: DUNCAN HEMPHILL on 03/03/21 1110 Last Action: Discontinued Citalopram Hydrobromide (Citalopram HBr) 20 Mg Tablet, 20 MG PO DAILY, (Reported) Discontinued Reason: No Longer Taking Entered as Reported by: TERENCE RODRIGUEZ on 05/22/20 1308 Last Action: Discontinued Fluticasone/Salmeterol (Advair 250-50 Diskus) 1 Each Blst.w.dev, 1 EACH IH BID, (Reported) Discontinued Reason: No Longer Taking Entered as Reported by: TERENCE RODRIGUEZ on 05/22/20 1309 Last Action: Discontinued Iron Polysaccharide Complex (Ferrex 150) 150 Mg Capsule, 150 MG PO DAILY, (Reported) Discontinued Reason: No Longer Taking Entered as Reported by: ISABELLA FLORENTINO on 06/30/19 1248 Last Action: Discontinued Metoprolol Succinate (Metoprolol Succinate) 25 Mg Tab.er.24h, 12.5 MG PO HS, (Reported) Discontinued Reason: No Longer Taking Entered as Reported by: ISABELLA FLORENTINO on 06/30/19 1248 Last Action: Discontinued Metronidazole (Flagyl) 500 Mg Tablet, 500 MG PO BID Discontinued Reason: No Longer Taking Prescribed by: DUNCAN HEMPHILL on 03/03/21 1110 Last Action: Discontinued Mv-Mn/Folic Acid/Calcium/Vit K (Women's 50 Plus Multivit Tab) 1 Each Tablet, 1 EACH PO DAILY, (Reported) Discontinued Reason: No Longer Taking Entered as Reported by: ISABELLA FLORENTINO on 06/30/19 1248 Last Action: Discontinued Pantoprazole Sodium (Protonix) 40 Mg Tablet.dr, 40 MG PO DAILY Discontinued Reason: No Longer Taking Prescribed by: TRINIDAD ADAMS on 07/04/19 1054 Last Action: Discontinued Potassium Chloride (Potassium Chloride) 20 Meq Tab.er.prt, 10 MEQ PO DAILY, (Reported) Discontinued Reason: No Longer Taking Entered as Reported by: ISABELLA FLORENTINO on 06/30/19 1248 Last Action: Discontinued Past Wdwzixc-Zbfzfw-Ytivjc Hx Patient Social History Tobacco Use?: No Smoking Status: Former Smoker Smokeless Tobacco Frequency: Former User Use of E-Cig and/or Vaping dev: No Substance use?: No Alcohol Use?: No Pt feels they are or have been: No Immunizations Up To Date Date of Influenza Vaccine: May 30, 2019 First/Initial COVID19 Vaccinat: yes unknown date Second COVID19 Vaccination Juan Pablo: yes unknown date Tetanus Booster (TDap): Unknown Date of Pneumonia Vaccine: Apr 10, 2012 Seasonal Allergies Seasonal Allergies: Yes Current Status status: No status: No Advance Directives: Yes Advance Directive Location: Copy placed in chart Communicates: Verbally Primary Language: Libyan Preferred Spoken Language: Libyan Is interpretation needed?: No Sensory deficits: Hearing impairment Implanted or Applied Medical D: Orthopedic hardware, Pacemaker Past Medical History Surgeries: Adenoidectomy, Pacemaker, Tonsillectomy COPD Currently Using CPAP: No Currently Using BIPAP: No High Cholesterol, Hypertension 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 Sexually Transmitted Disease: No HIV/AIDS: No Colitis, Gastroesophageal Reflux, Diverticulosis, Hemorrhoids, Ulcer Arthritis Loss of Vision: Denies Hearing Impairment: Denies Anxiety Blood Disorders: Yes (IRON DEF ANEMIA) Adverse Reaction/Blood Tranf: Yes (HAS HAD BLOOD WITH NO REACTION) PMHx: Osteoarthritis HTN HLD Complete heart block s/p pacemaker placement PSurgHx: Left knee replacement Pacemaker placement Cardioversion for atrial fibrillation Family Medical History Cardiovascular disease SON No Pertinent Family Hx Review of Systems Constitutional: weight loss (poor po intake) Respiratory: cough Cardiovascular: Hx of Intervention (pacemaker) Gastrointestinal: no symptoms reported Genitourinary: dysuria : No Musculoskeletal: muscle weakness Skin: no symptoms reported Psychiatric/Neurological: No Symptoms Reported Physical Exam Vital Signs Vital Signs - First Documented 10/06/21 13:40 Temp 36.1 Pulse 73 Resp 28 B/P (MAP) 166/85 (112) Pulse Ox 94 O2 Delivery Room Air Capillary Refill : Less Than 3 Seconds Height, Weight, BMI Height: 5'5.00" Weight: 184lbs. 8.0oz. 83.894839yh; 23.60 BMI Method:Estimated General Appearance: No Apparent Distress Eyes: Bilateral Eye EOMI Respiratory: Lungs Clear, No Accessory Muscle Use Cardiovascular: Regular Rate, Rhythm (pacemaker), Systolic Murmur Gastrointestinal: Normal Bowel Sounds, Non Tender Extremity: No Pedal Edema Skin: Pallor Assessment/Plan Assessment and Plan Assessment: 81 yof admitted with pneumonia superimposed of prior Covid-19 infection found to have likely UTI on UA, pending cultures. After rehydration labs have showed pancytopenia, notable leukopenia of 1.3K, which maybe due to viral suppression of bone marrow or underlying liver disease. Plan Pneumonia -satting 95% on RA -received cefepime and doxy Pancytopenia -possibly secondary to viral suppression -Hg 7.7WBC 1.3K plt 63 2/8 UTI -pending cultures on cefepime and doxy Malnutrition -Hypoalbuminemia and recent weight loss 2/2 poor po intake -Dietary consult for PEM Hx cirrhosis Hx complete heart block s/p pacemaker placement Admission Diagnosis Reason for Inpatient Admission: Requiring IV abx while pancytopenic MICHELINE FREGUSON MD 10/07/212150: Allergies and Home Medications Allergies Coded Allergies: codeine (Unverified Allergy, Unknown, Pt has received Morphine in the paste, 05/23/20) Patient Home Medication List Home Medication List Reviewed: Yes Cetirizine HCl (Cetirizine HCl) 10 Mg Tablet, 10 MG PO DAILY, (Reported) Entered as Reported by: HOLLI GARDINER on 10/07/211437 Last Action: Converted Fluticasone Propionate (Flonase Allergy Relief) 9.9 Ml Lynn.susp, 1-2 SPRAY NSEACH HS, (Reported) Entered as Reported by: HOLLI GARDINER on 10/07/211437 Last Action: Reviewed Fluticasone/Salmeterol (Advair 250-50 Diskus) 1 Each Blst.w.dev, 1 EACH IH BID, (Reported) Entered as Reported by: HOLLI GARDINER on 10/07/211437 Last Action: Converted Furosemide (Furosemide) 20 Mg Tablet, 20 MG PO Q48H, (Reported) Entered as Reported by: HOLLI GARDINER on 10/07/211437 Last Action: Reviewed Hydroxyzine HCl (Hydroxyzine HCl) 10 Mg Tablet, 10 MG PO BID, (Reported) Entered as Reported by: HOLLI GARDINER on 10/07/211437 Last Action: Continued Iron Ps Cmplx/Vit B12/FA (Ferrex 150 Forte Capsule) 1 Each Capsule, 1 EACH PO DAILY, (Reported) Entered as Reported by: HOLLI GARDINER on 10/07/211437 Last Action: Reviewed Lactulose (Lactulose) 10 Gm/15 Ml Solution, 15 ML PO DAILY, (Reported) Entered as Reported by: HOLLI GARDINER on 10/07/211437 Last Action: Reviewed Lorazepam (Ativan) 1 Mg Tablet, 0.5 MG PO BID, (Reported) Entered as Reported by: HOLLI GARDINER on 10/07/211437 Last Action: Continued Pantoprazole Sodium (Pantoprazole Sodium) 40 Mg Tablet.dr, 40 MG PO DAILY, (Reported) Entered as Reported by: HOLLI GARDINER on 10/07/211437 Last Action: Reviewed Bup557/FA/Omega3/Dha/Fish Oil ( Gummies) 1 Each Tab.chew, 1 EACH PO DAILY, (Reported) Entered as Reported by: HOLLI GARDINER on 10/07/211437 Last Action: Reviewed Spironolactone (Spironolactone) 50 Mg Tablet, 25 MG PO HS, (Reported) Entered as Reported by: HOLLI GARDINER on 10/07/211437 Last Action: Reviewed Discontinued Medications Atorvastatin Calcium (Atorvastatin Calcium) 40 Mg Tablet, 20 MG PO HS, (Reported) Discontinued Reason: No Longer Taking Entered as Reported by: ISABELLA FLORENTINO on 06/30/191247 Last Action: Discontinued Cetirizine HCl (Cetirizine HCl) 10 Mg Tablet, 10 MG PO DAILY, (Reported) Discontinued Reason: No Longer Taking Entered as Reported by: ISABELLA FLORENTINO on 06/30/191247 Last Action: Discontinued Ciprofloxacin HCl (Ciprofloxacin HCl) 500 Mg Tablet, 500 MG PO BID Discontinued Reason: No Longer Taking Prescribed by: DUNCAN HEMPHILL on 03/03/21 1110 Last Action: Discontinued Citalopram Hydrobromide (Citalopram HBr) 20 Mg Tablet, 20 MG PO DAILY, (Reported) Discontinued Reason: No Longer Taking Entered as Reported by: TERENCE RODRIGUEZ on 05/22/20 1308 Last Action: Discontinued Fluticasone/Salmeterol (Advair 250-50 Diskus) 1 Each Blst.w.dev, 1 EACH IH BID, (Reported) Discontinued Reason: No Longer Taking Entered as Reported by: TERENCE RODRIGUEZ on 05/22/20 1309 Last Action: Discontinued Iron Polysaccharide Complex (Ferrex 150) 150 Mg Capsule, 150 MG PO DAILY, (Reported) Discontinued Reason: No Longer Taking Entered as Reported by: ISABELLA FLORENTINO on 06/30/198 Last Action: Discontinued Metoprolol Succinate (Metoprolol Succinate) 25 Mg Tab.er.24h, 12.5 MG PO HS, (Reported) Discontinued Reason: No Longer Taking Entered as Reported by: ISABELLA FLORENTINO on 06/30/198 Last Action: Discontinued Metronidazole (Flagyl) 500 Mg Tablet, 500 MG PO BID Discontinued Reason: No Longer Taking Prescribed by: DUNCAN HEMPHILL on 03/03/21 1110 Last Action: Discontinued Mv-Mn/Folic Acid/Calcium/Vit K (Women's 50 Plus Multivit Tab) 1 Each Tablet, 1 EACH PO DAILY, (Reported) Discontinued Reason: No Longer Taking Entered as Reported by: ISABELLA FLORENTINO on 06/30/191247 Last Action: Discontinued Pantoprazole Sodium (Protonix) 40 Mg Tablet.dr, 40 MG PO DAILY Discontinued Reason: No Longer Taking Prescribed by: TRINIDAD ADAMS on 07/04/19 1054 Last Action: Discontinued Potassium Chloride (Potassium Chloride) 20 Meq Tab.er.prt, 10 MEQ PO DAILY, (Reported) Discontinued Reason: No Longer Taking Entered as Reported by: ISABELLA FLORENTINO on 06/30/191247 Last Action: Discontinued Past Yatcjqg-Tozpjf-Ugazav Hx Patient Social History [facility]: [facility] Family Medical History Cardiovascular disease SON Review of Systems Constitutional: No chills, No fever; malaise, weakness EENTM: no symptoms reported; No mouth pain, No nose congestion, No throat pain Respiratory: dyspnea on exertion Cardiovascular: no symptoms reported; No chest pain, No edema, No palpitations Gastrointestinal: no symptoms reported; No abdominal pain, No constipation, No diarrhea, No nausea, No vomiting Genitourinary: No dysuria; frequency; No hematuria : No Musculoskeletal: no symptoms reported; No back pain, No joint pain, No muscle pain Skin: pruritus Psychiatric/Neurological: No Symptoms Reported Physical Exam General Appearance: No Apparent Distress HEENT: PERRL/EOMI Neck: Full Range of Motion, Normal Inspection, Non Tender Respiratory: Chest Non Tender, Lungs Clear, Normal Breath Sounds, No Accessory Muscle Use, No Respiratory Distress Cardiovascular: Regular Rate, Rhythm, Systolic Murmur Gastrointestinal: Normal Bowel Sounds, Non Tender, Soft Extremity: Normal Capillary Refill, Normal Range of Motion, Non Tender, No Calf Tenderness, No Pedal Edema Neurologic/Psychiatric: Alert, Oriented x3, No Motor/Sensory Deficits, Normal Mood/Affect, online producer II-XII Norm as Tested Skin: Normal Color, Warm/Dry Lymphatic: No Adenopathy Assessment/Plan Assessment and Plan Problems: (1) Pneumonia due to COVID-19 virus Status: Acute (2) Hypercoagulable state associated with COVID-19 Status: Acute Assessment & Plan: - VQ scan due to CKD, concerning for PE, Discussed case with Dr Adams due to patient's chronic anemia and unable to tolerate OAC. Will consider CTA after moderate hydration (3) Iron deficiency anemia Status: Chronic Qualifiers: Qualified Codes: D50.0 - Iron deficiency anemia secondary to blood loss (chronic) (4) CKD (chronic kidney disease) Status: Chronic Qualifiers: Qualified Codes: N18.32 - Chronic kidney disease, stage 3b (5) CAD (coronary artery disease) Status: Chronic Qualifiers: Qualified Codes: I25.10 - Atherosclerotic heart disease of [place] coronary artery without angina pectoris (6) Cirrhosis of liver Status: Chronic Qualifiers: Qualified Codes: K70.30 - Alcoholic cirrhosis of liver without ascites (7) Hypertension Status: Chronic Qualifiers: Qualified Codes: I10 - Essential (primary) hypertension (8) DVT prophylaxis Status: Acute Admission Diagnosis Admission Status: Inpatient Order (span 2 midnights) Reason for Inpatient Admission: failed outpatient treatment and requiring IV antibiotics Supervisory-Addendum Brief Verification & Attestation Participated in pt care: history, physical Personally performed: exam, history Care discussed with: Medical Student Procedures: n/a Verification and Attestation of Medical Student E/M Service A medical student performed and documented this service in my presence. I reviewed and verified all information documented by the medical student and made modifications to such information, when appropriate. I personally performed the physical exam and medical decision making. Micheline Ferguson, Oct 07, 2021,22:12 MEHDI KOHLI Oct 07, 2021 13:18 MICHELINE FERGUSON MD Oct 07, 2021 21:51
[2021-10-07] MEDS ORDERED: PANT40TA52 PO (14:38)
[2021-10-07] MEDS ORDERED: SPIR50TA4 PO (14:38)
[2021-10-07] MEDS ORDERED: FLUT1DIS26 IH (14:38)
[2021-10-07] MEDS ORDERED: CETI10TA17 PO (14:38)
[2021-10-07] MEDS ORDERED: PNV11TAB5 PO (14:38)
[2021-10-07] MEDS ORDERED: LORA-405 PO (14:38)
[2021-10-07] MEDS ORDERED: HYDR-3584 PO (14:38)
[2021-10-07] MEDS ORDERED: IRON1CAP9 PO (14:38)
[2021-10-07] MEDS ORDERED: FURO20TA4 PO (14:38)
[2021-10-07] MEDS ORDERED: LACT10SO27 PO (14:38)
[2021-10-07] MEDS ORDERED: FLUT9.9S NSEACH (14:38)
[2021-10-07 16:06] VITALS: BP 122/58
[2021-10-07] MEDS: ENOXAPARIN 60 MG/0.6 ML (LOVENOX) SYR SC SCH (18:10)
[2021-10-07] MEDS: NS IV 1000 ML 1,000 ML IV SCH (18:11)
--- NOTE | 2021-10-07 18:11 | Diagnostic Imaging Report ---
INDICATION: 10 days post COVID-19. TECHNIQUE: Patient was administered 5.4 mCi technetium 99m MAA intravenously and imaging over the chest was performed in multiple obliquities. FINDINGS: There is a large perfusion defect in the right mid posterior lung. This appears to be wedge shaped and extends to the pleural surface. No significant pleural-based perfusion defect in the left lung is identified. IMPRESSION: There is a large perfusion defect in the right midlung, which would be concerning for pulmonary embolism. Dictated by: Dictated on workstation # [id number]
[2021-10-07 19:36] VITALS: BP 131/60
[2021-10-07] MEDS: FAMOTIDINE 20 MG (PEPCID) TABLET PO SCH (21:18)
[2021-10-07] MEDS ORDERED: diphenhydrAMINE 25 MG TAB (BENADRYL) PO PRN (21:45)
[2021-10-08 00:33] VITALS: BP 160/87
[2021-10-08] MEDS: RT-ALBUTEROL SULF 2.5 MG/3 ML PRE-MIX VIAL INH SCH ×2 (02:55→10:24)
[2021-10-08 04:01] VITALS: BP 124/71
[2021-10-08] MEDS: CEFEPIME 1,000 MG/NS 50 ML IVPB IV SCH ×4 (05:04→17:52)
[2021-10-08] MEDS: NS IV 1000 ML 1,000 ML IV SCH (05:05)
[2021-10-08 06:42] LABS: BASOPHILS % (AUTO) 0 % (0-10); HEMATOCRIT 27 % (35-52); MEAN CORPUSCULAR VOLUME 99 fL (80-99)
[2021-10-08 06:44] LABS: EOSINOPHILS % (AUTO) 0 % (0-10); HEMOGLOBIN 8.6 g/dL (11.5-16.0); LYMPHOCYTES # (AUTO) 0.3 10^3/uL (1.0-4.0); LYMPHOCYTES % (AUTO) 23 % (12-44); MEAN CORPUSCULAR HEMOGLOBIN 31 pg (25-34); MEAN CORPUSCULAR HGB CONC 32 g/dL (32-36); MONOCYTES # (AUTO) 0.1 10^3/uL (0.0-1.0); MONOCYTES % (AUTO) 8 % (0-12); NEUTROPHILS % (AUTO) 69 % (42-75); PLATELET COUNT 69 10^3/uL (130-400)
[2021-10-08 06:49] LABS: WHITE BLOOD COUNT 1.4 10^3/uL (4.3-11.0)
[2021-10-08 06:54] LABS: ALBUMIN 2.3 GM/DL (3.2-4.5); POTASSIUM 4.2 MMOL/L (3.6-5.0)
[2021-10-08 06:55] LABS: CALCIUM 7.8 MG/DL (8.5-10.1)
[2021-10-08 06:56] LABS: TOTAL PROTEIN 6.7 GM/DL (6.4-8.2)
[2021-10-08 06:58] LABS: BILIRUBIN,TOTAL 1.2 MG/DL (0.1-1.0)
[2021-10-08 07:00] LABS: CREATININE SERUM 1.36 MG/DL (0.60-1.30)
[2021-10-08 07:30] VITALS: BP 138/73
[2021-10-08] MEDS: LORazepam 0.5 MG (ATIVAN) TABLET PO SCH ×2 (09:02→20:09)
[2021-10-08] MEDS: LORATADINE (CLARITIN) 10 MG TAB PO SCH (09:02)
[2021-10-08] MEDS: DOXYCYCLINE 100 MG (VIBRAMYCIN) TABLET PO SCH (09:02)
[2021-10-08] MEDS: hydrOXYzine (ATARAX) 10 MG TAB PO SCH ×2 (09:03→20:09)
[2021-10-08] MEDS: RT--FLUTICASONE/SALMETEROL 113-14 (AIRDUO RespiCLICK) IH SCH ×2 (10:24→22:14)
[2021-10-08] MEDS ORDERED: RT-ALBUTEROL/IPRATROPIUM 3 ML (DUONEB) VIAL INH PRN (10:30)
--- NOTE | 2021-10-08 11:42 | Physical Therapy Daily Note ---
PT Daily Note-Current Subjective Patient presented in bed and agreed to participate in physical therapy. Mental Status Patient Orientation: Person Attachments: IV Transfers SCALE: Activities may be completed with or without assistive devices. 6-Bkhgxcagfo-hsibtph completes the activity by him/herself with no assistance from a helper. 5-Set-up or Clean-up Assistance-helper sets up or cleans up; patient completes activity. [place] assists only prior to or following the activity. 4-Supervision or Touching Assistance-helper provides verbal cues and/or touching/steadying and/or contact guard assistance as patient completes activity. Assistance may be provided throughout the activity or intermittently. 3-Partial/Moderate Assistance-helper does LESS THAN HALF the effort. [place] lifts, holds or supports trunk or limbs, but provides less than half the effort. 2-Substantial/Maximal Assistance-helper does MORE THAN HALF the effort. [place] lifts or holds trunk or limbs and provides more than half the effort. 3-Dufmycdug-rryjzp does ALL the effort. Patient does none of the effort to complete the activity. Or, the assistance of 2 or more helpers is required for the patient to complete the activity. If activity was not attempted, code reason: 7-Patient Refused. 9-Not Applicable-not attempted and the patient did not perform the activity before the current illness, exacerbation or injury. 10-Not Attempted due to Environmental Limitations-(lack of equipment, weather restraints, etc.). 88-Not Attempted due to Medical Conditions or Safety Concerns. Sit to Stand (QC): 4 Chair/Vle-rv-Akjfj Xfer(QC): 4 Patient required cues for hand placement on sit to stand and was CGA for all transfers. Gait Training Does the Patient Walk?: Yes Distance: 150' Walk 10 feet (QC): 4 Walk 50 ft with 2 Turns(QC): 4 Walk 150 ft (QC): 4 Gait Assistive Device: FWW Patient ambulated for 150' with CGA and FWW. Patient didn't want to walk with the walker but was convinced it was the safer option at this point. Treatments Bed mobility Ambulation Assessment Patient ambulated and performed bed mobility. Patient did not report any SOA with ambulation today. Patient required cues to walk within the walker while ambulating today. Patient reported fatigue after ambulation today. PT Residential Goals Residential Goals PT Residential Goals Time Frame: Oct 14, 2021 Roll Left & Right (QC): 6 Sit to Lying (QC): 6 Lying-Sitting on Side/Bed(QC): 6 Sit to Stand (QC): 5 Chair/Kqp-ue-Vxwqv Xfer(QC): 5 Walk 10 feet (QC): 5 Walk 50ft with 2 Turns (QC): 5 Walk 150 ft (QC): 5 PT Plan Problem List Problem List: Activity Tolerance, Functional Strength, Safety, Balance, Gait, Transfer, Bed Mobility, ROM Treatment/Plan Treatment Plan: Continue Plan of Care Treatment Plan: Education, Functional Activity [place], Functional Strength, Gait, Safety, Therapeutic Exercise, Transfers Treatment Duration: Oct 14, 2021 Frequency: 6 times per week Estimated Hrs Per Day: .25 hour per day Patient and/or Family Agrees t: Yes Safety Risks/Education Patient Education: Gait Training, Transfer Techniques, Safety Issues Teaching Recipient: Patient Teaching Methods: Discussion Response to Teaching: Reinforcement Needed Time/GCodes Time In: 1120 Time Out: 1133 Total Billed Treatment Time: 13 Total Billed Treatment 1 Visit Gait 13 min BRENNA ABRAHAM PT Oct 08, 2021 11:42
[2021-10-08 12:05] VITALS: BP 144/64
[2021-10-08] MEDS: RT-ALBUTEROL/IPRATROPIUM 3 ML (DUONEB) VIAL INH SCH ×2 (14:38→22:09)
[2021-10-08 15:30] VITALS: BP 108/68
[2021-10-08] MEDS: ENOXAPARIN 60 MG/0.6 ML (LOVENOX) SYR SC SCH (17:52)
--- NOTE | 2021-10-08 19:11 | Progress Note ---
CHRISTANNE-MARIEMEHDI 10/08/211910: Progress Note Progress Notes/Assess & Plan Date Seen 10/08/21 Assessment & Plan S: Had V/Q scan showing likely PE in right mid post lobe. Satting well on RA. Denies SOB and CP. Patient did not sleep well last with pruritis. Family is bringing topical from home. Also has been kicking legs in sleep but was doing this before recent illness. Was able to walk around the floor yd with assistance. Using IS. Assessment: 81 yof admitted with pneumonia superimposed of prior Covid-19 infection found to have e coli UTI. After rehydration labs have showed pancytopenia, notable leukopenia of 1.3K, which maybe due to viral suppression of bone marrow or underlying liver disease. PE: Gen'l: NAD, sitting in chair Cardio: RRR, systolic ejection murmur Pulm: expiratory crackles, no increased work of breathing Abd: non-tender, positive bowel sounds Extremities: no edema PLAN Likely PE -pt asymptomatic -d-dimer elevated on admission but this is also seen non-specifically in COVID -TREVOR on CKD makes CVA difficult to obtain, 150 mL urine output yd -hx of transfusion dependent anemia and diverticular bleeds on eloquis -considering low dose eloquis in IPR Pneumonia -satting 95% on RA -received cefepime and doxy Pancytopenia -possibly secondary to viral suppression -Hg 8.6 WBC 1.4 Plt 69 on 10/08 -consider IV iron before d/c E coli UTI -on cefepime and doxy Hypoalbuminemia -Does not technically meet stds for malnutrition -Dietary consult gave pt recommendations including boost shakes Weakness -Pt feels weak post-covid and with recent hospitalization -Gait evaluation considering potential rehab before going home Hx cirrhosis Hx complete heart block s/p pacemaker placement Focused Exam Respiratory: No Respiratory Distress, Expiration, Wheezing Cardiovascular: Regular Rate, Rhythm, Systolic Murmur Capillary Refill: Less Than 3 Seconds Skin: pallor MICHELINE MACARIO MD 10/08/212126: Progress Note Progress Notes/Assess & Plan Time Seen by Provider: 10:45 Supervisory-Addendum Brief Verification & Attestation Participated in pt care: history, physical Personally performed: exam, history Care discussed with: Medical Student Procedures: n/a Verification and Attestation of Medical Student E/M Service A medical student performed and documented this service in my presence. I reviewed and verified all information documented by the medical student and made modifications to such information, when appropriate. I personally performed the physical exam and medical decision making. Micheline Macario, Oct 08, 2021,21:24 Elevated D dimer, Probable PE with V/Q scan concerning for moderate defect, Currently on treatment dose lovenox. Monitoring Hgb closely as patient has h/o anemia resulting in transfusion and multiple diverticular bleeds. Unable to get CTA due to CKD. Consider aggressive hydration with CTA in future due to high risk with OAC. Covid PNA: Doing well. D/c Doxy today. Encourage IS Debility: Consider Rehab Otherwise agree with above plan MEHDI KOHLI Oct 08, 2021 19:11 MICHELINE MACARIO MD Oct 08, 2021 21:27
[2021-10-08 20:00] VITALS: BP 120/66
[2021-10-08] MEDS: FAMOTIDINE 20 MG (PEPCID) TABLET PO SCH (20:09)
[2021-10-08] MEDS: polyethylene glycoL POWDER 17 GM (MIRALAX) PACK PO PRN (22:22)
[2021-10-09 00:21] VITALS: BP 121/69
[2021-10-09] MEDS: RT-ALBUTEROL/IPRATROPIUM 3 ML (DUONEB) VIAL INH SCH ×4 (03:13→20:08)
[2021-10-09 04:19] VITALS: BP 124/63
[2021-10-09] MEDS: NS IV 1000 ML 1,000 ML IV SCH ×2 (05:36→20:47)
[2021-10-09] MEDS: CEFEPIME 1,000 MG/NS 50 ML IVPB IV SCH ×4 (05:37→17:38)
[2021-10-09 06:04] LABS: BASOPHILS % (AUTO) 0 % (0-10); EOSINOPHILS % (AUTO) 0 % (0-10); HEMOGLOBIN 7.5 g/dL (11.5-16.0); LYMPHOCYTES # (AUTO) 0.3 10^3/uL (1.0-4.0); LYMPHOCYTES % (AUTO) 25 % (12-44); MEAN CORPUSCULAR VOLUME 99 fL (80-99)
[2021-10-09 06:05] LABS: HEMATOCRIT 24 % (35-52); MEAN CORPUSCULAR HEMOGLOBIN 32 pg (25-34); MEAN CORPUSCULAR HGB CONC 32 g/dL (32-36); MEAN PLATELET VOLUME 10.1 fL (9.0-12.2); MONOCYTES # (AUTO) 0.1 10^3/uL (0.0-1.0); MONOCYTES % (AUTO) 9 % (0-12); NEUTROPHILS # (AUTO) 0.9 10^3/uL (1.8-7.8); NEUTROPHILS % (AUTO) 66 % (42-75); PLATELET COUNT 70 10^3/uL (130-400)
[2021-10-09 06:23] LABS: WHITE BLOOD COUNT 1.3 10^3/uL (4.3-11.0)
[2021-10-09 06:24] LABS: ALBUMIN 2.2 GM/DL (3.2-4.5); BILIRUBIN,TOTAL 1.3 MG/DL (0.1-1.0); CALCIUM 7.7 MG/DL (8.5-10.1); CREATININE SERUM 1.36 MG/DL (0.60-1.30); POTASSIUM 4.8 MMOL/L (3.6-5.0); TOTAL PROTEIN 6.6 GM/DL (6.4-8.2)
[2021-10-09 08:12] VITALS: BP 122/61
[2021-10-09] MEDS: LORazepam 0.5 MG (ATIVAN) TABLET PO SCH ×2 (08:36→20:47)
[2021-10-09] MEDS: hydrOXYzine (ATARAX) 10 MG TAB PO SCH ×2 (08:36→20:46)
[2021-10-09] MEDS: LORATADINE (CLARITIN) 10 MG TAB PO SCH (08:36)
--- NOTE | 2021-10-09 11:55 | Physical Therapy Daily Note ---
PT Daily Note-Current Subjective Patient presented laying in bed and agrees to PT. Mental Status Patient Orientation: Person, Place Attachments: IV Transfers SCALE: Activities may be completed with or without assistive devices. 5-Bsyywzybxc-kzkryzn completes the activity by him/herself with no assistance from a helper. 5-Set-up or Clean-up Assistance-helper sets up or cleans up; patient completes activity. [place] assists only prior to or following the activity. 4-Supervision or Touching Assistance-helper provides verbal cues and/or touching/steadying and/or contact guard assistance as patient completes activity. Assistance may be provided throughout the activity or intermittently. 3-Partial/Moderate Assistance-helper does LESS THAN HALF the effort. [place] lifts, holds or supports trunk or limbs, but provides less than half the effort. 2-Substantial/Maximal Assistance-helper does MORE THAN HALF the effort. [place] lifts or holds trunk or limbs and provides more than half the effort. 0-Dhnhnxwto-cnvlin does ALL the effort. Patient does none of the effort to complete the activity. Or, the assistance of 2 or more helpers is required for the patient to complete the activity. If activity was not attempted, code reason: 7-Patient Refused. 9-Not Applicable-not attempted and the patient did not perform the activity before the current illness, exacerbation or injury. 10-Not Attempted due to Environmental Limitations-(lack of equipment, weather restraints, etc.). 88-Not Attempted due to Medical Conditions or Safety Concerns. Lying to Sitting/Side of Bed(Q: 4 Sit to Stand (QC): 4 Chair/Qvh-iv-Rqkyp Xfer(QC): 4 Patient performed all transfers with CGA. Gait Training Does the Patient Walk?: Yes Distance: 125' Walk 10 feet (QC): 4 Walk 50 ft with 2 Turns(QC): 4 Gait Assistive Device: FWW Patient ambulated for 125' with CGA and FWW. Patient required cues to keep her body within the walker. Exercises Seated Therapy Exercises: Long arc quads, Hip flexion Seated Reps: 10 Treatments Seated exercises Ambulation Assessment Patient ambulated and performed all transfers with CGA. Patient required cues to walk within her walker. Patient reported fatigue after ambulation but agreed to participate in seated exercises. Patient left post tx in her chair with nurse call, phone, and all needs met. PT Skilled Nursing Goals Bottom Turning Lathe Tender Goals PT Skilled Nursing Goals Time Frame: Oct 14, 2021 Roll Left & Right (QC): 6 Sit to Lying (QC): 6 Lying-Sitting on Side/Bed(QC): 6 Sit to Stand (QC): 5 Chair/Avi-vf-Voppm Xfer(QC): 5 Walk 10 feet (QC): 5 Walk 50ft with 2 Turns (QC): 5 Walk 150 ft (QC): 5 PT Plan Problem List Problem List: Activity Tolerance, Functional Strength, Safety, Balance, Gait, Transfer, Bed Mobility, ROM Treatment/Plan Treatment Plan: Continue Plan of Care Treatment Plan: Education, Functional Activity [place], Functional Strength, Gait, Safety, Therapeutic Exercise, Transfers Treatment Duration: Oct 14, 2021 Frequency: 6 times per week Estimated Hrs Per Day: .25 hour per day Patient and/or Family Agrees t: Yes Time/GCodes Time In: 1113 Time Out: 1126 Total Billed Treatment Time: 13 Total Billed Treatment 1 Visit FA 13 min ANAIS CAMP PT Oct 09, 2021 11:55
[2021-10-09 12:06] VITALS: BP 139/65
--- NOTE | 2021-10-09 14:21 | Progress Note ---
MEHDI KOHLI 10/09/21 1421: Progress Note Progress Notes/Assess & Plan Date Seen 10/09/21 Assessment & Plan Assessment & Plan S: Feeling improved since yesterday. Having a dry cough. Denies SOB and CP. Using walker with PT. Eating and drinking well. Assessment: 81 yof admitted with pneumonia superimposed of prior Covid-19 infection found to have e coli UTI. After rehydration labs have showed pancytopenia, notable leukopenia of 1.3K, which maybe due to viral suppression of bone marrow or underlying liver disease. PE: Gen'l: NAD, sitting in chair Cardio: RRR, systolic ejection murmur Pulm: expiratory crackles improved from yesterday Abd: non-tender, positive bowel sounds Extremities: no edema PLAN Likely PE -pt asymptomatic -d-dimer elevated on admission but this is also seen non-specifically in COVID -TREVOR on CKD makes CVA difficult to obtain, 150 mL urine output yd -hx of transfusion dependent anemia and diverticular bleeds on eloquis Pneumonia -satting 95% on RA -received cefepime and doxy -encourage IS Pancytopenia -possibly secondary to viral suppression E coli UTI -on cefepime and doxy Hypoalbuminemia -Does not technically meet stds for malnutrition -Dietary consult gave pt recommendations including boost shakes Weakness -Pt feels weak post-covid and with recent hospitalization -PT consult Hx cirrhosis Hx complete heart block s/p pacemaker placement Dispo: Likely home tomorrow Focused Exam Respiratory: Expiration (crackles) Cardiovascular: Regular Rate, Rhythm, Systolic Murmur Skin: normal color MICHELINE MACARIO MD 10/09/212124: Progress Note Progress Notes/Assess & Plan Time Seen by Provider: 12:05 Supervisory-Addendum Brief Verification & Attestation Participated in pt care: history, physical Personally performed: exam, history Care discussed with: Medical Student Procedures: n/a Verification and Attestation of Medical Student E/M Service A medical student performed and documented this service in my presence. I reviewed and verified all information documented by the medical student and made modifications to such information, when appropriate. I personally performed the physical exam and medical decision making. Micheline Macario, Oct 09, 2021,21:24 MEHDI KOHLI Oct 09, 2021 14:21 MICHELINE MACARIO MD Oct 09, 2021 21:25
[2021-10-09 16:00] VITALS: BP 141/63
[2021-10-09] MEDS: ENOXAPARIN 60 MG/0.6 ML (LOVENOX) SYR SC SCH (17:38)
[2021-10-09 20:00] VITALS: BP 133/62
[2021-10-09] MEDS: RT--FLUTICASONE/SALMETEROL 113-14 (AIRDUO RespiCLICK) IH SCH (20:08)
[2021-10-09] MEDS: FAMOTIDINE 20 MG (PEPCID) TABLET PO SCH (20:47)
[2021-10-09] MEDS: polyethylene glycoL POWDER 17 GM (MIRALAX) PACK PO PRN (20:48)
[2021-10-10] VITALS: BP 138/73
[2021-10-10] MEDS: RT-ALBUTEROL/IPRATROPIUM 3 ML (DUONEB) VIAL INH SCH ×3 (03:10→15:05)
[2021-10-10 04:00] VITALS: BP 152/69
[2021-10-10] MEDS: CEFEPIME 1,000 MG/NS 50 ML IVPB IV SCH ×2 (06:08)
[2021-10-10 06:23] LABS: MEAN CORPUSCULAR VOLUME 100 fL (80-99); MONOCYTES % (AUTO) 9 % (0-12)
[2021-10-10 06:25] LABS: BASOPHILS % (AUTO) 1 % (0-10); EOSINOPHILS % (AUTO) 1 % (0-10); HEMATOCRIT 26 % (35-52); HEMOGLOBIN 8.1 g/dL (11.5-16.0); LYMPHOCYTES # (AUTO) 0.5 10^3/uL (1.0-4.0); LYMPHOCYTES % (AUTO) 30 % (12-44); MEAN CORPUSCULAR HEMOGLOBIN 31 pg (25-34); MEAN CORPUSCULAR HGB CONC 31 g/dL (32-36); MEAN PLATELET VOLUME 9.6 fL (9.0-12.2); MONOCYTES # (AUTO) 0.1 10^3/uL (0.0-1.0); NEUTROPHILS # (AUTO) 0.9 10^3/uL (1.8-7.8); NEUTROPHILS % (AUTO) 58 % (42-75); PLATELET COUNT 72 10^3/uL (130-400); WHITE BLOOD COUNT 1.5 10^3/uL (4.3-11.0)
[2021-10-10 06:47] LABS: ALBUMIN 2.3 GM/DL (3.2-4.5); BILIRUBIN,TOTAL 1.2 MG/DL (0.1-1.0); CALCIUM 7.8 MG/DL (8.5-10.1); CREATININE SERUM 1.44 MG/DL (0.60-1.30); POTASSIUM 4.5 MMOL/L (3.6-5.0); TOTAL PROTEIN 6.7 GM/DL (6.4-8.2)
[2021-10-10] MEDS: RT--FLUTICASONE/SALMETEROL 113-14 (AIRDUO RespiCLICK) IH SCH (07:10)
[2021-10-10 07:47] VITALS: BP 143/61
[2021-10-10] MEDS: hydrOXYzine (ATARAX) 10 MG TAB PO SCH (09:25)
[2021-10-10] MEDS: LORATADINE (CLARITIN) 10 MG TAB PO SCH (09:25)
[2021-10-10] MEDS: LORazepam 0.5 MG (ATIVAN) TABLET PO SCH (09:25)
--- NOTE | 2021-10-10 11:56 | Discharge Summary ---
Diagnosis/Chief Complaint Date of Admission Oct 06, 2021 at 16:16 Date of Discharge 10/10/21 Admission Diagnosis Admission Diagnosis COVID Pneumonia Discharge Diagnosis See above Discharge Summary-Simple/Stand Discharge Physical Examination Allergies: Coded Allergies: codeine (Unverified Allergy, Unknown, Pt has received Morphine in the paste, 05/23/20) Vitals & I&Os Vital Sign - Last 12Hours Date Time Temp Pulse Resp B/P (MAP) Pulse Ox O2 Delivery O2 Flow Rate FiO2 10/10/21 08:00 97 Room Air 10/10/21 07:47 36.6 71 18 143/61 (88) 10/08/21 02:55 21 Intake and Output 10/10/21 00:00 Intake Total 2150 ml Balance 2150 ml General Appearance: Alert, Oriented X3, No Acute Distress HEENT: EOMI Respiratory: Normal Air Movement Cardiovascular: Regular Rate Abdominal: Normal Bowel Sounds, No Tenderness Extremities: No Edema Skin: No Significant Lesion Hospital Course Was the Problem List Reviewed?: Yes See final discharge diagnosis. Discussion & Recommendations 81-year-old female admitted for COVID Pneumonia. Found to have E. coli UTI on admission. PMH of CKD stage 3, cirrhosis, COPD, complete heart block s/p PM, WARD requiring transfusion on OAC, and diverticulosis. COVID positive 2 wks ago and devoloped CAP on CXR. Dehydrated on admission with diffuse crackles. Did not require O2 during admission. V/Q scan showed moderate filling defect of RUL, likely PE. CTA was not obtained due to underlying CKD. Patient was asymptomatic without CP or SOB. Had pancytopenia with leukopenia of 1.3K after volume repletion. Suspect this was due to cirrhosis or viral suppression. COVID pneumonia and UTI responded well to cefepime and doxycycline. Transitioned to oral cefdinir for discharge. Started on low-dose Eliquis 2.5mg BID for suspected PE with return precautions for GI bleeding with hx of diverticulosis. Will f/u in clinic next week. Discharge Condition at discharge COVID Pneumonia Instructions to patient/family Please see electronic discharge instructions given to patient. Discharge Medications Reviewed and agree with Discharge Medication list on patient's Discharge Instruction sheet Clinical Quality Measures Pneumonia: Pseudomonal Risk: COPD Antibiotic last taken at: home on oral abx. MEHDI KOHLI Oct 10, 2021 11:56
[2021-10-10 12:16] VITALS: BP 140/65
--- NOTE | 2021-10-10 12:20 | Physical Therapy Daily Note ---
PT Daily Note-Current Subjective Patient presented laying in her bed and requests to get up and walk. Mental Status Patient Orientation: Person, Place, Situation Attachments: IV Transfers SCALE: Activities may be completed with or without assistive devices. 1-Iozgoctyso-pfpfbnc completes the activity by him/herself with no assistance from a helper. 5-Set-up or Clean-up Assistance-helper sets up or cleans up; patient completes activity. [place] assists only prior to or following the activity. 4-Supervision or Touching Assistance-helper provides verbal cues and/or touching/steadying and/or contact guard assistance as patient completes activity. Assistance may be provided throughout the activity or intermittently. 3-Partial/Moderate Assistance-helper does LESS THAN HALF the effort. [place] lifts, holds or supports trunk or limbs, but provides less than half the effort. 2-Substantial/Maximal Assistance-helper does MORE THAN HALF the effort. [place] lifts or holds trunk or limbs and provides more than half the effort. 9-Luttxclcl-taifmk does ALL the effort. Patient does none of the effort to complete the activity. Or, the assistance of 2 or more helpers is required for the patient to complete the activity. If activity was not attempted, code reason: 7-Patient Refused. 9-Not Applicable-not attempted and the patient did not perform the activity before the current illness, exacerbation or injury. 10-Not Attempted due to Environmental Limitations-(lack of equipment, weather restraints, etc.). 88-Not Attempted due to Medical Conditions or Safety Concerns. Lying to Sitting/Side of Bed(Q: 4 Sit to Stand (QC): 4 Chair/Cvj-ec-Tktme Xfer(QC): 4 Patient required CGA for bed mobility and transfers. Gait Training Does the Patient Walk?: Yes Distance: 250' Walk 10 feet (QC): 4 Walk 50 ft with 2 Turns(QC): 4 Walk 150 ft (QC): 4 Gait Assistive Device: FWW Patient ambulated for 250' with CGA. Patient required a couple rest breaks during ambulation due to SOA. Patient ambulated slowly during therapy session. Assessment Patient ambulated and performed bed mobility. Patient required CGA for all entire therapy session. Patient required standing rest breaks during ambulation due to SOA but was able to continue walking within a few seconds. Patient required cues to keep her body within her walker while ambulating. PT Carton Packaging Machine Operator Goals Senior Living Goals PT Carton Packaging Machine Operator Goals Time Frame: Oct 14, 2021 Roll Left & Right (QC): 6 Sit to Lying (QC): 6 Lying-Sitting on Side/Bed(QC): 6 Sit to Stand (QC): 5 Chair/Wox-bl-Hlqiu Xfer(QC): 5 Walk 10 feet (QC): 5 Walk 50ft with 2 Turns (QC): 5 Walk 150 ft (QC): 5 PT Plan Problem List Problem List: Activity Tolerance, Functional Strength, Safety, Balance, Gait, Transfer, Bed Mobility, ROM Treatment/Plan Treatment Plan: Continue Plan of Care Treatment Plan: Education, Functional Activity [place], Functional Strength, Gait, Safety, Therapeutic Exercise, Transfers Treatment Duration: Oct 14, 2021 Frequency: 6 times per week Estimated Hrs Per Day: .25 hour per day Patient and/or Family Agrees t: Yes Safety Risks/Education Patient Education: Gait Training, Safety Issues Time/GCodes Time In: 1005 Time Out: 1015 Total Billed Treatment Time: 10 Total Billed Treatment 1 Visit FA 10 min ANAIS CAMP PT Oct 10, 2021 12:20
[2021-10-10] MEDS ORDERED: APIX2.5T PO (13:11)
[2021-10-10] MEDS ORDERED: CEFD300C3 PO (13:11)
[2021-10-10] MEDS ORDERED: DEXA4TAB PO (13:11)
--- NOTE | 2021-10-10 13:12 | Discharge Summary ---
Discharge [facility] Reconcile Patient Problems Problems Reviewed?: Yes Discharge Medications New, Converted or Re-Newed RX: Transmitted to Pharmacy New Medications: Apixaban (Eliquis) 2.5 Mg Tablet 2.5 MG PO BID, #60 TAB Cefdinir (Cefdinir) 300 Mg Capsule 300 MG PO DAILY, #5 CAP Dexamethasone (Dexamethasone) 4 Mg Tablet 4 MG PO DAILY, #7 TAB take 1 tab x 5 days then take 1/2 tab x 4 days Continued Medications: Cetirizine HCl (Cetirizine HCl) 10 Mg Tablet 10 MG PO DAILY, TAB Fluticasone Propionate (Flonase Allergy Relief) 9.9 Ml [place].susp 1-2 SPRAY NSEACH HS, EACH Fluticasone/Salmeterol (Advair 250-50 Diskus) 1 Each Blst.w.dev 1 EACH IH BID Furosemide (Furosemide) 20 Mg Tablet 20 MG PO Q48H, TAB Hydroxyzine HCl (Hydroxyzine HCl) 10 Mg Tablet 10 MG PO BID, TAB Iron Ps Cmplx/Vit B12/FA (Ferrex 150 Forte Capsule) 1 Each Capsule 1 EACH PO DAILY, CAP Lactulose (Lactulose) 10 Gm/15 Ml Solution 15 ML PO DAILY, EA Lorazepam (Ativan) 1 Mg Tablet 0.5 MG PO BID, TAB TAKES OF A 1MG TAB Pantoprazole Sodium (Pantoprazole Sodium) 40 Mg Tablet.dr 40 MG PO DAILY, TAB Bof476/FA/Omega3/Dha/Fish Oil ( Gummies) 1 Each Tab.chew 1 EACH PO DAILY, TAB Spironolactone (Spironolactone) 50 Mg Tablet 25 MG PO HS, TAB TAKES OF A 50MG Patient Instructions Goal/Follow Up Appt: Addy next week Activity & Diet Discharge Diet: Cardiac Diet Activity as Tolerated: Yes MICHELINE FERGUSON MD Oct 10, 2021 13:12
[2021-10-10 15:25] VITALS: BP 140/65
== END 2021-10-10 15:25 | disposition home or self-care (01) | DRG 177 ==
LOC: EDUNIT# 13:24 → ER 13:27 → 4TH 16:16
PROVIDERS: ADMIT Family Medicine; ATTEND Family Medicine
DX: U07.1 COVID-19 (principal); J12.82 Pneumonia due to coronavirus disease 2019; I26.99 Other pulmonary embolism without acute cor pulmonale; N39.0 Urinary tract infection, site not specified; J44.0 Chronic obstructive pulmonary disease with (acute) lower respiratory infection; I44.2 Atrioventricular block, complete; D61.818 Other pancytopenia; N18.4 Chronic kidney disease, stage 4 (severe); E46 Unspecified protein-calorie malnutrition; B96.20 Unspecified Escherichia coli [E. coli] as the cause of diseases classified elsewhere; Z95.0 Presence of cardiac pacemaker; D50.9 Iron deficiency anemia, unspecified; Z79.01 Long term (current) use of anticoagulants; K57.90 Diverticulosis of intestine, part unspecified, without perforation or abscess without bleeding; K74.60 Unspecified cirrhosis of liver; R53.1 Weakness; E88.09 Other disorders of plasma-protein metabolism, not elsewhere classified; Z73.0 Burn-out; I12.9 Hypertensive chronic kidney disease with stage 1 through stage 4 chronic kidney disease, or unspecified chronic kidney disease; Z87.891 Personal history of nicotine dependence; E78.00 Pure hypercholesterolemia, unspecified; K21.9 Gastro-esophageal reflux disease without esophagitis; M19.90 Unspecified osteoarthritis, unspecified site; F41.9 Anxiety disorder, unspecified; Z96.652 Presence of left artificial knee joint; R53.81 Other malaise; Z68.23 Body mass index [BMI] 23.0-23.9, adult
CPT/HCPCS: 36415; 71045; 80048; 80053; 81000; 84145; 85025; 85379; 85610; 87077; 87088; 87186; 93005; 94640; 94664; 94760

== ENCOUNTER 2022-01-02 10:46 | Emergency (ER) | payer MEDICARE ==
[~2022-01-02] VITALS: Ht 170.2 cm; Wt 65.8 kg
[~2022-01-02 10:46] MED LIST changes: +APIX2.5T PO; +CEFD300C3 PO; +DEXA4TAB PO; +FLUT9.9S NSEACH; +HYDR-3584 PO; +IRON1CAP9 PO; +LACT10SO27 PO; +LORA-405 PO; +PANT40TA52 PO; +PNV11TAB5 PO; +SPIR50TA4 PO
[2022-01-02] MEDS ORDERED: OCTREOTIDE (FOR BOLUS) 50 MCG/ML SYR (SandoSTATIN) IVP STA (10:52)
[2022-01-02] MEDS ORDERED: NS IV STA (10:52)
[2022-01-02] MEDS ORDERED: OCTREOTIDE IV STA (10:52)
--- NOTE | 2022-01-02 10:56 | ED GI ---
General Stated Complaint: VOMITING BLOOD Source of Information: Patient (VERY POOR HISTORIAN, DOES NOT ANSWER MOST QUESTIONS), EMS, Family (DAUGHTER), Old Records History of Present Illness Date Seen by Provider: January 02, 2022 Time Seen by Provider: 10:49 Initial Comments PT ARRIVES VIA EMS FROM HOME--DAUGHTER CALLED EMS FOR PT WITH GI BLEEDING SINCE THIS MORNING. DAUGHTER IS NOT WITH PT ON ARRIVAL PT HAS BEEN VOMITING UP BRIGHT RED BLOOD WITH LARGE CLOTS, AND PASSING BLACK LIQUID STOOLS TODAY--UNKNOWN NUMBER OF EACH DAUGHTER REPORTED TO EMS THAT SHE HAD A NORMAL BROWN BM LAST NIGHT PT IS UNABLE TO GIVE ANY INFORMATION, AND IS NOT ANSWERING QUESTIONS PT UNABLE TO STATE IF SHE IS HAVING PAIN BUT IS GRIMACING, AND PT IS VERY LETHARGIC EMS REPORT THAT PT HIS HISTORY OF CIRRHOSIS AND HAS HISTORY OF THE SAME, ACCORDING TO EMS, BUT DID NOT REQUIRE ANY TREATMENT. PER EMS EMS REPORT THAT PT WAS TOO WEAK TO STAND FOR THEM. EMS REPORT THAT DAUGHTER STATED PT IS NOT ON BLOOD THINNERS. PCP: [facility]: DR. FERGUSON Allergies and Home Medications Allergies Coded Allergies: codeine (Unverified Allergy, Unknown, Pt has received Morphine in the paste, 05/23/20) Patient Home Medication List Home Medication List Reviewed: Yes Apixaban (Eliquis) 2.5 Mg Tablet, 2.5 MG PO BID Prescribed by: MICHELINE FERGUSON on 10/10/21 131 Cefdinir (Cefdinir) 300 Mg Capsule, 300 MG PO DAILY Prescribed by: MICHELINE FERGUSON on 10/10/21 131 Cetirizine HCl (Cetirizine HCl) 10 Mg Tablet, 10 MG PO DAILY, (Reported) Entered as Reported by: HOLLI GARDINER on 10/07/21 143 Dexamethasone (Dexamethasone) 4 Mg Tablet, 4 MG PO DAILY Prescribed by: MICHELINE FERGUSON on 10/10/21 131 Fluticasone Propionate (Flonase Allergy Relief) 9.9 Ml [place].susp, 1-2 SPRAY NSEACH HS, (Reported) Entered as Reported by: HOLLI GARDINER on 10/07/21 143 Fluticasone/Salmeterol (Advair 250-50 Diskus) 1 Each Blst.w.dev, 1 EACH IH BID, (Reported) Entered as Reported by: HOLLI GARDINER on 10/07/211437 Furosemide (Furosemide) 20 Mg Tablet, 20 MG PO Q48H, (Reported) Entered as Reported by: HOLLI GARDINER on 10/07/211437 Hydroxyzine HCl (Hydroxyzine HCl) 10 Mg Tablet, 10 MG PO BID, (Reported) Entered as Reported by: HOLLI GARDINER on 10/07/211437 Iron Ps Cmplx/Vit B12/FA (Ferrex 150 Forte Capsule) 1 Each Capsule, 1 EACH PO DAILY, (Reported) Entered as Reported by: HOLLI GARDINER on 10/07/211437 Lactulose (Lactulose) 10 Gm/15 Ml Solution, 15 ML PO DAILY, (Reported) Entered as Reported by: HOLLI GARDINER on 10/07/211437 Lorazepam (Ativan) 1 Mg Tablet, 0.5 MG PO BID, (Reported) Entered as Reported by: HOLLI GARDINER on 10/07/211437 Pantoprazole Sodium (Pantoprazole Sodium) 40 Mg Tablet.dr, 40 MG PO DAILY, (Reported) Entered as Reported by: HOLLI GARDINER on 10/07/211437 Pya280/FA/Omega3/Dha/Fish Oil ( Gummies) 1 Each Tab.chew, 1 EACH PO DAILY, (Reported) Entered as Reported by: HOLLI GARDINER on 10/07/211437 Spironolactone (Spironolactone) 50 Mg Tablet, 25 MG PO HS, (Reported) Entered as Reported by: HOLLI GARDINER on 10/07/211437 Review of Systems Review of Systems Constitutional: see HPI, malaise, weakness, other (PT NOT ANSWERING QUESTIONS) Gastrointestinal: See HPI Psychiatric/Neurological: See HPI Past [id number] Hx Patient Social History Tobacco Use?: Yes Smoking Status: Former Smoker Alcohol Use?: Yes Immunizations Up To Date Tetanus Booster (TDap): Unknown First/Initial COVID19 Vaccinat: yes unknown date Second COVID19 Vaccination Juan Pablo: yes unknown date Third COVID19 Vaccination Date: yes unknown date Seasonal Allergies Seasonal Allergies: Yes Past Medical History Surgeries: Yes (L TKR 2009;CARDIOVERSION FOR AFIB;BANDING ESOPH. 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 Sexually Transmitted Disease: No HIV/AIDS: No Genitourinary: Yes (CHRONIC RENAL INSUFFICIENCY) Gastrointestinal: Yes (ELEVATED AMMONIA;ESOPHAGEAL VARICES BANDING ) Colitis, Gastroesophageal Reflux, Liver Disease/Jaundice, Gastrointestinal Bleed, Diverticulosis, Hemorrhoids, Esophageal Varices, Ulcer, Cirrhosis Musculoskeletal: Yes Arthritis Endocrine: No HEENT: Yes (GLASSES) Loss of Vision: Denies Hearing Impairment: Denies Cancer: No Psychosocial: Yes Anxiety Integumentary: No Blood Disorders: Yes (IRON DEF ANEMIA) Adverse Reaction/Blood Tranf: Yes (HAS HAD BLOOD WITH NO REACTION) Family Medical History Cardiovascular disease SON No Pertinent Family Hx SOCIAL HISTORY: -HX OF HEAVY CIGARETTE SMOKING--QUIT AGE 63 -HX OF HEAVY ALCOHOL USE--QUIT AGE 63 ESOPHAGEAL BANDING 2019 Physical Exam Vital Signs Vital Signs - First Documented 01/02/22 01/02/22 10:48 12:27 Temp 36.4 Pulse 111 Resp 15 B/P (MAP) 111/55 (73) Pulse Ox 100 O2 Delivery Room Air Capillary Refill : Height/Weight/BMI Height: 5'5.00" Weight: 184lbs. 8.0oz. [id number]; 23.60 BMI Method:Estimated General Appearance: WD/WN, other (LETHARGIC, PALE, ANSWERS WHEN ASKED HER NAME, BUT OTHERWISE NOT ANSWERING QUESTIONS, GRIMACING. ) HEENT: PERRL/EOMI, scleral icterus (R), scleral icterus (L), pale conjunctivae (R), pale conjunctivae (L), other (MOUTH OPEN, ORAL MUCOSA DRY) Neck: normal inspection Respiratory: normal breath sounds, no respiratory distress, no accessory muscle use Cardiovascular: regular rate, rhythm, no edema Gastrointestinal: soft, other (ROTUND, ASCITES. GRIMACING ON PALPATION. ) Extremities: normal inspection, no pedal edema, other (DECREASED CAP REFILL IN FEET / TOES, BUT NORMAL CAP REFILL IN HANDS/FINGERS) Neurologic/Psychiatric: no motor/sensory deficits (GROSSLY INTACT--MOVES ALL EXTREMITIES, BUT NOT ANSWERING QUESTIONS OR FOLLOWING COMMANDS), other (KEEPS EYES CLOSED, GRIMACING. ) Skin: warm/dry, jaundice, pallor Focused Exam Lactate Level 01/02/22 10:58: Lactic Acid Level 2.00 Lactic Acid Level Laboratory Tests Test 01/02/22 10:58 Lactic Acid Level 2.00 MMOL/L (0.50-2.00) Progress/Results/Core Measures Results/Orders Lab Results Laboratory Tests Test 01/02/22 10:58 01/02/22 12:17 01/02/22 13:00 Range/Units White Blood Count 5.7 2.6 L 4.3-11.0 10^3/uL Red Blood Count 2.76 L 2.19 L 3.80-5.11 10^6/uL Hemoglobin 8.5 L 6.9 *L 11.5-16.0 g/dL Hematocrit 27 L 22 L 35-52 % Mean Corpuscular Volume 98 102 H 80-99 fL Mean Corpuscular Hemoglobin 31 32 25-34 pg Mean Corpuscular Hemoglobin Concent 31 L 31 L 32-36 g/dL Red Cell Distribution Width 14.5 14.6 H 10.0-14.5 % Platelet Count 137 67 L 130-400 10^3/uL Mean Platelet Volume 10.5 10.2 9.0-12.2 fL Immature Granulocyte % (Auto) 1 % Neutrophils (%) (Auto) 56 42-75 % Lymphocytes (%) (Auto) 32 12-44 % Monocytes (%) (Auto) 8 0-12 % Eosinophils (%) (Auto) 3 0-10 % Basophils (%) (Auto) 1 0-10 % Neutrophils # (Auto) 3.2 1.8-7.8 10^3/uL Lymphocytes # (Auto) 1.8 1.0-4.0 10^3/uL Monocytes # (Auto) 0.5 0.0-1.0 10^3/uL Eosinophils # (Auto) 0.2 0.0-0.3 10^3/uL Basophils # (Auto) 0.0 0.0-0.1 10^3/uL Immature Granulocyte # (Auto) 0.0 0.0-0.1 10^3/uL Percent Immature Platelet Fraction 1.7 0.0-7.6 % Prothrombin Time 17.1 H 12.2-14.7 SEC INR Comment 1.4 0.8-1.4 Activated Partial Thromboplast Time 35 24-35 SEC Sodium Level 138 135-145 MMOL/L Potassium Level 6.0 H 3.6-5.0 MMOL/L Chloride Level 110 H 98-107 MMOL/L Carbon Dioxide Level 17 L 21-32 MMOL/L Anion Gap 11 5-14 MMOL/L Blood Urea Nitrogen 41 H 7-18 MG/DL Creatinine 2.02 H 0.60-1.30 MG/DL Estimat Glomerular Filtration Rate 24 BUN/Creatinine Ratio 20 Glucose Level 121 H 70-105 MG/DL Lactic Acid Level 2.00 0.50-2.00 MMOL/L Calcium Level 8.2 L 8.5-10.1 MG/DL Corrected Calcium 9.3 8.5-10.1 MG/DL Magnesium Level 1.9 1.6-2.4 MG/DL Total Bilirubin 2.0 H 0.1-1.0 MG/DL Aspartate Amino Transf (AST/SGOT) 65 H 5-34 U/L Alanine Aminotransferase (ALT/SGPT) 22 0-55 U/L Alkaline Phosphatase 171 H 40-136 U/L Ammonia 147 H 11-32 UMOL/L Total Protein 7.2 6.4-8.2 GM/DL Albumin 2.6 L 3.2-4.5 GM/DL Amylase Level 79 25-125 U/L Lipase 42 8-78 U/L Acetaminophen Level < 10 L 10-30 UG/ML Serum Alcohol < 10 <10 MG/DL Urine Color YELLOW Urine Clarity SL CLOUDY Urine pH 6.0 5-9 Urine Specific [place] 1.010 L 1.016-1.022 Urine Protein NEGATIVE NEGATIVE Urine Glucose (UA) NEGATIVE NEGATIVE Urine Ketones NEGATIVE NEGATIVE Urine Nitrite NEGATIVE NEGATIVE Urine Bilirubin NEGATIVE NEGATIVE Urine Urobilinogen 1.0 < = 1.0 MG/DL Urine Leukocyte Esterase NEGATIVE NEGATIVE Urine RBC (Auto) NEGATIVE NEGATIVE Urine RBC NONE /HPF Urine WBC NONE /HPF Urine Squamous Epithelial Cells NONE /HPF Urine Crystals NONE /LPF Urine Bacteria NEGATIVE /HPF Urine Casts NONE /LPF Urine Mucus NEGATIVE /LPF Urine Culture Indicated NO My Orders Orders - MARLENE BRYAN DO Ed Iv/Invasive Line Start (01/02/22 10:52) Catheter(Urinary) Insert & Ass 03,15 (01/02/22 10:52) O2 (01/02/22 10:52) Monitor-Rhythm Ecg Trace Only (01/02/22 10:52) Chest 1 View, Ap/Pa Only (01/02/22 10:52) Acetaminophen (01/02/22 10:52) Alcohol (01/02/22 10:52) Ammonia (01/02/22 10:52) Amylase (01/02/22 10:52) Cbc With Automated Diff (01/02/22 10:52) Comprehensive Metabolic Panel (01/02/22 10:52) Lipase (01/02/22 10:52) Magnesium (01/02/22 10:52) Protime With Inr (01/02/22 10:52) Partial Thromboplastin Time (01/02/22 10:52) Ua Culture If Indicated (01/02/22 10:52) Type And Screen (01/02/22 10:52) Ondansetron Injection (Zofran Injectio (01/02/22 11:00) Octreotide Injection (Sandostatin Inje (01/02/22 10:52) Ns (Ivpb) (Sodium C... W/Octreotide Inj (01/02/22 10:52) Ed Iv/Invasive Line Start (01/02/22 10:52) Ns Iv 1000 Ml (Sodium Chloride 0.9%) (01/02/22 11:00) Pantoprazole Injection (Protonix Injecti (01/02/22 11:00) Ns (Ivpb) (Sodium C... W/Pantoprazole In (01/02/22 11:00) Lactic Acid Analyzer (01/02/22 10:56) Pantoprazole Injection (Protonix Injecti (01/02/22 11:36) Calcium Chloride 10% Injection (Calcium (01/02/22 12:00) Albuterol Pre-Mix Nebs (Rt) (Proventil (01/02/22 11:50) Rt Request For Service (01/02/22 11:50) Svn Small Volume Nebulizer (01/02/22 11:50) D50w (Emergency) Syringe (Dextrose 50% 5 (01/02/22 12:00) Insulin (Regular) Human (Novolin R (Per (01/02/22 12:00) Ed Iv/Invasive Line Start (01/02/22 11:50) Ns Iv 1000 Ml (Sodium Chloride 0.9%) (01/02/22 12:00) Albuterol Pre-Mix Nebs (Rt) (Proventil (01/02/22 12:28) Svn Small Volume Nebulizer (01/02/22 12:28) Calc Gluc 1 Gm/100 Ml Ivpb (Calcium Gluc (01/02/22 12:30) Calc Gluc 1 Gm/100 Ml Ivpb (Calcium Gluc (01/02/22 13:00) Cbc No Diff (01/02/22 13:09) Red Cells Leukocytes Reduced (01/02/22 13:35) Medications Given in ED Vital Signs/I&O 01/02/22 01/02/22 01/02/22 01/02/22 10:48 12:27 14:42 14:52 Temp 36.4 36.0 36.3 Pulse 111 75 71 Resp 15 20 20 B/P (MAP) 111/55 (73) 126/54 103/60 Pulse Ox 100 94 94 O2 Delivery Room Air Room Air Room Air Room Air 01/02/22 15:00 Temp 36.0 Pulse 74 Resp 16 B/P (MAP) 106/67 Pulse Ox 96 O2 Delivery Room Air 01/02/22 23:59 Intake Total 1000 ml Balance 1000 ml Progress Progress Note : Progress Note 2 LARGE BORE IV'S STARTED PT GIVEN: -IV FLUIDS -ZOFRAN -PROTONIX BOLUS AND DRIP -OCTREOTIDE BOLUS AND DRIP -CALCIUM CHLORIDE -D50 + REGULAR INSULIN -ALBUTEROL NEB TREATMENT VITALS REMAINED STABLE PT DID HAVE DROP IN HGB, AND BLOOD TRANSFUSION DONE. PT DID NOT HAVE ANY VOMITING OR PASS ANY STOOLS DURING ER STAY Diagnostic Imaging Comments CXR--PER RADIOLOGIST REPORT AT 1205 Correlation is made with prior chest from 10/07/2021. FINDINGS: Heart size stable. There is a dual-lead left subclavian cardiac pacer. Infiltrates noted in both lungs in September have largely cleared. There continues to be an abnormal opacity right midlung field extending towards the right hilum. Mass cannot be entirely excluded. No effusion or pneumothorax is seen. IMPRESSION: Clearing of previously noted infiltrates. However, there is a persistent opacity in the right midlung field. While this may represent an area of consolidation, mass cannot be entirely excluded. CT chest would be recommended for further evaluation. Reviewed: Reviewed by Me Departure Communication (Admissions) Family Conversation 1220--DAUGHTER IN ROOM, SHE STATES THAT PT HAS LIVED WITH HER FOR 1 1/2 YEARS SHE REPORTS THAT PT HAS HISTORY OF GI BLEEDING WITH ESOPHAGEAL VARICES AND BANDING APPROXIMATELY 1 1/2 YEARS AGO, BELIEVES WAS AT [facility] SHE ALSO REPORTS THAT PT HAS HISTORY OF HEAVY SMOKING AND DRINKING, QUIT AGE 63 SHE PROVIDES ADDITIONAL PAST MEDICAL HISTORY WELL SHE CONFIRMS THAT PT IS NOT CURRENTLY TAKING ANY ASPIRIN OR BLOOD THINNERS SHE REPORTS THAT SHE NOTICED THAT PT HAS BEEN HAVING CONFUSION SINCE YESTERDAY SHE BELIEVES THAT PT HAS BEEN TAKING ALL OF HER MEDICATIONS, BUT IS NOT SURE HOW MUCH LACTULOSE SHE HAS BEEN TAKING. 1103--CALLED [facility], FOR CURRENT MEDICATION LIST--THEY WILL FAX LIST 1140--SPOKE WITH DR. CHOE, SURGEON, ADVISED TRANSFER DUE TO HIGH LIKELIHOOD OF ESOPHAGEAL VARICES WITH HX OF CIRRHOSIS, AND DO NOT HAVE ABILITY TO TREAT HERE. 1142--CALLED [facility] 1145--SPOKE WITH DR. MERRITT, CLOTHES SEPARATOR, AGREES WITH PLAN OF CARE. ADVISES TO ADMIT TO [facility] OPERATOR AND HE WILL SEE PT IN CONSULT AND PLANS ON TAKING TO ENDOSCOPY TODAY 1155--SPOKE WITH DR. LONDONO, MULTISKILL OPERATOR, ACCEPTS PT FOR TRANSFER. AGREES WITH PLAN OF CARE. PT'S CXR WILL BE CLOUDED TO [facility]. MARKED DELAY IN TRANSPORT DUE TO LOCAL EMS NOT AVAILABLE FOR TRANSPORT, THEY ARE CURRENTLY ON A TRANSFER TO OTHER AREA EMS SERVICES CONTACTED AND NONE ARE AVAILABLE FOR TRANSPORT AT THIS TIME. PT'S HGB DROPPED AND REQUIRED BLOOD TRANSFUSION, [facility] WERE THEN CONTACTED TO TRANSFER PT Impression Primary Impression: Upper gastrointestinal bleed Additional Impressions: Hx of cirrhosis Hyperkalemia Hyperammonemia DECREASED MENTATION AND LETHARGY Anemia HX ESOPHAGEAL VARICES History of atrial fibrillation Renal insufficiency Hepatic encephalopathy History of ETOH abuse HX OF HEAVY CIGARETTE SMOKING Disposition: XFER SHT-TRM HOSP Condition: Stable Transfer Transfer Reason: Exceeds level of care Transfer Facility: [facility] Method of Transfer: Air Departure-Patient Inst. Referrals: MICHELINE FERGUSON MD (PCP/Family) Primary Care Physician MARLENE BRYAN DO January 02, 2022 10:56
[2022-01-02] MEDS ORDERED: PANTOPRAZOLE INJECTION 200 MG in NS (IVPB) 100 ML IV SCH (11:00)
[2022-01-02] MEDS ORDERED: PANTOPRAZOLE 40 MG (PROTONIX) VIAL IV ONE (11:00)
[2022-01-02] MEDS ORDERED: NS IV 1000 ML 1,000 ML IV SCH ×2 (11:00→12:00)
[2022-01-02] MEDS ORDERED: ONDANSETRON 4 MG/2 ML (SDV) Z0FRAN IVP ONE (11:00)
[2022-01-02 11:05] LABS: MEAN CORPUSCULAR VOLUME 98 fL (80-99)
[2022-01-02 11:07] LABS: BASOPHILS % (AUTO) 1 % (0-10); EOSINOPHILS # (AUTO) 0.2 10^3/uL (0.0-0.3); EOSINOPHILS % (AUTO) 3 % (0-10); HEMATOCRIT 27 % (35-52); HEMOGLOBIN 8.5 g/dL (11.5-16.0); LYMPHOCYTES # (AUTO) 1.8 10^3/uL (1.0-4.0); LYMPHOCYTES % (AUTO) 32 % (12-44); MEAN CORPUSCULAR HEMOGLOBIN 31 pg (25-34); MEAN CORPUSCULAR HGB CONC 31 g/dL (32-36); MEAN PLATELET VOLUME 10.5 fL (9.0-12.2); MONOCYTES # (AUTO) 0.5 10^3/uL (0.0-1.0); MONOCYTES % (AUTO) 8 % (0-12); NEUTROPHILS # (AUTO) 3.2 10^3/uL (1.8-7.8); NEUTROPHILS % (AUTO) 56 % (42-75); PLATELET COUNT 137 10^3/uL (130-400); WHITE BLOOD COUNT 5.7 10^3/uL (4.3-11.0)
[2022-01-02 11:13] LABS: CHLORIDE 110 MMOL/L (98-107); SODIUM 138 MMOL/L (135-145)
[2022-01-02 11:14] LABS: ALBUMIN 2.6 GM/DL (3.2-4.5)
[2022-01-02 11:15] LABS: AMYLASE 79 U/L (25-125); CALCIUM 8.2 MG/DL (8.5-10.1)
[2022-01-02 11:16] LABS: AMMONIA 147 UMOL/L (11-32); GLUCOSE 121 MG/DL (70-105); INR 1.4 (0.8-1.4); PROTHROMBIN TIME PATIENT 17.1 SEC (12.2-14.7); TOTAL PROTEIN 7.2 GM/DL (6.4-8.2)
[2022-01-02 11:17] LABS: CARBON DIOXIDE 17 MMOL/L (21-32)
[2022-01-02 11:19] LABS: ALKALINE PHOSPHATASE 171 U/L (40-136)
[2022-01-02 11:20] LABS: CREATININE SERUM 2.02 MG/DL (0.60-1.30); GFR ESTIMATED 24
[2022-01-02 11:21] LABS: BUN/CREATININE RATIO 20
[2022-01-02 11:22] LABS: MAGNESIUM 1.9 MG/DL (1.6-2.4)
[2022-01-02 11:23] LABS: ALANINE AMINOTRANSFERASE 22 U/L (0-55)
[2022-01-02 11:24] LABS: LIPASE 42 U/L (8-78)
[2022-01-02 11:26] LABS: ACETAMINOPHEN < 10 UG/ML (10-30)
[2022-01-02] MEDS ORDERED: PANTOPRAZOLE 40 MG (PROTONIX) VIAL ONE (11:36)
[2022-01-02] MEDS ORDERED: RT-ALBUTEROL SULF 2.5 MG/3 ML PRE-MIX VIAL INH STA ×2 (11:50→12:28)
--- NOTE | 2022-01-02 11:53 | Diagnostic Imaging Report ---
INDICATION: Gastrointestinal bleed. TIME OF EXAM: 11:21 AM Correlation is made with prior chest from 10/07/2021. FINDINGS: Heart size stable. There is a dual-lead left subclavian cardiac pacer. Infiltrates noted in both lungs in September have largely cleared. There continues to be an abnormal opacity right midlung field extending towards the right hilum. Mass cannot be entirely excluded. No effusion or pneumothorax is seen. IMPRESSION: Clearing of previously noted infiltrates. However, there is a persistent opacity in the right midlung field. While this may represent an area of consolidation, mass cannot be entirely excluded. CT chest would be recommended for further evaluation. Dictated by: Dictated on workstation # [id number]
[2022-01-02] MEDS ORDERED: DEXTROSE 50% 50 ML (IMS) SYR IV ONE (12:00)
[2022-01-02] MEDS ORDERED: inSUlin (REGULAR) HUMAN 1 UNIT/0.01 ML (CHARGE PER UNIT) IV ONE (12:00)
[2022-01-02] MEDS ORDERED: CALCIUM CHLORIDE 1 GM/10 ML (IMS) SYR INJ ONE (12:00)
[2022-01-02 12:22] LABS: BILIRUBIN,URINE NEGATIVE (NEGATIVE); CLARITY,URINE SL CLOUDY; COLOR,URINE YELLOW; GLUCOSE, URINE (UA) NEGATIVE (NEGATIVE); KETONES,URINE NEGATIVE (NEGATIVE); LEUKOCYTE ESTERASE ,URINE NEGATIVE (NEGATIVE); NITRITE,URINE NEGATIVE (NEGATIVE); PROTEIN,URINE NEGATIVE (NEGATIVE)
[2022-01-02] MEDS ORDERED: CALC GLUC 1 GM/100 ML IVPB 100 ML IV ONE ×2 (12:30→13:00)
[2022-01-02 12:32] LABS: BACTERIA,URINE NEGATIVE /HPF
[2022-01-02 13:25] LABS: HEMATOCRIT 22 % (35-52); MEAN CORPUSCULAR HEMOGLOBIN 32 pg (25-34); MEAN CORPUSCULAR HGB CONC 31 g/dL (32-36); MEAN CORPUSCULAR VOLUME 102 fL (80-99); MEAN PLATELET VOLUME 10.2 fL (9.0-12.2); PLATELET COUNT 67 10^3/uL (130-400); WHITE BLOOD COUNT 2.6 10^3/uL (4.3-11.0)
[2022-01-02 13:27] LABS: HEMOGLOBIN 6.9 g/dL (11.5-16.0)
[2022-01-02 14:42] VITALS: BP 126/54
[2022-01-02 14:52] VITALS: BP 103/60
[2022-01-02 15:00] VITALS: BP 106/67
== END 2022-01-02 15:00 | disposition short-term general hospital (02) ==
LOC: EDUNIT# 10:46 → ER 10:47
DX: K92.2 Gastrointestinal hemorrhage, unspecified (principal); D50.0 Iron deficiency anemia secondary to blood loss (chronic); K72.90 Hepatic failure, unspecified without coma; N28.9 Disorder of kidney and ureter, unspecified; E72.20 Disorder of urea cycle metabolism, unspecified; E87.5 Hyperkalemia; R41.89 Other symptoms and signs involving cognitive functions and awareness; I48.91 Unspecified atrial fibrillation; F10.10 Alcohol abuse, uncomplicated; Z87.19 Personal history of other diseases of the digestive system; Z87.891 Personal history of nicotine dependence; Z86.16 Personal history of COVID-19; Y90.0 Blood alcohol level of less than 20 mg/100 ml
CPT/HCPCS: 71045; 80053; 81000; 82140; 82150; 83605; 83690; 83735; 85025; 85027; 85610; 85730; 86850; 86900; 86901; 86920; 93041; 94640; 99291; G0480 ×2; P9016; 36415; 80320; 80329

== ENCOUNTER 2022-01-07 09:40 | Inpatient (IN) | payer MEDICARE ==
[~2022-01-07] VITALS: Ht 165.1 cm; Wt 67.6 kg
[2022-01-07] MEDS ORDERED: FLEET ENEMA ADULT 1 EA BTL PR PRN (10:30)
[2022-01-07] MEDS ORDERED: CALCIUM CARBONATE 500 MG (TUMS) TAB.CHEW PO PRN (10:30)
[2022-01-07] MEDS ORDERED: ACETAMINOPHEN 325 MG TABLET PO PRN (10:30)
[2022-01-07] MEDS ORDERED: LACTULOSE SYRUP 10GM/15ML (ENULOSE) 30ML UDC PO PRN (10:30)
[2022-01-07] MEDS ORDERED: DOCUSATE SODIUM 100 MG (COLACE) CAP PO PRN (10:30)
[2022-01-07] MEDS ORDERED: BISACODYL 10 MG SUPP (DULCOLAX) PR PRN (10:30)
[2022-01-07] MEDS ORDERED: ALPRAZolam 0.25 MG (XANAX) TAB PO PRN (10:30)
[2022-01-07] MEDS ORDERED: MELATONIN 3 MG TABLET PO PRN (10:30)
[2022-01-07] MEDS ORDERED: LOPERAMIDE 2 MG (IMODIUM) TABLET PO PRN (10:30)
[2022-01-07] MEDS ORDERED: ONDANSETRON 4 MG (ZOFRAN) ORAL DISSOLVE TAB PO PRN (10:30)
--- NOTE | 2022-01-07 11:27 | PM&R Post Admission Assessment ---
PM&R Date of Visit: January 07, 2022 Time of Visit: 14:00 History of Present Illness CC: Hepatic encephalopathy debility HPI: This is an 81 yr old female pt of Dr. Macario. She presented to in-patient rehab from [place] following hypovolemic shock due to upper GI bleed, status post esophageal varices banding type 6. Currently on Protonix. She has a history of liver cirrhosis and hepatic encephalopathy which is improving. She does have chronic kidney disease and will receive aggressive rehab in order to return back home to her family. Past Qjahaxx-Mhtqdd-Nquzsz Hx Past Med/Social Hx: Reviewed Nursing Past Med/Soc Hx, Reviewed and Corrections made Patient Social History Marrital Status: single Employed/Student: retired Alcohol Use: Past History Alcohol Beverage of Choice: Beer Smoking Status: Former Smoker Former Smoker, Quit: Apr 10, 2001 Type Used: Cigarettes 2nd Hand Smoke Exposure: No Recent Hopitalizations: No Immunizations Up To Date Tetanus Booster (TDap): Unknown Date of Pneumonia Vaccine: Apr 10, 2012 Date of Influenza Vaccine: May 30, 2019 Seasonal Allergies Seasonal Allergies: Yes Past Medical History Surgeries: Adenoidectomy, Cardiac, Joint Replacement, Orthopedic, Pacemaker, Tonsillectomy Currently Using CPAP: No Currently Using BIPAP: No Cardiac: Atrial Fibrillation, High Cholesterol, Hypertension Sexually Transmitted Disease: No HIV/AIDS: No Menopausal Gastrointestinal: Colitis, Gastroesophageal Reflux, Liver Disease/Jaundice, Gastrointestinal Bleed, Diverticulosis, Hemorrhoids, Esophageal Varices, Ulcer, Cirrhosis Musculoskeletal: Arthritis Loss of Vision: Denies Hearing Impairment: Denies Psychosocial: Anxiety History of Blood Disorders: Yes (IRON DEF ANEMIA) Adverse Reaction to Blood Mac: Yes (HAS HAD BLOOD WITH NO REACTION) Family History Cardiovascular disease SON No Pertinent Family Hx SOCIAL HISTORY: -HX OF HEAVY CIGARETTE SMOKING--QUIT AGE 63 -HX OF HEAVY ALCOHOL USE--QUIT AGE 63 ESOPHAGEAL BANDING 2019 Occupation: Pt. works at [employer] PM&R Allergy/Meds/Data Review Allergies Coded Allergies: codeine (Unverified Allergy, Unknown, Pt has received Morphine in the paste, 05/23/20) Home Medications Scheduled Cetirizine HCl (Cetirizine HCl), 10 MG PO DAILY, (Reported) Fluticasone Propionate (Flonase Allergy Relief), 1 SPRAY NSEACH DAILY, (Reported) Fluticasone/Salmeterol (Advair 250-50 Diskus), 1 EACH IH DAILY, (Reported) Furosemide (Furosemide), 20 MG PO Q48H, (Reported) Hydroxyzine HCl (Hydroxyzine HCl), 10 MG PO BID, (Reported) Iron Ps Cmplx/Vit B12/FA (Ferrex 150 Forte Capsule), 1 EACH PO DAILY, (Reported) Lactulose (Lactulose), 15 ML PO DAILY, (Reported) Metoprolol Succinate (Metoprolol Succinate), 12.5 MG PO DAILY, (Reported) Multivitamin (Multivitamin), 1 EACH PO DAILY, (Reported) Pantoprazole Sodium (Pantoprazole Sodium), 40 MG PO DAILY, (Reported) Rifaximin (Xifaxan), 550 MG PO BID, (Reported) Spironolactone (Spironolactone), 25 MG PO HS, (Reported) Scheduled PRN Lorazepam (Ativan), 0.5 MG PO BID PRN for ANXIETY OR SLEEP, (Reported) Discontinued Medications Apixaban (Eliquis), 2.5 MG PO BID Discontinued Reason: No Longer Taking Cefdinir (Cefdinir), 300 MG PO DAILY Discontinued Reason: No Longer Taking Dexamethasone (Dexamethasone), 4 MG PO DAILY Discontinued Reason: No Longer Taking Hax034/FA/Omega3/Dha/Fish Oil ( Gummies), 1 EACH PO DAILY, (Reported) Discontinued Reason: No Longer Taking Spironolactone (Spironolactone), 25 MG PO HS, (Reported) Discontinued Reason: Prescription changed Current Medications Current Medications Reviewed Review of Systems Constitutional: see HPI, dizziness, malaise, weakness EENTM: no symptoms reported Respiratory: no symptoms reported Cardiovascular: no symptoms reported Gastrointestinal: no symptoms reported Genitourinary: no symptoms reported Musculoskeletal: back pain, joint pain Skin: no symptoms reported Psychiatric/Neurological: Anxiety, Depressed, Other (Confusion) All Other Systems Reviewed Negative Unless Noted: Yes Physical Exam Physical Exam Vital Signs Capillary Refill : Height, Weight, BMI Height: 5'5.00" Weight: 184lbs. 8.0oz. 83.395025rn; 22.00 BMI Method:Estimated General Appearance: No Apparent Distress, WD/WN, Chronically ill Eyes: Bilateral Eye Normal Inspection, Bilateral Eye PERRL HEENT: PERRL/EOMI, Normal ENT Inspection, Pharynx Normal Neck: Full Range of Motion, Normal Inspection, Non Tender, Supple, Carotid Bruit Respiratory: Chest Non Tender, Lungs Clear, Normal Breath Sounds, No Accessory Muscle Use, No Respiratory Distress Cardiovascular: Regular Rate, Rhythm, No Edema, No Gallop, No JVD, No Murmur, Normal Peripheral Pulses Gastrointestinal: Normal Bowel Sounds, No Organomegaly, No Pulsatile Mass, Non Tender, Soft Back: Normal Inspection, No CVA Tenderness, No Vertebral Tenderness Extremity: Normal Capillary Refill, Normal Inspection, Normal Range of Motion, Non Tender, No Calf Tenderness, No Pedal Edema Neurologic/Psychiatric: Alert, Oriented x3, No Motor/Sensory Deficits, Normal Mood/Affect, breastfeeding peer counselor II-XII Norm as Tested, Abnormal Gait, Disoriented, Motor Weakness (Generalized) Skin: Normal Color, Warm/Dry Lymphatic: No Adenopathy PM&R Medical Assessment & Plan REHAB/MEDICAL ASSESSMENT AND PLAN: REHAB IMPAIRMENT GROUP: Hepatic encephalopathy ETIOLOGIC DIAGNOSIS: Hepatic encephalopathy The comorbidities that impact the patients function and/or functional outcome by: Advanced age with end stage liver disease with cirrhosis, confusion REHAB PLAN: The patient is being admitted to our comprehensive inpatient rehabilitation facility and can tolerate the intensity of service consisting of at least: 180 minutes of therapy a day, 5 out of 7 days a week Rehab treatment will consist of: PT and OT will focus on regaining function with use of assistive devices and help with cognitive improvement in order to regain enough function to return back to independent living The patient/family has a good understanding of our discharge process and will benefit from an interdisciplinary inpatient rehabilitation program. The patient has potential to make improvement and is in need of at least two of the following multidisciplinary therapies including but not limited to physical, occupational, speech, and prosthetics and orthotics. Additionally the patient will need services from respiratory, nutritional services, wound care, psychology, etc. (Customize this to each patient). Given the patients complex condition and risk of further medical complications, rehabilitation services cannot be safely or effectively provided at a lower level of care such as a half-way facility. BARRIERS TO DISCHARGE: Confusion ESTIMATED LOS: 7 days DISPOSITION: Home RELEVANT CHANGES SINCE PREADMISSION SCREENING: I have compared the patients medical and functional status at the time of the preadmission screening and there are: no changes] PROGNOSIS: Fair REHABILITATION GOALS: 1. PT and OT will focus on regaining function with use of assistive devices and help with cognitive improvement in order to regain enough function to return back to independent living All the above goals were reviewed with the patient and he/she is in agreement. By signing this document, I acknowledge that I have personally performed a full physical examination on this patient within 24 hours of admission to this inpatient rehabilitation facility and have determined the patient to be able to tolerate the above course of treatment at an intensive level for a reasonable period of time. I will be completing a detailed individualized Plan of Care for this patient by day #4 of the patients stay based upon the Preadmission Screen, the Post-Admission Evaluation, and the therapy evaluations. Admission Dx/Comorbidities: (1) Hepatic encephalopathy Status: Acute ICD Codes: K72.90 - Hepatic failure, unspecified without coma Assessment/Plan Assessment and Plan Assess & Plan/Chief Complaint Assessment: Hepatic encephalopathy Status post hypovolemic shock History of transfusions End-stage liver disease with cirrhosis Status post esophageal varices banding x6 Hemorrhoid bleed on 01/07/[address] GONZALEZ Atrial fibrillation Confusion Fall risk Permanent pacemaker due to complete heart block Plan: Supportive FDC meds Monitor closely Dr. GONZALEZ for hemorrhoid bleed JOHANA PURI DO January 07, 2022 11:27
[2022-01-07] MEDS ORDERED: RIFA550T PO (12:08)
[2022-01-07] MEDS ORDERED: MULT-1136 PO (12:08)
[2022-01-07] MEDS ORDERED: SPIR25TA5 PO (12:08)
[2022-01-07] MEDS ORDERED: MTP25TSR PO (12:08)
[2022-01-07] MEDS ORDERED: LORazepam 1 MG (ATIVAN) TAB PO PRN (14:30)
--- NOTE | 2022-01-07 14:31 | Occupational Therapy Eval ---
OT Evaluation-General/PLF Medical Diagnosis Admission Date January 07, 2022 at 13:36 Medical Diagnosis: hepatic encephalopathy Onset Date: January 02, 2022 Therapy Diagnosis Therapy Diagnosis: decreased ADL status Height/Weight Height (Feet): 5 Height (Inches): 5.00 Weight (Pounds): 184 Weight (Ounces): 8.0 Precautions Precautions/Isolations: Fall Prevention, Standard Precautions, Pressure Ulcer Referral Physician: Paxton Referral Reason: Evaluation/Treatment Medical History Pertinent Medical History: HTN Additional Medical History afib, CAD, COPD, GERD, pacemaker, HLD, HTN, COVID, cirrhosis, diverticulosis, esophageal varices, GI bleed, hemorrhoids, peptic ulcer, OA, anemia, TIA, TKA, esophageal banding Current History Transfer to [facility] from [place] with hypovolemic shock, GI bleed due to esophageal varices s/p banding and sclerotherapy Social History Home: Single Level Current Living Status: Children (daughter Magaly) Entry Into Home: Stairs Without Railing Steps Into Home: 3 ADL-Prior Level of Function SCALE: Activities may be completed with or without assistive devices. 8-Mggzlimpem-mprgdhc completes the activity by him/herself with no assistance from a helper. 5-Set-up or Clean-up Assistance-helper sets up or cleans up; patient completes activity. [place] assists only prior to or following the activity. 4-Supervision or Touching Assistance-helper provides verbal cues and/or yevgeniy valeria/steadying and/or contact guard assistance as patient completes activity. Assistance may be provided throughout the activity or intermittently. 3-Partial/Moderate Assistance-helper does LESS THAN HALF the effort. [place] lifts, holds or supports trunk or limbs, but provides less than half the effort. 2-Substantial/Maximal Assistance-helper does MORE THAN HALF the effort. [place] lifts or holds trunk or limbs and provides more than half the effort. 7-Gzuhxhske-fcdgti does ALL the effort. Patient does none of the effort to complete the activity. Or, the assistance of 2 or more helpers is required for the patient to complete the activity. If activity was not attempted, code reason: 7-Patient Refused. 9-Not Applicable-not attempted and the patient did not perform the activity before the current illness, exacerbation or injury. 10-Not Attempted due to Environmental Limitations-(lack of equipment, weather restraints, etc.). 88-Not Attempted due to Medical Conditions or Safety Concerns. ADL PLOF Comments Pt reports requiring assistance with steps, and with showering at PLOF. She did not use any AD at baseline. Pt reports her daughter assists her with showering, total assist overall. Pt reports she does not complete any part of the shower, washing/drying. She does not have a SC, but has a walk in shower with hand held shower head. Self Care: Independent Functional Cognition: Independent DME/Equipment: Shower, Shower Hose Health Advisor OT Current Status Subjective Pt agreeable to OT evaluation and therapy tx. Pt often repeats stories she has already told, but doesn't remember telling it. Pt often informs OT of her hemorrhoids and swollen feet. Pain Numeric Pain Scale: 0-No Pain Mental Status/Objective Patient Orientation: Person, Confused, Place, Situation Current Glasses/Contacts: Yes Hearing Aids: No Dentures/Partials: No Hand Dominance: Right Upper Extremity ROM LUE decreased, shoulder flexion to approx 5 degrees, WFL elbow wrist and hand RUE WFL, shoulder flexion to approx 150 degrees Upper Extremity Coordination slightly decreased due to decreased LUE shoulder movement. Upper Extremity Sensation WFL Upper Extremity Strength grossly 3+/5 ADL-Treatment Eating (QC): 5 (set up per pt report.) Oral Hygiene (QC): 4 (SBA standing at sink) Shower/Bathe Self (QC): 7 (pt declined due to showering earlier today.) Upper Body Dressing (QC): 7 (pt declines as she already got dressed this morning) Lower Body Dressing (QC): 7 (pt declines as she already got dressed this morning) On/Off Footwear (QC): 4 (SBA) Toileting Hygiene (QC): 4 (CGA, pt able to manage clothing and hygiene) Other Treatments OT evaluation complete. OT/PT cotreat due to skill of 2 clinicians required which a rehabilitation consultant could not perform in order to coordinate UE/LEs, focus on higher level balance tasks, decrease fall risk and due to pt's limitations in activity tolerance. OT focused on ADLs, UE placement, cues for sequencing and safety, PT focused on LE placement, gross overall movement, transfers and mobility. Pt completed toileting, then stood at sink to wash her hands. Pt sat in w/c, completed footwear, then taken to therapy gym. Pt completed functional mobility using FWW, bed mobility, and various transfers (please refer to PT evaluation). She then stood on AirEx mat to focus on balance, while completing UE tasks. CGA required for balance throughout tasks. Pt attempted nut/bolt block, requiring max verbal/tactile cues to complete 4 bolts due to difficulty sequencing/following instruction. Pt then removed beads from moderate resistance theraputty while standing on Air Ex, seated rest breaks as needed. Pt able to stand several mins at a time before requiring seated rest break. Pt returned to her room, using FWW, completed toileting, stood at sink to wash hands, and complete oral care. Pt required verbal cues for safety in order to keep walker close by, sequencing, and locating items within bathroom. Pt then transferred to recliner. Post tx, pt in recliner, call light in reach and all needs met, chair alarm activated. Education OT Patient Education: Correct positioning, Energy conservation, Exercise program, Modified ADL techniques, Progress toward Goal/Update tx plan, Purpose of tx/functional activities, Rehab process Teaching Recipient: Patient Teaching Methods: Discussion Response to Teaching: Verbalize Understanding OT Short Term Goals Short Term Goals Time Frame: January 21, 2022 Shower/bathe self: 3 Upper body dressin Lower body dressin OT Senior Living Goals Almond Blancher Operator Goals Time Frame: Jan 30, 2022 Eating (QC): 6 Oral Hygiene (QC): 6 Toileting Hygiene (QC): 6 Shower/Bathe Self (QC): 4 Upper Body Dressing (QC): 6 Lower Body Dressing (QC): 6 On/Off Footwear (QC): 6 Additional Goals: 1-Demonstrate ADL Tasks, 2-Verbalize Understanding, 3- ImproveStrength/Kentrell 1=Demonstrate adherence to instructed precautions during ADL tasks. 2=Patient will verbalize/demonstrate understanding of assistive devices/modifications for ADL. 3=Patient will improve strength/tolerance for activity to enable patient to perform ADL's. OT Education/Plan Problem List/Assessment Assessment: Decreased Activ Tolerance, Decreased UE Strength, Impaired Funct Balance, Impaired I ADL's, Impaired Self-Care Skills, Restricted Funct UE ROM Discharge Recommendations Plan/Recommendations: Continue POC Equpiment Recommendations-D/C: Bath Chair Treatment Plan/Plan of Care Patient would benefit from OT for education, treatment and training to promote independence in ADL's, mobility, safety and/or upper extremity function for ADL's. Plan of Care: ADL Retraining, Functional Mobility, Group Exercise/Act as Ind, UE Funct Exercise/Act Treatment Duration: Jan 30, 2022 Frequency: At least 5 of 7 days/Wk (IRF) Estimated Hrs Per Day: 1.5 hours per day Agreement: Yes Rehab Potential: Fair Time/GCodes Start Time: 13:45 Stop Time: 15:15 Total Time Billed (hr/min): 90 Billed Treatment Time 2659-6649 OT eval, [id number] OT/PT cotreat 1, EVM (10'), ADL (15'), FA 4(65') MEHRDAD TAYLOR OT January 07, 2022 14:31
[2022-01-07 15:06] VITALS: BP 133/63
--- NOTE | 2022-01-07 15:06 | Physical Therapy Evaluation ---
PT Evaluation-General Medical Diagnosis Admission Date January 07, 2022 at 13:36 Medical Diagnosis: hepatic encephalopathy Onset Date: January 07, 2022 Therapy Diagnosis Therapy Diagnosis: impaired mobility, strength, endurance Height/Weight Height (Feet): 5 Height (Inches): 5.00 Weight (Pounds): 184 Weight (Ounces): 8.0 Precautions Precautions/Isolations: Fall Prevention, Standard Precautions, Pressure Ulcer Referral Physician: Emiliana Matta DO Reason for Referral: Evaluation/Treatment Medical History Pertinent Medical History: HTN Additional Medical History Past Medical History Surgeries: Adenoidectomy, Cardiac, Joint Replacement, Orthopedic, Pacemaker, Tonsillectomy Currently Using CPAP: No Currently Using BIPAP: No Cardiac: Atrial Fibrillation, High Cholesterol, Hypertension Sexually Transmitted Disease: No HIV/AIDS: No Menopausal Gastrointestinal: Colitis, Gastroesophageal Reflux, Liver Disease/Jaundice, Gastrointestinal Bleed, Diverticulosis, Hemorrhoids, Esophageal Varices, Ulcer, Cirrhosis Musculoskeletal: Arthritis Loss of Vision: Denies Hearing Impairment: Denies Psychosocial: Anxiety History of Blood Disorders: Yes (IRON DEF ANEMIA) Adverse Reaction to Blood Mac: Yes (HAS HAD BLOOD WITH NO REACTION) Reviewed History: Yes Social History Home: Single Level Current Living Status: Children (daughter Magaly) Entry Into Home: Stairs Without Railing PT Steps Into Home: 3 Prior Prior Level of Function SCALE: Activities may be completed with or without assistive devices. 2-Bzaiahkrbf-zwebudg completes the activity by him/herself with no assistance from a helper. 5-Set-up or Clean-up Assistance-helper sets up or cleans up; patient completes activity. [place] assists only prior to or following the activity. 4-Supervision or Touching Assistance-helper provides verbal cues and/or touching/steadying and/or contact guard assistance as patient completes activity. Assistance may be provided throughout the activity or intermittently. 3-Partial/Moderate Assistance-helper does LESS THAN HALF the effort. [place] lifts, holds or supports trunk or limbs, but provides less than half the effort. 2-Substantial/Maximal Assistance-helper does MORE THAN HALF the effort. [place] lifts or holds trunk or limbs and provides more than half the effort. 6-Ziesltilh-reidcf does ALL the effort. Patient does none of the effort to complete the activity. Or, the assistance of 2 or more helpers is required for the patient to complete the activity. If activity was not attempted, code reason: 7-Patient Refused. 9-Not Applicable-not attempted and the patient did not perform the activity before the current illness, exacerbation or injury. 10-Not Attempted due to Environmental Limitations-(lack of equipment, weather restraints, etc.). 88-Not Attempted due to Medical Conditions or Safety Concerns. Bed Mobility: 6 Transfers (B,C,W/C): 6 Gait: 6 Stairs: 6 Indoor Mobility (Ambulation): Independent Stairs: Independent PT Evaluation-Current Subjective Patient in family transport pre tx, agrees to PT, has no complaints of pain. Will be co-treating with OT for part of tx due to poor patient mobility, strength, endurance, coordinate UE and LE with activity, safety and reduce risk of falls. Pt/Family Goals to be independent at home. Objective Patient Orientation: Person, Place, Situation ROM/Strength ROM Lower Extremities WNL Strength Lower Extremities LLE (hip flexion 3+/5, knee flexion 4/5, knee extension 4/5, knee flexion 4/5, dorsiflexion 4/5), RLE (hip flexion 3+/5, knee flexion 4/5, knee extension 4/5, knee flexion 4/5, dorsiflexion 4/5) Neuromuscular (Tone, Coordination, Reflexes) Patient scored a 22/28 on the Tinetti Assessment Tool indicating that she has balance impairments and needs walker. Sensory Vision: Functional Hearing: Functional Hand Dominance: Right Sensation Right Lower Extremit: Intact Sensation Left Lower Extremity: Intact Transfers Roll Left & Right (QC): 6 Sit to Lying (QC): 6 Lying to Sitting/Side of Bed(Q: 6 Sit to Stand (QC): 4 Chair/Iwz-vh-Uulnp Xfer(QC): 4 Toilet Transfer (QC): 4 Car Transfer (QC): 4 Patient performs rolling and supine <-> sit with independence, sit <-> stand and transfers with CGA, car transfers CGA. Patient needs occasional cues for safety and direction. She can get confused or get distracted during tx. Gait Does the Patient Walk?: Yes Mode of Locomotion: Walk Anticipated Mode of Locomotion: Walk Walk 10 feet (QC): 4 Walk 50 ft with 2 Turns(QC): 4 Walk 150 ft (QC): 4 Walking 10ft/uneven surface-QC: 4 Distance: 200', 120' Gait Assistive Device: FWW Comments/Gait Description Patient can ambulate 200' with a rolling walker with CGA (including 50' with at least 2 turns of 90 degrees and 10' over an uneven surface). Patient has pretty steady ambulation but needs cues for direction. Wheelchair Training Does the Pt Use a Wheelchair?: No Wheel 50 ft with 2 turns (QC): 9 Wheel 150 ft (QC): 9 Stairs #of Steps: 1 1 Step (curb) (QC): 4 4 Steps (QC): 88 12 Steps (QC): 88 Walking Assistive Device: Walker Patient can go up and down 1 step using a rolling walker with CGA, cues for foot placement and safety Balance Sitting Static: Normal Sitting Dynamic: Normal Standing Static: Good Standing Dynamic: Fair Picking up an Object (QC): 4 (with educator senior clinical) Treatment PT performed bed mobility and transfers, ambulation, stair training, gait training, standing balance during balance activity standing on airex and performing UE activity, and standing and balance during toileting and ADL's, OT performed UE activity, dressing, UE positioning and safety during activity, toileting, ADL's. Assessment/Needs Patient in recliner post tx with nurse call, phone, tray, all needs met. Patient has impaired mobility, strength, endurance. She is oriented but still a little confused, needs redirected fairly often Rehab Potential: Fair PT Short Term Goals Short Term Goals Time Frame: January 14, 2022 Roll Left & Right: 6 Sit to lyin Lying to sitting on side of be: 6 Sit to stand: 4 (SBA) Chair/anx-jm-sfbgu transfer: 4 (SBA) Walk 10 feet: 4 (SBA) Walk 50 feet with two turns: 4 (SBA) Walk 150 feet: 4 (SBA) PT Dealer Sales Manager Goals Group Home Goals PT Dealer Sales Manager Goals Time Frame: Jan 28, 2022 Roll Left & Right (QC): 6 Sit to Lying (QC): 6 Lying-Sitting on Side/Bed(QC): 6 Sit to Stand (QC): 5 Chair/Bey-gv-Bkult Xfer(QC): 5 Toilet Transfer (QC): 5 Car Transfer (QC): 5 Does the Patient Walk: Yes Walk 10 feet (QC): 5 Walk 50ft with 2 Turns (QC): 5 Walk 150 ft (QC): 5 Walking 10ft on Uneven Surface: 5 1 Step (curb) (QC): 4 4 Steps (QC): 4 12 Steps (QC): 4 Picking up an Object (QC): 4 (SBA) Wheel 50 feet with 2 turns (QC: 9 Wheel 150 feet: 9 PT Plan Problem List Problem List: Activity Tolerance, Functional Strength, Safety, Balance, Gait, Transfer, Bed Mobility, ROM Treatment/Plan Treatment Plan: Continue Plan of Care Treatment Plan: Bed Mobility, Education, Functional Activity Kentrell, Functional Strength, Group Therapy, Gait, Safety, Therapeutic Exercise, Transfers Treatment Duration: Jan 28, 2022 Frequency: At least 5 of 7 days/Wk (IRF) Estimated Hrs Per Day: 1.5 hours per day Patient and/or Family Agrees t: Yes Safety Risks/Education Patient Education: Gait Training, Transfer Techniques, Steps, Correct Positioning, Safety Issues Teaching Recipient: Patient Teaching Methods: Demonstration, Discussion Response to Teaching: Reinforcement Needed Discharge Recommendations Plan Patient will perform bed mobility and transfer training, balance and endurance training, functional strengthening, stair training, gait training, and education, to improve functional mobility and independence at home. Therapy Discharge Recommendati: Scheduled Assistance, Home & Family, Post Acute PT Time/GCodes Time In: 1335 Time Out: 1515 Total Billed Treatment Time: 90 Total Billed Treatment 1 visit EVM 10' EX 30' FA 50' PT eval from [id number], OT eval from [id number], co-treat from [id number] BRENNA ABRAHAM PT January 07, 2022 15:06
[2022-01-07] MEDS ORDERED: WITCH HAZEL(TUCKS) 40 EA JAR ONE (17:50)
[2022-01-07] MEDS: HYDROCORTISONE/PRAM (PROCTOFOAM HC) 10 GM CAN PR SCH (18:29)
[2022-01-07] MEDS: WITCH HAZEL(TUCKS) 40 EA JAR TOP PRN (18:30)
[2022-01-07 20:10] VITALS: BP 122/74
[2022-01-07] MEDS: hydrOXYzine (ATARAX) 10 MG TAB PO SCH (21:54)
[2022-01-07] MEDS: polyethylene glycoL POWDER 17 GM (MIRALAX) PACK PO SCH (21:54)
[2022-01-07] MEDS: SPIRONOLACTONE 25 MG (ALDACTONE) TAB PO SCH (21:54)
[2022-01-07] MEDS: RIFAXIMIN 550 MG TABLET (XIFAXAN) PO SCH (21:54)
[2022-01-07] MEDS: SENNA W/DOCUSATE (SENOKOT S) TABLET PO SCH (21:54)
[2022-01-07] MEDS: DOCUSATE SODIUM 100 MG (COLACE) CAP PO SCH (21:54)
[2022-01-08 06:26] LABS: MONOCYTES # (AUTO) 0.2 10^3/uL (0.0-1.0)
[2022-01-08 06:27] LABS: BASOPHILS % (AUTO) 1 % (0-10); EOSINOPHILS # (AUTO) 0.1 10^3/uL (0.0-0.3); EOSINOPHILS % (AUTO) 7 % (0-10); HEMATOCRIT 23 % (35-52); HEMOGLOBIN 7.7 g/dL (11.5-16.0); LYMPHOCYTES # (AUTO) 0.5 10^3/uL (1.0-4.0); LYMPHOCYTES % (AUTO) 30 % (12-44); MEAN CORPUSCULAR HEMOGLOBIN 31 pg (25-34); MEAN CORPUSCULAR HGB CONC 33 g/dL (32-36); MEAN CORPUSCULAR VOLUME 95 fL (80-99); MEAN PLATELET VOLUME 10.2 fL (9.0-12.2); MONOCYTES % (AUTO) 14 % (0-12); NEUTROPHILS # (AUTO) 0.8 10^3/uL (1.8-7.8); NEUTROPHILS % (AUTO) 47 % (42-75); PLATELET COUNT 58 10^3/uL (130-400); WHITE BLOOD COUNT 1.7 10^3/uL (4.3-11.0)
[2022-01-08 06:39] LABS: ALBUMIN 2.2 GM/DL (3.2-4.5); POTASSIUM 4.2 MMOL/L (3.6-5.0)
[2022-01-08 06:40] LABS: CALCIUM 7.7 MG/DL (8.5-10.1)
--- NOTE | 2022-01-08 06:40 | PM&R Progress Note ---
Subjective HPI/CC On Admission Date Seen by Provider: January 08, 2022 Time Seen by Provider: 11:00 Subjective/Events-last exam 01/08/2022: Patient states been doing really well No more bleeding from hemorrhoids INR 1.6 Creatinine 1.7 White count 1.7 and hemoglobin 7.7 Thrombocytopenia 58,[address] GONZALEZ consulted DC n.p.o. status since it does not appear she will need hemorrhoid banding to stop the bleeding Review of Systems General: Fatigue, Malaise Gastrointestinal: Hematochezia Neurological: Confusion Objective Exam Vital Signs Vital Signs Date Time Temp Pulse Resp B/P (MAP) Pulse Ox O2 Delivery O2 Flow Rate FiO2 01/08/22 21:12 37.2 77 20 125/73 (90) 98 Room Air Capillary Refill : General Appearance: No Apparent Distress, WD/WN, Chronically ill HEENT: PERRL/EOMI, Normal ENT Inspection, Pharynx Normal Neck: Full Range of Motion, Normal Inspection, Non Tender, Supple, Carotid Bruit Respiratory: Chest Non Tender, Lungs Clear, Normal Breath Sounds, No Accessory Muscle Use, No Respiratory Distress Cardiovascular: Regular Rate, Rhythm, No Edema, No Gallop, No JVD, No Murmur, Normal Peripheral Pulses Gastrointestinal: Normal Bowel Sounds, No Organomegaly, No Pulsatile Mass, Non Tender, Soft Back: Normal Inspection, No CVA Tenderness, No Vertebral Tenderness Extremity: Normal Capillary Refill, Normal Inspection, Normal Range of Motion, Non Tender, No Calf Tenderness, No Pedal Edema Neurologic/Psychiatric: Alert, Oriented x3, No Motor/Sensory Deficits, Normal Mood/Affect, refuge worker II-XII Norm as Tested, Abnormal Gait, Disoriented, Motor Weakness (Generalized) Skin: Normal Color, Warm/Dry Lymphatic: No Adenopathy Results/Procedures Lab Laboratory Tests 01/08/22 06:20 Patient resulted labs reviewed. FIM Transfers Therapy Code Descriptions/Definitions Functional [place] Measure: 0=Not Assessed/NA 4=Minimal Assistance 1=Total Assistance 5=Supervision or Setup 2=Maximal Assistance 6=Modified [place] 3=Moderate Assistance 7=Complete IndependenceSCALE: Activities may be completed with or without assistive devices. 5-Uqznamwssh-yihtzwn completes the activity by him/herself with no assistance from a helper. 5-Set-up or Clean-up Assistance-helper sets up or cleans up; patient completes activity. [place] assists only prior to or following the activity. 4-Supervision or Touching Assistance-helper provides verbal cues and/or touc cristin/steadying and/or contact guard assistance as patient completes activity. Assistance may be provided throughout the activity or intermittently. 3-Partial/Moderate Assistance-helper does LESS THAN HALF the effort. [place] lifts, holds or supports trunk or limbs, but provides less than half the effort. 2-Substantial/Maximal Assistance-helper does MORE THAN HALF the effort. [place] lifts or holds trunk or limbs and provides more than half the effort. 7-Hymvrmkja-nfzmxr does ALL the effort. Patient does none of the effort to complete the activity. Or, the assistance of 2 or more helpers is required for the patient to complete the activity. If activity was not attempted, code reason: 7-Patient Refused. 9-Not Applicable-not attempted and the patient did not perform the activity be fore the current illness, exacerbation or injury. 10-Not Attempted due to Environmental Limitations-(lack of equipment, weather restraints, etc.). 88-Not Attempted due to Medical Conditions or Safety Concerns. Roll Left to Right (QC): 6 Sit to Lying (QC): 6 Sit to Stand (QC): 4 Chair/Tus-cx-Oupup Xfer(QC): 4 Car Transfer (QC): 4 Gait Training Does the Patient Walk?: Yes Walk 10 feet (QC): 4 Walk 50 ft with 2 Turns(QC): 4 Walk 150 ft (QC): 4 Walking 10ft/uneven surface-QC: 4 Gait Assistive Device: FWW Wheelchair Training Does the Pt Use a Wheelchair?: No Wheel 50 ft with 2 turns (QC): 9 Wheel 150 ft (QC): 9 Stair Training #of Steps: 1 1 Step (curb) (QC): 4 4 Steps (QC): 88 12 Steps (QC): 88 Balance Picking up an Object (QC): 4 (with sql server consultant) ADL-Treatment Eating (QC): 5 (set up per pt report.) Oral Hygiene (QC): 4 (SBA standing at sink) Shower/Bathe Self (QC): 7 (pt declined due to showering earlier today.) Upper Body Dressing (QC): 7 (pt declines as she already got dressed this morning) Lower Body Dressing (QC): 7 (pt declines as she already got dressed this morning) On/Off Footwear (QC): 4 (SBA) Toileting Hygiene (QC): 4 (CGA, pt able to manage clothing and hygiene) Assessment/Plan Assessment and Plan Assess & Plan/Chief Complaint Assessment: Hepatic encephalopathy Status post hypovolemic shock History of transfusions End-stage liver disease with cirrhosis Status post esophageal varices banding x6 Hemorrhoid bleed on 01/07/[address] GONZALEZ Atrial fibrillation Confusion Fall risk Permanent pacemaker due to complete heart block Plan: Supportive long term meds Monitor closely Dr. GONZALEZ for hemorrhoid bleed 01/08/2022: Supportive long term meds (1) Hepatic encephalopathy Status: Acute JOHANA PURI DO January 08, 2022 06:39
--- NOTE | 2022-01-08 06:40 | Individualized Plan of Care ---
Individualized Plan of Care Rehab Nursing IPOC Order Admission Date January 07, 2022 at 13:36 Current Orders Orders Admission Order(Inpt,Obs,Sdc) (01/07/22 10:24) Vital Signs: Per Unit Policy ( 08,16,00 (01/07/22 10:24) Markos Pedroza (01/07/22 10:24) Sequential Compression Device (01/07/22 10:24) Valve Lapper-Inpt Rehab Con (01/07/22 10:24) Rehab Nursing Orders-Ipoc (01/07/22 10:24) Physical Therapy Rehab Orders (01/07/22 10:24) Occupational Therapy Rehab Ord (01/07/22 10:24) Speech Therapy Rehab Orders (01/07/22:) Cbc With Automated Diff (01/08/22 06:00) Comprehensive Metabolic Panel (01/08/22 06:00) Precautions (Aru) (01/07/22 10:24) Weekly Weight WEEK (01/07/22 10:24) Rehab-Intensity Of Therapy (01/07/22 10:24) Initiate Admission Nursing Pro .admission (01/07/22 10:24) Alprazolam Tablet (Xanax Tablet) (01/07/22 10:30) Calcium Carbonate Chew Tablet (Antacid C (01/07/22 10:30) Diphenhydramine Tablet (Benadryl Tablet) (01/07/22 10:30) Docusate Sodium Capsule (Colace Capsule) (01/07/22 21:00) Docusate Sodium Capsule (Colace Capsule) (01/07/22 10:30) Bisacodyl Suppository (Dulcolax Supposit (01/07/22 10:30) Lactulose Oral Solution (Enulose Oral So (01/07/22 10:30) Na Phos/Na Biphos Enema (Fleet Enema Hernan (01/07/22 10:30) Loperamide Tablet (Imodium Tablet) (01/07/22 10:30) Melatonin Tablet (Melatonin Tablet) (01/07/22 10:30) Polyethylene Glycol Powder Pkt (Miralax (01/07/22 21:00) Ondansetron Oral Dissolve Tab (Zofran (01/07/22 10:30) Senna S Tablet (Senokot S Tablet) (01/07/22 21:00) Acetaminophen Tablet/Caplet (Tylenol T (01/07/22 10:30) Code/Resuscitation (01/07/22 10:24) Initiate Admission Nursing Pro .admission (01/07/22 10:24) Admission Arrival Bed Request (01/07/22 13:35) Cetirizine (Non-Formulary) (Zyrtec (Non- (01/08/22 09:00) Hydroxyzine Oral (Atarax Tablet) (01/07/22 21:00) Lorazepam Tablet (Ativan Tablet) (01/07/22 14:30) Metoprolol Succinate (Xl) Tab (Toprol Xl (01/08/22 09:00) Pantoprazole Tablet (Protonix Tablet) (01/08/22 09:00) Rifaximin Tablet (Xifaxan Tablet) (01/07/22 21:00) Spironolactone Tablet (Aldactone Tablet) (01/07/22 21:00) (Nf) Fluticasone Propionate (Flonase All (01/08/22 09:00) (Nf) Fluticasone/Salmeterol (Advair 250- (01/08/22 09:00) (Nf) Iron Ps Cmplx/Vit B12/Fa (Ferrex 15 (01/08/22 09:00) (Nf) Lactulose (01/08/22 09:00) (Nf) Multivitamin (01/08/22 09:00) Loratadine Tablet (Claritin Tablet) (01/08/22 09:00) Therapeutic Multivitamin Tab (Vitamins, (01/08/22 07:00) Fluticasone Nasal Cisco (Flonase Nasal S (01/08/22 09:00) Fluticasone/Salmeterol 113-14 (Airduo Re (01/08/22 08:00) Iron Polysaccaride Capsule (Niferex Caps (01/08/22 09:00) Furosemide Tablet (Lasix Tablet) (01/08/22 09:00) Lactulose Oral Solution (Enulose Oral So (01/08/22 09:00) Heart Healthy (01/07/22 Dinner) Follow-Up Appointment D/C (01/07/22 15:53) Patient Visit (01/07/22 ) Pt Eval Moderate Complexity (01/07/22 ) Exercise Therap, Ea 15 Min (01/07/22 ) Functional Activities, Ea 15 (01/07/22 ) Phenyleph/Mineral Oil/Petrolat (Hemorrho (01/07/22 17:45) Hydrocortisone/Pramoxine Foam (Proctofoa (01/07/22 18:00) Witch Elif/Glycerin 40's (Tucks Pads 40 (01/07/22 17:50) Witch Elif/Glycerin 40's (Tucks Pads 40 (01/07/22 18:15) Nothing By Mouth (01/08/22 Breakfast) Npo After Midnight (Nursing Or (01/07/22 18:04) Code/Resuscitation (01/07/22 18:55) Protime With Inr (01/08/22 05:53) Ammonia (01/08/22 05:53) Iron Tibc %Sat & Ferritin (01/08/22 06:40) Vitamin B 12 (01/08/22 06:40) Folic Acid (01/08/22 06:40) Heart Healthy (01/08/22 Lunch) Patient Visit (01/08/22 ) Speech Sound Lang Comp (01/08/22 ) Treat. Speech/Lang/Voice (01/08/22 ) Patient Visit (01/08/22 ) Gait Training, Ea 15 Min (01/08/22 ) Exercise Therap, Ea 15 Min (01/08/22 ) Consult General Surgery (01/08/22 15:57) Rehab Nursing Orders: Ongoing Assess. of Cognitive Status, Ongoing Assess. of Function Status, Bladder Management, Bladder Scan, Bladder Training, Bowel Management, Bowel Training, Disease Management & Educaiton, DVT Prophylaxis, Fall Prevention, Fluid/Electrolyte/Nutrition Mgmt, Infection Prevention, Medication Management & Education, Management of Risks & Complications, Management of Skin Intergrity, Nutrition Management, Pain Management, Patient/Family Support Intensity of Therapy to be met Patient to be seen: Min.3h per day/5 of 7d PT IPOC Problem List: Activity Tolerance, Functional Strength, Safety, Balance, Gait, Transfer, Bed Mobility, ROM Treatment Plan: Continue Plan of Care Bed Mobility, Education, Functional Activity [place], Functional Strength, Group Therapy, Gait, Safety, Therapeutic Exercise, Transfers Treatment Duration: Jan 28, 2022 Frequency: At least 5 of 7 days/Wk (IRF) Estimated Hrs Per Day: 1.5 hours per day OT IPOC Problems: Decreased Activ Tolerance, Decreased UE Strength, Impaired Funct Balance, Impaired I ADL's, Impaired Self-Care Skills, Restricted Funct UE ROM OT Treatment, Training and Edu: Yes Plan of Care: ADL Retraining, Functional Mobility, Group Exercise/Act as Ind, UE Funct Exercise/Act Treatment Duration: Jan 30, 2022 Frequency: At least 5 of 7 days/Wk (IRF) Estimated Hrs Per Day: 1.[address] IPOC Speech Therapy Treatment Plan: Continue Plan of Care Treatment Duration: January 08, 2022 Frequency: Modified Program (IRF) Estimated Hrs Per Day: Other Valve Lapper/Case Mgmt Valve Lapper/Case Managemen: Discharge Planning Dietitian/Senior Ios Software Engineer Dietitian/Senior Ios Software Engineer to monitor nutritional status and make changes and/or recommendations as needed and work with speech pathology on dietary upgrades as the occur. Physician IPOC Medical Issues being managed closely and that require the 24 hour availability of a physician: Patient with end-stage liver disease cirrhosis will require close monitoring due to continued hepatic encephalopathy and very impulsive behavior with fall risk and high risk for liver decompensation will require close physician supervision Medical Issues: Bowel/Bladder Function, DVT Prophylaxis, Falls Precautions, Fluid/Electrolyte/Nutrition Balance, Infection Protection, Pain Management Brief Synthesis of Preadmission Screen, Post-Admission Evaluation, and Therapy Evaluations: PT and OT will focus on regaining function in order to regain enough independence in order to live independently while working on cognition through hepatic encephalopathy Medical Prognosis: Fair Anticipated Length of Stay: 7 days JOHANA PURI DO January 08, 2022 06:40
[2022-01-08 06:42] LABS: TOTAL PROTEIN 5.9 GM/DL (6.4-8.2)
[2022-01-08 06:45] LABS: CREATININE SERUM 1.71 MG/DL (0.60-1.30)
[2022-01-08] MEDS: MULTIVIT W/MINERALS TAB (THERAGRAN M) PO SCH ×2 (06:52→10:08)
[2022-01-08 07:20] LABS: INR 1.6 (0.8-1.4); PROTHROMBIN TIME PATIENT 19.7 SEC (12.2-14.7)
[2022-01-08 08:00] VITALS: BP 127/59
[2022-01-08] MEDS ORDERED: [UNRECOGNIZED DRUG - OTHER] PO SCH (09:00)
[2022-01-08] MEDS ORDERED: NON-FORMULARY MEDICATION 1 EA EA (Multivitamin 1 EACH) PO SCH (09:00)
[2022-01-08] MEDS ORDERED: NON-FORMULARY MEDICATION 1 EA EA (Fluticasone Propionate (Flonase Allergy Relief) 1 SPRAY) NSEACH SCH (09:00)
[2022-01-08] MEDS ORDERED: VIT B12 PO SCH (09:00)
[2022-01-08] MEDS ORDERED: NON-FORMULARY MEDICATION 1 EA EA (Fluticasone/Salmeterol (Advair 250-50 Diskus) 1 EACH) IH SCH (09:00)
[2022-01-08] MEDS ORDERED: IRON PS CMPLX PO SCH (09:00)
[2022-01-08] MEDS ORDERED: CETIRIZINE HCL (ZYRTEC) 10 MG TAB PO SCH (09:00)
[2022-01-08] MEDS ORDERED: NON-FORMULARY MEDICATION 1 EA EA (Lactulose 15 ML) PO SCH (09:00)
--- NOTE | 2022-01-08 09:11 | Physical Therapy Daily Note ---
PT Daily Note-Current Subjective Patient lying supine in bed with daughter in the room upon PT arrival, agreeable to treatment. Patient rates pain at 0/10 currently. She states that she experienced a large amount of rectal bleeding last night and twice since that initial, however the second two occurrences were much less. She thinks it may be due to the large hemorrhoids she has, but Dr. Herrera is going to evaluate the patient this date. Checked with nurse, Kailey, and she gave approval to continue with treatment. Mental Status Patient Orientation: Person Transfers SCALE: Activities may be completed with or without assistive devices. 6-Jzeducobuz-uolnzif completes the activity by him/herself with no assistance from a helper. 5-Set-up or Clean-up Assistance-helper sets up or cleans up; patient completes activity. [place] assists only prior to or following the activity. 4-Supervision or Touching Assistance-helper provides verbal cues and/or touching/steadying and/or contact guard assistance as patient completes activity. Assistance may be provided throughout the activity or intermittently. 3-Partial/Moderate Assistance-helper does LESS THAN HALF the effort. [place] lifts, holds or supports trunk or limbs, but provides less than half the effort. 2-Substantial/Maximal Assistance-helper does MORE THAN HALF the effort. [place] lifts or holds trunk or limbs and provides more than half the effort. 4-Offaycszs-focwya does ALL the effort. Patient does none of the effort to complete the activity. Or, the assistance of 2 or more helpers is required for the patient to complete the activity. If activity was not attempted, code reason: 7-Patient Refused. 9-Not Applicable-not attempted and the patient did not perform the activity before the current illness, exacerbation or injury. 10-Not Attempted due to Environmental Limitations-(lack of equipment, weather restraints, etc.). 88-Not Attempted due to Medical Conditions or Safety Concerns. Roll Left & Right (QC): 6 Sit to Lying (QC): 6 Lying to Sitting/Side of Bed(Q: 6 Sit to Stand (QC): 4 Chair/Ams-hc-Ayfiz Xfer(QC): 4 Toilet Transfer (QC): 4 Gait Training Does the Patient Walk?: Yes Distance: 200 x 2 Walk 10 feet (QC): 4 Walk 50 ft with 2 Turns(QC): 4 Walk 150 ft (QC): 4 Gait Persons Needed: 1 Gait Assistive Device: FWW Exercises Seated Therapy Exercises: Ankle pumps, Long arc quads, Hip flexion, Hamstring Curls, Hip abd/add Seated Reps: 20 NuStep Minutes: 10 NuStep Workload: 2 Assessment Current Status: Fair Progress Patient tolerated treatment well. Performs all observed bed mobility with [place] and all transfers with SBA. Patient ambulates 200 feet x 2 with FWW, with SBA and 1 sitting rest break. Patient performs Nu Step and LE therapeutic exercise as listed above. Patient in chair post treatment with all needs met, nursing notified, call light in reach and daughter in the room. PT Short Term Goals Short Term Goals Time Frame: January 14, 2022 Roll Left & Right: 6 Sit to lyin Lying to sitting on side of be: 6 Sit to stand: 4 (SBA) Chair/gxr-vm-jtmzg transfer: 4 (SBA) Walk 10 feet: 4 (SBA) Walk 50 feet with two turns: 4 (SBA) Walk 150 feet: 4 (SBA) PT Fdc Goals [facility] Goals PT Fdc Goals Time Frame: Jan 28, 2022 Roll Left & Right (QC): 6 Sit to Lying (QC): 6 Lying-Sitting on Side/Bed(QC): 6 Sit to Stand (QC): 5 Chair/Oxx-lu-Xdgjo Xfer(QC): 5 Toilet Transfer (QC): 5 Car Transfer (QC): 5 Does the Patient Walk: Yes Walk 10 feet (QC): 5 Walk 50ft with 2 Turns (QC): 5 Walk 150 ft (QC): 5 Walking 10ft on Uneven Surface: 5 1 Step (curb) (QC): 4 4 Steps (QC): 4 12 Steps (QC): 4 Picking up an Object (QC): 4 (SBA) Wheel 50 feet with 2 turns (QC: 9 Wheel 150 feet: 9 PT Plan Treatment/Plan Treatment Plan: Continue Plan of Care Treatment Plan: Bed Mobility, Education, Functional Activity Kentrell, Functional Strength, Group Therapy, Gait, Safety, Therapeutic Exercise, Transfers Treatment Duration: Jan 28, 2022 Frequency: At least 5 of 7 days/Wk (IRF) Estimated Hrs Per Day: 1.5 hours per day Patient and/or Family Agrees t: Yes Safety Risks/Education Patient Education: Gait Training Teaching Recipient: Patient Teaching Methods: Demonstration, Discussion Response to Teaching: Verbalize Understanding, Return Demonstration Time/GCodes Time In: 800 Time Out: 900 Total Billed Treatment Time: 60 Total Billed Treatment Visit, Gait (2), Ex (2) MEHDI MONGE PT January 08, 2022 09:11
[2022-01-08] MEDS: IRON POLYSAC 150 MG CAP (NIFEREX) PO SCH (10:08)
[2022-01-08] MEDS: PANTOPRAZOLE 40 MG (PROTONIX) TAB PO SCH (10:08)
[2022-01-08] MEDS: LORATADINE (CLARITIN) 10 MG TAB PO SCH (10:08)
[2022-01-08] MEDS: LACTULOSE SYRUP 10GM/15ML (ENULOSE) 30ML UDC PO SCH (10:11)
[2022-01-08] MEDS: polyethylene glycoL POWDER 17 GM (MIRALAX) PACK PO SCH ×2 (10:11→20:15)
[2022-01-08] MEDS: SENNA W/DOCUSATE (SENOKOT S) TABLET PO SCH ×2 (10:12→20:15)
[2022-01-08] MEDS: DOCUSATE SODIUM 100 MG (COLACE) CAP PO SCH ×2 (10:12→20:15)
--- NOTE | 2022-01-08 10:51 | ST Cognitive Linguistic Eval ---
Speech Evaluation-General Medical Diagnosis Hepatic Encephalopathy Onset Date: January 07, 2022 Therapy Diagnosis Therapy Diagnosis: Mild Neurocognitive Impairment Precautions Precautions: Fall Precautions/Isolations: Fall Prevention, Standard Precautions Referral Referring Physician: Dr. Emiliana Matta Reason for Referral: Evaluation/Treatment Medical History Pertinent Medical History: HTN Current History The patient is an 81 year-old female with a past medical history of pacemaker, atrial fibrillation, high cholesterol, HTN GERD, diverticulosis, esophageal varices, and cirrhosis, who presented to [facility] following hypovolemic shock due to upper GI bleed. Reviewed History: Yes Social History Current Living Status: Children (daughter Magaly) Speech PLF-Current Status Prior Level of Function The patient denied prior challenges with her speech, language, or cognition, however, does state she seems a little "foggy" since her admission. Subjective The patient was seated upright in a recliner, awake and alert upon entrance to her room by the clinician. The patient greeted the clinician appropriately and was agreeable to participation in the cognitive linguistic evaluation. Language Eval: Auditory Comprehends Simple Yes/No Ques: Functional Indent/Objects Multiple [place] Souza: Functional Ident/Pics in Multiple [place] Sou[place]: Functional Follows 1-Step Commands: Functional Follows Complex Directions: Functional Follows General Conversations: Functional Language Eval: Verbal Language Completes Spontaneous Greeting: Functional Produces Auto, Serial Info: Functional Imitates Simple Words/Phrases: Functional Word Finding: Functional Requests Basic Needs: Functional States Basic Personal Info: Functional Expresses Complex Ideas: Functional Language Evaluation: Reading Follows Simple Written Direct: Functional Language Evaluation: Writing Writes to Simple Dictation: Functional Cognitive Patient Orientation The patient was independently oriented to self, location, month, day of week, and year. The patient was only one day ahead of the current date. Objective Cognitive Domain Attention: WNL Memory: Mild Problem Solving: Mild Executive Functions: Mild Visuospatial Skills: Moderate (The patient does keep a large magnifying glass at bedside. The patient was able to complete all visual tasks accurately without the use of the magnifying glass.) Composite Severity Rating: Mild Clock Drawing Severity Rating: Moderate (The patient placed all numbers in a counter clockwise fashion.) Objective Formal/Standardized Tests [facility] Mental Status Exam (UMS) Results The patient demonstrated a result of +21/30 on the SLUMS correlating to a mild neurocognitive disorder. Oral Motor/Speech Production The patient does not display dysarthria or apraxia of speech. The patient remains 100% intelligible in known and unknown contexts. Impression The patient demonstrated mild cognitive linguistic deficits in the areas of problem solving and memory; skilled speech pathology to focus on the identified areas of difficulties would be beneficial for improved safety with increased independence upon discharge from the acute rehabilitation unit. Speech Patient Assess Expression of Ideas/Wants: Expression (4) Understanding Verbal Content: Understands (4) Brief Interview-Mental Status: Yes Repetition of Three Words: Three (3) Temporal Orientation: Year: Correct (3) Temporal Orientation: Month: Accurate within 5 days(2) Temporal Orientation: Day: Correct (1) Recall : Wear to say "Sock": Yes, no cue required (2) Recall : Color: Yes, after cueing (1) Recall : Bed: Yes,after cueing (1) Memory/Recall Ability: Current season, That he or she is in a hsp/hsp unit Speech Short Term Goals Short Term Goals Short Term Goals 1. The patient will demonstrate 90% accuracy with memory and functional problem solving tasks with mild clinician verbal and visual cueing. Time Frame-STG: One Week. Speech Unix Analyst Goals Unix Analyst Goals 1. The patient will demonstrate improved cognitive linguistic skills for improved safety with discharge to the least restrictive environment. Time Frame: Two Weeks. Speech-Plan Treatment Plan Speech Therapy Treatment Plan: Continue Plan of Care Treatment Duration: January 22, 2022 Frequency: Modified Program (IRF) (Three to Five Times Per Week) Estimated Hrs Per Day: .5 hour per day Rehab Potential: Fair Pt/Family Agrees to Plan: Yes Safety Risks/Education Teaching Recipient: Patient Teaching Methods: Discussion Response to Teaching: Reinforcement Needed Education Topics Provided: Results of KAILEE Speech Taryn Plan of Care Time Speech Therapy Time In: 09:00 Speech Therapy Time Out: 09:30 Total Billed Time: 30 Billed Treatment Time 1, YEYO VALLADARES ELIZABETH ST January 08, 2022 10:51
--- NOTE | 2022-01-08 11:06 | Occupational Ther Daily Note ---
OT Current Status-Daily Note Subjective Pt up in recliner, agreeable to OT Tx. Mental Status/Objective Patient Orientation: Person, Confused, Place, Situation ADL-Treatment Therapy Code Descriptions/Definitions Functional Prole Measure: 0=Not Assessed/NA 4=Minimal Assistance 1=Total Assistance 5=Supervision or Setup 2=Maximal Assistance 6=Modified Prole 3=Moderate Assistance 7=Complete IndependenceSCALE: Activities may be completed with or without assistive devices. 2-Vjeygbshri-bbxrgla completes the activity by him/herself with no assistance from a helper. 5-Set-up or Clean-up Assistance-helper sets up or cleans up; patient completes activity. [place] assists only prior to or following the activity. 4-Supervision or Touching Assistance-helper provides verbal cues and/or touching/steadying and/or contact guard assistance as patient completes activity. Assistance may be provided throughout the activity or intermittently. 3-Partial/Moderate Assistance-helper does LESS THAN HALF the effort. [place] lifts, holds or supports trunk or limbs, but provides less than half the effort. 2-Substantial/Maximal Assistance-helper does MORE THAN HALF the effort. [place] lifts or holds trunk or limbs and provides more than half the effort. 9-Lijbmzcqf-pedhxc does ALL the effort. Patient does none of the effort to complete the activity. Or, the assistance of 2 or more helpers is required for the patient to complete the activity. If activity was not attempted, code reason: 7-Patient Refused. 9-Not Applicable-not attempted and the patient did not perform the activity before the current illness, exacerbation or injury. 10-Not Attempted due to Environmental Limitations-(lack of equipment, weather restraints, etc.). 88-Not Attempted due to Medical Conditions or Safety Concerns. Oral Hygiene (QC): 4 (SBA standing at sink) Shower/Bathe Self (QC): 4 (SBA, VCs for safety and sequencing) Upper Body Dressing (QC): 5 (set up assist) Lower Body Dressing (QC): 4 (SBA for safety) On/Off Footwear: 5 (set up ) Other Treatment Pt seated in recliner, agreeable to OT tx. Pt used FWW to go into bathroom, completing ADLs as outlined above. Pt required VCs for safety and sequencing throughout tx. Pt used FWW to perform functional mobility to therapy gym, SBA, cues for direction. In order to increase BUE strength and activity tolerance, pt completed arm bike, 10 watt resistance x10 mins. Pt instructed to complete 8 mins, and given verbal reminder at [id number], but pt did not terminate activity herself, requiring cue to stop at 10 mins. Pt then removed beads from moderate resistance (red) theraputy. Post tx, pt in therapy gym, PT present for tx, all needs met. Education OT Patient Education: Correct positioning, Energy conservation, Modified ADL techniques, Progress toward Goal/Update tx plan, Purpose of tx/functional activities Teaching Recipient: Patient Teaching Methods: Discussion OT Short Term Goals Short Term Goals Time Frame: January 21, 2022 Shower/bathe self: 3 Upper body dressin Lower body dressin OT Forestry Technical Officer Goals [facility] Goals Time Frame: Jan 30, 2022 Eating (QC): 6 Oral Hygiene (QC): 6 Toileting Hygiene (QC): 6 Shower/Bathe Self (QC): 4 Upper Body Dressing (QC): 6 Lower Body Dressing (QC): 6 On/Off Footwear (QC): 6 Additional Goals: 1-Demonstrate ADL Tasks, 2-Verbalize Understanding, 3-ImproveStrength/Kentrell 1=Demonstrate adherence to instructed precautions during ADL tasks. 2=Patient will verbalize/demonstrate understanding of assistive devices/modifications for ADL. 3=Patient will improve strength/tolerance for activity to enable patient to perform ADL's. OT Education/Plan Problem List/Assessment Assessment: Decreased Activ Tolerance, Decreased UE Strength, Impaired Funct Balance, Impaired I ADL's, Impaired Self-Care Skills Discharge Recommendations Plan/Recommendations: Continue POC Treatment Plan/Plan of Care Patient would benefit from OT for education, treatment and training to promote independence in ADL's, mobility, safety and/or upper extremity function for ADL's. Plan of Care: ADL Retraining, Functional Mobility, Group Exercise/Act as Ind, UE Funct Exercise/Act Treatment Duration: Jan 30, 2022 Frequency: At least 5 of 7 days/Wk (IRF) Estimated Hrs Per Day: 1.5 hours per day Agreement: Yes Rehab Potential: Fair Time/GCodes Start Time: 10:00 Stop Time: 11:15 Total Time Billed (hr/min): 75 Billed Treatment Time 1, ADL 4 (60'), EX (15') CRUMPACKER,MEHRDAD OT January 08, 2022 11:06
[2022-01-08] MEDS: FUROSEMIDE 20 MG (LASIX) TAB PO SCH (11:33)
[2022-01-08] MEDS: hydrOXYzine (ATARAX) 10 MG TAB PO SCH ×2 (11:33→20:15)
[2022-01-08] MEDS: RIFAXIMIN 550 MG TABLET (XIFAXAN) PO SCH ×2 (11:33→20:15)
[2022-01-08] MEDS: FLUTICASONE NASAL SPRAY (FLONASE) 16 GM BTL NS SCH (11:35)
[2022-01-08] MEDS: WITCH HAZEL(TUCKS) 40 EA JAR TOP PRN (13:07)
[2022-01-08] MEDS: HYDROCORTISONE/PRAM (PROCTOFOAM HC) 10 GM CAN PR SCH ×2 (13:07→20:16)
--- NOTE | 2022-01-08 13:34 | Physical Therapy Daily Note ---
PT Daily Note-Current Subjective Patient sitting in chair in the therapy gym, finishing treatment with OT. Patient agreeable to treatment. Mental Status Patient Orientation: Person Transfers SCALE: Activities may be completed with or without assistive devices. 7-Rhmvalagyo-ldxliwr completes the activity by him/herself with no assistance from a helper. 5-Set-up or Clean-up Assistance-helper sets up or cleans up; patient completes activity. [place] assists only prior to or following the activity. 4-Supervision or Touching Assistance-helper provides verbal cues and/or touching/steadying and/or contact guard assistance as patient completes activity. Assistance may be provided throughout the activity or intermittently. 3-Partial/Moderate Assistance-helper does LESS THAN HALF the effort. [place] lifts, holds or supports trunk or limbs, but provides less than half the effort. 2-Substantial/Maximal Assistance-helper does MORE THAN HALF the effort. [place] lifts or holds trunk or limbs and provides more than half the effort. 0-Dbfgxbemo-jpdqfx does ALL the effort. Patient does none of the effort to complete the activity. Or, the assistance of 2 or more helpers is required for the patient to complete the activity. If activity was not attempted, code reason: 7-Patient Refused. 9-Not Applicable-not attempted and the patient did not perform the activity before the current illness, exacerbation or injury. 10-Not Attempted due to Environmental Limitations-(lack of equipment, weather restraints, etc.). 88-Not Attempted due to Medical Conditions or Safety Concerns. Sit to Stand (QC): 4 Chair/Gga-fq-Hvemz Xfer(QC): 4 Gait Training Does the Patient Walk?: Yes Distance: 200 feet x 2 Walk 10 feet (QC): 4 Walk 50 ft with 2 Turns(QC): 4 Walk 150 ft (QC): 4 Gait Persons Needed: 1 Gait Assistive Device: FWW Assessment Current Status: Fair Progress Patient tolerated treatment well. Performs all observed bed mobility with Vanduser and all transfers with SBA. Patient ambulates 200 feet x 2 with FWW, with SBA and 1 sitting rest break. Patient in chair post treatment with all needs met, nursing notified, call light in reach and daughter in the room. PT Short Term Goals Short Term Goals Time Frame: January 14, 2022 Roll Left & Right: 6 Sit to lyin Lying to sitting on side of be: 6 Sit to stand: 4 (SBA) Chair/zra-iw-nswcx transfer: 4 (SBA) Walk 10 feet: 4 (SBA) Walk 50 feet with two turns: 4 (SBA) Walk 150 feet: 4 (SBA) PT Crater And Packer Goals Crater And Packer Goals PT Crater And Packer Goals Time Frame: Jan 28, 2022 Roll Left & Right (QC): 6 Sit to Lying (QC): 6 Lying-Sitting on Side/Bed(QC): 6 Sit to Stand (QC): 5 Chair/Viv-vc-Cvrrd Xfer(QC): 5 Toilet Transfer (QC): 5 Car Transfer (QC): 5 Does the Patient Walk: Yes Walk 10 feet (QC): 5 Walk 50ft with 2 Turns (QC): 5 Walk 150 ft (QC): 5 Walking 10ft on Uneven Surface: 5 1 Step (curb) (QC): 4 4 Steps (QC): 4 12 Steps (QC): 4 Picking up an Object (QC): 4 (SBA) Wheel 50 feet with 2 turns (QC: 9 Wheel 150 feet: 9 PT Plan Treatment/Plan Treatment Plan: Continue Plan of Care Treatment Plan: Bed Mobility, Education, Functional Activity [place], Functional Strength, Group Therapy, Gait, Safety, Therapeutic Exercise, Transfers Treatment Duration: Jan 28, 2022 Frequency: At least 5 of 7 days/Wk (IRF) Estimated Hrs Per Day: 1.5 hours per day Patient and/or Family Agrees t: Yes Safety Risks/Education Patient Education: Gait Training Teaching Recipient: Patient Teaching Methods: Demonstration, Discussion Response to Teaching: Verbalize Understanding, Reinforcement Needed Time/GCodes Time In: 1115 Time Out: 1130 Total Billed Treatment Time: 15 Total Billed Treatment Visit, MEHDI Tapia PT January 08, 2022 13:34
--- NOTE | 2022-01-08 17:06 | CONSULTATION REPORT ---
DATE OF SERVICE: 01/08/2022 ADMITTING PHYSICIAN: Emiliana Matta DO. ATTENDING PRIMARY CARE PHYSICIAN: Dr. Tatyana Macario. HISTORY OF PRESENT ILLNESS: The patient is an 81-year-old female admitted for inpatient rehabilitation from [facility] status post hypovolemic shock due to bleeding esophageal varices, status post banding at 5 locations of varices. She and her son report that she did have esophageal banding procedure before as well. They report that approximately two years ago, she did develop problems and underwent workup and was found to have significant liver failure and cirrhosis. She states that she has had a longstanding history of heavy alcohol use as well as smoking; however, quit both at age 63. She is currently on spironolactone, Xifaxan as well as lactulose. We were consulted due to bleeding hemorrhoids. Due to her liver cirrhosis, she will have elevated portal venous pressures causing varices throughout her body. Our recommendation is to proceed with medical therapy including any modality to decrease portal pressures, which includes continuation of diuretics as well as the potential nonselective beta whit[place] such as propranolol as well as salt and fluid restriction. If she continues to have bleeding, she may be a candidate for a transjugular intrahepatic portosystemic shunt. However, this would worsen her hepatic encephalopathy. Option of hemorrhoidectomy is not recommended due to the pain as well as long rehabilitation of allowing the anorectal region to heal after such procedure. PAST MEDICAL HISTORY: Liver cirrhosis, hypertension, hypercholesterolemia, atrial fibrillation, gastroesophageal reflux disease, history of esophageal varices, and history of diverticulosis. PAST SURGICAL HISTORY: Pacemaker implantation, tonsillectomy, and joint replacement. ALLERGIES: CODEINE. MEDICATIONS: Cetirizine 10 mg daily, fluticasone propionate one spray daily, Advair daily, furosemide 20 mg every other day, hydroxyzine 10 mg b.i.d., lactulose 15 mL daily, metoprolol 12.5 mg daily, Protonix 40 mg daily, rifaximin 550 mg b.i.d., and spironolactone 25 mg daily. SOCIAL HISTORY: Previous smoke as well as alcohol for greater than 50 pack years, quit at age 63. FAMILY HISTORY: Noncontributory. REVIEW OF SYSTEMS: This is a well-nourished female, currently in no acute distress. She did have some bleeding episodes yesterday; however, since that time, has not had any episodes. No nausea or vomiting. No cough or sputum production. No chest pain, palpitations or diaphoresis. No fever, chills, no recent inadvertent weight loss. All other review of systems were negative. PHYSICAL EXAMINATION: VITAL SIGNS: Temperature 36.8, blood pressure 127/59, pulse 73, respirations 17, and pulse ox 98% on room air. CHEST: Distant breath sounds bilaterally with a few scattered wheezes. HEART: Regular and no murmurs. EXTREMITIES: +1/3 bilateral lower extremity edema, negative Homans sign. HEENT: No scleral icterus. NECK: No cervical lymphadenopathy. ABDOMEN: Soft, nontender, and nondistended. SKIN: Warm and dry. ASSESSMENT AND PLAN: An 79-year-old female with liver cirrhosis with bleeding hemorrhoidal plexus secondary to normal risk factors including low-fiber diet, formed stools as well as constipation; however, with the added pressure and development from portal hypertension from her liver cirrhosis. Our recommendation is to proceed with continued medical management with diuretics as well as lactulose to continue to keep her stools very soft on a regular daily basis and also add a fiber supplement, which should equal or exceed 25 grams daily to continue to promote soft stools on a daily basis. The only other option would be a formal hemorrhoidal excision; however, this is hard in individuals with a long recovery time as well as pain for approximately 4 to 6 weeks and the patient and family do not want to proceed with this and want to continue with medical management. There may still be episodes of bleeding, which may cause hypovolemic shock at times if she is noncompliant and in this scenario, she would need suture ligation as necessary. Job ID: [id number] DocumentID: [id number] Dictated Date: 01/08/2022 16:29:54 Police Pilot Date: 01/08/2022 17:06:38 Dictated By: MATI GONZALEZ MD
[2022-01-08] MEDS: SPIRONOLACTONE 25 MG (ALDACTONE) TAB PO SCH (20:15)
[2022-01-08 21:12] VITALS: BP 125/73
--- NOTE | 2022-01-09 06:02 | PM&R Progress Note ---
Subjective HPI/CC On Admission Date Seen by Provider: January 09, 2022 Time Seen by Provider: 10:00 Subjective/Events-last exam 01/09/2022: Pt is in a good mood No pain is reported Checked meds and labs Maintain on cirrhosis treatment Participating in therapy 01/08/2022: Patient states been doing really well No more bleeding from hemorrhoids INR 1.6 Creatinine 1.7 White count 1.7 and hemoglobin 7.7 Thrombocytopenia 58,[address] GONZALEZ consulted DC n.p.o. status since it does not appear she will need hemorrhoid banding to stop the bleeding Review of Systems General: Fatigue, Malaise Neurological: Weakness, Confusion Objective Exam Vital Signs Vital Signs Date Time Temp Pulse Resp B/P (MAP) Pulse Ox O2 Delivery O2 Flow Rate FiO2 01/09/22 09:00 Room Air 01/09/22 07:41 36.6 75 20 112/54 (73) 98 Capillary Refill : General Appearance: No Apparent Distress, WD/WN, Chronically ill HEENT: PERRL/EOMI, Normal ENT Inspection, Pharynx Normal Neck: Full Range of Motion, Normal Inspection, Non Tender, Supple, Carotid Bruit Respiratory: Chest Non Tender, Lungs Clear, Normal Breath Sounds, No Accessory Muscle Use, No Respiratory Distress Cardiovascular: Regular Rate, Rhythm, No Edema, No Gallop, No JVD, No Murmur, Normal Peripheral Pulses Gastrointestinal: Normal Bowel Sounds, No Organomegaly, No Pulsatile Mass, Non Tender, Soft Back: Normal Inspection, No CVA Tenderness, No Vertebral Tenderness Extremity: Normal Capillary Refill, Normal Inspection, Normal Range of Motion, Non Tender, No Calf Tenderness, No Pedal Edema Neurologic/Psychiatric: Alert, Oriented x3, No Motor/Sensory Deficits, Normal Mood/Affect, entry level assistant manager II-XII Norm as Tested, Abnormal Gait, Disoriented, Motor Weakness (Generalized) Skin: Normal Color, Warm/Dry Lymphatic: No Adenopathy Results/Procedures Lab Patient resulted labs reviewed. FIM Transfers Therapy Code Descriptions/Definitions Functional [place] Measure: 0=Not Assessed/NA 4=Minimal Assistance 1=Total Assistance 5=Supervision or Setup 2=Maximal Assistance 6=Modified [place] 3=Moderate Assistance 7=Complete IndependenceSCALE: Activities may be completed with or without assistive devices. 8-Oxqgtsidiq-pillchb completes the activity by him/herself with no assistance from a helper. 5-Set-up or Clean-up Assistance-helper sets up or cleans up; patient completes activity. [place] assists only prior to or following the activity. 4-Supervision or Touching Assistance-helper provides verbal cues and/or touching/steadying and/or contact guard assistance as patient completes activity. Assistance may be provided throughout the activity or intermittently. 3-Partial/Moderate Assistance-helper does LESS THAN HALF the effort. [place] lifts, holds or supports trunk or limbs, but provides less than half the effort. 2-Substantial/Maximal Assistance-helper does MORE THAN HALF the effort. [place] lifts or holds trunk or limbs and provides more than half the effort. 2-Rkvssdssn-einfeq does ALL the effort. Patient does none of the effort to complete the activity. Or, the assistance of 2 or more helpers is required for the patient to complete the activity. If activity was not attempted, code reason: 7-Patient Refused. 9-Not Applicable-not attempted and the patient did not perform the activity before the current illness, exacerbation or injury. 10-Not Attempted due to Environmental Limitations-(lack of equipment, weather restraints, etc.). 88-Not Attempted due to Medical Conditions or Safety Concerns. Roll Left to Right (QC): 6 Sit to Lying (QC): 6 Sit to Stand (QC): 4 Chair/Fuh-qy-Ukmvj Xfer(QC): 4 Car Transfer (QC): 4 Gait Training Does the Patient Walk?: Yes Distance: 200 feet x 2 Walk 10 feet (QC): 4 Walk 50 ft with 2 Turns(QC): 4 Walk 150 ft (QC): 4 Walking 10ft/uneven surface-QC: 4 Gait Persons Needed: 1 Gait Assistive Device: FWW Wheelchair Training Does the Pt Use a Wheelchair?: No Wheel 50 ft with 2 turns (QC): 9 Wheel 150 ft (QC): 9 Stair Training #of Steps: 1 1 Step (curb) (QC): 4 4 Steps (QC): 88 12 Steps (QC): 88 Balance Picking up an Object (QC): 4 (with spray cementer) ADL-Treatment Eating (QC): 5 (set up per pt report.) Oral Hygiene (QC): 4 (SBA standing at sink) Shower/Bathe Self (QC): 4 (SBA, VCs for safety and sequencing) Upper Body Dressing (QC): 5 (set up assist) Lower Body Dressing (QC): 4 (SBA for safety) On/Off Footwear (QC): 5 (set up ) Toileting Hygiene (QC): 4 (CGA, pt able to manage clothing and hygiene) Assessment/Plan Assessment and Plan Assess & Plan/Chief Complaint Assessment: Hepatic encephalopathy Status post hypovolemic shock History of transfusions End-stage liver disease with cirrhosis Status post esophageal varices banding x6 Hemorrhoid bleed on 01/07/[address] GONZALEZ Atrial fibrillation Confusion Fall risk Permanent pacemaker due to complete heart block Plan: Supportive residential meds Monitor closely Dr. GONZALEZ for hemorrhoid bleed 01/08/2022: Supportive residential meds 01/09/2022: Cirrhosis management Monitor hemorrhoid bleed (1) Hepatic encephalopathy Status: Acute JOHANA PURI DO January 09, 2022 06:02
[2022-01-09 07:41] VITALS: BP 112/54
[2022-01-09] MEDS: IRON POLYSAC 150 MG CAP (NIFEREX) PO SCH (08:24)
[2022-01-09] MEDS: PANTOPRAZOLE 40 MG (PROTONIX) TAB PO SCH (08:24)
[2022-01-09] MEDS: hydrOXYzine (ATARAX) 10 MG TAB PO SCH ×2 (08:24→22:13)
[2022-01-09] MEDS: RIFAXIMIN 550 MG TABLET (XIFAXAN) PO SCH ×2 (08:24→22:12)
[2022-01-09] MEDS: LORATADINE (CLARITIN) 10 MG TAB PO SCH (08:24)
[2022-01-09] MEDS: LACTULOSE SYRUP 10GM/15ML (ENULOSE) 30ML UDC PO SCH (08:25)
[2022-01-09] MEDS: DOCUSATE SODIUM 100 MG (COLACE) CAP PO SCH ×2 (08:28→22:13)
[2022-01-09] MEDS: SENNA W/DOCUSATE (SENOKOT S) TABLET PO SCH ×2 (08:28→22:12)
[2022-01-09] MEDS: polyethylene glycoL POWDER 17 GM (MIRALAX) PACK PO SCH ×2 (08:28→21:46)
[2022-01-09] MEDS: FLUTICASONE NASAL SPRAY (FLONASE) 16 GM BTL NS SCH (08:28)
[2022-01-09] MEDS: HYDROCORTISONE/PRAM (PROCTOFOAM HC) 10 GM CAN PR SCH ×2 (08:29→22:12)
--- NOTE | 2022-01-09 09:44 | Occupational Ther Daily Note ---
OT Current Status-Daily Note Subjective Pt up in room with nursing staff, agreeable to OT Tx. Mental Status/Objective Patient Orientation: Person, Confused ADL-Treatment Therapy Code Descriptions/Definitions Functional [place] Measure: 0=Not Assessed/NA 4=Minimal Assistance 1=Total Assistance 5=Supervision or Setup 2=Maximal Assistance 6=Modified [place] 3=Moderate Assistance 7=Complete IndependenceSCALE: Activities may be completed with or without assistive devices. 4-Kcsltoktox-mywhcxe completes the activity by him/herself with no assistance from a helper. 5-Set-up or Clean-up Assistance-helper sets up or cleans up; patient completes activity. [place] assists only prior to or following the activity. 4-Supervision or Touching Assistance-helper provides verbal cues and/or touching/steadying and/or contact guard assistance as patient completes activity. Assistance may be provided throughout the activity or intermittently. 3-Partial/Moderate Assistance-helper does LESS THAN HALF the effort. [place] lifts, holds or supports trunk or limbs, but provides less than half the effort. 2-Substantial/Maximal Assistance-helper does MORE THAN HALF the effort. [place] lifts or holds trunk or limbs and provides more than half the effort. 6-Jwuaxjszp-yjchjm does ALL the effort. Patient does none of the effort to complete the activity. Or, the assistance of 2 or more helpers is required for the patient to complete the activity. If activity was not attempted, code reason: 7-Patient Refused. 9-Not Applicable-not attempted and the patient did not perform the activity before the current illness, exacerbation or injury. 10-Not Attempted due to Environmental Limitations-(lack of equipment, weather restraints, etc.). 88-Not Attempted due to Medical Conditions or Safety Concerns. Oral Hygiene (QC): 4 (supervision) Other Treatment Pt up in room with nursing staff, pt attempting to walk into bathroom while leaving walker behind. OT cued pt to keep walker close by for safety. Pt stood at sink to complete oral care, supervision. Once pt was done, she turned around, again leaving walker behind requiring OT to place walker in front of her. Pt used walker to go to therapy gym, cues for direction, SBA. OT tx focused on increasing BUE fine motor coordination, and with increasing problem solving, sequencing, direction following. Pt completed peg delilah activity, x2 times. Pt required verbal cues ~90% of task for correct placement of clothespins with colors matching each other. Pt then completed pegboard task, 1 of each color placed on L side of the board. Pt instructed to place matching color of peg in each row. Pt required several VCs at beginning of task, but able to complete ~75 % of task without cues, self correcting a few errors. Pt given alternating pattern of 2 pegs to follow, pt then able to fill in next 6 pegs following pattern, no cues. Pt given alternating pattern of 3 colors, she was able to fill in 7 spots, no cues. Pt completed more complex pattern, self correcting 4 wrong pegs without cues. OT/PT cotreat due to skill of 2 clinicians required which a coordinator of rehabilitation services could not perform in order to coordinate UE/LEs, focus on higher level balance tasks, decrease fall risk and due to pt's limitations in activity tolerance. OT focused on UE placement, cues for sequencing and safety, PT focused on LE placement, gross overall movement, transfers and mobility. Pt stood at FWW, completing balloon batting back and forth with OT, PT assisted with balance. pt completed 2 rounds of task, only tolerating a couple mins at a time. As pt continued with reaching, shoulder flexion on RUE decreased, and pt began utilizing just elbow and hand movements to reach for balloon. Pt then located x6 cones throughout the room, using FWW to locate and grasp cone. Post tx, pt in therapy gym with PT, all needs met. Education OT Patient Education: Correct positioning, Energy conservation, Modified ADL techniques, Progress toward Goal/Update tx plan, Purpose of tx/functional activities, Rehab process Teaching Recipient: Patient Teaching Methods: Discussion Response to Teaching: Verbalize Understanding OT Short Term Goals Short Term Goals Time Frame: January 21, 2022 Shower/bathe self: 3 Upper body dressin Lower body dressin OT Ultrasonic Tester Goals Alf Goals Time Frame: Jan 30, 2022 Eating (QC): 6 Oral Hygiene (QC): 6 Toileting Hygiene (QC): 6 Shower/Bathe Self (QC): 4 Upper Body Dressing (QC): 6 Lower Body Dressing (QC): 6 On/Off Footwear (QC): 6 Additional Goals: 1-Demonstrate ADL Tasks, 2-Verbalize Understanding, 3-ImproveStrength/[place] 1=Demonstrate adherence to instructed precautions during ADL tasks. 2=Patient will verbalize/demonstrate understanding of assistive devices/modifications for ADL. 3=Patient will improve strength/tolerance for activity to enable patient to perform ADL's. OT Education/Plan Problem List/Assessment Assessment: Decreased Activ Tolerance, Decreased Safety Aware, Decreased UE Strength, Impaired Cognition, Impaired Funct Balance, Impaired I ADL's, Impaired Self-Care Skills, Restricted Funct UE ROM Discharge Recommendations Plan/Recommendations: Continue POC Treatment Plan/Plan of Care Patient would benefit from OT for education, treatment and training to promote independence in ADL's, mobility, safety and/or upper extremity function for ADL's. Plan of Care: ADL Retraining, Functional Mobility, Group Exercise/Act as Ind, UE Funct Exercise/Act Treatment Duration: Jan 30, 2022 Frequency: At least 5 of 7 days/Wk (IRF) Estimated Hrs Per Day: 1.5 hours per day Agreement: Yes Rehab Potential: Fair Time/GCodes Start Time: 09:00 Stop Time: 10:15 Total Time Billed (hr/min): 75 Billed Treatment Time cotreat x15', OT tx x60' 1, ADL (10'), FA 4 (65') MEHRDAD TAYLOR OT January 09, 2022 09:44
--- NOTE | 2022-01-09 10:02 | Speech Therapy Daily Note ---
Speech Daily Progress Note Subjective Date Seen by Provider: January 09, 2022 Time Seen by Provider: 00:30 Pt was pleasant, cooperative, and willing to participate in ST today. Pt alert and sitting upright in room chair Objective Pt participated in functional problem solving tasks with 100% accuracy given occasional minimal verbal cues. Assessment Assessment Current Status: Excellent Progress Treatment Plan Continue Plan of Care Speech Short Term Goals Short Term Goals Short Term Goals 1. The patient will demonstrate 90% accuracy with memory and functional problem solving tasks with mild clinician verbal and visual cueing. Time Frame-STG: One Week. Speech Crutcher Helper Goals Prison Goals 1. The patient will demonstrate improved cognitive linguistic skills for improved safety with discharge to the least restrictive environment. Time Frame: Two Weeks. Speech-Plan Patient/Family Goals Patient/Family Goals: Pt discharge planned for 01/15. Pt looking forward to returning home. Treatment Plan Speech Therapy Treatment Plan: Continue Plan of Care Pt was able to answer all functional problem solving questions with minimal verbal cues in 100% opportunities. Pt able to problem solve scenarios in the home and community. Treatment Duration: January 09, 2022 Frequency: Modified Program (IRF) Estimated Hrs Per Day: Other Rehab Potential: Good Barriers to Learning: cogntion Pt/Family Agrees to Plan: Yes Safety Risks/Education Teaching Recipient: Patient Teaching Methods: Discussion Response to Teaching: Verbalize Understanding Education Topics Provided: ST goals, treatment progress, and discharge recommendations Discharge Recommendations Home & Family Time Speech Therapy Time In: 07:58 Speech Therapy Time Out: 08:28 Total Billed Time: 30 Billed Treatment Time 1, JUSTINE Ibarra January 09, 2022 10:02
--- NOTE | 2022-01-09 10:49 | Physical Therapy Daily Note ---
PT Daily Note-Current Subjective Patient was with OT prior to treatment. Patient had no new complaints. PT and OT co-treated for a short time to work on UE movements with a balance activity, and needed extra assistance due to balance deficits, and risk of falling. Mental Status Patient Orientation: Person, Confused, Place, Situation Transfers SCALE: Activities may be completed with or without assistive devices. 8-Spleqfjuzk-grrwrbg completes the activity by him/herself with no assistance from a helper. 5-Set-up or Clean-up Assistance-helper sets up or cleans up; patient completes activity. [place] assists only prior to or following the activity. 4-Supervision or Touching Assistance-helper provides verbal cues and/or touching/steadying and/or contact guard assistance as patient completes activity. Assistance may be provided throughout the activity or intermittently. 3-Partial/Moderate Assistance-helper does LESS THAN HALF the effort. [place] lifts, holds or supports trunk or limbs, but provides less than half the effort. 2-Substantial/Maximal Assistance-helper does MORE THAN HALF the effort. [place] lifts or holds trunk or limbs and provides more than half the effort. 0-Efarkftlp-nqsfky does ALL the effort. Patient does none of the effort to complete the activity. Or, the assistance of 2 or more helpers is required for the patient to complete the activity. If activity was not attempted, code reason: 7-Patient Refused. 9-Not Applicable-not attempted and the patient did not perform the activity before the current illness, exacerbation or injury. 10-Not Attempted due to Environmental Limitations-(lack of equipment, weather restraints, etc.). 88-Not Attempted due to Medical Conditions or Safety Concerns. Sit to Stand (QC): 4 Chair/Ycj-rw-Wnxbs Xfer(QC): 4 Weight Bearing Right Lower Extremity: Right Full Weight Bearing Left Lower Extremity: Left Full Weight Bearing Gait Training Does the Patient Walk?: Yes Distance: 300', 200', 100' Walk 10 feet (QC): 4 Walk 50 ft with 2 Turns(QC): 4 Walk 150 ft (QC): 4 Gait Assistive Device: FWW SBA Wheelchair Training Does the Pt Use a Wheelchair?: No Exercises NuStep Minutes: 15 NuStep Workload: 3 Treatments Balloon toss activity (OT worked on UE positioning and coordination, PT worked on balance and foot positioning and guarding). Scavenger cabrera for cones around the room (at different heights, same color cone for simpler cognitive task) [id number] static standing on [employer]. business support coordinator object on floor Activity (Patient picked up various objects of shape and weight, and set them on table). Weaving through cones (20ft, cones placed about 3 feet apart). Assessment Current Status: Fair Progress Patient performed well today. Was SBA with transfers, able to walk semi-long distances before needing a rest break. Patient needs frequent VC for walker plac ement while walking, especially with turns. Some cognitive deficits are noted throughout therapy, including slight difficulty following instructions. Some memory issues noted and difficulty finding her way through the hallway to get back to therapy gym. Patient demonstrated decent balance with balance activities. Arms have been noted to fatigue quickly and has trouble raising them very high especially during balloon game. Patient was left in the restroom with instructions to pull nurse call when finished. PT Short Term Goals Short Term Goals Time Frame: January 14, 2022 Roll Left & Right: 6 Sit to lyin Lying to sitting on side of be: 6 Sit to stand: 4 (SBA) Chair/kxz-qe-wehdm transfer: 4 (SBA) Walk 10 feet: 4 (SBA) Walk 50 feet with two turns: 4 (SBA) Walk 150 feet: 4 (SBA) PT Senior Care Goals Senior Care Goals PT Lever Tender Goals Time Frame: Jan 28, 2022 Roll Left & Right (QC): 6 Sit to Lying (QC): 6 Lying-Sitting on Side/Bed(QC): 6 Sit to Stand (QC): 5 Chair/Tsb-gy-Hocqm Xfer(QC): 5 Toilet Transfer (QC): 5 Car Transfer (QC): 5 Does the Patient Walk: Yes Walk 10 feet (QC): 5 Walk 50ft with 2 Turns (QC): 5 Walk 150 ft (QC): 5 Walking 10ft on Uneven Surface: 5 1 Step (curb) (QC): 4 4 Steps (QC): 4 12 Steps (QC): 4 Picking up an Object (QC): 4 (SBA) Wheel 50 feet with 2 turns (QC: 9 Wheel 150 feet: 9 PT Plan Problem List Problem List: Activity Tolerance, Functional Strength, Safety, Balance, Gait, Transfer, ROM Treatment/Plan Treatment Plan: Continue Plan of Care Treatment Plan: Bed Mobility, Education, Functional Activity [place], Functional Strength, Group Therapy, Gait, Safety, Therapeutic Exercise, Transfers Treatment Duration: Jan 28, 2022 Frequency: At least 5 of 7 days/Wk (IRF) Estimated Hrs Per Day: 1.5 hours per day Patient and/or Family Agrees t: Yes Safety Risks/Education Patient Education: Gait Training, Transfer Techniques, Reviewed Precautions, Correct Positioning, Safety Issues Teaching Recipient: Patient Teaching Methods: Demonstration, Discussion Response to Teaching: Verbalize Understanding, Return Demonstration, Reinforcement Needed Time/GCodes Time In: 1000 Time Out: 1115 Total Billed Treatment Time: 75 Total Billed Treatment 1 visit NM 15min FA 45min EX 15min co-treated from [id number] BRENNA ABRAHAM PT January 09, 2022 10:49
--- NOTE | 2022-01-09 11:06 | Progress Note ---
Subjective Date Seen by a Provider: January 09, 2022 Time Seen by a Provider: 10:00 Subjective/Events-last exam doing well. states no episodes rectal bleed. tolerating diet. having soft BM's as she states. Objective Exam Vital Signs Date Time Temp Pulse Resp B/P (MAP) Pulse Ox O2 Delivery O2 Flow Rate FiO2 01/09/22 07:41 36.6 75 20 112/54 (73) 98 Room Air 01/08/22 21:12 37.2 77 20 125/73 (90) 98 Room Air 01/08/22 21:00 Room Air Capillary Refill : General Appearance: No Apparent Distress HEENT: PERRL/EOMI Neck: Full Range of Motion Respiratory: Chest Non Tender, Lungs Clear, Normal Breath Sounds Gastrointestinal: normal bowel sounds, soft Extremity: Normal Capillary Refill Neurologic/Psychiatric: Alert Skin: Normal Color Lymphatic: No Adenopathy Assessment/Plan Assessment/Plan Assess & Plan/Chief Complaint liver cirrhosis with hx bleeding esophageal varices as well as hemorrhoids, s/p esophageal band ligation. recommend medical management. if continued bleeding and more related to isolated internal hemorrhoidal bleed then banding. if copious bleed thru external/internal cushion then OR ligation. MATI GONZALEZ MD January 09, 2022 11:06
[2022-01-09 20:25] VITALS: BP 132/58
[2022-01-09] MEDS: SPIRONOLACTONE 25 MG (ALDACTONE) TAB PO SCH (22:12)
--- NOTE | 2022-01-10 03:32 | PM&R Progress Note ---
Subjective HPI/CC On Admission Date Seen by Provider: January 10, 2022 Time Seen by Provider: 05:45 Subjective/Events-last exam 01/10/22: Pt doing well No falls No pain No hemorrhoid bleeding or any other bleeding 01/09/2022: Pt is in a good mood No pain is reported Checked meds and labs Maintain on cirrhosis treatment Participating in therapy 01/08/2022: Patient states been doing really well No more bleeding from hemorrhoids INR 1.6 Creatinine 1.7 White count 1.7 and hemoglobin 7.7 Thrombocytopenia 58,[address] GONZALEZ consulted DC n.p.o. status since it does not appear she will need hemorrhoid banding to stop the bleeding Review of Systems General: Fatigue, Malaise Objective Exam Vital Signs Vital Signs Date Time Temp Pulse Resp B/P (MAP) Pulse Ox O2 Delivery O2 Flow Rate FiO2 01/10/22 11:17 100 Room Air 01/10/22 07:30 36.9 68 20 112/75 (87) Capillary Refill : General Appearance: No Apparent Distress, WD/WN, Chronically ill HEENT: PERRL/EOMI, Normal ENT Inspection, Pharynx Normal Neck: Full Range of Motion, Normal Inspection, Non Tender, Supple, Carotid Bruit Respiratory: Chest Non Tender, Lungs Clear, Normal Breath Sounds, No Accessory Muscle Use, No Respiratory Distress Cardiovascular: Regular Rate, Rhythm, No Edema, No Gallop, No JVD, No Murmur, Normal Peripheral Pulses Gastrointestinal: Normal Bowel Sounds, No Organomegaly, No Pulsatile Mass, Non Tender, Soft Back: Normal Inspection, No CVA Tenderness, No Vertebral Tenderness Extremity: Normal Capillary Refill, Normal Inspection, Normal Range of Motion, Non Tender, No Calf Tenderness, No Pedal Edema Neurologic/Psychiatric: Alert, Oriented x3, No Motor/Sensory Deficits, Normal Mood/Affect, 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 FIM Transfers Therapy Code Descriptions/Definitions Functional [place] Measure: 0=Not Assessed/NA 4=Minimal Assistance 1=Total Assistance 5=Supervision or Setup 2=Maximal Assistance 6=Modified [place] 3=Moderate Assistance 7=Complete IndependenceSCALE: Activities may be completed with or without assistive devices. 8-Sssnlnbdfz-nmhuydm completes the activity by him/herself with no assistance from a helper. 5-Set-up or Clean-up Assistance-helper sets up or cleans up; patient completes activity. [place] assists only prior to or following the activity. 4-Supervision or Touching Assistance-helper provides verbal cues and/or touching/steadying and/or contact guard assistance as patient completes activity. Assistance may be provided throughout the activity or intermittently. 3-Partial/Moderate Assistance-helper does LESS THAN HALF the effort. [place] lifts, holds or supports trunk or limbs, but provides less than half the effort. 2-Substantial/Maximal Assistance-helper does MORE THAN HALF the effort. [place] lifts or holds trunk or limbs and provides more than half the effort. 7-Iapjtmzre-jpziih does ALL the effort. Patient does none of the effort to complete the activity. Or, the assistance of 2 or more helpers is required for the patient to complete the activity. If activity was not attempted, code reason: 7-Patient Refused. 9-Not Applicable-not attempted and the patient did not perform the activity before the current illness, exacerbation or injury. 10-Not Attempted due to Environmental Limitations-(lack of equipment, weather restraints, etc.). 88-Not Attempted due to Medical Conditions or Safety Concerns. Roll Left to Right (QC): 6 Sit to Lying (QC): 6 Sit to Stand (QC): 4 Chair/Paa-dc-Jeusz Xfer(QC): 4 Car Transfer (QC): 4 Gait Training Does the Patient Walk?: Yes Distance: 300', 200', 100' Walk 10 feet (QC): 4 Walk 50 ft with 2 Turns(QC): 4 Walk 150 ft (QC): 4 Walking 10ft/uneven surface-QC: 4 Gait Persons Needed: 1 Gait Assistive Device: FWW Wheelchair Training Does the Pt Use a Wheelchair?: No Wheel 50 ft with 2 turns (QC): 9 Wheel 150 ft (QC): 9 Stair Training #of Steps: 1 1 Step (curb) (QC): 4 4 Steps (QC): 88 12 Steps (QC): 88 Balance Picking up an Object (QC): 4 (with foam rubber molder) ADL-Treatment Eating (QC): 5 (set up per pt report.) Oral Hygiene (QC): 4 (supervision) Shower/Bathe Self (QC): 4 (SBA, VCs for safety and sequencing) Upper Body Dressing (QC): 5 (set up assist) Lower Body Dressing (QC): 4 (SBA for safety) On/Off Footwear (QC): 5 (set up ) Toileting Hygiene (QC): 4 (CGA, pt able to manage clothing and hygiene) Assessment/Plan Assessment and Plan Assess & Plan/Chief Complaint Assessment: Hepatic encephalopathy Status post hypovolemic shock History of transfusions End-stage liver disease with cirrhosis Status post esophageal varices banding x6 Hemorrhoid bleed on 01/07/[address] GONZALEZ Atrial fibrillation Confusion Fall risk Permanent pacemaker due to complete heart block Plan: Supportive [facility] meds Monitor closely Dr. GONZALEZ for hemorrhoid bleed 01/08/2022: Supportive [facility] meds 01/09/2022: Cirrhosis management Monitor hemorrhoid bleed 01/10/22: Monitor closely Hemorrhoid bleed resolved (1) Hepatic encephalopathy Status: Acute JOHANA PURI DO January 10, 2022 03:32
[2022-01-10] MEDS: MULTIVIT W/MINERALS TAB (THERAGRAN M) PO SCH (06:38)
[2022-01-10 07:30] VITALS: BP 112/75
[2022-01-10] MEDS: hydrOXYzine (ATARAX) 10 MG TAB PO SCH ×2 (08:08→20:06)
[2022-01-10] MEDS: IRON POLYSAC 150 MG CAP (NIFEREX) PO SCH (08:08)
[2022-01-10] MEDS: RIFAXIMIN 550 MG TABLET (XIFAXAN) PO SCH ×2 (08:08→20:06)
[2022-01-10] MEDS: LACTULOSE SYRUP 10GM/15ML (ENULOSE) 30ML UDC PO SCH (08:08)
[2022-01-10] MEDS: PANTOPRAZOLE 40 MG (PROTONIX) TAB PO SCH (08:09)
[2022-01-10] MEDS: LORATADINE (CLARITIN) 10 MG TAB PO SCH (08:09)
[2022-01-10] MEDS: FLUTICASONE NASAL SPRAY (FLONASE) 16 GM BTL NS SCH (08:12)
[2022-01-10] MEDS: HYDROCORTISONE/PRAM (PROCTOFOAM HC) 10 GM CAN PR SCH ×2 (08:13→20:07)
[2022-01-10] MEDS: FUROSEMIDE 20 MG (LASIX) TAB PO SCH (08:14)
--- NOTE | 2022-01-10 09:38 | Physical Therapy Daily Note ---
PT Daily Note-Current Subjective Pt was up going to BR w/daughter. TISSUE REWINDER explained that at this time for safety pt needs to use call light. Pt agrees to PT. Pain Location: No Pain Reported Mental Status Patient Orientation: Person, Place Transfers SCALE: Activities may be completed with or without assistive devices. 3-Fodwobxlif-rrtslzn completes the activity by him/herself with no assistance from a helper. 5-Set-up or Clean-up Assistance-helper sets up or cleans up; patient completes a ctivity. [place] assists only prior to or following the activity. 4-Supervision or Touching Assistance-helper provides verbal cues and/or touching/steadying and/or contact guard assistance as patient completes activity. Assistance may be provided throughout the activity or intermittently. 3-Partial/Moderate Assistance-helper does LESS THAN HALF the effort. [place] lifts, holds or supports trunk or limbs, but provides less than half the effort. 2-Substantial/Maximal Assistance-helper does MORE THAN HALF the effort. [place] lifts or holds trunk or limbs and provides more than half the effort. 3-Vxscqwocs-rvikak does ALL the effort. Patient does none of the effort to complete the activity. Or, the assistance of 2 or more helpers is required for the patient to complete the activity. If activity was not attempted, code reason: 7-Patient Refused. 9-Not Applicable-not attempted and the patient did not perform the activity before the current illness, exacerbation or injury. 10-Not Attempted due to Environmental Limitations-(lack of equipment, weather restraints, etc.). 88-Not Attempted due to Medical Conditions or Safety Concerns. Sit to Stand (QC): 4 Toilet Transfer (QC): 4 Weight Bearing Right Lower Extremity: Right Full Weight Bearing Left Lower Extremity: Left Full Weight Bearing Gait Training Does the Patient Walk?: Yes Distance: 150' x2 Walk 10 feet (QC): 5 Walk 50 ft with 2 Turns(QC): 5 Walk 150 ft (QC): 4 Gait Assistive Device: FWW Exercises NuStep Minutes: 15 NuStep Workload: 3 Treatments Pt completes toileting and amb. in hallway. Pt uses NuStep followed by RB. Pt amb. in hallway and returns to room to rest in recliner. All needs met,call light in hand. Assessment Current Status: Good Progress Pt works on strength and activity tolerance. Pt is given more VC for amb. rashi. 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 PT Short Term Goals Short Term Goals Time Frame: January 14, 2022 Roll Left & Right: 6 Sit to lyin Lying to sitting on side of be: 6 Sit to stand: 4 (SBA) Chair/qzt-lt-owgkx transfer: 4 (SBA) Walk 10 feet: 4 (SBA) Walk 50 feet with two turns: 4 (SBA) Walk 150 feet: 4 (SBA) PT Ground Intelligence Officer Goals Ground Intelligence Officer Goals PT Correction Goals Time Frame: Jan 28, 2022 Roll Left & Right (QC): 6 Sit to Lying (QC): 6 Lying-Sitting on Side/Bed(QC): 6 Sit to Stand (QC): 5 Chair/Oan-jg-Oawun Xfer(QC): 5 Toilet Transfer (QC): 5 Car Transfer (QC): 5 Does the Patient Walk: Yes Walk 10 feet (QC): 5 Walk 50ft with 2 Turns (QC): 5 Walk 150 ft (QC): 5 Walking 10ft on Uneven Surface: 5 1 Step (curb) (QC): 4 4 Steps (QC): 4 12 Steps (QC): 4 Picking up an Object (QC): 4 (SBA) Wheel 50 feet with 2 turns (QC: 9 Wheel 150 feet: 9 PT Plan Problem List Problem List: Activity Tolerance, Safety Treatment/Plan Treatment Plan: Continue Plan of Care Treatment Plan: Bed Mobility, Education, Functional Activity [place], Functional Strength, Group Therapy, Gait, Safety, Therapeutic Exercise, Transfers Treatment Duration: Jan 28, 2022 Frequency: At least 5 of 7 days/Wk (IRF) Estimated Hrs Per Day: 1.5 hours per day Patient and/or Family Agrees t: Yes Safety Risks/Education Patient Education: Safety Issues Teaching Recipient: Patient, Family Teaching Methods: Discussion Response to Teaching: Verbalize Understanding Time/GCodes Time In: 820 Time Out: 900 Total Billed Treatment Time: 40 Total Billed Treatment 1, GT (20m) & EX (20m) MAGGIE TIMMONS TISSUE REWINDER January 10, 2022 09:38
[2022-01-10] MEDS: DOCUSATE SODIUM 100 MG (COLACE) CAP PO SCH ×2 (10:49→20:06)
[2022-01-10] MEDS: polyethylene glycoL POWDER 17 GM (MIRALAX) PACK PO SCH ×2 (10:50→20:10)
[2022-01-10] MEDS: SENNA W/DOCUSATE (SENOKOT S) TABLET PO SCH ×2 (10:50→20:06)
[2022-01-10] MEDS: RT--FLUTICASONE/SALMETEROL 113-14 (AIRDUO RespiCLICK) IH SCH ×2 (11:17→21:37)
[2022-01-10 20:00] VITALS: BP 114/65
[2022-01-10] MEDS: SPIRONOLACTONE 25 MG (ALDACTONE) TAB PO SCH (20:06)
--- NOTE | 2022-01-11 05:37 | PM&R Progress Note ---
Subjective HPI/CC On Admission Date Seen by Provider: January 11, 2022 Time Seen by Provider: 05:45 Subjective/Events-last exam 01/11/2022: Pt doing a lot better Clearing her cognition Continues all cirrhosis medications No falls 01/10/22: Pt doing well No falls No pain No hemorrhoid bleeding or any other bleeding 01/09/2022: Pt is in a good mood No pain is reported Checked meds and labs Maintain on cirrhosis treatment Participating in therapy 01/08/2022: Patient states been doing really well No more bleeding from hemorrhoids INR 1.6 Creatinine 1.7 White count 1.7 and hemoglobin 7.7 Thrombocytopenia 58,[address] GONZALEZ consulted DC n.p.o. status since it does not appear she will need hemorrhoid banding to stop the bleeding Review of Systems General: Fatigue, Malaise Objective Exam Vital Signs Vital Signs Date Time Temp Pulse Resp B/P (MAP) Pulse Ox O2 Delivery O2 Flow Rate FiO2 01/11/22 09:05 Room Air 01/11/22 08:21 96 01/11/22 07:30 37.1 65 18 98/62 (74) Capillary Refill : General Appearance: No Apparent Distress, WD/WN, Chronically ill HEENT: PERRL/EOMI, Normal ENT Inspection, Pharynx Normal Neck: Full Range of Motion, Normal Inspection, Non Tender, Supple, Carotid Bruit Respiratory: Chest Non Tender, Lungs Clear, Normal Breath Sounds, No Accessory Muscle Use, No Respiratory Distress Cardiovascular: Regular Rate, Rhythm, No Edema, No Gallop, No JVD, No Murmur, Normal Peripheral Pulses Gastrointestinal: Normal Bowel Sounds, No Organomegaly, No Pulsatile Mass, Non Tender, Soft Back: Normal Inspection, No CVA Tenderness, No Vertebral Tenderness Extremity: Normal Capillary Refill, Normal Inspection, Normal Range of Motion, Non Tender, No Calf Tenderness, No Pedal Edema Neurologic/Psychiatric: Alert, Oriented x3, No Motor/Sensory Deficits, Normal Mood/Affect, 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 FIM Transfers Therapy Code Descriptions/Definitions Functional [place] Measure: 0=Not Assessed/NA 4=Minimal Assistance 1=Total Assistance 5=Supervision or Setup 2=Maximal Assistance 6=Modified [place] 3=Moderate Assistance 7=Complete IndependenceSCALE: Activities may be completed with or without assistive devices. 4-Hqqxbawnff-fgrjxqi completes the activity by him/herself with no assistance from a helper. 5-Set-up or Clean-up Assistance-helper sets up or cleans up; patient completes activity. [place] assists only prior to or following the activity. 4-Supervision or Touching Assistance-helper provides verbal cues and/or touching/steadying and/or contact guard assistance as patient completes activity. Assistance may be provided throughout the activity or intermittently. 3-Partial/Moderate Assistance-helper does LESS THAN HALF the effort. [place] lifts, holds or supports trunk or limbs, but provides less than half the effort. 2-Substantial/Maximal Assistance-helper does MORE THAN HALF the effort. [place] lifts or holds trunk or limbs and provides more than half the effort. 6-Ziiboeupe-neuxcd does ALL the effort. Patient does none of the effort to complete the activity. Or, the assistance of 2 or more helpers is required for the patient to complete the activity. If activity was not attempted, code reason: 7-Patient Refused. 9-Not Applicable-not attempted and the patient did not perform the activity before the current illness, exacerbation or injury. 10-Not Attempted due to Environmental Limitations-(lack of equipment, weather restraints, etc.). 88-Not Attempted due to Medical Conditions or Safety Concerns. Roll Left to Right (QC): 6 Sit to Lying (QC): 6 Sit to Stand (QC): 4 Chair/Pht-hl-Nzwab Xfer(QC): 4 Car Transfer (QC): 4 Gait Training Does the Patient Walk?: Yes Distance: 150' x2 Walk 10 feet (QC): 5 Walk 50 ft with 2 Turns(QC): 5 Walk 150 ft (QC): 4 Walking 10ft/uneven surface-QC: 4 Gait Persons Needed: 1 Gait Assistive Device: FWW Wheelchair Training Does the Pt Use a Wheelchair?: No Wheel 50 ft with 2 turns (QC): 9 Wheel 150 ft (QC): 9 Stair Training #of Steps: 1 1 Step (curb) (QC): 4 4 Steps (QC): 88 12 Steps (QC): 88 Balance Picking up an Object (QC): 4 (with erp manager) ADL-Treatment Eating (QC): 5 (set up per pt report.) Oral Hygiene (QC): 4 (supervision) Shower/Bathe Self (QC): 4 (SBA, VCs for safety and sequencing) Upper Body Dressing (QC): 5 (set up assist) Lower Body Dressing (QC): 4 (SBA for safety) On/Off Footwear (QC): 5 (set up ) Toileting Hygiene (QC): 4 (CGA, pt able to manage clothing and hygiene) Assessment/Plan Assessment and Plan Assess & Plan/Chief Complaint Assessment: Hepatic encephalopathy Status post hypovolemic shock History of transfusions End-stage liver disease with cirrhosis Status post esophageal varices banding x6 Hemorrhoid bleed on 01/07/[address] GONZALEZ Atrial fibrillation Confusion Fall risk Permanent pacemaker due to complete heart block Plan: Supportive senior care meds Monitor closely Dr. GONZALEZ for hemorrhoid bleed 01/08/2022: Supportive senior care meds 01/09/2022: Cirrhosis management Monitor hemorrhoid bleed 01/10/22: Monitor closely Hemorrhoid bleed resolved 01/11/2022: Supportive care Monitor encephalopathy (1) Hepatic encephalopathy Status: Acute JOHANA PURI DO January 11, 2022 05:37
[2022-01-11] MEDS: MULTIVIT W/MINERALS TAB (THERAGRAN M) PO SCH (06:29)
[2022-01-11] MEDS: PREPARATION H OINTMENT 57 GR TUBE PR PRN ×3 (06:29→15:19)
[2022-01-11] MEDS: WITCH HAZEL(TUCKS) 40 EA JAR TOP PRN (06:29)
[2022-01-11 07:30] VITALS: BP 98/62
[2022-01-11] MEDS: RT--FLUTICASONE/SALMETEROL 113-14 (AIRDUO RespiCLICK) IH SCH ×2 (08:10→21:09)
[2022-01-11] MEDS: LACTULOSE SYRUP 10GM/15ML (ENULOSE) 30ML UDC PO SCH (08:35)
[2022-01-11] MEDS: hydrOXYzine (ATARAX) 10 MG TAB PO SCH ×2 (08:36→21:51)
[2022-01-11] MEDS: IRON POLYSAC 150 MG CAP (NIFEREX) PO SCH (08:36)
[2022-01-11] MEDS: PANTOPRAZOLE 40 MG (PROTONIX) TAB PO SCH (08:36)
[2022-01-11] MEDS: RIFAXIMIN 550 MG TABLET (XIFAXAN) PO SCH ×2 (08:36→21:50)
[2022-01-11] MEDS: LORATADINE (CLARITIN) 10 MG TAB PO SCH (08:36)
[2022-01-11] MEDS: FLUTICASONE NASAL SPRAY (FLONASE) 16 GM BTL NS SCH (08:39)
[2022-01-11] MEDS: polyethylene glycoL POWDER 17 GM (MIRALAX) PACK PO SCH ×2 (08:45→21:45)
[2022-01-11] MEDS: DOCUSATE SODIUM 100 MG (COLACE) CAP PO SCH ×2 (08:45→21:51)
[2022-01-11] MEDS: SENNA W/DOCUSATE (SENOKOT S) TABLET PO SCH ×2 (08:45→21:51)
[2022-01-11] MEDS: HYDROCORTISONE/PRAM (PROCTOFOAM HC) 10 GM CAN PR SCH ×2 (08:46→21:52)
[2022-01-11 19:45] VITALS: BP 114/46
[2022-01-11] MEDS: SPIRONOLACTONE 25 MG (ALDACTONE) TAB PO SCH (21:50)
[2022-01-12 05:50] LABS: BASOPHILS % (AUTO) 1 % (0-10); EOSINOPHILS # (AUTO) 0.1 10^3/uL (0.0-0.3); EOSINOPHILS % (AUTO) 4 % (0-10); MEAN CORPUSCULAR HGB CONC 33 g/dL (32-36); MEAN PLATELET VOLUME 9.9 fL (9.0-12.2)
[2022-01-12 05:51] LABS: ALBUMIN 2.2 GM/DL (3.2-4.5)
[2022-01-12 05:52] LABS: HEMATOCRIT 23 % (35-52); HEMOGLOBIN 7.5 g/dL (11.5-16.0); LYMPHOCYTES # (AUTO) 0.6 10^3/uL (1.0-4.0); LYMPHOCYTES % (AUTO) 34 % (12-44); MEAN CORPUSCULAR HEMOGLOBIN 32 pg (25-34); MEAN CORPUSCULAR VOLUME 97 fL (80-99); MONOCYTES # (AUTO) 0.3 10^3/uL (0.0-1.0); MONOCYTES % (AUTO) 16 % (0-12); NEUTROPHILS # (AUTO) 0.8 10^3/uL (1.8-7.8); NEUTROPHILS % (AUTO) 46 % (42-75); PLATELET COUNT 58 10^3/uL (130-400); POTASSIUM 4.3 MMOL/L (3.6-5.0); WHITE BLOOD COUNT 1.7 10^3/uL (4.3-11.0)
[2022-01-12 05:53] LABS: CALCIUM 7.9 MG/DL (8.5-10.1)
--- NOTE | 2022-01-12 05:53 | PM&R Progress Note ---
Subjective HPI/CC On Admission Date Seen by Provider: January 12, 2022 Time Seen by Provider: 10:00 Subjective/Events-last exam 01/12/2022: Pt is doing really well No hemorrhoid bleeding Bowels moved today No edema with Lasix initiated Creatinine was 1.89 01/11/2022: Pt doing a lot better Clearing her cognition Continues all cirrhosis medications No falls 01/10/22: Pt doing well No falls No pain No hemorrhoid bleeding or any other bleeding 01/09/2022: Pt is in a good mood No pain is reported Checked meds and labs Maintain on cirrhosis treatment Participating in therapy 01/08/2022: Patient states been doing really well No more bleeding from hemorrhoids INR 1.6 Creatinine 1.7 White count 1.7 and hemoglobin 7.7 Thrombocytopenia 58,[address] GONZALEZ consulted DC n.p.o. status since it does not appear she will need hemorrhoid banding to stop the bleeding Review of Systems General: Fatigue, Malaise Neurological: Weakness, Confusion Objective Exam Vital Signs Vital Signs Date Time Temp Pulse Resp B/P (MAP) Pulse Ox O2 Delivery O2 Flow Rate FiO2 01/12/22 20:30 100 Room Air 01/12/22 20:03 36.8 81 20 104/64 (77) Capillary Refill : General Appearance: No Apparent Distress, WD/WN, Chronically ill HEENT: PERRL/EOMI, Normal ENT Inspection, Pharynx Normal Neck: Full Range of Motion, Normal Inspection, Non Tender, Supple, Carotid Bruit Respiratory: Chest Non Tender, Lungs Clear, Normal Breath Sounds, No Accessory Muscle Use, No Respiratory Distress Cardiovascular: Regular Rate, Rhythm, No Edema, No Gallop, No JVD, No Murmur, Normal Peripheral Pulses Gastrointestinal: Normal Bowel Sounds, No Organomegaly, No Pulsatile Mass, Non Tender, Soft Back: Normal Inspection, No CVA Tenderness, No Vertebral Tenderness Extremity: Normal Capillary Refill, Normal Inspection, Normal Range of Motion, Non Tender, No Calf Tenderness, No Pedal Edema Neurologic/Psychiatric: Alert, Oriented x3, No Motor/Sensory Deficits, Normal Mood/Affect, public relations analyst II-XII Norm as Tested, Abnormal Gait, Disoriented, Motor Weakness (Generalized) Skin: Normal Color, Warm/Dry Lymphatic: No Adenopathy Results/Procedures Lab Patient resulted labs reviewed. FIM Transfers Therapy Code Descriptions/Definitions Functional [place] Measure: 0=Not Assessed/NA 4=Minimal Assistance 1=Total Assistance 5=Supervision or Setup 2=Maximal Assistance 6=Modified [place] 3=Moderate Assistance 7=Complete IndependenceSCALE: Activities may be completed with or without assistive devices. 2-Yxhtqnieis-uutudiy completes the activity by him/herself with no assistance from a helper. 5-Set-up or Clean-up Assistance-helper sets up or cleans up; patient completes activity. [place] assists only prior to or following the activity. 4-Supervision or Touching Assistance-helper provides verbal cues and/or touching/steadying and/or contact guard assistance as patient completes activity. Assistance may be provided throughout the activity or intermittently. 3-Partial/Moderate Assistance-helper does LESS THAN HALF the effort. [place] lifts, holds or supports trunk or limbs, but provides less than half the effort. 2-Substantial/Maximal Assistance-helper does MORE THAN HALF the effort. [place] lifts or holds trunk or limbs and provides more than half the effort. 0-Rdwuxpfef-zjvksf does ALL the effort. Patient does none of the effort to complete the activity. Or, the assistance of 2 or more helpers is required for the patient to complete the activity. If activity was not attempted, code reason: 7-Patient Refused. 9-Not Applicable-not attempted and the patient did not perform the activity before the current illness, exacerbation or injury. 10-Not Attempted due to Environmental Limitations-(lack of equipment, weather restraints, etc.). 88-Not Attempted due to Medical Conditions or Safety Concerns. Roll Left to Right (QC): 6 Sit to Lying (QC): 6 Sit to Stand (QC): 4 Chair/Qud-su-Emhyo Xfer(QC): 4 Car Transfer (QC): 4 Gait Training Does the Patient Walk?: Yes Distance: 150' x2 Walk 10 feet (QC): 5 Walk 50 ft with 2 Turns(QC): 5 Walk 150 ft (QC): 4 Walking 10ft/uneven surface-QC: 4 Gait Persons Needed: 1 Gait Assistive Device: FWW Wheelchair Training Does the Pt Use a Wheelchair?: No Wheel 50 ft with 2 turns (QC): 9 Wheel 150 ft (QC): 9 Stair Training #of Steps: 1 1 Step (curb) (QC): 4 4 Steps (QC): 88 12 Steps (QC): 88 Balance Picking up an Object (QC): 4 (with photographic aide) ADL-Treatment Eating (QC): 5 (set up per pt report.) Oral Hygiene (QC): 4 (supervision) Shower/Bathe Self (QC): 4 (SBA, VCs for safety and sequencing) Upper Body Dressing (QC): 5 (set up assist) Lower Body Dressing (QC): 4 (SBA for safety) On/Off Footwear (QC): 5 (set up ) Toileting Hygiene (QC): 4 (CGA, pt able to manage clothing and hygiene) Assessment/Plan Assessment and Plan Assess & Plan/Chief Complaint Assessment: Hepatic encephalopathy Status post hypovolemic shock History of transfusions End-stage liver disease with cirrhosis Status post esophageal varices banding x6 Hemorrhoid bleed on 01/07/[address] GONZALEZ Atrial fibrillation Confusion Fall risk Permanent pacemaker due to complete heart block Plan: Supportive assisted meds Monitor closely Dr. GONZALEZ for hemorrhoid bleed 01/08/2022: Supportive assisted meds 01/09/2022: Cirrhosis management Monitor hemorrhoid bleed 01/10/22: Monitor closely Hemorrhoid bleed resolved 01/11/2022: Supportive care Monitor encephalopathy 01/12/2022: Supportive care Much improved status (1) Hepatic encephalopathy Status: Acute JOHANA PURI DO January 12, 2022 05:53
[2022-01-12 05:54] LABS: TOTAL PROTEIN 6.1 GM/DL (6.4-8.2)
[2022-01-12 05:56] LABS: BILIRUBIN,TOTAL 1.7 MG/DL (0.1-1.0)
[2022-01-12 05:58] LABS: CREATININE SERUM 1.89 MG/DL (0.60-1.30)
[2022-01-12] MEDS: MULTIVIT W/MINERALS TAB (THERAGRAN M) PO SCH (06:54)
[2022-01-12 07:49] VITALS: BP 127/61
[2022-01-12] MEDS: RIFAXIMIN 550 MG TABLET (XIFAXAN) PO SCH ×2 (07:59→19:56)
[2022-01-12] MEDS: PANTOPRAZOLE 40 MG (PROTONIX) TAB PO SCH (07:59)
[2022-01-12] MEDS: LORATADINE (CLARITIN) 10 MG TAB PO SCH (07:59)
[2022-01-12] MEDS: hydrOXYzine (ATARAX) 10 MG TAB PO SCH ×2 (07:59→19:55)
[2022-01-12] MEDS: IRON POLYSAC 150 MG CAP (NIFEREX) PO SCH (07:59)
[2022-01-12] MEDS: LACTULOSE SYRUP 10GM/15ML (ENULOSE) 30ML UDC PO SCH (08:01)
[2022-01-12] MEDS: DOCUSATE SODIUM 100 MG (COLACE) CAP PO SCH ×2 (08:03→19:55)
[2022-01-12] MEDS: polyethylene glycoL POWDER 17 GM (MIRALAX) PACK PO SCH ×2 (08:03→19:51)
[2022-01-12] MEDS: SENNA W/DOCUSATE (SENOKOT S) TABLET PO SCH ×2 (08:04→20:00)
--- NOTE | 2022-01-12 08:44 | Occupational Ther Daily Note ---
OT Current Status-Daily Note Subjective Pt up in recliner, agreeable to OT Tx Mental Status/Objective Patient Orientation: Person, Confused, Place, Situation ADL-Treatment Therapy Code Descriptions/Definitions Functional [place] Measure: 0=Not Assessed/NA 4=Minimal Assistance 1=Total Assistance 5=Supervision or Setup 2=Maximal Assistance 6=Modified [place] 3=Moderate Assistance 7=Complete IndependenceSCALE: Activities may be completed with or without assistive devices. 1-Gmrwerutnn-fcxjlgd completes the activity by him/herself with no assistance from a helper. 5-Set-up or Clean-up Assistance-helper sets up or cleans up; patient completes activity. [place] assists only prior to or following the activity. 4-Supervision or Touching Assistance-helper provides verbal cues and/or touching/steadying and/or contact guard assistance as patient completes activity. Assistance may be provided throughout the activity or intermittently. 3-Partial/Moderate Assistance-helper does LESS THAN HALF the effort. [place] lifts, holds or supports trunk or limbs, but provides less than half the effort. 2-Substantial/Maximal Assistance-helper does MORE THAN HALF the effort. [place] lifts or holds trunk or limbs and provides more than half the effort. 8-Skzobvorj-vpcugf does ALL the effort. Patient does none of the effort to complete the activity. Or, the assistance of 2 or more helpers is required for the patient to complete the activity. If activity was not attempted, code reason: 7-Patient Refused. 9-Not Applicable-not attempted and the patient did not perform the activity before the current illness, exacerbation or injury. 10-Not Attempted due to Environmental Limitations-(lack of equipment, weather restraints, etc.). 88-Not Attempted due to Medical Conditions or Safety Concerns. Eating (QC): 6 (IND) Oral Hygiene (QC): 6 (IND) Shower/Bathe Self (QC): 4 (Supervision) Upper Body Dressing (QC): 6 (IND doffing/donning) Lower Body Dressing (QC): 4 (Supervision) On/Off Footwear: 6 (IND) Toileting Hygiene (QC): 4 (Supervision) Toilet Transfer (QC): 4 (Supervision) Other Treatment Pt up in recliner, agreeable to OT Tx. Pt used FWW within room to complete ADL session as outlined above. Pt then used FWW to go to therapy gym, SBA, cues required to locate therapy gym. In order to increase activity tolerance, fine motor strength/coordination, and sequencing, pt completed pegboard task, following repeating patterns. Pt required min-mod verbal cues overall during task for sequencing, problem solving, and identifying errors. Pt used FWW to return to her room, SBA with cues to locate room. Pt transferred to recliner. Post tx, pt in recliner, call light in reach and all needs met. Chair alarm activated. Education OT Patient Education: Correct positioning, Energy conservation, Modified ADL techniques, Progress toward Goal/Update tx plan, Purpose of tx/functional activities Teaching Recipient: Patient Teaching Methods: Discussion Response to Teaching: Verbalize Understanding OT Short Term Goals Short Term Goals Time Frame: January 21, 2022 Shower/bathe self: 3 Upper body dressin Lower body dressin OT Retirement Goals Information Systems Supervisor Goals Time Frame: Jan 30, 2022 Eating (QC): 6 Oral Hygiene (QC): 6 Toileting Hygiene (QC): 6 Shower/Bathe Self (QC): 4 Upper Body Dressing (QC): 6 Lower Body Dressing (QC): 6 On/Off Footwear (QC): 6 Additional Goals: 1-Demonstrate ADL Tasks, 2-Verbalize Understanding, 3- ImproveStrength/[place] 1=Demonstrate adherence to instructed precautions during ADL tasks. 2=Patient will verbalize/demonstrate understanding of assistive devices/modifications for ADL. 3=Patient will improve strength/tolerance for activity to enable patient to perform ADL's. OT Education/Plan Problem List/Assessment Assessment: Decreased Activ Tolerance, Decreased Safety Aware, Decreased UE Strength, Impaired Cognition, Impaired Funct Balance, Impaired I ADL's, Impaired Self-Care Skills, Restricted Funct UE ROM Discharge Recommendations Plan/Recommendations: Continue POC Treatment Plan/Plan of Care Patient would benefit from OT for education, treatment and training to promote independence in ADL's, mobility, safety and/or upper extremity function for ADL's. Plan of Care: ADL Retraining, Functional Mobility, Group Exercise/Act as Ind, UE Funct Exercise/Act Treatment Duration: Jan 30, 2022 Frequency: At least 5 of 7 days/Wk (IRF) Estimated Hrs Per Day: 1.5 hours per day Agreement: Yes Rehab Potential: Good Time/GCodes Start Time: 07:45 Stop Time: 09:00 Total Time Billed (hr/min): 75 Billed Treatment Time 1, ADL 3 (45'), FA 2 (30') MEHRDAD TAYLOR OT January 12, 2022 08:44
[2022-01-12] MEDS: HYDROCORTISONE/PRAM (PROCTOFOAM HC) 10 GM CAN PR SCH ×2 (09:08→20:00)
[2022-01-12] MEDS: PREPARATION H OINTMENT 57 GR TUBE PR PRN (09:08)
[2022-01-12] MEDS: FLUTICASONE NASAL SPRAY (FLONASE) 16 GM BTL NS SCH (09:08)
[2022-01-12] MEDS: FUROSEMIDE 20 MG (LASIX) TAB PO SCH (09:11)
[2022-01-12] MEDS: RT--FLUTICASONE/SALMETEROL 113-14 (AIRDUO RespiCLICK) IH SCH ×2 (10:40→20:24)
--- NOTE | 2022-01-12 13:12 | Speech Therapy Daily Note ---
Speech Daily Progress Note Subjective Date Seen by Provider: January 12, 2022 Time Seen by Provider: 10:30 The patient was seated upright in her recliner, awake and alert upon entrance to her room by the clinician. Objective - Orientation: The patient was independently oriented to self, location, date, month, day of week, and year. The patient initially stated the wrong date, however, independently self-corrected. - Functional Recall: The patient recalled the events, exercises, and therapy sessions from the morning session. The patient was able to recall specific exercises, as well as, safety procedures for improved mobility. The patient continues to display improving cognition. Assessment Assessment Current Status: Fair Progress Treatment Plan Continue Plan of Care Speech Short Term Goals Short Term Goals Short Term Goals 1. The patient will demonstrate 90% accuracy with memory and functional problem solving tasks with mild clinician verbal and visual cueing. Time Frame-STG: One Week. Speech Test Bore Helper Goals Senior Care Goals 1. The patient will demonstrate improved cognitive linguistic skills for improved safety with discharge to the least restrictive environment. Time Frame: Two Weeks. Speech-Plan Treatment Plan Speech Therapy Treatment Plan: Continue Plan of Care Treatment Duration: January 09, 2022 Frequency: Modified Program (IRF) Estimated Hrs Per Day: Other Rehab Potential: Good Safety Risks/Education Teaching Recipient: Patient Teaching Methods: Discussion Response to Teaching: Verbalize Understanding Education Topics Provided: Orientation Strategies Time Speech Therapy Time In: 10:30 Speech Therapy Time Out: 11:00 Total Billed Time: 30 Billed Treatment Time DavidYEYO ELIZABETH ST January 12, 2022 13:12
--- NOTE | 2022-01-12 14:20 | Progress Note ---
NEL KEANE 01/12/22 1420: Progress Note Subjective: HPI: The patient was sitting in her chair this morning, and denied any acute events overnight. The patient is not having any more rectal bleeding. Bowels are moving well. She reports that inpatient rehab is going well, and she is having improvements to her strength and stamina. ROS: Constitutional: no fevers, no chills. EENTM: no vision changes Respiratory: no SOB, no cough Cardiovascular: no chest pain, no palpitations Gastrointestinal: no constipation, no vomiting Musculoskeletal: no symptoms reported Skin: no change in color, no concerning lesions Psychiatric/Neurological: no anxiety, no depression Objective: Vitals: T: 36.9, HR: 83, RR: 20, BP: 127/61, 97 % room air General Appearance: No Apparent Distress, WD/WN Eyes: Bilateral Eye Normal Inspection, Bilateral Eye PERRL HEENT: PERRL/EOMI, mocuous membranes moist Neck: normal inspection normal ROM Respiratory: Chest Non Tender, Lungs Clear, Normal Breath Sounds, No Accessory Muscle Use, No Respiratory Distress Cardiovascular: Regular Rate, Rhythm, Edema, No Gallop, No JVD, No Murmur, Normal Peripheral Pulses Gastrointestinal: Normal Bowel Sounds, No Organomegaly, No Pulsatile Mass, Non Tender, Soft Extremity: Normal Capillary Refill, Normal Inspection, left sided weakness, Non Tender, No Calf Tenderness, Pedal Edema pitting 2+ Neurologic/Psychiatric: Alert, Oriented x3, No Motor/Sensory Deficits, Normal M ood/Affect Skin: Normal Color, Warm/Dry Assessment: Debility Hemorrhoid bleed on 01/07/2022 Status post esophageal varices banding x6 Hepatic encephalopathy End-stage liver disease with cirrhosis Status post hypovolemic shock Confusion Fall risk History of transfusions Atrial fibrillation Permanent pacemaker due to complete heart block Plan: Debility Hemorrhoid bleed on 01/07/2022 Status post esophageal varices banding x6 Hepatic encephalopathy End-stage liver disease with cirrhosis Status post hypovolemic shock Confusion Fall risk Leukopenia PT will continue with inpatient rehab. She continues to improve in regard to her strength and stamina. Continue to monitor mental status. Continue with Lactulose therapy for her hepatic ecephalopathy. Monitor for esophageal bleeding and rectal bleeding. Monitor renal function. History of transfusions Atrial fibrillation Permanent pacemaker due to complete heart block Leukpenia Monitor hemoglobin. Monitor heart rate and rhythm. Continue home meds. Monitor white count. EMILIANA PURI DO 01/13/22 0523: Supervisory-Addendum Brief Verification & Attestation Participated in pt care: history, MDM, physical Personally performed: exam, history, MDM, supervision of care Care discussed with: Medical Student Procedures: n/a Results interpretation: Verified all documentation Verification and Attestation of Medical Student E/M Service A medical student performed and documented this service in my presence. I reviewed and verified all information documented by the medical student and made modifications to such information, when appropriate. I personally performed the physical exam and medical decision making. Emiliana Puri, January 13, 2022,05:23 NEL KEANE January 12, 2022 14:20 EMILIANA PURI DO January 13, 2022 05:23
--- NOTE | 2022-01-12 14:49 | Physical Therapy Daily Note ---
PT Daily Note-Current Subjective [id number] Upon arrival, pt was seated in recliner, pts daughter was present. Pt states that she slept well. Pt agrees to PT. [id number] Upon arrival, pt was in bed. pt agrees to PT session. Pain Comment: Pt reports no pain Mental Status Patient Orientation: Person, Place, Time, Situation Transfers SCALE: Activities may be completed with or without assistive devices. 2-Qpxfzfqtbn-dzuswxj completes the activity by him/herself with no assistance from a helper. 5-Set-up or Clean-up Assistance-helper sets up or cleans up; patient completes activity. [place] assists only prior to or following the activity. 4-Supervision or Touching Assistance-helper provides verbal cues and/or touching/steadying and/or contact guard assistance as patient completes activity. Assistance may be provided throughout the activity or intermittently. 3-Partial/Moderate Assistance-helper does LESS THAN HALF the effort. [place] lifts, holds or supports trunk or limbs, but provides less than half the effort. 2-Substantial/Maximal Assistance-helper does MORE THAN HALF the effort. [place] lifts or holds trunk or limbs and provides more than half the effort. 8-Ntspkbjox-ikurld does ALL the effort. Patient does none of the effort to c omplete the activity. Or, the assistance of 2 or more helpers is required for the patient to complete the activity. If activity was not attempted, code reason: 7-Patient Refused. 9-Not Applicable-not attempted and the patient did not perform the activity before the current illness, exacerbation or injury. 10-Not Attempted due to Environmental Limitations-(lack of equipment, weather restraints, etc.). 88-Not Attempted due to Medical Conditions or Safety Concerns. Sit to Stand (QC): 4 Weight Bearing Right Lower Extremity: Right Full Weight Bearing Left Lower Extremity: Left Full Weight Bearing Gait Training Does the Patient Walk?: Yes Distance: 72', 70' Walk 10 feet (QC): 4 Walk 50 ft with 2 Turns(QC): 4 Gait Persons Needed: 1 Gait Assistive Device: FWW Pt ambulated with a FWW, demonstrated a step through GT pattern, pt show no LOB. Pt required a RB, during ambulation. Wheelchair Training Does the Pt Use a Wheelchair?: No Exercises Supine Ex: Ankle pumps, Heel Slides, Short Arc Quads, Straight leg raise, Hip abd/add Seated Therapy Exercises: Ankle pumps, Long arc quads, Hip flexion, Hip abd/add Seated Reps: 15 NuStep Minutes: 15 Treatments [id number]- At the beginning of tx session, pts daughter was present. Pt performed and completed all Exs as listed above. First tx session, pt completed all seated Exs, ambulation and NuStep. Once tx was completed, pt was seated in recliner with call light and tray in reach and all needs met. [id number]- Pt completed all supine Exs listed above, once tx session was concluded, pt was laying in bed, with call light and tray in reach and all needs met. Assessment Current Status: Good Progress Pt would benefit from continued PT to improve on strength, GT and activity tolerance. PT Short Term Goals Short Term Goals Time Frame: January 14, 2022 Roll Left & Right: 6 Sit to lyin Lying to sitting on side of be: 6 Sit to stand: 4 (SBA) Chair/eos-ic-sccro transfer: 4 (SBA) Walk 10 feet: 4 (SBA) Walk 50 feet with two turns: 4 (SBA) Walk 150 feet: 4 (SBA) PT Shelter Goals Sql Programmer Analyst Goals PT Sql Programmer Analyst Goals Time Frame: Jan 28, 2022 Roll Left & Right (QC): 6 Sit to Lying (QC): 6 Lying-Sitting on Side/Bed(QC): 6 Sit to Stand (QC): 5 Chair/Lfy-yt-Ofqgo Xfer(QC): 5 Toilet Transfer (QC): 5 Car Transfer (QC): 5 Does the Patient Walk: Yes Walk 10 feet (QC): 5 Walk 50ft with 2 Turns (QC): 5 Walk 150 ft (QC): 5 Walking 10ft on Uneven Surface: 5 1 Step (curb) (QC): 4 4 Steps (QC): 4 12 Steps (QC): 4 Picking up an Object (QC): 4 (SBA) Wheel 50 feet with 2 turns (QC: 9 Wheel 150 feet: 9 PT Plan Problem List Problem List: Activity Tolerance, Functional Strength, Gait Treatment/Plan Treatment Plan: Continue Plan of Care Treatment Plan: Bed Mobility, Education, Functional Activity [place], Functional Strength, Group Therapy, Gait, Safety, Therapeutic Exercise, Transfers Treatment Duration: Jan 28, 2022 Frequency: At least 5 of 7 days/Wk (IRF) Estimated Hrs Per Day: 1.5 hours per day Patient and/or Family Agrees t: Yes Safety Risks/Education Patient Education: Transfer Techniques, Correct Positioning Teaching Recipient: Patient Teaching Methods: Discussion Response to Teaching: Verbalize Understanding Time/GCodes Time In: 1100 Time Out: 1200 Total Billed Treatment Time: 60 Total Billed Treatment [id number] 1, Ex (40), GT (20) [id number] 1, Ex (15) JESSICA SALINAS POLICE CLERK January 12, 2022 14:49
[2022-01-12] MEDS ORDERED: SPIR50TA4 PO (15:03)
[2022-01-12] MEDS ORDERED: PNV11TAB5 PO (15:07)
[2022-01-12] MEDS: SPIRONOLACTONE 25 MG (ALDACTONE) TAB PO SCH (19:55)
[2022-01-12 20:03] VITALS: BP 104/64
--- NOTE | 2022-01-13 06:01 | PM&R Progress Note ---
Subjective HPI/CC On Admission Date Seen by Provider: January 13, 2022 Time Seen by Provider: 10:00 Subjective/Events-last exam 01/13/22: Pt is doing really well Discharge planned for Confusion has lifted Overall has remained stable This beneficiary has a mobility limitation that significantly impairs her ability to participate in one or more mobility-related activities of daily living (MRADL) in the home. This beneficiary is able to safely use the walker and the functional mobility deficit can be sufficiently resolved with use of a walker. 01/12/2022: Pt is doing really well No hemorrhoid bleeding Bowels moved today No edema with Lasix initiated Creatinine was 1.89 01/11/2022: Pt doing a lot better Clearing her cognition Continues all cirrhosis medications No falls 01/10/22: Pt doing well No falls No pain No hemorrhoid bleeding or any other bleeding 01/09/2022: Pt is in a good mood No pain is reported Checked meds and labs Maintain on cirrhosis treatment Participating in therapy 01/08/2022: Patient states been doing really well No more bleeding from hemorrhoids INR 1.6 Creatinine 1.7 White count 1.7 and hemoglobin 7.7 Thrombocytopenia 58,[address] GONZALEZ consulted DC n.p.o. status since it does not appear she will need hemorrhoid banding to stop the bleeding Review of Systems General: Fatigue, Malaise Objective Exam Vital Signs Vital Signs Date Time Temp Pulse Resp B/P (MAP) Pulse Ox O2 Delivery O2 Flow Rate FiO2 01/13/22 20:00 100 Room Air 01/13/22 19:37 36.6 68 16 118/75 (89) Capillary Refill : General Appearance: No Apparent Distress, WD/WN, Chronically ill HEENT: PERRL/EOMI, Normal ENT Inspection, Pharynx Normal Neck: Full Range of Motion, Normal Inspection, Non Tender, Supple, Carotid Bruit Respiratory: Chest Non Tender, Lungs Clear, Normal Breath Sounds, No Accessory Muscle Use, No Respiratory Distress Cardiovascular: Regular Rate, Rhythm, No Edema, No Gallop, No JVD, No Murmur, Normal Peripheral Pulses Gastrointestinal: Normal Bowel Sounds, No Organomegaly, No Pulsatile Mass, Non Tender, Soft Back: Normal Inspection, No CVA Tenderness, No Vertebral Tenderness Extremity: Normal Capillary Refill, Normal Inspection, Normal Range of Motion, Non Tender, No Calf Tenderness, No Pedal Edema Neurologic/Psychiatric: Alert, Oriented x3, No Motor/Sensory Deficits, Normal Mood/Affect, food service supervisor II-XII Norm as Tested, Abnormal Gait, Disoriented, Motor Weakness (Generalized) Skin: Normal Color, Warm/Dry Lymphatic: No Adenopathy Results/Procedures Lab Patient resulted labs reviewed. FIM Transfers Therapy Code Descriptions/Definitions Functional [place] Measure: 0=Not Assessed/NA 4=Minimal Assistance 1=Total Assistance 5=Supervision or Setup 2=Maximal Assistance 6=Modified [place] 3=Moderate Assistance 7=Complete IndependenceSCALE: Activities may be completed with or without assistive devices. 0-Jzkxhhmvuv-bjfsetw completes the activity by him/herself with no assistance from a helper. 5-Set-up or Clean-up Assistance-helper sets up or cleans up; patient completes activity. [place] assists only prior to or following the activity. 4-Supervision or Touching Assistance-helper provides verbal cues and/or touching/steadying and/or contact guard assistance as patient completes activity. Assistance may be provided throughout the activity or intermittently. 3-Partial/Moderate Assistance-helper does LESS THAN HALF the effort. [place] lifts, holds or supports trunk or limbs, but provides less than half the effort. 2-Substantial/Maximal Assistance-helper does MORE THAN HALF the effort. [place] lifts or holds trunk or limbs and provides more than half the effort. 1-Xsucudhjv-jqqpfp does ALL the effort. Patient does none of the effort to complete the activity. Or, the assistance of 2 or more helpers is required for the patient to complete the activity. If activity was not attempted, code reason: 7-Patient Refused. 9-Not Applicable-not attempted and the patient did not perform the activity before the current illness, exacerbation or injury. 10-Not Attempted due to Environmental Limitations-(lack of equipment, weather restraints, etc.). 88-Not Attempted due to Medical Conditions or Safety Concerns. Roll Left to Right (QC): 6 Sit to Lying (QC): 6 Sit to Stand (QC): 4 Chair/Utl-gd-Fjjuq Xfer(QC): 4 Car Transfer (QC): 4 Gait Training Does the Patient Walk?: Yes Distance: 72', 70' Walk 10 feet (QC): 4 Walk 50 ft with 2 Turns(QC): 4 Walk 150 ft (QC): 4 Walking 10ft/uneven surface-QC: 4 Gait Persons Needed: 1 Gait Assistive Device: FWW Wheelchair Training Does the Pt Use a Wheelchair?: No Wheel 50 ft with 2 turns (QC): 9 Wheel 150 ft (QC): 9 Stair Training #of Steps: 1 1 Step (curb) (QC): 4 4 Steps (QC): 88 12 Steps (QC): 88 Balance Picking up an Object (QC): 4 (with parts clerk) ADL-Treatment Eating (QC): 6 (IND) Oral Hygiene (QC): 6 (IND) Shower/Bathe Self (QC): 4 (Supervision) Upper Body Dressing (QC): 6 (IND doffing/donning) Lower Body Dressing (QC): 4 (Supervision) On/Off Footwear (QC): 6 (IND) Toileting Hygiene (QC): 4 (Supervision) Toilet Transfer (QC): 4 (Supervision) Assessment/Plan Assessment and Plan Assess & Plan/Chief Complaint Assessment: Hepatic encephalopathy Status post hypovolemic shock History of transfusions End-stage liver disease with cirrhosis Status post esophageal varices banding x6 Hemorrhoid bleed on 01/07/[address] GONZALEZ Atrial fibrillation Confusion Fall risk Permanent pacemaker due to complete heart block Plan: Supportive correction meds Monitor closely Dr. GONZALEZ for hemorrhoid bleed 01/08/2022: Supportive correction meds 01/09/2022: Cirrhosis management Monitor hemorrhoid bleed 01/10/22: Monitor closely Hemorrhoid bleed resolved 01/11/2022: Supportive care Monitor encephalopathy 01/12/2022: Supportive care Much improved status 01/13/2022: Supportive care Much improved (1) Hepatic encephalopathy Status: Acute JOHANA PURI DO January 13, 2022 06:01
[2022-01-13] MEDS: MULTIVIT W/MINERALS TAB (THERAGRAN M) PO SCH (06:50)
[2022-01-13] MEDS: RT--FLUTICASONE/SALMETEROL 113-14 (AIRDUO RespiCLICK) IH SCH ×2 (07:34→19:02)
[2022-01-13 07:54] VITALS: BP 106/55
--- NOTE | 2022-01-13 08:56 | Physical Therapy Daily Note ---
PT Daily Note-Current Subjective 800-900 Upon arrival, pt was seated in recliner. Pt states she did not sleep very well. Pts daughter was present. Pt agrees to PT. [id number] Upon arrival, pt was seated in recliner. Pt states she had a good lunch. Pt agrees to PT Pain Comment: Pt reports no pain. Mental Status Patient Orientation: Person, Place, Time, Situation Transfers SCALE: Activities may be completed with or without assistive devices. 3-Jfqspmzyfx-mfaapzn completes the activity by him/herself with no assistance from a helper. 5-Set-up or Clean-up Assistance-helper sets up or cleans up; patient completes activity. [place] assists only prior to or following the activity. 4-Supervision or Touching Assistance-helper provides verbal cues and/or touching/steadying and/or contact guard assistance as patient completes activity. Assistance may be provided throughout the activity or intermittently. 3-Partial/Moderate Assistance-helper does LESS THAN HALF the effort. [place] lifts, holds or supports trunk or limbs, but provides less than half the effort. 2-Substantial/Maximal Assistance-helper does MORE THAN HALF the effort. [place] lifts or holds trunk or limbs and provides more than half the effort. 3-Qenjeuzev-wwvjld does ALL the effort. Patient does none of the effort to complete the activity. Or, the assistance of 2 or more helpers is required for the patient to complete the activity. If activity was not attempted, code reason: 7-Patient Refused. 9-Not Applicable-not attempted and the patient did not perform the activity before the current illness, exacerbation or injury. 10-Not Attempted due to Environmental Limitations-(lack of equipment, weather restraints, etc.). 88-Not Attempted due to Medical Conditions or Safety Concerns. Sit to Stand (QC): 4 Weight Bearing Right Lower Extremity: Right Full Weight Bearing Left Lower Extremity: Left Full Weight Bearing Gait Training Does the Patient Walk?: Yes Distance: 308', 82' Walk 10 feet (QC): 4 Walk 50 ft with 2 Turns(QC): 4 Walk 150 ft (QC): 4 Gait Persons Needed: 1 Gait Assistive Device: FWW Pt ambulated with FWW, pt demonstrated slow, reciprocal GT pattern, with no LOB. Pr required a lengthy RB. [id number] Pt ambulated from room, past the gym and elevator and back to room. Pt was CGA. Pt demonstrated slow, reciprocal GT pattern, and stated that she was becoming fatigued. Exercises Seated Therapy Exercises: Ankle pumps (20), Long arc quads, Hip flexion, Hip abd/add Seated Reps: 15 NuStep Minutes: 15 NuStep Workload: 6 Treatments 800-900 Pt performed and completed all Exs listed above. Pt ambulated from room, to [place] with windows, took a lengthy RB, and ambulated back across lobby to gym. Pt did Nustep 15 min, the ambulated back to room. SW arrived to talk to pt. Once PT was concluded, pt was seated in recliner with call light and tray in reach and all needs met. As PT was exiting, pts daughter was present, and pts Doctor arrived. [id number] Pt used the BR at the start of the tx session, pt was CGA. Pt then ambulated from room, past the gym and elevator and back to room. Once PT session was concluded, pt requested to be in bed, pt had call light and tray in reach and all needs where met. Assessment Current Status: Good Progress Pt would benefit from continued PT to improve on strength, GT, and activity tolerance. PT Short Term Goals Short Term Goals Time Frame: January 14, 2022 Roll Left & Right: 6 Sit to lyin Lying to sitting on side of be: 6 Sit to stand: 4 (SBA) Chair/fmf-qz-tagii transfer: 4 (SBA) Walk 10 feet: 4 (SBA) Walk 50 feet with two turns: 4 (SBA) Walk 150 feet: 4 (SBA) PT Fpc Goals Fpc Goals PT Fpc Goals Time Frame: Jan 28, 2022 Roll Left & Right (QC): 6 Sit to Lying (QC): 6 Lying-Sitting on Side/Bed(QC): 6 Sit to Stand (QC): 5 Chair/Ztw-fl-Bukkb Xfer(QC): 5 Toilet Transfer (QC): 5 Car Transfer (QC): 5 Does the Patient Walk: Yes Walk 10 feet (QC): 5 Walk 50ft with 2 Turns (QC): 5 Walk 150 ft (QC): 5 Walking 10ft on Uneven Surface: 5 1 Step (curb) (QC): 4 4 Steps (QC): 4 12 Steps (QC): 4 Picking up an Object (QC): 4 (SBA) Wheel 50 feet with 2 turns (QC: 9 Wheel 150 feet: 9 PT Plan Problem List Problem List: Activity Tolerance, Functional Strength, Gait Treatment/Plan Treatment Plan: Continue Plan of Care Treatment Plan: Bed Mobility, Education, Functional Activity [place], Functional Strength, Group Therapy, Gait, Safety, Therapeutic Exercise, Transfers Treatment Duration: Jan 28, 2022 Frequency: At least 5 of 7 days/Wk (IRF) Estimated Hrs Per Day: 1.5 hours per day Patient and/or Family Agrees t: Yes Safety Risks/Education Patient Education: Transfer Techniques, Correct Positioning Teaching Recipient: Patient Teaching Methods: Discussion Response to Teaching: Verbalize Understanding Time/GCodes Time In: 800 Time Out: 900 Total Billed Treatment Time: 60 Total Billed Treatment 800-900 1, Exs 3 (40), GT (20) [id number] 1, FA 2 (30) JESSICA SALINAS NANOTECHNOLOGY ENGINEERING TECHNICIAN January 13, 2022 08:56
[2022-01-13] MEDS: LORATADINE (CLARITIN) 10 MG TAB PO SCH (09:18)
[2022-01-13] MEDS: PANTOPRAZOLE 40 MG (PROTONIX) TAB PO SCH (09:18)
[2022-01-13] MEDS: IRON POLYSAC 150 MG CAP (NIFEREX) PO SCH (09:18)
[2022-01-13] MEDS: hydrOXYzine (ATARAX) 10 MG TAB PO SCH ×2 (09:18→19:53)
[2022-01-13] MEDS: RIFAXIMIN 550 MG TABLET (XIFAXAN) PO SCH ×2 (09:18→19:53)
[2022-01-13] MEDS: HYDROCORTISONE/PRAM (PROCTOFOAM HC) 10 GM CAN PR SCH ×2 (09:19→19:54)
[2022-01-13] MEDS: DOCUSATE SODIUM 100 MG (COLACE) CAP PO SCH ×2 (09:19→19:53)
[2022-01-13] MEDS: FLUTICASONE NASAL SPRAY (FLONASE) 16 GM BTL NS SCH (09:19)
[2022-01-13] MEDS: LACTULOSE SYRUP 10GM/15ML (ENULOSE) 30ML UDC PO SCH (09:20)
[2022-01-13] MEDS: polyethylene glycoL POWDER 17 GM (MIRALAX) PACK PO SCH ×2 (09:20→19:53)
[2022-01-13] MEDS: SENNA W/DOCUSATE (SENOKOT S) TABLET PO SCH ×2 (09:20→19:53)
--- NOTE | 2022-01-13 10:41 | Occupational Ther Daily Note ---
OT Current Status-Daily Note Subjective Pt in recliner, agreeable to OT tx. ADL-Treatment Therapy Code Descriptions/Definitions Functional [place] Measure: 0=Not Assessed/NA 4=Minimal Assistance 1=Total Assistance 5=Supervision or Setup 2=Maximal Assistance 6=Modified [place] 3=Moderate Assistance 7=Complete IndependenceSCALE: Activities may be completed with or without assistive devices. 2-Tgxjobtfye-nwifkjn completes the activity by him/herself with no assistance from a helper. 5-Set-up or Clean-up Assistance-helper sets up or cleans up; patient completes activity. [place] assists only prior to or following the activity. 4-Supervision or Touching Assistance-helper provides verbal cues and/or touching/steadying and/or contact guard assistance as patient completes activity. Assistance may be provided throughout the activity or intermittently. 3-Partial/Moderate Assistance-helper does LESS THAN HALF the effort. [place] lifts, holds or supports trunk or limbs, but provides less than half the effort. 2-Substantial/Maximal Assistance-helper does MORE THAN HALF the effort. [place] lifts or holds trunk or limbs and provides more than half the effort. 3-Oendngigu-dnwvgo does ALL the effort. Patient does none of the effort to compl ete the activity. Or, the assistance of 2 or more helpers is required for the patient to complete the activity. If activity was not attempted, code reason: 7-Patient Refused. 9-Not Applicable-not attempted and the patient did not perform the activity before the current illness, exacerbation or injury. 10-Not Attempted due to Environmental Limitations-(lack of equipment, weather restraints, etc.). 88-Not Attempted due to Medical Conditions or Safety Concerns. Toileting Hygiene (QC): 6 Toilet Transfer (QC): 6 Other Treatment Pt in recliner, used FWW to go into bathroom and complete toileting independently. Pt used FWW to therapy gym, SBA and VCs to locate room. OT tx focused on increasing BUE strength and activity tolerance, and increasing sequencing/problem solving. Pt completed x15 mins on arm bike, 15 Watt resis tance. Pt removed beads from heavy resistance theraputty (green), able to locate all beads without cues. She completed peg delilah activity, matching colored clothespins with each other, able to complete with min cues for encouragement, 0 errors during task. Pt completed task again, completing without cues, 0 errors. Pt attempted 100 piece puzzle. She was able to sort edge vs inside pieces, with 80% accuracy and completed ~1/4 of outside edge of puzzle in 30 mins. Pt used FWW to return to room, cues to locate room. Post tx, pt in recliner, call light in reach and all needs met. Chair alarm activated. Education OT Patient Education: Correct positioning, Energy conservation, Exercise program, Modified ADL techniques, Progress toward Goal/Update tx plan, Purpose of tx/functional activities, Rehab process Teaching Recipient: Patient Teaching Methods: Discussion Response to Teaching: Verbalize Understanding OT Short Term Goals Short Term Goals Time Frame: January 21, 2022 Shower/bathe self: 3 Upper body dressin Lower body dressin OT Assistant Auto Center Manager Goals Assistant Auto Center Manager Goals Time Frame: Jan 30, 2022 Eating (QC): 6 Oral Hygiene (QC): 6 Toileting Hygiene (QC): 6 Shower/Bathe Self (QC): 4 Upper Body Dressing (QC): 6 Lower Body Dressing (QC): 6 On/Off Footwear (QC): 6 Additional Goals: 1-Demonstrate ADL Tasks, 2-Verbalize Understanding, 3-ImproveStrength/[place] 1=Demonstrate adherence to instructed precautions during ADL tasks. 2=Patient will verbalize/demonstrate understanding of assistive devices/modifications for ADL. 3=Patient will improve strength/tolerance for activity to enable patient to perform ADL's. OT Education/Plan Problem List/Assessment Assessment: Decreased Activ Tolerance, Decreased UE Strength, Impaired Cognition, Impaired Funct Balance, Impaired I ADL's, Impaired Self-Care Skills Discharge Recommendations Plan/Recommendations: Continue POC Treatment Plan/Plan of Care Patient would benefit from OT for education, treatment and training to promote independence in ADL's, mobility, safety and/or upper extremity function for ADL's. Plan of Care: ADL Retraining, Functional Mobility, Group Exercise/Act as Ind, UE Funct Exercise/Act Treatment Duration: Jan 30, 2022 Frequency: At least 5 of 7 days/Wk (IRF) Estimated Hrs Per Day: 1.5 hours per day Agreement: Yes Rehab Potential: Good Time/GCodes Start Time: 10:15 Stop Time: 11:30 Total Time Billed (hr/min): 75 Billed Treatment Time 1, ADL (15'), EX (15'), FA 3 (45') MEHRDAD TAYLOR OT January 13, 2022 10:41
--- NOTE | 2022-01-13 10:52 | Speech Therapy Daily Note ---
Speech Daily Progress Note Subjective Date Seen by Provider: January 13, 2022 Time Seen by Provider: 09:30 The patient was seated upright in her chair, awake and alert upon entrance to her room by the clinician. The patient greeted the clinician appropriately and was agreeable to participation in the cognitive linguistic treatment session. Objective Orientation: The patient is independently oriented to self, location, month, day of week, date, and year. Functional Memory Tasks: The patient was read a short paragraph aloud and asked to answer questions regarding the paragraph immediately following. The patient displayed 75% (+12/16) accuracy with mild clinician verbal cueing. Assessment Assessment Current Status: Good Progress Treatment Plan Continue Plan of Care Speech Short Term Goals Short Term Goals Short Term Goals 1. The patient will demonstrate 90% accuracy with memory and functional problem solving tasks with mild clinician verbal and visual cueing. Time Frame-STG: One Week. Speech Mapper Goals Care Home Goals 1. The patient will demonstrate improved cognitive linguistic skills for improved safety with discharge to the least restrictive environment. Time Frame: Two Weeks. Speech-Plan Treatment Plan Speech Therapy Treatment Plan: Continue Plan of Care Treatment Duration: January 09, 2022 Frequency: Modified Program (IRF) Estimated Hrs Per Day: Other Rehab Potential: Good Safety Risks/Education Teaching Recipient: Patient Teaching Methods: Discussion Response to Teaching: Verbalize Understanding Education Topics Provided: Memory Strategies Time Speech Therapy Time In: 09:30 Speech Therapy Time Out: 10:00 Total Billed Time: 30 Billed Treatment Time DavidYEYO [facility]IZABETH ST January 13, 2022 10:52
[2022-01-13 19:37] VITALS: BP 118/75
[2022-01-13] MEDS: SPIRONOLACTONE 25 MG (ALDACTONE) TAB PO SCH (19:53)
[2022-01-14] MEDS: MULTIVIT W/MINERALS TAB (THERAGRAN M) PO SCH (06:36)
--- NOTE | 2022-01-14 06:42 | PM&R Progress Note ---
Subjective HPI/CC On Admission Date Seen by Provider: January 14, 2022 Time Seen by Provider: 11:30 Subjective/Events-last exam 01/14/2022: Pt having no new issues Lower extremity edema will be monitored and treated with compression stockings Overall has no new concerns 01/13/22: Pt is doing really well Discharge planned for Confusion has lifted Overall has remained stable This beneficiary has a mobility limitation that significantly impairs her ability to participate in one or more mobility-related activities of daily living (MRADL) in the home. This beneficiary is able to safely use the walker and the functional mobility deficit can be sufficiently resolved with use of a walker. 01/12/2022: Pt is doing really well No hemorrhoid bleeding Bowels moved today No edema with Lasix initiated Creatinine was 1.89 01/11/2022: Pt doing a lot better Clearing her cognition Continues all cirrhosis medications No falls 01/10/22: Pt doing well No falls No pain No hemorrhoid bleeding or any other bleeding 01/09/2022: Pt is in a good mood No pain is reported Checked meds and labs Maintain on cirrhosis treatment Participating in therapy 01/08/2022: Patient states been doing really well No more bleeding from hemorrhoids INR 1.6 Creatinine 1.7 White count 1.7 and hemoglobin 7.7 Thrombocytopenia 58,[address] GONZALEZ consulted DC n.p.o. status since it does not appear she will need hemorrhoid banding to stop the bleeding Review of Systems General: Fatigue, Malaise Cardiovascular: Edema Objective Exam Vital Signs Vital Signs Date Time Temp Pulse Resp B/P (MAP) Pulse Ox O2 Delivery O2 Flow Rate FiO2 01/14/22 20:13 36.9 75 20 136/85 (102) 99 Room Air Capillary Refill : General Appearance: No Apparent Distress, WD/WN, Chronically ill HEENT: PERRL/EOMI, Normal ENT Inspection, Pharynx Normal Neck: Full Range of Motion, Normal Inspection, Non Tender, Supple, Carotid Bruit Respiratory: Chest Non Tender, Lungs Clear, Normal Breath Sounds, No Accessory Muscle Use, No Respiratory Distress Cardiovascular: Regular Rate, Rhythm, No Edema, No Gallop, No JVD, No Murmur, Normal Peripheral Pulses Gastrointestinal: Normal Bowel Sounds, No Organomegaly, No Pulsatile Mass, Non Tender, Soft Back: Normal Inspection, No CVA Tenderness, No Vertebral Tenderness Extremity: Normal Capillary Refill, Normal Inspection, Normal Range of Motion, Non Tender, No Calf Tenderness, No Pedal Edema Neurologic/Psychiatric: Alert, Oriented x3, No Motor/Sensory Deficits, Normal Mood/Affect, customs agent II-XII Norm as Tested, Abnormal Gait, Disoriented, Motor Weakness (Generalized) Skin: Normal Color, Warm/Dry Lymphatic: No Adenopathy Results/Procedures Lab Patient resulted labs reviewed. FIM Transfers Therapy Code Descriptions/Definitions Functional [place] Measure: 0=Not Assessed/NA 4=Minimal Assistance 1=Total Assistance 5=Supervision or Setup 2=Maximal Assistance 6=Modified [place] 3=Moderate Assistance 7=Complete IndependenceSCALE: Activities may be completed with or without assistive devices. 0-Rufpyorakp-ixjssxh completes the activity by him/herself with no assistance from a helper. 5-Set-up or Clean-up Assistance-helper sets up or cleans up; patient completes activity. [place] assists only prior to or following the activity. 4-Supervision or Touching Assistance-helper provides verbal cues and/or touching/steadying and/or contact guard assistance as patient completes activity. Assistance may be provided throughout the activity or intermittently. 3-Partial/Moderate Assistance-helper does LESS THAN HALF the effort. [place] lifts, holds or supports trunk or limbs, but provides less than half the effort. 2-Substantial/Maximal Assistance-helper does MORE THAN HALF the effort. [place] lifts or holds trunk or limbs and provides more than half the effort. 7-Qtykxefcy-jbfvel does ALL the effort. Patient does none of the effort to co mplete the activity. Or, the assistance of 2 or more helpers is required for the patient to complete the activity. If activity was not attempted, code reason: 7-Patient Refused. 9-Not Applicable-not attempted and the patient did not perform the activity before the current illness, exacerbation or injury. 10-Not Attempted due to Environmental Limitations-(lack of equipment, weather restraints, etc.). 88-Not Attempted due to Medical Conditions or Safety Concerns. Roll Left to Right (QC): 6 Sit to Lying (QC): 6 Sit to Stand (QC): 4 Chair/Jlp-fe-Rhtrr Xfer(QC): 4 Car Transfer (QC): 4 Gait Training Does the Patient Walk?: Yes Distance: 308', 82' Walk 10 feet (QC): 4 Walk 50 ft with 2 Turns(QC): 4 Walk 150 ft (QC): 4 Walking 10ft/uneven surface-QC: 4 Gait Persons Needed: 1 Gait Assistive Device: FWW Wheelchair Training Does the Pt Use a Wheelchair?: No Wheel 50 ft with 2 turns (QC): 9 Wheel 150 ft (QC): 9 Stair Training #of Steps: 1 1 Step (curb) (QC): 4 4 Steps (QC): 88 12 Steps (QC): 88 Balance Picking up an Object (QC): 4 (with ballet company artistic director) ADL-Treatment Eating (QC): 6 (IND) Oral Hygiene (QC): 6 (IND) Shower/Bathe Self (QC): 4 (Supervision) Upper Body Dressing (QC): 6 (IND doffing/donning) Lower Body Dressing (QC): 4 (Supervision) On/Off Footwear (QC): 6 (IND) Toileting Hygiene (QC): 6 Toilet Transfer (QC): 6 Assessment/Plan Assessment and Plan Assess & Plan/Chief Complaint Assessment: Hepatic encephalopathy Status post hypovolemic shock History of transfusions End-stage liver disease with cirrhosis Status post esophageal varices banding x6 Hemorrhoid bleed on 01/07/[address] GONZALEZ Atrial fibrillation Confusion Fall risk Permanent pacemaker due to complete heart block Edema Plan: Supportive residential meds Monitor closely Dr. GONZALEZ for hemorrhoid bleed 01/08/2022: Supportive residential meds 01/09/2022: Cirrhosis management Monitor hemorrhoid bleed 01/10/22: Monitor closely Hemorrhoid bleed resolved 01/11/2022: Supportive care Monitor encephalopathy 01/12/2022: Supportive care Much improved status 01/13/2022: Supportive care Much improved 01/14/2022: Compression hose Discharge tomorrow (1) Hepatic encephalopathy Status: Acute JOHANA PURI DO January 14, 2022 06:42
[2022-01-14] MEDS: hydrOXYzine (ATARAX) 10 MG TAB PO SCH ×2 (07:47→19:59)
[2022-01-14] MEDS: IRON POLYSAC 150 MG CAP (NIFEREX) PO SCH (07:48)
[2022-01-14] MEDS: LACTULOSE SYRUP 10GM/15ML (ENULOSE) 30ML UDC PO SCH (07:48)
[2022-01-14] MEDS: LORATADINE (CLARITIN) 10 MG TAB PO SCH (07:48)
[2022-01-14] MEDS: RIFAXIMIN 550 MG TABLET (XIFAXAN) PO SCH ×2 (07:48→19:58)
[2022-01-14 07:49] VITALS: BP 131/60
[2022-01-14] MEDS: DOCUSATE SODIUM 100 MG (COLACE) CAP PO SCH ×2 (07:52→19:59)
[2022-01-14] MEDS: FUROSEMIDE 20 MG (LASIX) TAB PO SCH (07:52)
[2022-01-14] MEDS: SENNA W/DOCUSATE (SENOKOT S) TABLET PO SCH ×2 (07:53→19:59)
[2022-01-14] MEDS: polyethylene glycoL POWDER 17 GM (MIRALAX) PACK PO SCH ×2 (07:53→19:59)
[2022-01-14] MEDS: FLUTICASONE NASAL SPRAY (FLONASE) 16 GM BTL NS SCH (07:54)
[2022-01-14] MEDS: PANTOPRAZOLE 40 MG (PROTONIX) TAB PO SCH (07:56)
[2022-01-14] MEDS: HYDROCORTISONE/PRAM (PROCTOFOAM HC) 10 GM CAN PR SCH ×2 (07:56→19:59)
[2022-01-14] MEDS: PREPARATION H OINTMENT 57 GR TUBE PR PRN ×2 (07:57→19:59)
--- NOTE | 2022-01-14 09:01 | Physical Therapy Daily Note ---
PT Daily Note-Current Subjective Pt. up in chair, agrees to Rx, looking forward to going home tomorrow, feels confident she will do well with her daughters assist. Pain Location: No Pain Reported Mental Status Patient Orientation: Normal For Age Transfers SCALE: Activities may be completed with or without assistive devices. 7-Nfaesaubjd-wqdcmel completes the activity by him/herself with no assistance from a helper. 5-Set-up or Clean-up Assistance-helper sets up or cleans up; patient completes activity. [place] assists only prior to or following the activity. 4-Supervision or Touching Assistance-helper provides verbal cues and/or touching/steadying and/or contact guard assistance as patient completes activity. Assistance may be provided throughout the activity or intermittently. 3-Partial/Moderate Assistance-helper does LESS THAN HALF the effort. [place] lifts, holds or supports trunk or limbs, but provides less than half the effort. 2-Substantial/Maximal Assistance-helper does MORE THAN HALF the effort. [place] lifts or holds trunk or limbs and provides more than half the effort. 2-Dqptjqyta-rvwcqg does ALL the effort. Patient does none of the effort to complete the activity. Or, the assistance of 2 or more helpers is required for the patient to complete the activity. If activity was not attempted, code reason: 7-Patient Refused. 9-Not Applicable-not attempted and the patient did not perform the activity before the current illness, exacerbation or injury. 10-Not Attempted due to Environmental Limitations-(lack of equipment, weather restraints, etc.). 88-Not Attempted due to Medical Conditions or Safety Concerns. Roll Left & Right (QC): 6 Sit to Lying (QC): 6 Lying to Sitting/Side of Bed(Q: 6 Sit to Stand (QC): 6 Chair/Hdn-kd-Hvdhi Xfer(QC): 6 Toilet Transfer (QC): 6 Car Transfer (QC): 6 pt. uses rail for sup to sit and sit to sup and has a rail on her bed at home Weight Bearing Right Lower Extremity: Right Full Weight Bearing Left Lower Extremity: Left Full Weight Bearing Gait Training Does the Patient Walk?: Yes Walk 10 feet (QC): 6 Walk 50 ft with 2 Turns(QC): 6 Walk 150 ft (QC): 6 Walking 10ft/uneven surface-QC: 6 Gait Persons Needed: 0 Gait Assistive Device: FWW good and safe use of FWW noted during gait Stair Training Stair Training: Handrails/: 2 handrails #of Steps: 4 1 Step (curb) (QC): 4 4 Steps (QC): 4 12 Steps (QC): 88 Stairs: Pattern: Step to pt. c/o fatigue with 4 steps, dyspnea noted, limited to 4 steps this Rx Balance Picking up an Object (QC): 4 Exercises Supine Ex: Bridging, Ankle pumps, Rolling, Heel Slides, Scooting, Straight leg raise, Hip abd/add Supine Reps: 12 NuStep Minutes: 10 NuStep Workload: 2 Assessment Current Status: Good Progress meets goals, O2 >90% during Rx PT Short Term Goals Short Term Goals Time Frame: January 14, 2022 Roll Left & Right: 6 Sit to lyin Lying to sitting on side of be: 6 Sit to stand: 4 (SBA) Chair/qep-iq-gwgqn transfer: 4 (SBA) Walk 10 feet: 4 (SBA) Walk 50 feet with two turns: 4 (SBA) Walk 150 feet: 4 (SBA) PT Skilled Nursing Goals Skilled Nursing Goals PT Skilled Nursing Goals Time Frame: Jan 28, 2022 Roll Left & Right (QC): 6 Sit to Lying (QC): 6 Lying-Sitting on Side/Bed(QC): 6 Sit to Stand (QC): 5 Chair/Boi-ip-Jnddp Xfer(QC): 5 Toilet Transfer (QC): 5 Car Transfer (QC): 5 Does the Patient Walk: Yes Walk 10 feet (QC): 5 Walk 50ft with 2 Turns (QC): 5 Walk 150 ft (QC): 5 Walking 10ft on Uneven Surface: 5 1 Step (curb) (QC): 4 4 Steps (QC): 4 12 Steps (QC): 4 Picking up an Object (QC): 4 (SBA) Wheel 50 feet with 2 turns (QC: 9 Wheel 150 feet: 9 PT Plan Treatment/Plan Treatment Plan: Continue Plan of Care Treatment Plan: Bed Mobility, Education, Functional Activity [place], Functional Strength, Group Therapy, Gait, Safety, Therapeutic Exercise, Transfers Treatment Duration: Jan 28, 2022 Frequency: At least 5 of 7 days/Wk (IRF) Estimated Hrs Per Day: 1.5 hours per day Patient and/or Family Agrees t: Yes Safety Risks/Education Patient Education: Gait Training, Transfer Techniques, Steps, Correct Positioning, Disease Process, Safety Issues Teaching Recipient: Patient Teaching Methods: Demonstration, Discussion Response to Teaching: Verbalize Understanding, Return Demonstration, Reinforcement Needed Time/GCodes Time In: 800 Time Out: 900 Total Billed Treatment Time: 60 Total Billed Treatment 1,GT15m,EX15m,FA30m CB MORSE PTA January 14, 2022 09:01
--- NOTE | 2022-01-14 10:03 | Speech Therapy Daily Note ---
Speech Daily Progress Note Subjective Date Seen by Provider: January 14, 2022 Time Seen by Provider: 09:00 The patient was seated upright in her recliner, awake and alert upon entrance to her room by the clinician. The patient greeted the clinician appropriately and was agreeable to participation in the cognitive linguistic treatment session. Objective - Orientation: The patient remains independently oriented to self, location, month, day of week, date, and year. - Word List Retention: The patient was provided four words and asked a specific question following by the clinician. The patient displayed 89% with the task, independently. Expression of Ideas/Wants: Expression (4) Understanding Verbal Content: Understands (4) Brief Interview-Mental Status: Yes Repetition of Three Words: Three (3) Temporal Orientation: Year: Correct (3) Temporal Orientation: Month: Accurate within 5 days(2) Temporal Orientation: Day: Correct (1) Recall : Wear to say "Sock": Yes, no cue required (2) Recall : Color: Yes, no cue required (2) Recall : Bed: Yes,after cueing (1) Memory/Recall Ability: Current season, That he or she is in a hsp/hsp unit, staff names, room number Assessment Assessment Current Status: Good Progress Treatment Plan Continue Plan of Care Speech Short Term Goals Short Term Goals Short Term Goals 1. The patient will demonstrate 90% accuracy with memory and functional problem solving tasks with mild clinician verbal and visual cueing. Time Frame-STG: One Week. Speech Alf Goals Collision Estimator Goals 1. The patient will demonstrate improved cognitive linguistic skills for improved safety with discharge to the least restrictive environment. Time Frame: Two Weeks. Speech-Plan Treatment Plan Speech Therapy Treatment Plan: Continue Plan of Care Treatment Duration: January 09, 2022 Frequency: Modified Program (IRF) Estimated Hrs Per Day: Other Rehab Potential: Good Pt/Family Agrees to Plan: Yes Safety Risks/Education Teaching Recipient: Patient Teaching Methods: Discussion Response to Teaching: Verbalize Understanding Education Topics Provided: Memory Strategies Time Speech Therapy Time In: 09:00 Speech Therapy Time Out: 09:30 Total Billed Time: 30 Billed Treatment Time YEYO HernandezTERENCE ST January 14, 2022 10:03
--- NOTE | 2022-01-14 10:06 | Therapy Team Discharge Summary ---
Therapy Discharge Summary Discharge Recommendations Date of Discharge Physical Therapy Roll Left to Right (QC): 6 Sit to Lying (QC): 6 Lying to Sitting/Side of Bed(Q: 6 Sit to Stand (QC): 6 Chair/Bzd-zn-Edoch Xfer(QC): 6 Toilet Transfer (QC): 6 Car Transfer (QC): 6 Does the Patient Walk: Yes Mode of Locomotion: Walk Anticipated Mode of Locomotion: Walk Walk 10 feet (QC): 6 Walk 50 ft with 2 Turns(QC): 6 Walk 150 ft (QC): 6 Walking 10ft on uneven surface: 6 Distance: 200', 120' Gait Assistive Device: FWW Does the Pt Use a Wheelchair: No Wheel 50 ft with 2 turns (QC): 9 Wheel 150 ft (QC): 9 #of Steps: 4 1 Step (curb) (QC): 4 4 Steps (QC): 4 12 Steps (QC): 88 Walking Assistive Device: Walker Balance Sitting Static: Normal Balance Sitting Dynamic: Normal Balance-Standing Static: Good Picking up an Object (QC): 4 Occupational Therapy Decreased Activ Tolerance, Decreased UE Strength, Impaired Cognition, Impaired Funct Balance, Impaired I ADL's, Impaired Self-Care Skills Eating (QC): 6 (IND) Oral Hygiene (QC): 6 (IND) Shower/Bathe Self (QC): 4 (Supervision) Upper Body Dressing (QC): 6 (IND doffing/donning) Lower Body Dressing (QC): 4 (Supervision) On/Off Footwear (QC): 6 (IND) Toileting Hygiene (QC): 6 Speech-Language Pathology Expression of Ideas/Wants: Expression (4) Understanding Verbal Content: Understands (4) Brief Interview-Mental Status: Yes Repetition of Three Words: Three (3) Temporal Orientation: Year: Correct (3) Temporal Orientation: Month: Accurate within 5 days(2) Temporal Orientation: Day: Correct (1) Recall : Wear to say "Sock": Yes, no cue required (2) Recall : Color: Yes, after cueing (1) Recall : Bed: Yes,after cueing (1) Memory/Recall Ability: Current season, That he or she is in a hsp/hsp unit, staff names, room number The patient was provided cognitive linguistic therapy focusing on memory and problem solving. The patient has met all speech pathology goals at this time. PT Director Corporate Sales Goals Fpc Goals PT Director Corporate Sales Goals Time Frame: Jan 28, 2022 Roll Left to Right (QC): 6 Sit to Lying (QC): 6 Lying-Sitting on Side/Bed(QC): 6 Sit to Stand (QC): 5 Chair/Gsl-li-Wyein Xfer(QC): 5 Car Transfer (QC): 5 Does the Patient Walk: Yes Walk 10 feet (QC): 5 Walk 10ft-Uneven Surface(QC): 5 Walk 50ft with 2 Turns (QC): 5 Walk 150 ft (QC): 5 Wheel 50 feet with 2 turns (QC: 9 1 Step (curb) (QC): 4 4 Steps (QC): 4 12 Steps (QC): 4 Picking up an Object (QC): 4 (SBA) OT Director Corporate Sales Goals Fpc Goals Time Frame: Jan 30, 2022 Eating (QC): 6 Oral Hygiene (QC): 6 Shower/Bathe Self (QC): 4 Upper Body Dressing (QC): 6 Lower Body Dressing (QC): 6 On/Off Footwear (QC): 6 Toileting Hygiene (QC): 6 Toilet/Commode Transfer (QC): 5 Additional Goals: 1-Demonstrate ADL Tasks, 2-Verbalize Understanding, 3- ImproveStrength/[place] 1=Demonstrate adherence to instructed precautions during ADL tasks. 2=Patient will verbalize/demonstrate understanding of assistive devices/modifications for ADL. 3=Patient will improve strength/tolerance for activity to enable patient to perform ADL's. Speech Fpc Goals Director Corporate Sales Goals 1. The patient will demonstrate improved cognitive linguistic skills for improved safety with discharge to the least restrictive environment. MET Time Frame: Two Weeks. TEERNCE IBANEZ January 14, 2022 10:06
--- NOTE | 2022-01-14 10:39 | Occupational Ther Daily Note ---
OT Current Status-Daily Note Subjective Pt up in recliner, states she feels ready to discharge tomorrow. ADL-Treatment Therapy Code Descriptions/Definitions Functional [place] Measure: 0=Not Assessed/NA 4=Minimal Assistance 1=Total Assistance 5=Supervision or Setup 2=Maximal Assistance 6=Modified [place] 3=Moderate Assistance 7=Complete IndependenceSCALE: Activities may be completed with or without assistive devices. 3-Etnrvaxsak-slgwnsb completes the activity by him/herself with no assistance from a helper. 5-Set-up or Clean-up Assistance-helper sets up or cleans up; patient completes activity. [place] assists only prior to or following the activity. 4-Supervision or Touching Assistance-helper provides verbal cues and/or touc cristin/steadying and/or contact guard assistance as patient completes activity. Assistance may be provided throughout the activity or intermittently. 3-Partial/Moderate Assistance-helper does LESS THAN HALF the effort. [place] lifts, holds or supports trunk or limbs, but provides less than half the effort. 2-Substantial/Maximal Assistance-helper does MORE THAN HALF the effort. [place] lifts or holds trunk or limbs and provides more than half the effort. 5-Pieioptlv-lxjlrk does ALL the effort. Patient does none of the effort to complete the activity. Or, the assistance of 2 or more helpers is required for the patient to complete the activity. If activity was not attempted, code reason: 7-Patient Refused. 9-Not Applicable-not attempted and the patient did not perform the activity before the current illness, exacerbation or injury. 10-Not Attempted due to Environmental Limitations-(lack of equipment, weather restraints, etc.). 88-Not Attempted due to Medical Conditions or Safety Concerns. Eating (QC): 6 Oral Hygiene (QC): 6 Shower/Bathe Self (QC): 4 (supervision) Upper Body Dressing (QC): 6 Lower Body Dressing (QC): 6 On/Off Footwear: 6 Toileting Hygiene (QC): 6 Toilet Transfer (QC): 6 Other Treatment Pt up in recliner, agreeable to OT tx. Pt used FWW in room to gather clothes, complete ADLs as outlined above. Supervision required in shower for safety in standing. Pt then used FWW to go to therapy gym. In order to increase BUE strength, ROM, and activity tolerance, pt completed arm bike, x12 mins, 15 Watt resistance, 2 rest breaks. Pt returned to room using FWW, transferring to recliner. Post tx, pt in recliner, call light in reach and all needs met. Education OT Patient Education: Correct positioning, Energy conservation, Modified ADL techniques, Progress toward Goal/Update tx plan, Purpose of tx/functional activities Teaching Recipient: Patient Teaching Methods: Discussion Response to Teaching: Verbalize Understanding OT Short Term Goals Short Term Goals Time Frame: January 21, 2022 Shower/bathe self: 3 Upper body dressin Lower body dressin OT Mortgage Loan Processing Clerk Goals Mortgage Loan Processing Clerk Goals Time Frame: Jan 30, 2022 Eating (QC): 6 (met) Oral Hygiene (QC): 6 (met) Toileting Hygiene (QC): 6 (met) Shower/Bathe Self (QC): 4 (met) Upper Body Dressing (QC): 6 (met) Lower Body Dressing (QC): 6 (met) On/Off Footwear (QC): 6 (met) Additional Goals: 1-Demonstrate ADL Tasks, 2-Verbalize Understanding, 3-ImproveStrength/[place] 1=Demonstrate adherence to instructed precautions during ADL tasks. 2=Patient will verbalize/demonstrate understanding of assistive devices/modifications for ADL. 3=Patient will improve strength/tolerance for activity to enable patient to perform ADL's. OT Education/Plan Problem List/Assessment Assessment: Decreased Activ Tolerance, Decreased UE Strength, Impaired Funct Balance, Impaired I ADL's Discharge Recommendations Plan/Recommendations: Continue POC Treatment Plan/Plan of Care Patient would benefit from OT for education, treatment and training to promote independence in ADL's, mobility, safety and/or upper extremity function for ADL's. Plan of Care: ADL Retraining, Functional Mobility, Group Exercise/Act as Ind, UE Funct Exercise/Act Treatment Duration: Jan 30, 2022 Frequency: At least 5 of 7 days/Wk (IRF) Estimated Hrs Per Day: 1.5 hours per day Agreement: Yes Rehab Potential: Good Time/GCodes Start Time: 10:00 Stop Time: 11:00 Total Time Billed (hr/min): 60 Billed Treatment Time 1, ADL 3 (45'), EX (15') MEHRDAD TAYLOR OT January 14, 2022 10:39
--- NOTE | 2022-01-14 14:29 | Therapy Group Daily Note ---
Therapy Daily Group Note Patient Education Topic Home Safety, Exercises Exercises LE Seated Exercise, UE Exercise Session Ratio (pt:therapist): 4:1 Goal of Session: Education on ARU Expectations, Home Safety Strategies, UE/LE Strengthing, Use of Adaptive Equipment Goal Met for this Session: Yes Pt Benefit of Group: Contributions to Others, Increased Functional Safety, Socialization Other/Notes Pt. participated in group session this date. Pt. ambulated to from group with FWW, wearing mask with CGA to SBA. Pts introduced themselves sharing if they so desired their home town and favorite summertime activity. Pts were educated in ARU expectations and practices. Education also included Assistive device education mostly regarding front wheeled walkers, use and safety. Home safety was a topic and most pts shared their input and challenges . Seated U&L ext exercises were done , Pt. to room with needs met and kidd at hand Start Time: 13:00 Stop Time: 14:10 Total Billed Treatment Time: 70 Total Billed Treatment 1,GRP CB MORSE SET UP OPERATOR January 14, 2022 14:29
[2022-01-14] MEDS: RT--FLUTICASONE/SALMETEROL 113-14 (AIRDUO RespiCLICK) IH SCH ×2 (18:55→18:58)
[2022-01-14] MEDS: SPIRONOLACTONE 25 MG (ALDACTONE) TAB PO SCH (19:59)
[2022-01-14 20:13] VITALS: BP 136/85
[2022-01-15] MEDS: diphenhydrAMINE 25 MG TAB (BENADRYL) PO PRN ×2 (02:31→11:32)
[2022-01-15] MEDS: MULTIVIT W/MINERALS TAB (THERAGRAN M) PO SCH (06:16)
[2022-01-15] MEDS ORDERED: RIFA550T PO (06:53)
--- NOTE | 2022-01-15 06:54 | Discharge Summary ---
Diagnosis/Chief Complaint Date of Admission January 07, 2022 at 13:36 Date of Discharge Discharge Date: January 15, 2022 Discharge Diagnosis Assessment: Hepatic encephalopathy Status post hypovolemic shock History of transfusions End-stage liver disease with cirrhosis Status post esophageal varices banding x6 Hemorrhoid bleed on 01/07/[address] GONZALEZ Atrial fibrillation Confusion Fall risk Permanent pacemaker due to complete heart block Edema Plan: Supportive shelter meds Monitor closely Dr. GONZALEZ for hemorrhoid bleed 01/08/2022: Supportive shelter meds 01/09/2022: Cirrhosis management Monitor hemorrhoid bleed 01/10/22: Monitor closely Hemorrhoid bleed resolved 01/11/2022: Supportive care Monitor encephalopathy 01/12/2022: Supportive care Much improved status 01/13/2022: Supportive care Much improved 01/14/2022: Compression hose Discharge tomorrow (1) Hepatic encephalopathy Status: Acute Discharge Summary Discharge Physical Examination Allergies: Coded Allergies: codeine (Unverified Allergy, Unknown, Pt has received Morphine in the paste, 05/23/20) Vitals & I&Os Vital Signs Date Time Temp Pulse Resp B/P (MAP) Pulse Ox O2 Delivery O2 Flow Rate FiO2 01/15/22 12:45 36.4 68 16 118/53 96 Room Air General Appearance: Alert, Oriented X3, Cooperative Respiratory: Clear to Auscultation Cardiovascular: Regular Rate Neuro: Normal Gait, Normal Speech, Strength at 5/5 X4 Ext Psych/Mental Status: Mental Status NL Hospital Course Was the Problem List Reviewed?: Yes Pt had an uneventful hospital course for 9 days after she was admitted from [place] due hepatic encephalopathy. She did require esophageal varices banding. She did have significant encephalopathy that responded to treatment. She was deemed stable for discharge after regaining enough independence back to baseline. Rifaximin was sent into pharmacy. Pt will have close follow up with PCP. Overall poor prognosis given her end stage liver disease and advanced age. Labs (last 24 hrs) Laboratory Tests 01/08/22 06:20: White Blood Count 1.7L, Red Blood Count 2.45L, Hemoglobin 7.7L, Hematocrit 23L, Mean Corpuscular Volume 95, Mean Corpuscular Hemoglobin 31, Mean Corpuscular Hemoglobin Concent 33, Red Cell Distribution Width 14.9H, Platelet Count 58L, Mean Platelet Volume 10.2, Immature Granulocyte % (Auto) 1, Neutrophils (%) (Auto) 47, Lymphocytes (%) (Auto) 30, Monocytes (%) (Auto) 14H, Eosinophils (%) (Auto) 7, Basophils (%) (Auto) 1, Neutrophils # (Auto) 0.8L, Lymphocytes # (Auto) 0.5L, Monocytes # (Auto) 0.2, Eosinophils # (Auto) 0.1, Basophils # (Auto) 0.0, Immature Granulocyte # (Auto) 0.0, Percent Immature Platelet Fraction 1.7, Sodium Level 134L, Potassium Level 4.2, Chloride Level 111H, Carbon Dioxide Level 17L, Anion Gap 6, Blood Urea Nitrogen 29H, Creatinine 1.71H , Estimat Glomerular Filtration Rate 29, BUN/Creatinine Ratio 17, Glucose Level 87, Calcium Level 7.7L, Corrected Calcium 9.1, Total Bilirubin 2.0H, Aspartate Amino Transf (AST/SGOT) 30, Alanine Aminotransferase (ALT/SGPT) 11, Alkaline Phosphatase 112, Ammonia 25, Total Protein 5.9L, Albumin 2.2L 01/08/22 06:25: Prothrombin Time 19.7H, INR Comment 1.6H 01/08/22 06:53: Iron Level 47, Total Iron Binding Capacity 175L, Unsaturated Iron Binding Capacity 128, Transferrin % Saturation 27, Ferritin 114.7, Vitamin B12 Level 1360H, Folate 16.4 01/12/22 05:31: White Blood Count 1.7L, Red Blood Count 2.37L, Hemoglobin 7.5L, Hematocrit 23L, Mean Corpuscular Volume 97, Mean Corpuscular Hemoglobin 32, Mean Corpuscular Hemoglobin Concent 33, Red Cell Distribution Width 15.9H, Platelet Count 58L, Mean Platelet Volume 9.9, Immature Granulocyte % (Auto) 1, Neutrophils (%) (Auto) 46, Lymphocytes (%) (Auto) 34, Monocytes (%) (Auto) 16H, Eosinophils (%) (Auto) 4, Basophils (%) (Auto) 1, Neutrophils # (Auto) 0.8L, Lymphocytes # (Auto) 0.6L, Monocytes # (Auto) 0.3, Eosinophils # (Auto) 0.1, Basophils # (Auto) 0.0, Immature Granulocyte # (Auto) 0.0, Percent Immature Platelet Fraction 1.5, Sodium Level 138, Potassium Level 4.3, Chloride Level 113H, Carbon Dioxide Level 15L, Anion Gap 10, Blood Urea Nitrogen 34H, Creatinine 1.89H, Estimat Glomerular Filtration Rate 26, BUN/Creatinine Ratio 18, Glucose Level 88, Calcium Level 7.9L, Corrected Calcium 9.3, Total Bilirubin 1.7H, Aspartate Amino Transf (AST/SGOT) 60H, Alanine Aminotransferase (ALT/SGPT) 19, Alkaline Phosphatase 239H, Total Protein 6.1L, Albumin 2.2L Pending Labs Laboratory Tests 01/08/22 06:20: White Blood Count 1.7, Red Blood Count 2.45, Hemoglobin 7.7, Hematocrit 23, Mean Corpuscular Volume 95, Mean Corpuscular Hemoglobin 31, Mean Corpuscular Hemoglobin Concent 33, Red Cell Distribution Width 14.9, Platelet Count 58, Mean Platelet Volume 10.2, Immature Granulocyte % (Auto) 1, Neutrophils (%) (Auto) 47, Lymphocytes (%) (Auto) 30, Monocytes (%) (Auto) 14, Eosinophils (%) (Auto) 7, Basophils (%) (Auto) 1, Neutrophils # (Auto) 0.8, Lymphocytes # (Auto) 0.5, Monocytes # (Auto) 0.2, Eosinophils # (Auto) 0.1, Basophils # (Auto) 0.0, Immature Granulocyte # (Auto) 0.0, Percent Immature Platelet Fraction 1.7, Sodium Level 134, Potassium Level 4.2, Chloride Level 111, Carbon Dioxide Level 17, Anion Gap 6, Blood Urea Nitrogen 29, Creatinine 1.71, Estimat Glomerular Filtration Rate 29, BUN/Creatinine Ratio 17, Glucose Level 87, Calcium Level 7.7, Corrected Calcium 9.1, Total Bilirubin 2.0, Aspartate Amino Transf (AST/SGOT) 30, Alanine Aminotransferase (ALT/SGPT) 11, Alkaline Phosphatase 112, Ammonia 25, Total Protein 5.9, Albumin 2.2 01/08/22 06:25: Prothrombin Time 19.7, INR Comment 1.6 01/08/22 06:53: Iron Level 47, Total Iron Binding Capacity 175, Unsaturated Iron Binding Capacity 128, Transferrin % Saturation 27, Ferritin 114.7, Vitamin B12 Level 1360, Folate 16.4 01/12/22 05:31: White Blood Count 1.7, Red Blood Count 2.37, Hemoglobin 7.5, Hematocrit 23, Mean Corpuscular Volume 97, Mean Corpuscular Hemoglobin 32, Mean Corpuscular Hemoglobin Concent 33, Red Cell Distribution Width 15.9, Platelet Count 58, Mean Platelet Volume 9.9, Immature Granulocyte % (Auto) 1, Neutrophils (%) (Auto) 46, Lymphocytes (%) (Auto) 34, Monocytes (%) (Auto) 16, Eosinophils (%) (Auto) 4, Basophils (%) (Auto) 1, Neutrophils # (Auto) 0.8, Lymphocytes # (Auto) 0.6, Monocytes # (Auto) 0.3, Eosinophils # (Auto) 0.1, Basophils # (Auto) 0.0, Immature Granulocyte # (Auto) 0.0, Percent Immature Platelet Fraction 1.5, Sodium Level 138, Potassium Level 4.3, Chloride Level 113, Carbon Dioxide Level 15, Anion Gap 10, Blood Urea Nitrogen 34, Creatinine 1.89, Estimat Glomerular Filtration Rate 26, BUN/Creatinine Ratio 18, Glucose Level 88, Calcium Level 7.9, Corrected Calcium 9.3, Total Bilirubin 1.7, Aspartate Amino Transf (AST/SGOT) 60, Alanine Aminotransferase (ALT/SGPT) 19, Alkaline Phosphatase 239, Total Protein 6.1, Albumin 2.2 Discharge Home Medications: Active Scripts Active Xifaxan (Rifaximin) 550 Mg Tablet 550 Mg PO BID Reported Gummies ([id number]/FA/Omega3/Dha/Fish Oil) 400 Mcg-32.5 Mg (25 Mg-7.5 Mg) Tab.chew 1 Each PO DAILY Spironolactone 50 Mg Tablet 25 Mg PO DAILY TAKES 1/2 OF (25MG) TAB Metoprolol Succinate 25 Mg Tab.er.24h 12.5 Mg PO DAILY TAKES OF A 25MG Cetirizine HCl 10 Mg Tablet 10 Mg PO DAILY Advair 250-50 Diskus (Fluticasone/Salmeterol) 1 Each Blst.w.dev 1 Each IH DAILY Lactulose 10 Gm/15 Ml Solution 15 Ml PO BID Flonase Allergy Relief (Fluticasone Propionate) 9.9 Ml [place].susp 1 [place] NSEACH DAILY PRN Ferrex 150 Forte Capsule (Iron Ps Cmplx/Vit B12/FA) 1 Each Capsule 1 Each PO DAILY Ativan (Lorazepam) 1 Mg Tablet 0.5 Mg PO BID PRN TAKES OF A 1MG TAB Pantoprazole Sodium 40 Mg Tablet.dr 40 Mg PO DAILY Furosemide 20 Mg Tablet 20 Mg PO Q48H LAST DOSE NOT DOCUMENTED ON THE GREENE DISCHARGE ORDERS Hydroxyzine HCl 10 Mg Tablet 10 Mg PO BID Instructions to patient/family Please see electronic discharge instructions given to patient. Diagnosis/Problems Diagnosis/Problems (1) Hepatic encephalopathy Status: Acute JOHANA PURI DO January 15, 2022 06:54
--- NOTE | 2022-01-15 06:54 | D/C HH Face to Face Order ---
D/C Face to Face Orders Reconcile Patient Problems Problems Reviewed?: Yes Instructions for Patient Via [facility], Patient Instructions/FollowUp: pcp 1 week Physician to follow Patient: [facility] Discharge Diet for Home: No Restrictions Patient Problems: Cirrhosis Patient Data-Allergies,Ht & Wt Patient Allergies: Coded Allergies: codeine (Unverified Allergy, Unknown, Pt has received Morphine in the paste, 05/23/20) Height (Feet): 5 Height (Inches): 5.00 Weight (Pounds): 184 Weight (Ounces): 8.0 Home Health Need/Face to Face Date of Face to Face: January 15, 2022 Clinical Findings: Generalized weakness and fatigue, Instability, Muscle weakness I have seen Pt algy-sq-[id number]: Yes Discharged To: Home Diagnosis/Conditions: Cirrhosis Patient is Homebound due to: CognItive deficits, Dylan fall risk due to instabilty, Muscle weakness Homebound Status Due to the above stated illness, injury or surgical procedure (medical condition or diagnosis) and associated clinical findings, the patient is homebound because of his/her inability to leave home except with aid of a supportive device and/or person AND leaving the home requires a considerable and taxing effort or is medically contraindicated. Pt req the following assistanc: Walker Home Health Nursing Orders Home Health Services Order: Nursing Services, Vocational Counselor-Evaluate & Treat, Physical Therapy-Evaluate & Treat Certify Stmt I certify that this patient is under my care and that I, a nurse practitioner or a physician; a outreach assistant working with me, had a face to face encounter that - meets the physician face to face encounter requirements with this patient as dated. JOHANA PURI DO January 15, 2022 06:54
[2022-01-15 07:29] VITALS: BP 118/53
[2022-01-15] MEDS: RT--FLUTICASONE/SALMETEROL 113-14 (AIRDUO RespiCLICK) IH SCH (07:39)
[2022-01-15] MEDS: hydrOXYzine (ATARAX) 10 MG TAB PO SCH (08:41)
[2022-01-15] MEDS: PANTOPRAZOLE 40 MG (PROTONIX) TAB PO SCH (08:41)
[2022-01-15] MEDS: LACTULOSE SYRUP 10GM/15ML (ENULOSE) 30ML UDC PO SCH (08:41)
[2022-01-15] MEDS: IRON POLYSAC 150 MG CAP (NIFEREX) PO SCH (08:41)
[2022-01-15] MEDS: LORATADINE (CLARITIN) 10 MG TAB PO SCH (08:41)
[2022-01-15] MEDS: HYDROCORTISONE/PRAM (PROCTOFOAM HC) 10 GM CAN PR SCH (08:41)
[2022-01-15] MEDS: RIFAXIMIN 550 MG TABLET (XIFAXAN) PO SCH (08:41)
[2022-01-15] MEDS: DOCUSATE SODIUM 100 MG (COLACE) CAP PO SCH (08:41)
[2022-01-15] MEDS: SENNA W/DOCUSATE (SENOKOT S) TABLET PO SCH (08:41)
[2022-01-15] MEDS: FLUTICASONE NASAL SPRAY (FLONASE) 16 GM BTL NS SCH (08:42)
[2022-01-15] MEDS: polyethylene glycoL POWDER 17 GM (MIRALAX) PACK PO SCH (08:51)
--- NOTE | 2022-01-15 11:10 | Therapy Team Discharge Summary ---
Therapy Discharge Summary Discharge Recommendations Date of Discharge Physical Therapy Roll Left to Right (QC): 6 Sit to Lying (QC): 6 Lying to Sitting/Side of Bed(Q: 6 Sit to Stand (QC): 6 Chair/Boi-al-Jeawl Xfer(QC): 6 Toilet Transfer (QC): 5 Car Transfer (QC): 6 Does the Patient Walk: Yes Mode of Locomotion: Walk Anticipated Mode of Locomotion: Walk Walk 10 feet (QC): 6 Walk 50 ft with 2 Turns(QC): 6 Walk 150 ft (QC): 6 Walking 10ft on uneven surface: 6 Distance: 200', 120' Gait Assistive Device: FWW Does the Pt Use a Wheelchair: No Wheel 50 ft with 2 turns (QC): 9 Wheel 150 ft (QC): 9 #of Steps: 4 1 Step (curb) (QC): 4 4 Steps (QC): 4 12 Steps (QC): 88 Walking Assistive Device: Walker Balance Sitting Static: Normal Balance Sitting Dynamic: Normal Balance-Standing Static: Good Picking up an Object (QC): 4 Occupational Therapy Pt admitted to ARU with hepatic encephalopathy. At [facility], pt was independent with functional mobility, no AD, and independent with all ADLs except showering. Upon initial evaluation, pt required set up assistance with eating and upper body dressing, CGA toileting, and SBA oral care, showering, lower body dressing, and footwear. OT tx focused on increasing BUE Strength and activity tolerance, increasing safety and independence with ADLs and functional mobility, and increasing sequencing and problem solving during functional tasks. Pt made good progress, meeting all LTGs. OT recommends SC. Pt to discharge home with daughter, d/c from OT. Decreased Activ Tolerance, Decreased UE Strength, Impaired Funct Balance, Impaired I ADL's Eating (QC): 6 Oral Hygiene (QC): 6 Shower/Bathe Self (QC): 4 (supervision) Upper Body Dressing (QC): 6 Lower Body Dressing (QC): 6 On/Off Footwear (QC): 6 Toileting Hygiene (QC): 6 PT [facility] Goals [employer] Fish [employer]ips Goals PT [employer] Goals Time Frame: Jan 28, 2022 Roll Left to Right (QC): 6 Sit to Lying (QC): 6 Lying-Sitting on Side/Bed(QC): 6 Sit to Stand (QC): 5 Chair/Mrs-cj-Ahbbe Xfer(QC): 5 Car Transfer (QC): 5 Does the Patient Walk: Yes Walk 10 feet (QC): 5 Walk 10ft-Uneven Surface(QC): 5 Walk 50ft with 2 Turns (QC): 5 Walk 150 ft (QC): 5 Wheel 50 feet with 2 turns (QC: 9 1 Step (curb) (QC): 4 4 Steps (QC): 4 12 Steps (QC): 4 Picking up an Object (QC): 4 (SBA) OT [employer] Goals [facility]ci Goals Time Frame: Jan 30, 2022 Eating (QC): 6 (met) Oral Hygiene (QC): 6 (met) Shower/Bathe Self (QC): 4 (met) Upper Body Dressing (QC): 6 (met) Lower Body Dressing (QC): 6 (met) On/Off Footwear (QC): 6 (met) Toileting Hygiene (QC): 6 (met) Toilet/Commode Transfer (QC): 5 Additional Goals: 1-Demonstrate ADL Tasks, 2-Verbalize Understanding, 3- ImproveStrength/Kentrell 1=Demonstrate adherence to instructed precautions during ADL tasks. 2=Patient will verbalize/demonstrate understanding of assistive devices/modifications for ADL. 3=Patient will improve strength/tolerance for activity to enable patient to perform ADL's. Speech [employer] Goals Cook Fish [employer]ips Goals 1. The patient will demonstrate improved cognitive linguistic skills for improved safety with discharge to the least restrictive environment. MET Time Frame: Two Weeks. MEHRDAD TAYLOR OT January 15, 2022 11:09
--- NOTE | 2022-01-15 12:03 | Progress Note ---
NEL KEANE 01/15/22 1203: Progress Note The patient is an 81 YO female who was admitted to inpatient rehab due to debility secondary to hepatic ecephalopathy. She was status post espophageal varice banding times 6. She is a patient of Dr. Macario. The patient was admitted to inpatient rehab on 01/07/22 following hospitalization at [facility] due to hypovolemic shock due to an upper GI bleed. Throughout her stay at inpatient rehab she fully participated in physical therapy, occupational therapy and speech therapy exercises and treatments, and tolerated them very well. She focused on bed mobility, functional activity tolerance, functional strength, gait, safety and transfers. She made improvements in her strength, stamina and ambulation ability. She also showed improvements in her ability to complete her ADLs. Her medical status was monitored throughout her inpatient rehabilitation stay. The patient had rectal bleeding on 01/07/22 due to hemorrhoids, and surgery was consulted. Her bleeding resolved by 01/09/22, and no surgical intervention was required. The patient's hematology and blood chemistry was closely monitored throughout her stay, and remained stable. The patient will be discharged home today (01/15/22). She was comfortable with this plan and happy with the progress she made throughout her inpatient rehab course. EMILIANA PURI DO 01/16/22 0534: Supervisory-Addendum Brief Verification & Attestation Participated in pt care: history, MDM, physical Personally performed: exam, history, MDM, supervision of care Care discussed with: Medical Student Procedures: n/a Results interpretation: Verified all documentation Verification and Attestation of Medical Student E/M Service A medical student performed and documented this service in my presence. I reviewed and verified all information documented by the medical student and made modifications to such information, when appropriate. I personally performed the physical exam and medical decision making. Emiliana Puri January 16, 2022,05:34 NEL KEANE January 15, 2022 12:03 EMILIANA PURI DO January 16, 2022 05:34
[2022-01-15 12:45] VITALS: BP 118/53
--- NOTE | 2022-01-15 14:23 | Therapy Team Discharge Summary ---
Therapy Discharge Summary Discharge Recommendations Date of Discharge Physical Therapy Patient was admitted to rehab with hepatic encephalopathy. Upon evaluation patient performs rolling and supine <-> sit with independence, sit <-> stand and transfers with CGA, car transfers CGA, ambulate 200' with a rolling walker with CGA (including 50' with at least 2 turns of 90 degrees and 10' over an uneven surface), went up and down 1 step using a rolling walker with CGA, and picked up an object from the floor using a masonry installer with CGA. Patient has been performing bed mobility and transfer training, balance and endurance training, functional strengthening, stair training, gait training, and education. Patient has made good progress and has met all of her termite inspector goals except for stairs. Now, patient performs rolling and supine <-> sit with independence, sit <-> stand and transfers with independence, car transfer independent, ambulates over 150' with a rolling walker with independence (including 50' with at least 2 turns of 90 degrees and 10' over an uneven surface), can go up and down 4 steps using 2 handrails with CGA/SBA, and can mixing picker tender an object from the floor with CGA/SBA. Patient is being discharged from this facility today and will be discharged from PT at this time. Roll Left to Right (QC): 6 Sit to Lying (QC): 6 Lying to Sitting/Side of Bed(Q: 6 Sit to Stand (QC): 6 Chair/Lmu-nw-Iupfn Xfer(QC): 6 Toilet Transfer (QC): 5 Car Transfer (QC): 6 Does the Patient Walk: Yes Mode of Locomotion: Walk Anticipated Mode of Locomotion: Walk Walk 10 feet (QC): 6 Walk 50 ft with 2 Turns(QC): 6 Walk 150 ft (QC): 6 Walking 10ft on uneven surface: 6 Distance: 200', 120' Gait Assistive Device: FWW Does the Pt Use a Wheelchair: No Wheel 50 ft with 2 turns (QC): 9 Wheel 150 ft (QC): 9 #of Steps: 4 1 Step (curb) (QC): 4 4 Steps (QC): 4 12 Steps (QC): 88 Walking Assistive Device: Walker Balance Sitting Static: Normal Balance Sitting Dynamic: Normal Balance-Standing Static: Good Picking up an Object (QC): 4 Occupational Therapy Decreased Activ Tolerance, Decreased UE Strength, Impaired Funct Balance, Impaired I ADL's Eating (QC): 6 Oral Hygiene (QC): 6 Shower/Bathe Self (QC): 4 (supervision) Upper Body Dressing (QC): 6 Lower Body Dressing (QC): 6 On/Off Footwear (QC): 6 Toileting Hygiene (QC): 6 PT Shelter Goals Shelter Goals PT Marketing Analyst Goals Time Frame: Jan 28, 2022 Roll Left to Right (QC): 6 Sit to Lying (QC): 6 Lying-Sitting on Side/Bed(QC): 6 Sit to Stand (QC): 5 Chair/Gls-ri-Mjsqm Xfer(QC): 5 Car Transfer (QC): 5 Does the Patient Walk: Yes Walk 10 feet (QC): 5 Walk 10ft-Uneven Surface(QC): 5 Walk 50ft with 2 Turns (QC): 5 Walk 150 ft (QC): 5 Wheel 50 feet with 2 turns (QC: 9 1 Step (curb) (QC): 4 4 Steps (QC): 4 12 Steps (QC): 4 Picking up an Object (QC): 4 (SBA) OT Marketing Analyst Goals Shelter Goals Time Frame: Jan 30, 2022 Eating (QC): 6 (met) Oral Hygiene (QC): 6 (met) Shower/Bathe Self (QC): 4 (met) Upper Body Dressing (QC): 6 (met) Lower Body Dressing (QC): 6 (met) On/Off Footwear (QC): 6 (met) Toileting Hygiene (QC): 6 (met) Toilet/Commode Transfer (QC): 5 Additional Goals: 1-Demonstrate ADL Tasks, 2-Verbalize Understanding, 3- ImproveStrength/Kentrell 1=Demonstrate adherence to instructed precautions during ADL tasks. 2=Patient will verbalize/demonstrate understanding of assistive devices/modifications for ADL. 3=Patient will improve strength/tolerance for activity to enable patient to perform ADL's. Speech Shelter Goals Marketing Analyst Goals 1. The patient will demonstrate improved cognitive linguistic skills for improved safety with discharge to the least restrictive environment. MET Time Frame: Two Weeks. BRENNA ABRAHAM PT January 15, 2022 14:23
== END 2022-01-15 12:45 | disposition home or self-care (01) | DRG 442 ==
PROVIDERS: ADMIT Internal Medicine; ATTEND Internal Medicine
DX: K72.90 Hepatic failure, unspecified without coma (principal); I44.2 Atrioventricular block, complete; K76.6 Portal hypertension; K74.60 Unspecified cirrhosis of liver; I12.9 Hypertensive chronic kidney disease with stage 1 through stage 4 chronic kidney disease, or unspecified chronic kidney disease; N18.9 Chronic kidney disease, unspecified; I48.0 Paroxysmal atrial fibrillation; E78.00 Pure hypercholesterolemia, unspecified; Z66 Do not resuscitate; K21.9 Gastro-esophageal reflux disease without esophagitis; K64.9 Unspecified hemorrhoids; K59.00 Constipation, unspecified; D69.6 Thrombocytopenia, unspecified; M19.91 Primary osteoarthritis, unspecified site; F41.9 Anxiety disorder, unspecified; F32.A Depression, unspecified; R41.0 Disorientation, unspecified; Z91.81 History of falling; Z87.891 Personal history of nicotine dependence; Z95.0 Presence of cardiac pacemaker; Z88.5 Allergy status to narcotic agent
CPT/HCPCS: 36415; 80053; 82140; 82607; 82728; 82746; 83540; 83550; 85025; 85610; 94640; 94760

== ENCOUNTER 2022-01-22 11:45 | Outpatient (CLI) | payer MEDICARE ==
[~2022-01-22] VITALS: Ht 165.1 cm; Wt 67.6 kg
[~2022-01-22 11:45] MED LIST changes: +MULT-1136 PO; +RIFA550T PO; +SPIR25TA5 PO
[2022-01-22 11:53] VITALS: BP 133/72
[2022-01-22] MEDS ORDERED: LIDOCAINE 1% INJ 20 ML VIAL ONE (12:48)
[2022-01-22] MEDS ORDERED: LIDOCAINE 1% INJ 20 ML VIAL INJ ONE (14:00)
--- NOTE | 2022-01-22 16:26 | Diagnostic Imaging Report ---
INDICATION: Ascites. EXAMINATION: Evaluation of the right and left upper and lower quadrants was performed. FINDINGS: There is a small amount of ascites in the right upper and right lower quadrants. Moderate to large amount of ascites in the left upper and left lower quadrant was seen. The left lower quadrant was marked for performance of paracentesis by Dr. Grace. IMPRESSION: Abdominal ascites, as described. Dictated by: Dictated on workstation # [id number]
--- NOTE | 2022-01-22 23:16 | OPERATIVE REPORT ---
DATE OF SERVICE: 01/22/2022 PREOPERATIVE DIAGNOSIS: Symptomatic ascites. POSTOPERATIVE DIAGNOSIS: Symptomatic ascites. PROCEDURE: Ultrasound-guided paracentesis. SURGEON: Trinidad Grace DO ANESTHESIA: 1% Xylocaine, 4 mL. PROCEDURE: Ultrasound-guided paracentesis. ESTIMATED BLOOD LOSS: None. COMPLICATIONS: None. INDICATIONS: The patient is an 81-year-old female with symptomatic ascites. She understands risks and benefits of procedure and wishes to proceed. Consent was signed in the chart. DESCRIPTION OF PROCEDURE: The patient was taken to the procedure room. Ultrasound was used to isolate the best pocket for drainage of her ascitic fluid. Once this was located, it was marked. The area was prepped and draped in sterile fashion. A timeout was performed. Local anesthetic was infiltrated and 11 blade scalpel was used to make a small skin incision. The [id number] needle was then advanced through the abdominal wall until straw colored fluid was withdrawn. The catheter was advanced and the needle was removed. A total of 3800 mL of straw colored fluid was withdrawn. The catheter was then removed and sterile bandage was applied. The patient tolerated the procedure well without any complications. She was discharged home. Job ID: [id number] DocumentID: [id number] Dictated Date: 01/22/2022 14:38:06 Account Executive Software Sales Date: 01/22/2022 23:15:46 Dictated By: TRINIDAD GRACE DO
== END 2022-01-22 13:20 | disposition home or self-care (01) ==
LOC: SDC 11:45
PROVIDERS: ATTEND Surgery
DX: R18.8 Other ascites (principal)
CPT/HCPCS: 49082; 76942

== ENCOUNTER 2022-01-27 08:18 | Emergency (ER) | payer MEDICARE ==
[~2022-01-27] VITALS: Ht 165 cm; Wt 64.4 kg
[2022-01-27] MEDS ORDERED: PANTOPRAZOLE 40 MG (PROTONIX) VIAL IV STA (08:35)
[2022-01-27] MEDS ORDERED: PANTOPRAZOLE INJECTION 200 MG in NS (IVPB) 100 ML IV STA (08:35)
--- NOTE | 2022-01-27 08:35 | ED GI ---
General Chief Complaint: Rect Problems Stated Complaint: RECTAL BLEEDING History of Present Illness Date Seen by Provider: January 27, 2022 Time Seen by Provider: 08:28 Initial Comments 81-year-old female with PMH of recent upper GI bleed due to esophageal varices due to cirrhotic liver disease, with patient flown to [facility] a couple weeks ago and had esophageal banding done/cirrhosis of liver/chronic hemorrhoids/colostomy due to prophylactic colectomy due to extensive family history of colon cancer/A. fib and right bundle branch block with pacemaker/iron deficiency anemia, is here with complaints of lower GI bleed which occurred at 4 AM and 7 AM today morning. Patient noticed bleeding when she went to the bathroom, blood was bright red in color, large amounts with clots, painless bleeding. Denies fever, abdominal pain, diarrhea, nausea, vomiting, hematemesis, dizziness, chest pain, shortness of breath, dysuria or hematuria. Allergies and Home Medications Allergies Coded Allergies: codeine (Unverified Allergy, Unknown, Pt has received Morphine in the paste, 05/23/20) Patient Home Medication List Home Medication List Reviewed: Yes Cetirizine HCl (Cetirizine HCl) 10 Mg Tablet, 10 MG PO DAILY, (Reported) Entered as Reported by: HOLLI GARDINER on 10/07/21 1438 Fluticasone Propionate (Flonase Allergy Relief) 9.9 Ml [place].susp, 1 SPRAY NSEACH DAILY PRN for CONGESTION, (Reported) Entered as Reported by: HOLLI GARDINER on 10/07/21 1438 Fluticasone/Salmeterol (Advair 250-50 Diskus) 1 Each Blst.w.dev, 1 EACH IH DAILY, (Reported) Entered as Reported by: HOLLI GARDINER on 10/07/21 1438 Furosemide (Furosemide) 20 Mg Tablet, 20 MG PO Q48H, (Reported) Entered as Reported by: HOLLI GARDINER on 10/07/21 1438 Hydroxyzine HCl (Hydroxyzine HCl) 10 Mg Tablet, 10 MG PO BID, (Reported) Entered as Reported by: HOLLI GARDINER on 10/07/21 1438 Iron Ps Cmplx/Vit B12/FA (Ferrex 150 Forte Capsule) 1 Each Capsule, 1 EACH PO DAILY, (Reported) Entered as Reported by: HOLLI GARDINER on 10/07/21 1438 Lactulose (Lactulose) 10 Gm/15 Ml Solution, 15 ML PO BID, (Reported) Entered as Reported by: HOLLI GARDINER on 10/07/21 1438 Lorazepam (Ativan) 1 Mg Tablet, 0.5 MG PO BID PRN for ANXIETY OR SLEEP, (Reporte d) Entered as Reported by: HOLLI GARDINER on 10/07/21 1438 Metoprolol Succinate (Metoprolol Succinate) 25 Mg Tab.er.24h, 12.5 MG PO DAILY, (Reported) Entered as Reported by: HOLLI GARDINER on 01/07/22 1208 Pantoprazole Sodium (Pantoprazole Sodium) 40 Mg Tablet.dr, 40 MG PO DAILY, (Reported) Entered as Reported by: HOLLI GARDINER on 10/07/21 1438 Jzx619/FA/Omega3/Dha/Fish Oil ( Gummies) 400 Mcg-32.5 Mg (25 Mg-7.5 Mg) Tab.chew, 1 EACH PO DAILY, (Reported) Entered as Reported by: SD CHILDS on 01/12/22 1507 Rifaximin (Xifaxan) 550 Mg Tablet, 550 MG PO BID Prescribed by: JOHANA PURI on 01/15/22 0653 Spironolactone (Spironolactone) 50 Mg Tablet, 25 MG PO DAILY, (Reported) Entered as Reported by: SD CHILDS on 01/12/22 1503 Review of Systems Review of Systems Constitutional: no symptoms reported EENTM: No Symptoms Reported Respiratory: No Symptoms Reported Cardiovascular: No Symptoms Reported Gastrointestinal: Rectal Bleeding Genitourinary: No Symptoms Reported Musculoskeletal: no symptoms reported Skin: no symptoms reported Psychiatric/Neurological: No Symptoms Reported Endocrine: No Symptoms Reported Hematologic/Lymphatic: Anemia Past Jgraxuu-Hfhqpi-Iummvf Hx Patient Social History Tobacco Use?: No Smoking Status: Former Smoker Substance use?: No Alcohol Use?: No Pt feels they are or have been: No Immunizations Up To Date Tetanus Booster (TDap): Unknown First/Initial COVID19 Vaccinat: 2019 Second COVID19 Vaccination Juan Pablo: 2020 Third COVID19 Vaccination Date: MAY Seasonal Allergies Seasonal Allergies: Yes Past Medical History Surgery/Hospitalization HX: CKD, ANEMIA, CARDIAC TAMPONADE, CAD, PACEMAKER, OA, LIVER CIRRHOSIS, AFIB, HYPERLIPIDEMIA, TIA, COPD, GERD, DIVERTICULOSIS Surgeries: Yes (L TKR 2009;CARDIOVERSION FOR AFIB;BANDING ESOPH. 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 Sexually Transmitted Disease: No HIV/AIDS: No Genitourinary: Yes (CHRONIC RENAL INSUFFICIENCY) Gastrointestinal: Yes (ELEVATED AMMONIA;ESOPHAGEAL VARICES BANDING ) Colitis, Gastroesophageal Reflux, Liver Disease/Jaundice, Gastrointestinal Bleed, Diverticulosis, Hemorrhoids, Esophageal Varices, Ulcer, Cirrhosis Musculoskeletal: Yes Arthritis Endocrine: No HEENT: Yes (GLASSES) Loss of Vision: Denies Hearing Impairment: Denies Cancer: No Psychosocial: Yes Anxiety Integumentary: No Blood Disorders: Yes (IRON DEF ANEMIA) Adverse Reaction/Blood Tranf: Yes (HAS HAD BLOOD WITH NO REACTION) Family Medical History Cardiovascular disease SON No Pertinent Family Hx SOCIAL HISTORY: -HX OF HEAVY CIGARETTE SMOKING--QUIT AGE 63 -HX OF HEAVY ALCOHOL USE--QUIT AGE 63 ESOPHAGEAL BANDING 2019 Physical Exam Vital Signs Vital Signs - First Documented 01/27/22 08:32 Temp 36.0 Pulse 74 Resp 18 B/P (MAP) 127/61 (83) Pulse Ox 98 Capillary Refill : Height/Weight/BMI Height: 5'5.00" Weight: 184lbs. 8.0oz. 83.855352es; 24.17 BMI Method:Estimated General Appearance: WD/WN, no apparent distress HEENT: PERRL/EOMI Neck: non-tender, full range of motion, supple Respiratory: chest non-tender, lungs clear, normal breath sounds Cardiovascular: normal peripheral pulses, regular rate, rhythm Gastrointestinal: normal bowel sounds, non tender, soft Rectal: hemorrhoids (4 external hemorrhoids, non-thrombosed, appears chronic, no active bleeding visulaized, black remnants of stool) Neurologic/Psychiatric: no motor/sensory deficits, alert, normal mood/affect, oriented x 3 Skin: pallor Focused Exam Lactate Level 01/27/22 09:23: Lactic Acid Level 1.29 Lactic Acid Level Laboratory Tests Test 01/27/22 09:23 Lactic Acid Level 1.29 MMOL/L (0.50-2.00) Progress/Results/Core Measures Results/Orders Lab Results Laboratory Tests Test 01/27/22 08:44 01/27/22 09:23 Range/Units White Blood Count 2.7 L 4.3-11.0 10^3/uL Red Blood Count 2.76 L 3.80-5.11 10^6/uL Hemoglobin 8.8 L 11.5-16.0 g/dL Hematocrit 27 L 35-52 % Mean Corpuscular Volume 99 80-99 fL Mean Corpuscular Hemoglobin 32 25-34 pg Mean Corpuscular Hemoglobin Concent 32 32-36 g/dL Red Cell Distribution Width 16.1 H 10.0-14.5 % Platelet Count 75 L 130-400 10^3/uL Mean Platelet Volume 10.1 9.0-12.2 fL Immature Granulocyte % (Auto) 0 % Neutrophils (%) (Auto) 50 42-75 % Lymphocytes (%) (Auto) 30 12-44 % Monocytes (%) (Auto) 12 0-12 % Eosinophils (%) (Auto) 7 0-10 % Basophils (%) (Auto) 1 0-10 % Neutrophils # (Auto) 1.4 L 1.8-7.8 10^3/uL Lymphocytes # (Auto) 0.8 L 1.0-4.0 10^3/uL Monocytes # (Auto) 0.3 0.0-1.0 10^3/uL Eosinophils # (Auto) 0.2 0.0-0.3 10^3/uL Basophils # (Auto) 0.0 0.0-0.1 10^3/uL Immature Granulocyte # (Auto) 0.0 0.0-0.1 10^3/uL Percent Immature Platelet Fraction 1.5 0.0-7.6 % Prothrombin Time 18.3 H 12.2-14.7 SEC INR Comment 1.5 H 0.8-1.4 D-Dimer 6.08 H 0.00-0.49 UG/ML Sodium Level 137 135-145 MMOL/L Potassium Level 4.7 3.6-5.0 MMOL/L Chloride Level 111 H 98-107 MMOL/L Carbon Dioxide Level 16 L 21-32 MMOL/L Anion Gap 10 5-14 MMOL/L Blood Urea Nitrogen 28 H 7-18 MG/DL Creatinine 1.72 H 0.60-1.30 MG/DL Estimat Glomerular Filtration Rate 29 BUN/Creatinine Ratio 16 Glucose Level 122 H 70-105 MG/DL Calcium Level 7.9 L 8.5-10.1 MG/DL Corrected Calcium 9.3 8.5-10.1 MG/DL Magnesium Level 1.9 1.6-2.4 MG/DL Total Bilirubin 1.9 H 0.1-1.0 MG/DL Aspartate Amino Transf (AST/SGOT) 77 H 5-34 U/L Alanine Aminotransferase (ALT/SGPT) 29 0-55 U/L Alkaline Phosphatase 219 H 40-136 U/L Total Protein 6.7 6.4-8.2 GM/DL Albumin 2.3 L 3.2-4.5 GM/DL Lipase 44 8-78 U/L Lactic Acid Level 1.29 0.50-2.00 MMOL/L SARS-CoV-2 RNA (RT-PCR) Not Detected Not Detecte My Orders Orders - SAMMY PINO MD Pantoprazole Injection (Protonix Injecti (01/27/22 08:35) Ns (Ivpb) (Sodium C... W/Pantoprazole In (01/27/22 08:35) Cbc With Automated Diff (01/27/22 08:37) Comprehensive Metabolic Panel (01/27/22 08:37) Fibrin Degradation Products (01/27/22 08:37) Hepatitis Panel Acute (01/27/22 08:37) Lactic Acid Analyzer (01/27/22 08:37) Lipase (01/27/22 08:37) Magnesium (01/27/22 08:37) Ua Culture If Indicated (01/27/22 08:37) Chest 1 View, Ap/Pa Only (01/27/22 08:37) Ct Abdomen/Pelvis W (01/27/22 08:37) Ed Iv/Invasive Line Start (01/27/22 08:37) Protime With Inr (01/27/22 08:37) Ed Iv/Invasive Line Start (01/27/22 08:37) Ns Iv 1000 Ml (Sodium Chloride 0.9%) (01/27/22 08:37) Occult Blood Stool (01/27/22 08:40) Fecal Occult Bedside (01/27/22 08:40) Ekg Tracing (01/27/22 09:10) Covid 19 Inhouse Test (01/27/22 09:11) Iohexol Injection (Omnipaque 350 Mg/Ml 1 (01/27/22 09:45) Ns (Ivpb) (Sodium Chloride 0.9% Ivpb Bag (01/27/22 09:45) Medications Given in ED Current Medications Medications Dose Ordered Sig/Bryan Route Start Time Stop Time Status Last Admin Dose Admin Iohexol 100 ml ONCE ONCE IV 01/27/22 09:45 01/27/22 09:46 DC 01/27/22 10:00 70 ML Sodium Chloride 100 ml ONCE ONCE IV 01/27/22 09:45 01/27/22 09:46 DC 01/27/22 10:00 80 ML Vital Signs/I&O 01/27/22 08:32 Temp 36.0 Pulse 74 Resp 18 B/P (MAP) 127/61 (83) Pulse Ox 98 Progress Progress Note : Progress Note 1. LOWER GI BLEED: - CT ABD & PELVIS: hepatic cirrhosis and associated portal venous hypertension with increasing 3rd spacing of fluid including somewhat loculated pleural fluid and moderate to large amount of ascites. There is also evidence of esophagealand possible rectal varices. There is splenomegaly with areas of decreased perfusion possibly related to developing splenic infarction. - CXR: pleural fluid in lung, see CXR report below - CBC: Hb is 8.8 - CMP/ Coag profile - EKG: pt has pacemaker - UA - FOB: positive - Recent upper GI bleed with esophageal banding in [facility] - Protonix bolus and drip started - NS IVF: 150/hr - Discussed with Dr Sandoval, hospitalist at [place] and accepted for transfer. 2. ELEVATED D-DIMER: - D-dimer is 6.08 - Due to elevated creatinine level, and also since pt already had a CT abd with contrast, and due to solution for VQ scan taking over 3 hours to [facility], will need VQ scan after pt is transferred - Pt is not on a blood thinner. Diagnostic Imaging Diagonstic Imaging: Xray, CT Plain Films/CT/US/NM/MRI: chest, abdomen Comments [facility] [place], [place] NAME: JANICE RUTLEDGE [facility] REC#: [id number] PT STATUS: REG ER : 1940 PHYSICIAN: SAMMY PINO MD ADMIT DATE: 01/27/22/ER Draft Date of Exam:01/27/22 CT ABDOMEN/PELVIS W PROCEDURE: CT abdomen and pelvis with contrast. TECHNIQUE: Multiple contiguous axial images were obtained through the abdomen and pelvis after administration of intravenous contrast. Auto Exposure Controls were utilized during the CT exam to meet ALARA standards for radiation dose reduction. All CT scans use one or more of the following dose optimizing techniques: automated exposure control, MA and/or KvP adjustment based on patient size and exam type or iterative reconstruction. INDICATION: Lower intestinal bleeding COMPARISON: 01/28/2021 There has been development of basilar pleural fluid, greater on the right. There is somewhat loculated appearance may indicate pleural thickening or complex pleural fluid. Below the diaphragm, note is again made of marked splenomegaly with hepatic volume loss and nodular surface contour. There is an increase in moderate amount of peritoneal fluid. Numerous gallstones are present within the lumen of the gallbladder. No focal hepatic abnormality identified. There is mild hiatal hernia with multiple esophageal varices. Additional varices are present within the splenic hilum. There is heterogeneous enhancement in the spleen which could be related to developing splenic infarction. No pancreatic, adrenal gland or focal renal lesion is identified. There is moderate aortoiliac atherosclerotic calcification with stable mild infrarenal abdominal aortic aneurysm. Large amount of pelvic free fluid is identified. Unopacified bladder is unremarkable. No discrete rectal lesion is identified however there are prominent perirectal vessels, possibility of rectal varices are not excluded. Partially calcified fat containing right buttock mass has a stable appearance. IMPRESSION: Findings are consistent with hepatic cirrhosis and associated portal venous hypertension with increasing 3rd spacing of fluid including somewhat loculated pleural fluid and moderate to large amount of ascites. There is also evidence of esophageal and possible rectal varices. There is splenomegaly with areas of decreased perfusion possibly related to developing splenic infarction. Dictated on workstation # [id number] Dict: 01/27/22 1008 Trans: 01/27/22 1024 [facility] [id number] Interpreted by: BERTHA HENSON MD Electronically signed by: [facility]. [place], [place] NAME: JANICE RUTLEDGE [facility] REC#: [id number] PT STATUS: REG ER : 1940 PHYSICIAN: SAMMY PINO MD ADMIT DATE: 01/27/22/ER Draft Date of Exam:01/27/22 CHEST 1 VIEW, AP/PA ONLY INDICATION: Gastrointestinal bleeding. COMPARISON: 01/02/2022. FINDINGS: There has been a further increase in the density in the central right lung. There is also blunting of the right costophrenic sulcus. The heart size and pulmonary vascularity are at the upper limits of normal without evidence of pneumothorax. IMPRESSION: Increasing focal density in the mid right lung has an appearance suggestive of intrafissural pleural fluid with mild right pleural fluid and/or thickening seen in the basilar region as well. Clinical correlation is recommended. Followup PA and lateral views of the chest would be of use or consideration could be given to CT imaging. Dictated on workstation # [id number] Dict: 01/27/2208 Trans: 01/27/22 0913 [id number] Interpreted by: BERTHA HENSON MD Electronically signed by: Departure Impression Primary Impression: Lower GI bleed Additional Impressions: Rectal varices Infarction of spleen Elevated d-dimer Cirrhosis of liver Qualified Codes: K74.60 - Unspecified cirrhosis of liver Disposition: XF SHT-TRM HOSP Condition: Stable Transfer Transfer Reason: Exceeds level of care Time Spoke to Accepting Phy: 10:38 Transfer Progress Notes Discussed with Dr Sandoval and accepted for transfer Transfer Facility: [facility] Method of Transfer: EMS Departure-Patient Inst. Referrals: MICHELINE FERGUSON MD (PCP/Family) Primary Care Physician SAMMY PINO MD January 27, 2022 08:35
[2022-01-27] MEDS ORDERED: NS IV 1000 ML 1,000 ML IV STA (08:37)
[2022-01-27 08:50] LABS: BASOPHILS % (AUTO) 1 % (0-10); HEMOGLOBIN 8.8 g/dL (11.5-16.0); LYMPHOCYTES % (AUTO) 30 % (12-44); MEAN CORPUSCULAR VOLUME 99 fL (80-99)
[2022-01-27 08:52] LABS: EOSINOPHILS # (AUTO) 0.2 10^3/uL (0.0-0.3); EOSINOPHILS % (AUTO) 7 % (0-10); HEMATOCRIT 27 % (35-52); LYMPHOCYTES # (AUTO) 0.8 10^3/uL (1.0-4.0); MEAN CORPUSCULAR HEMOGLOBIN 32 pg (25-34); MEAN CORPUSCULAR HGB CONC 32 g/dL (32-36); MEAN PLATELET VOLUME 10.1 fL (9.0-12.2); MONOCYTES # (AUTO) 0.3 10^3/uL (0.0-1.0); MONOCYTES % (AUTO) 12 % (0-12); NEUTROPHILS # (AUTO) 1.4 10^3/uL (1.8-7.8); NEUTROPHILS % (AUTO) 50 % (42-75); PLATELET COUNT 75 10^3/uL (130-400); WHITE BLOOD COUNT 2.7 10^3/uL (4.3-11.0)
[2022-01-27 09:00] LABS: ALBUMIN 2.3 GM/DL (3.2-4.5); POTASSIUM 4.7 MMOL/L (3.6-5.0)
[2022-01-27 09:01] LABS: CALCIUM 7.9 MG/DL (8.5-10.1)
[2022-01-27 09:03] LABS: TOTAL PROTEIN 6.7 GM/DL (6.4-8.2)
[2022-01-27 09:04] LABS: BILIRUBIN,TOTAL 1.9 MG/DL (0.1-1.0)
[2022-01-27 09:06] LABS: CREATININE SERUM 1.72 MG/DL (0.60-1.30)
[2022-01-27 09:09] LABS: MAGNESIUM 1.9 MG/DL (1.6-2.4)
[2022-01-27 09:13] LABS: FIBRIN DEGRADATION PRODUCTS 6.08 UG/ML (0.00-0.49); INR 1.5 (0.8-1.4); PROTHROMBIN TIME PATIENT 18.3 SEC (12.2-14.7)
--- NOTE | 2022-01-27 09:14 | Diagnostic Imaging Report ---
INDICATION: Gastrointestinal bleeding. COMPARISON: 01/02/2022. FINDINGS: There has been a further increase in the density in the central right lung. There is also blunting of the right costophrenic sulcus. The heart size and pulmonary vascularity are at the upper limits of normal without evidence of pneumothorax. IMPRESSION: Increasing focal density in the mid right lung has an appearance suggestive of intrafissural pleural fluid with mild right pleural fluid and/or thickening seen in the basilar region as well. Clinical correlation is recommended. Followup PA and lateral views of the chest would be of use or consideration could be given to CT imaging. Dictated by: Dictated on workstation # [id number]
[2022-01-27] MEDS ORDERED: NS 100 ML (IVPB) BAG IV ONE (09:45)
[2022-01-27] MEDS ORDERED: IOHEXOL 350 MG/ML 100 ML (OMNIPAQUE 350) VIAL IV ONE (09:45)
--- NOTE | 2022-01-27 10:25 | Diagnostic Imaging Report ---
PROCEDURE: CT abdomen and pelvis with contrast. TECHNIQUE: Multiple contiguous axial images were obtained through the abdomen and pelvis after administration of intravenous contrast. Auto Exposure Controls were utilized during the CT exam to meet ALARA standards for radiation dose reduction. All CT scans use one or more of the following dose optimizing techniques: automated exposure control, MA and/or KvP adjustment based on patient size and exam type or iterative reconstruction. INDICATION: Lower intestinal bleeding COMPARISON: 01/28/2021 There has been development of basilar pleural fluid, greater on the right. There is somewhat loculated appearance may indicate pleural thickening or complex pleural fluid. Below the diaphragm, note is again made of marked splenomegaly with hepatic volume loss and nodular surface contour. There is an increase in moderate amount of peritoneal fluid. Numerous gallstones are present within the lumen of the gallbladder. No focal hepatic abnormality identified. There is mild hiatal hernia with multiple esophageal varices. Additional varices are present within the splenic hilum. There is heterogeneous enhancement in the spleen which could be related to developing splenic infarction. No pancreatic, adrenal gland or focal renal lesion is identified. There is moderate aortoiliac atherosclerotic calcification with stable mild infrarenal abdominal aortic aneurysm. Large amount of pelvic free fluid is identified. Unopacified bladder is unremarkable. No discrete rectal lesion is identified however there are prominent perirectal vessels, possibility of rectal varices are not excluded. Partially calcified fat containing right buttock mass has a stable appearance. IMPRESSION: Findings are consistent with hepatic cirrhosis and associated portal venous hypertension with increasing 3rd spacing of fluid including somewhat loculated pleural fluid and moderate to large amount of ascites. There is also evidence of esophageal and possible rectal varices. There is splenomegaly with areas of decreased perfusion possibly related to developing splenic infarction. Dictated by: Dictated on workstation # [id number]
[2022-01-27 10:44] LABS: BILIRUBIN,URINE NEGATIVE (NEGATIVE); CLARITY,URINE CLEAR; COLOR,URINE YELLOW; GLUCOSE, URINE (UA) NEGATIVE (NEGATIVE); KETONES,URINE NEGATIVE (NEGATIVE); LEUKOCYTE ESTERASE ,URINE 2+ (NEGATIVE); NITRITE,URINE NEGATIVE (NEGATIVE); PH,URINE 5.5 (5-9); PROTEIN,URINE NEGATIVE (NEGATIVE)
[2022-01-27 10:52] LABS: BACTERIA,URINE MODERATE /HPF; WBC,URINE 25-50 /HPF
[2022-01-27 13:15] VITALS: BP 113/57
[2022-01-27 21:37] LABS: HEPATITIS C ANTIBODY C Non-Reactive (Non-Reactive)
== END 2022-01-27 13:15 | disposition short-term general hospital (02) ==
LOC: EDUNIT# 08:18 → ER 08:20
DX: K74.69 Other cirrhosis of liver (principal); K76.6 Portal hypertension; I85.11 Secondary esophageal varices with bleeding; D50.0 Iron deficiency anemia secondary to blood loss (chronic); D73.5 Infarction of spleen; R79.1 Abnormal coagulation profile; Z87.891 Personal history of nicotine dependence; Z87.19 Personal history of other diseases of the digestive system; Z90.49 Acquired absence of other specified parts of digestive tract; Z20.822 Contact with and (suspected) exposure to COVID-19; Z80.0 Family history of malignant neoplasm of digestive organs
CPT/HCPCS: 36415; 71045; 74177; 80053; 80074; 81000; 82274; 83605; 83690; 83735; 85025; 85379; 85610; 87077; 87088; 87186; 87636; 93005

== ENCOUNTER 2022-02-06 10:53 | Outpatient (CLI) | payer MEDICARE ==
[~2022-02-06] VITALS: Wt 64.4 kg
[2022-02-06 11:00] VITALS: BP 129/71
[2022-02-06] MEDS ORDERED: LIDOCAINE 1% INJ 20 ML VIAL ONE (11:54)
--- NOTE | 2022-02-06 12:37 | Diagnostic Imaging Report ---
INDICATION: Ascites. Sonographic interrogation of all 4 quadrants of the abdomen was performed. There is moderate ascites in all quadrants. Left lower quadrant was marked for performance of a paracentesis by Dr. Grace. IMPRESSION: Moderate ascites. Dictated by: Dictated on workstation # [id number]
[2022-02-06] MEDS ORDERED: LIDOCAINE 1% INJ 20 ML VIAL INJ ONE (13:15)
--- NOTE | 2022-02-07 01:15 | OPERATIVE REPORT ---
DATE OF SERVICE: 02/06/2022 PREOPERATIVE DIAGNOSIS: Symptomatic ascites. POSTOPERATIVE DIAGNOSIS: Symptomatic ascites. PROCEDURE: Ultrasound-guided paracentesis. SURGEON: Trinidad Grace DO ANESTHESIA: 1% lidocaine, 5 mL. COMPLICATIONS: None. INDICATIONS: The patient is an 81-year-old female with symptomatic ascites. She understands risks and benefits of procedure and wishes to proceed. She has had previous paracentesis performed. DESCRIPTION OF PROCEDURE: The patient was placed in supine position. Timeout was performed. Ultrasound was used to isolate the largest pocket. Once large pocket was located, the area was prepped and draped in sterile fashion. Local anesthetic was infiltrated and 11 blade scalpel was used to make a small skin incision. Tiqx-H-Pclaxnan needle and catheter were then advanced through the abdominal wall until straw colored fluid was withdrawn. The catheter was then advanced and the needle was removed. A total of 4800 mL of straw-colored fluid was withdrawn. Catheter was then removed. Sterile bandage was applied. The patient tolerated the procedure well without any complications. Job ID: [id number] DocumentID: [id number] Dictated Date: 02/06/2022 15:53:44 Renal Technician Date: 02/07/2022 01:15:12 Dictated By: TRINIDAD GRACE DO
== END 2022-02-06 12:40 | disposition home or self-care (01) ==
LOC: SDC 10:53
PROVIDERS: ATTEND Surgery
DX: R18.8 Other ascites (principal)
CPT/HCPCS: 49082; 76942

== ENCOUNTER 2022-02-27 08:58 | Outpatient (CLI) | payer MEDICARE ==
[~2022-02-27] VITALS: Ht 165.1 cm; Wt 64.5 kg
[2022-02-27 09:16] VITALS: BP 129/73
[2022-02-27] MEDS ORDERED: LIDOCAINE 1% INJ 20 ML VIAL INJ ONE (09:30)
--- NOTE | 2022-02-27 10:11 | Diagnostic Imaging Report ---
INDICATION: Ascites. Evaluation of all 4 quadrants of the abdomen was performed. There appears to be large ascites in all 4 quadrants. Left lower quadrant was marked for performance of paracentesis by Dr. Grace. IMPRESSION: Large abdominal ascites. Marking was provided in the left lower quadrant for performance of paracentesis. Dictated by: Dictated on workstation # [id number]
[2022-02-27] MEDS ORDERED: ALBUMIN 25% 25 GM/100 ML 100 ML IV ONE (10:30)
--- NOTE | 2022-02-27 23:12 | OPERATIVE REPORT ---
DATE OF SERVICE: 02/27/2022 PREOPERATIVE DIAGNOSIS: Ascites. POSTOPERATIVE DIAGNOSIS: Ascites. PROCEDURE: Ultrasound-guided paracentesis. SURGEON: Trinidad Grace DO ANESTHESIA: 1% lidocaine 4 mL. COMPLICATIONS: None. INDICATIONS: The patient is an 81-year-old female with recurrent ascites. She understands risks and benefits of procedure and wishes to proceed. Consent was signed in the chart. DESCRIPTION OF PROCEDURE: The patient was taken to same day surgery. Ultrasound was used to isolate the best pocket for insertion of the catheter. Once this was located, the area was prepped and draped in sterile fashion. Timeout was performed. Local anesthetic was infiltrated and 11 blade scalpel was used to make a small stab incision. The Xidn-A-Khvwlytm needle and catheter were then advanced until straw-colored fluid was withdrawn. The catheter was then advanced. The needle was removed. A total of 7500 mL of straw-colored fluid was withdrawn. The catheter was then removed and sterile bandage was applied. The patient tolerated the procedure well without any complications. Job ID: [id number] DocumentID: [id number] Dictated Date: 02/27/2022 13:36:32 Cable Assembler Date: 02/27/2022 23:11:22 Dictated By: TRINIDAD GRACE DO
== END 2022-02-27 13:26 ==
LOC: RAD 08:58
PROVIDERS: ATTEND Surgery
DX: R18.8 Other ascites (principal)
CPT/HCPCS: 49082; 76942

== ENCOUNTER 2022-03-08 16:41 | Emergency (ER) | payer MEDICARE ==
[~2022-03-08] VITALS: Ht 165.1 cm; Wt 63.5 kg
[2022-03-08 17:24] LABS: BASOPHILS % (AUTO) 1 % (0-10); EOSINOPHILS # (AUTO) 0.2 10^3/uL (0.0-0.3); EOSINOPHILS % (AUTO) 5 % (0-10); HEMATOCRIT 33 % (35-52); HEMOGLOBIN 10.9 g/dL (11.5-16.0); LYMPHOCYTES # (AUTO) 0.6 10^3/uL (1.0-4.0); LYMPHOCYTES % (AUTO) 17 % (12-44); MEAN CORPUSCULAR HEMOGLOBIN 31 pg (25-34); MEAN CORPUSCULAR HGB CONC 33 g/dL (32-36); MEAN CORPUSCULAR VOLUME 95 fL (80-99); MONOCYTES # (AUTO) 0.3 10^3/uL (0.0-1.0); MONOCYTES % (AUTO) 9 % (0-12); NEUTROPHILS # (AUTO) 2.6 10^3/uL (1.8-7.8); NEUTROPHILS % (AUTO) 69 % (42-75); PLATELET COUNT 94 10^3/uL (130-400); WHITE BLOOD COUNT 3.7 10^3/uL (4.3-11.0)
[2022-03-08 17:26] LABS: ALBUMIN 2.7 GM/DL (3.2-4.5)
[2022-03-08 17:27] LABS: INR 1.3 (0.8-1.4); PROTHROMBIN TIME PATIENT 16.1 SEC (12.2-14.7)
[2022-03-08 17:28] LABS: CALCIUM 8.2 MG/DL (8.5-10.1)
[2022-03-08 17:29] LABS: TOTAL PROTEIN 7.6 GM/DL (6.4-8.2)
[2022-03-08 17:33] LABS: CREATININE SERUM 1.75 MG/DL (0.60-1.30)
--- NOTE | 2022-03-08 18:11 | Diagnostic Imaging Report ---
INDICATION: Pleural effusion. COMPARISON: Prior examination from 01/02/2022. FINDINGS: There is a persistent right upper lobe infiltrate. Heart size is normal. There may be trace bilateral pleural effusions. No pneumothorax. The mediastinum is unremarkable. Pacemaker overlies the left hemithorax. IMPRESSION: 1. Persistent right upper lobe infiltrate suspect for pneumonia. 2. Likely trace bilateral pleural effusions. Dictated by: Dictated on workstation # [id number]
--- NOTE | 2022-03-08 18:16 | ED General ---
General Chief Complaint: Abdominal/GI Problems Stated Complaint: ABD FLUID BUILD UP/SOB Nursing Triage Note: pt to room by wheelchair. pt states she had a paracentesis done [address] Adams and he drained 7.5 liters. pt states her sob has gotten bad in the last couple of days and feels like she needs the procedure again. pt has an apt scheduled with dr. adams tomorrow afternoon but she states "she just could not go another night feeling this sob." pt denies having other complaints Source of Information: Patient, Old Records Exam Limitations: No Limitations History of Present Illness Date Seen by Provider: Mar 08, 2022 Time Seen by Provider: 17:16 Initial Comments This 83-year-old woman presents to the emergency room with complaints of rapidly worsening abdominal ascites and shortness of breath. Has been requiring periodic paracentesis for the past 2 years. Her last paracentesis was on February 27. She has an appointment with Dr. Adams tomorrow to discuss Pleurx indwelling drain. She does not think she can wait any longer for drainage. She is very uncomfortable and has shortness of breath. She is not in distress and her oxygen saturations are in the high 90s on room air. Allergies and Home Medications Allergies Coded Allergies: codeine (Unverified Allergy, Unknown, Pt has received Morphine in the paste, 05/23/20) Patient Home Medication List Home Medication List Reviewed: Yes Cetirizine HCl (Cetirizine HCl) 10 Mg Tablet, 10 MG PO DAILY, (Reported) Entered as Reported by: HOLLI GARDINER on 10/07/21 1438 Fluticasone Propionate (Flonase Allergy Relief) 9.9 Ml [place].susp, 1 SPRAY NSEACH DAILY PRN for CONGESTION, (Reported) Entered as Reported by: HOLLI GARDINER on 10/07/21 1438 Fluticasone/Salmeterol (Advair 250-50 Diskus) 1 Each Blst.w.dev, 1 EACH IH DAILY, (Reported) Entered as Reported by: HOLLI GARDINER on 10/07/21 1438 Furosemide (Furosemide) 20 Mg Tablet, 20 MG PO Q48H, (Reported) Entered as Reported by: HOLLI GARDINER on 10/07/21 1438 Hydroxyzine HCl (Hydroxyzine HCl) 10 Mg Tablet, 10 MG PO BID, (Reported) Entered as Reported by: HOLLI GARDINER on 10/07/21 1438 Iron Ps Cmplx/Vit B12/FA (Ferrex 150 Forte Capsule) 1 Each Capsule, 1 EACH PO DAILY, (Reported) Entered as Reported by: HOLLI GARDINER on 10/07/21 1438 Lactulose (Lactulose) 10 Gm/15 Ml Solution, 15 ML PO BID, (Reported) Entered as Reported by: HOLLI GARDINER on 10/07/21 1438 Lorazepam (Ativan) 1 Mg Tablet, 0.5 MG PO BID PRN for ANXIETY OR SLEEP, (Reported) Entered as Reported by: HOLLI GARDINER on 10/07/21 1438 Metoprolol Succinate (Metoprolol Succinate) 25 Mg Tab.er.24h, 12.5 MG PO DAILY, (Reported) Entered as Reported by: HOLLI GARDINER on 01/07/22 1208 Pantoprazole Sodium (Pantoprazole Sodium) 40 Mg Tablet.dr, 40 MG PO DAILY, (Reported) Entered as Reported by: HOLLI GARDINER on 10/07/21 1438 Fgg822/FA/Omega3/Dha/Fish Oil ( Gummies) 400 Mcg-32.5 Mg (25 Mg-7.5 Mg) Tab.chew, 1 EACH PO DAILY, (Reported) Entered as Reported by: SD CHILDS on 01/12/22 1507 Rifaximin (Xifaxan) 550 Mg Tablet, 550 MG PO BID Prescribed by: JOHANA PURI on 01/15/22 0653 Spironolactone (Spironolactone) 50 Mg Tablet, 25 MG PO DAILY, (Reported) Entered as Reported by: SD CHILDS on 01/12/22 1501 Review of Systems Review of Systems Constitutional: no symptoms reported EENTM: no symptoms reported Respiratory: see HPI Cardiovascular: no symptoms reported Gastrointestinal: see HPI Genitourinary: no symptoms reported : No Musculoskeletal: no symptoms reported Skin: no symptoms reported Psychiatric/Neurological: No Symptoms Reported Hematologic/Lymphatic: No Symptoms Reported Past Pdnocix-Plgsoy-Nbwldj Hx Patient Social History Smoking Status: Former Smoker Use of E-Cig and/or Vaping dev: No Substance use?: No Immunizations Up To Date Tetanus Booster (TDap): Unknown First/Initial COVID19 Vaccinat: 2019 Second COVID19 Vaccination Juan Pablo: 2020 Third COVID19 Vaccination Date: MAY Seasonal Allergies Seasonal Allergies: Yes Past Medical History Surgery/Hospitalization HX: CKD, ANEMIA, CARDIAC TAMPONADE, CAD, PACEMAKER, OA, LIVER CIRRHOSIS, AFIB, HYPERLIPIDEMIA, TIA, COPD, GERD, DIVERTICULOSIS Surgeries: Yes (L TKR 2009;CARDIOVERSION FOR AFIB;BANDING ESOPH. 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 Sexually Transmitted Disease: No HIV/AIDS: No Genitourinary: Yes (CHRONIC RENAL INSUFFICIENCY) Gastrointestinal: Yes (ELEVATED AMMONIA;ESOPHAGEAL VARICES BANDING ) Colitis, Gastroesophageal Reflux, Liver Disease/Jaundice, Gastrointestinal Bleed, Diverticulosis, Hemorrhoids, Esophageal Varices, Ulcer, Cirrhosis Musculoskeletal: Yes Arthritis Endocrine: No HEENT: Yes (GLASSES) Loss of Vision: Denies Hearing Impairment: Denies Cancer: No Psychosocial: Yes Anxiety Integumentary: No Blood Disorders: Yes (IRON DEF ANEMIA, thrombocytopenia) Adverse Reaction/Blood Tranf: Yes (HAS HAD BLOOD WITH NO REACTION) Family Medical History Cardiovascular disease SON No Pertinent Family Hx SOCIAL HISTORY: -HX OF HEAVY CIGARETTE SMOKING--QUIT AGE 63 -HX OF HEAVY ALCOHOL USE--QUIT AGE 63 ESOPHAGEAL BANDING 2019 Physical Exam Vital Signs Vital Signs - First Documented 03/08/22 16:48 Temp 37.1 Pulse 90 Resp 26 B/P (MAP) 147/81 (103) Pulse Ox 98 Capillary Refill : Height, Weight, BMI Height: 5'5.00" Weight: 184lbs. 8.0oz. 83.850318xl; 23.00 BMI Method:Estimated General Appearance: No Apparent Distress, WD/WN HEENT: PERRL/EOMI, Normal ENT Inspection Neck: Normal Inspection Respiratory: Lungs Clear, No Accessory Muscle Use, No Respiratory Distress, Decreased Breath Sounds (Diminished in bases) Cardiovascular: Regular Rate, Rhythm, No Edema, No Murmur Gastrointestinal: Normal Bowel Sounds, Distended, Tenderness (Mild, generalized, no tenderness to percussion) Extremity: Normal Inspection, Non Tender, No Pedal Edema Neurologic/Psychiatric: Alert, Oriented x3, No Motor/Sensory Deficits, Normal Mood/Affect, parts manager II-XII Norm as Tested Skin: Normal Color, Warm/Dry Progress/Results/Core Measures Suspected Sepsis SIRS Temperature: Pulse: 90 Respiratory Rate: 26 Laboratory Tests 03/08/22 16:50: White Blood Count 3.7L Blood Pressure 147 /81 Mean: 103 Laboratory Tests 03/08/22 16:50: Creatinine 1.75H, INR Comment 1.3, Platelet Count 94L, Total Bilirubin 2.0H Results/Orders Lab Results Laboratory Tests Test 03/08/22 16:50 Range/Units White Blood Count 3.7 L 4.3-11.0 10^3/uL Red Blood Count 3.49 L 3.80-5.11 10^6/uL Hemoglobin 10.9 L 11.5-16.0 g/dL Hematocrit 33 L 35-52 % Mean Corpuscular Volume 95 80-99 fL Mean Corpuscular Hemoglobin 31 25-34 pg Mean Corpuscular Hemoglobin Concent 33 32-36 g/dL Red Cell Distribution Width 17.2 H 10.0-14.5 % Platelet Count 94 L 130-400 10^3/uL Mean Platelet Volume 10.0 9.0-12.2 fL Immature Granulocyte % (Auto) 1 % Neutrophils (%) (Auto) 69 42-75 % Lymphocytes (%) (Auto) 17 12-44 % Monocytes (%) (Auto) 9 0-12 % Eosinophils (%) (Auto) 5 0-10 % Basophils (%) (Auto) 1 0-10 % Neutrophils # (Auto) 2.6 1.8-7.8 10^3/uL Lymphocytes # (Auto) 0.6 L 1.0-4.0 10^3/uL Monocytes # (Auto) 0.3 0.0-1.0 10^3/uL Eosinophils # (Auto) 0.2 0.0-0.3 10^3/uL Basophils # (Auto) 0.0 0.0-0.1 10^3/uL Immature Granulocyte # (Auto) 0.0 0.0-0.1 10^3/uL Percent Immature Platelet Fraction 1.8 0.0-7.6 % Prothrombin Time 16.1 H 12.2-14.7 SEC INR Comment 1.3 0.8-1.4 Sodium Level 137 135-145 MMOL/L Potassium Level 4.0 3.6-5.0 MMOL/L Chloride Level 108 H 98-107 MMOL/L Carbon Dioxide Level 19 L 21-32 MMOL/L Anion Gap 10 5-14 MMOL/L Blood Urea Nitrogen 28 H 7-18 MG/DL Creatinine 1.75 H 0.60-1.30 MG/DL Estimat Glomerular Filtration Rate 29 BUN/Creatinine Ratio 16 Glucose Level 100 70-105 MG/DL Calcium Level 8.2 L 8.5-10.1 MG/DL Corrected Calcium 9.2 8.5-10.1 MG/DL Total Bilirubin 2.0 H 0.1-1.0 MG/DL Aspartate Amino Transf (AST/SGOT) 55 H 5-34 U/L Alanine Aminotransferase (ALT/SGPT) 25 0-55 U/L Alkaline Phosphatase 199 H 40-136 U/L Total Protein 7.6 6.4-8.2 GM/DL Albumin 2.7 L 3.2-4.5 GM/DL My Orders Orders - DUNCAN AGUILERA MD Cbc With Automated Diff (03/08/22 17:16) Comprehensive Metabolic Panel (03/08/22 17:16) Protime With Inr (03/08/22 17:16) Chest Pa/Lat (2 View) (03/08/22 17:16) Ed Iv/Invasive Line Start (03/08/22 17:16) O2 (03/08/22 17:16) Vital Signs/I&O 03/08/22 03/08/22 16:48 19:05 Temp 37.1 Pulse 90 78 Resp 26 B/P (MAP) 147/81 (103) 113/64 Pulse Ox 98 97 Capillary Refill : Blood Pressure Mean: 103 Progress Note : Progress Note I discussed the situation with Dr. Adams. He recommends placing her on the schedule for outpatient paracentesis tomorrow. She is to be n.p.o. after midnight. tire room supervisor will be notified Diagnostic Imaging Diagonstic Imaging: Xray Plain Films/CT/US/NM/MRI: chest Comments Chest x-ray viewed by me and report reviewed. See report below: NAME: JANICE RUTLEDGE [facility] REC#: [id number] PT STATUS: REG ER : 1940 PHYSICIAN: DUNCAN AGUILERA MD ADMIT DATE: 03/08/22/ER Signed Date of Exam:03/08/22 CHEST PA/LAT (2 VIEW) INDICATION: Pleural effusion. COMPARISON: Prior examination from 01/02/2022. FINDINGS: There is a persistent right upper lobe infiltrate. Heart size is normal. There may be trace bilateral pleural effusions. No pneumothorax. The mediastinum is unremarkable. Pacemaker overlies the left hemithorax. IMPRESSION: 1. Persistent right upper lobe infiltrate suspect for pneumonia. 2. Likely trace bilateral pleural effusions. Dictated by: Dictated on workstation # [id number] Dict: 03/08/221807 Trans: 03/08/221812 PJE [id number] Interpreted by: SHINE BRADSHAW MD Electronically signed by: SHINE BRADSHAW MD 03/08/221812 Departure Impression Primary Impression: Ascites Qualified Codes: R18.8 - Other ascites Additional Impressions: Dyspnea Qualified Codes: R06.00 - Dyspnea, unspecified Liver failure Qualified Codes: K72.10 - Chronic hepatic failure without coma Disposition: 01 HOME, SELF-CARE Condition: Stable Departure-Patient Inst. Decision time for Depature: 18:52 Referrals: MICHELINE FERGUSON MD (PCP/Family) Primary Care Physician Patient Instructions: Fluid in the Belly (Ascites) Add. Discharge Instructions: Check-in at the outpatient surgery center at 11 AM tomorrow morning. Do not eat or drink after midnight. Call either Dr. Adams's office or the surgery center between 8 and 9 to confirm the procedure time. In the meantime, return to care if you have intolerably worsening condition. All discharge instructions reviewed with patient and/or family. Voiced understanding. Copy Copies To 1: TRINIDAD DAAMS DO Copies To 2: MICHELINE FERGUSON MD, JOSHUA T MD Mar 08, 2022 18:16
[2022-03-08 19:05] VITALS: BP 113/64
== END 2022-03-08 19:07 | disposition home or self-care (01) ==
LOC: EDUNIT# 16:41 → ER 16:42
DX: K72.10 Chronic hepatic failure without coma (principal); R18.8 Other ascites; R06.00 Dyspnea, unspecified
CPT/HCPCS: 36415; 71046; 80053; 85025; 85610

== ENCOUNTER → 2022-03-09 | Day surgery (SDC) | payer MEDICARE ==
[~2022-03-09] VITALS: Ht 165 cm; Wt 63.5 kg
[~2022-03-09] MED LIST changes: +LACTATED RINGERS 1,000 ML IV PRN; +LIDOCAINE/EPI 1%-1:100,000 (XYLOCAINE) 20ML ONE; +MIDAZOLAM 2 MG/2 ML (VERSED) VIAL ONE; +ONDANSETRON 4 MG/2 ML (SDV) Z0FRAN ONE; +ceFAZolin 2 GM IV Premixed 50 ML ONE; +ceFAZolin 2 GM/50 ML (PRE-MIXED) IV ONE; +proPOfol 200 MG/20 ML (DIPRIVAN) VIAL IV ONE
[2022-03-09 12:05] VITALS: BP 99/68
[2022-03-09 13:37] VITALS: BP 92/58
--- NOTE | 2022-03-09 13:46 | Anesthesia-General Post-Op ---
MAC Patient Condition Mental Status/LOC: Same as Preop Cardiovascular: Satisfactory Nausea/Vomiting: Absent Respiratory: Satisfactory Pain: Controlled Complications: Absent Post Op Complications Complications None Follow Up Care/Instructions Patient Instructions None needed. Anesthesiology Discharge Order Discharge Order Patient is doing well, no complaints, stable vital signs, no apparent adverse anesthesia problems. No complications reported per nursing. GENIE JACOBS CRNA Mar 09, 2022 13:46
[2022-03-09 13:50] VITALS: BP 88/58
[2022-03-09 14:00] VITALS: BP 90/62
[2022-03-09 14:05] VITALS: BP_SYST 88; BP_SYST 95; BP_DIAS 60; BP_DIAS 62
--- NOTE | 2022-03-09 14:33 | Discharge Inst-Simple/Standard ---
Discharge Inst-Standard Patient Instructions/Follow Up Plan of Care/Instructions/FU: Twin WEDNESDAY, Bring bottle to have drained. Activity as Tolerated: No Discharge Diet: Regular Diet Other Inst to Patient Follow up Appt: Make appointment for Wednesday Lesly/Anthony, bring bottles with you to be drained. Instructions: No lifting greater than 10 pounds. No strenuous activity. May shower in 24 hours, no tub bath or soaking. Use incentive spirometer at home as directed. No Smoking Skin/Wound Care: You have special glue over your incision that will fall off on it's own. Symptoms to Report: Appetite Changes, Extremity Discoloration, Numbness/Tingling, Swelling Increased, Bleeding Excessive, Eyesight Changes, Pain Increased, Urine Color Change, Constipation(Persistent), Fever over 101 degree F, Pain/Pressure in chest, Urinating Difficulty, Cough Up/Vomit Blood, Heart Beat Irreg/Pounding, Pain/Pressure in jaw, Vaginal Bleeding Increase, Cramps in feet or legs, Lightheadedness, Pain/Pressure in shoulder, Diarrhea(Persistent), Memory Changes Suddenly, Questions/Concerns, Weight gain consecutive days, Dizziness/Fainting, Nausea/Vomiting, Shortness of Breath, Weight gain over 2 pounds If questions or concerns contact your physician Or seek help at emergency department. TRINIDAD ADAMS DO Mar 09, 2022 14:33
[2022-03-09 14:35] VITALS: BP 102/60
--- NOTE | 2022-03-10 04:57 | OPERATIVE REPORT ---
DATE OF SERVICE: 03/09/2022 PREOPERATIVE DIAGNOSIS: Symptomatic ascites, recurrent. POSTOPERATIVE DIAGNOSIS: Symptomatic ascites, recurrent. PROCEDURE: Ultrasound-guided PleurX catheter placement. SURGEON: Trinidad Grace DO. ANESTHESIA: MAC with local. ESTIMATED BLOOD LOSS: Minimal. COMPLICATIONS: None. INDICATIONS: The patient is an 81-year-old female with recurrent symptomatic ascites. She has been having increasing need for paracentesis. She understands risks and benefits of having a PleurX catheter drained by placement for drainage. She understands and wishes to proceed. Consent was signed in the chart. DESCRIPTION OF PROCEDURE: The patient was taken to the operating suite, was prepped and draped in sterile fashion. Ultrasound was used to isolate the largest pocket for insertion point. Local anesthetic was infiltrated at the insertion point and for tunneling purposes. A 11-blade scalpel was used to make a small skin incision. Angiocath needle was then inserted through the abdominal wall until straw-colored fluid was withdrawn. The needle was removed. The guidewire was inserted and the sheath was removed. The catheter was then tunneled approximately 8 centimeters away. The cuff was in the middle of the tunnel portion. Over the wire, serial dilations were made until the dilator sheath was then advanced over the wire and the dilator was removed along with the wire and the catheter was inserted through the sheath and the sheath was then removed. The subcutaneous tissue at the insertion point were then reapproximated using 4-0 Vicryl in subcuticular fashion. End of the catheter was then secured at the tunnel portion with 3-0 silk suture. Skin Affix was placed over the insertion site. A sterile bandage was applied over the catheter. Before putting the sterile bandage on, 3 liters of straw-colored fluid was withdrawn. The patient tolerated the procedure well without any complications. She was taken to recovery room in stable condition. Job ID: [id number] DocumentID: [id number] Dictated Date: 03/09/2022 19:34:11 Personal Secretary Date: 03/10/2022 04:56:48 Dictated By: TRINIDAD GRACE DO
== END ==
LOC: SDC 11:45
PROVIDERS: ATTEND Surgery
DX: R18.8 Other ascites (principal)
CPT/HCPCS: 32550; 87081; C1729

== ENCOUNTER 2022-04-07 07:40 | Emergency (ER) | payer MEDICARE ==
[~2022-04-07] VITALS: Ht 165.1 cm; Wt 63.5 kg
[~2022-04-07 07:40] MED LIST changes: -LACTATED RINGERS 1,000 ML IV PRN; -LIDOCAINE/EPI 1%-1:100,000 (XYLOCAINE) 20ML ONE; -MIDAZOLAM 2 MG/2 ML (VERSED) VIAL ONE; -ONDANSETRON 4 MG/2 ML (SDV) Z0FRAN ONE; -ceFAZolin 2 GM IV Premixed 50 ML ONE; -ceFAZolin 2 GM/50 ML (PRE-MIXED) IV ONE; -proPOfol 200 MG/20 ML (DIPRIVAN) VIAL IV ONE
--- NOTE | 2022-04-07 08:05 | ED GI ---
General Chief Complaint: Abdominal/GI Problems Stated Complaint: ISSUES WITH TUBE IN ABDOMEN Source of Information: Patient Exam Limitations: No Limitations History of Present Illness Date Seen by Provider: Apr 07, 2022 Time Seen by Provider: 07:43 Initial Comments Patient is an 81-year-old female who presents to the emergency department today with a chief complaint of leaking from her Pleurx catheter site. Patient states Dr. Adams's office forgot to order her bottles for her Pleurx. She has been leaking overnight. She has increasing abdominal distention and discomfort. She is not short of breath. No fevers or chills. No chest pain. No problems with bowel or bladder. She is just desiring bottles so that she can drain her ascites. She normally drains out 2 L a day. All other review of systems reviewed and negative except as stated. Timing/Duration: 12 Hours Severity/Quality: Moderate Associated Symptoms: Denies Symptoms Allergies and Home Medications Allergies Coded Allergies: codeine (Unverified Allergy, Unknown, Pt has received Morphine in the paste, 05/23/20) Patient Home Medication List Home Medication List Reviewed: Yes Cetirizine HCl (Cetirizine HCl) 10 Mg Tablet, 10 MG PO DAILY, (Reported) Entered as Reported by: HOLLI GARDINER on 10/07/21 1438 Fluticasone Propionate (Flonase Allergy Relief) 9.9 Ml [place].susp, 1 SPRAY NSEACH DAILY PRN for CONGESTION, (Reported) Entered as Reported by: HOLLI GARDINER on 10/07/21 1438 Fluticasone/Salmeterol (Advair 250-50 Diskus) 1 Each Blst.w.dev, 1 EACH IH DAILY, (Reported) Entered as Reported by: HOLLI GARDINER on 10/07/21 1438 Furosemide (Furosemide) 20 Mg Tablet, 20 MG PO Q48H, (Reported) Entered as Reported by: HOLLI GARDINER on 10/07/21 1438 Hydroxyzine HCl (Hydroxyzine HCl) 10 Mg Tablet, 10 MG PO BID, (Reported) Entered as Reported by: HOLLI GARDINER on 10/07/21 1438 Iron Ps Cmplx/Vit B12/FA (Ferrex 150 Forte Capsule) 1 Each Capsule, 1 EACH PO DAILY, (Reported) Entered as Reported by: HOLLI GARDINER on 10/07/21 1438 Lactulose (Lactulose) 10 Gm/15 Ml Solution, 15 ML PO BID, (Reported) Entered as Reported by: HOLLI GARDINER on 10/07/21 1438 Lorazepam (Ativan) 1 Mg Tablet, 0.5 MG PO BID PRN for ANXIETY OR SLEEP, (Reported) Entered as Reported by: HOLLI GARDINER on 10/07/21 1438 Metoprolol Succinate (Metoprolol Succinate) 25 Mg Tab.er.24h, 12.5 MG PO DAILY, (Reported) Entered as Reported by: HOLLI GARDINER on 01/07/22 1208 Pantoprazole Sodium (Pantoprazole Sodium) 40 Mg Tablet.dr, 40 MG PO DAILY, (Reported) Entered as Reported by: HOLLI GARDINER on 10/07/21 1438 Igg895/FA/Omega3/Dha/Fish Oil ( Gummies) 400 Mcg-32.5 Mg (25 Mg-7.5 Mg) Tab.chew, 1 EACH PO DAILY, (Reported) Entered as Reported by: SD CHILDS on 01/12/22 1507 Rifaximin (Xifaxan) 550 Mg Tablet, 550 MG PO BID Prescribed by: JOHANA PURI on 01/15/22 0653 Spironolactone (Spironolactone) 50 Mg Tablet, 25 MG PO DAILY, (Reported) Entered as Reported by: SD CHILDS on 01/12/22 1503 Review of Systems Review of Systems Constitutional: see HPI EENTM: No Symptoms Reported Respiratory: No Symptoms Reported Cardiovascular: No Symptoms Reported Gastrointestinal: Other (abdominal distension; leaking fluid) Genitourinary: No Symptoms Reported Musculoskeletal: no symptoms reported Skin: no symptoms reported All Other Systems Reviewed Negative Unless Noted: Yes Past Oklgqne-Cwpcfa-Ruismd Hx Patient Social History Tobacco Use?: No Substance use?: No Alcohol Use?: No Pt feels they are or have been: Unable to obtain Immunizations Up To Date Tetanus Booster (TDap): Unknown Influenza Vaccine Up-to-Date: Yes; Up-to-Date First/Initial COVID19 Vaccinat: 2019 Second COVID19 Vaccination Juan Pablo: 2020 Third COVID19 Vaccination Date: MAY Seasonal Allergies Seasonal Allergies: Yes Past Medical History Surgery/Hospitalization HX: CKD, ANEMIA, CARDIAC TAMPONADE, CAD, PACEMAKER, OA, LIVER CIRRHOSIS, AFIB, HYPERLIPIDEMIA, TIA, COPD, GERD, DIVERTICULOSIS Surgeries: Yes (L TKR 2009;CARDIOVERSION FOR AFIB;BANDING ESOPH. 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 Sexually Transmitted Disease: No HIV/AIDS: No Genitourinary: Yes (CHRONIC RENAL INSUFFICIENCY) Gastrointestinal: Yes (ELEVATED AMMONIA;ESOPHAGEAL VARICES BANDING ) Colitis, Gastroesophageal Reflux, Liver Disease/Jaundice, Gastrointestinal Bleed, Diverticulosis, Hemorrhoids, Esophageal Varices, Ulcer, Cirrhosis Musculoskeletal: Yes Arthritis Endocrine: No HEENT: Yes (GLASSES) Loss of Vision: Denies Hearing Impairment: Denies Cancer: No Psychosocial: Yes Anxiety Integumentary: No Blood Disorders: Yes (IRON DEF ANEMIA, thrombocytopenia) Adverse Reaction/Blood Tranf: Yes (HAS HAD BLOOD WITH NO REACTION) Family Medical History Cardiovascular disease SON No Pertinent Family Hx SOCIAL HISTORY: -HX OF HEAVY CIGARETTE SMOKING--QUIT AGE 63 -HX OF HEAVY ALCOHOL USE--QUIT AGE 63 ESOPHAGEAL BANDING 2020 Physical Exam Vital Signs Capillary Refill : Height/Weight/BMI Height: 5'5.00" Weight: 184lbs. 8.0oz. 83.849455sk; 23.32 BMI Method:Estimated General Appearance: WD/WN, no apparent distress Respiratory: lungs clear, normal breath sounds, no respiratory distress, no accessory muscle use Cardiovascular: regular rate, rhythm Gastrointestinal: soft, distended, other (pleurex catheter left abdomen; damp dressing in place) Extremities: normal range of motion Neurologic/Psychiatric: alert, normal mood/affect, oriented x 3 Skin: normal color, warm/dry Departure Impression Primary Impression: Ascites Qualified Codes: R18.8 - Other ascites Disposition: 01 HOME, SELF-CARE Condition: Stable Departure-Patient Inst. Decision time for Depature: 08:03 Referrals: TRINIDAD ADAMS HOLLY R MD (PCP/Family) Primary Care Physician Add. Discharge Instructions: Please call Dr Adams's office this morning to ensure they have ordered you more bottles. Keep the area of the catheter site clean, dry and covered. Follow up with your family doctor as scheduled. Return to the ER for any new, concerning or emergent complaints. Copy Copies To 1: TRINIDAD ADAMS DO Copies To 2: MICHELINE FERGUSON MD, KATHRYN M MD Apr 07, 2022 08:05
[2022-04-07 08:27] VITALS: BP 119/69
== END 2022-04-07 08:27 | disposition home or self-care (01) ==
LOC: EDUNIT# 07:40 → ER 07:42
DX: R18.8 Other ascites (principal); Z97.8 Presence of other specified devices; Z86.16 Personal history of COVID-19
CPT/HCPCS: 99281

== ENCOUNTER 2022-04-24 16:08 | Observation (INO) | payer MEDICARE ==
[2022-04-24] VITALS (11 sets, daily range): BP systolic 87–111; BP diastolic 48–101
[~2022-04-24] VITALS: Ht 165.1 cm; Wt 57.0 kg
[2022-04-24 16:30] LABS: BASOPHILS % (AUTO) 1 % (0-10); MONOCYTES # (AUTO) 0.5 10^3/uL (0.0-1.0)
[2022-04-24 16:32] LABS: EOSINOPHILS # (AUTO) 0.2 10^3/uL (0.0-0.3); EOSINOPHILS % (AUTO) 4 % (0-10); HEMATOCRIT 26 % (35-52); HEMOGLOBIN 8.7 g/dL (11.5-16.0); LYMPHOCYTES # (AUTO) 0.7 10^3/uL (1.0-4.0); LYMPHOCYTES % (AUTO) 18 % (12-44); MEAN CORPUSCULAR HEMOGLOBIN 32 pg (25-34); MEAN CORPUSCULAR HGB CONC 34 g/dL (32-36); MEAN CORPUSCULAR VOLUME 96 fL (80-99); MEAN PLATELET VOLUME 9.2 fL (9.0-12.2); MONOCYTES % (AUTO) 12 % (0-12); NEUTROPHILS # (AUTO) 2.5 10^3/uL (1.8-7.8); NEUTROPHILS % (AUTO) 64 % (42-75); PLATELET COUNT 88 10^3/uL (130-400); WHITE BLOOD COUNT 3.9 10^3/uL (4.3-11.0)
[2022-04-24 16:39] LABS: ALBUMIN 2.2 GM/DL (3.2-4.5)
[2022-04-24 16:41] LABS: CALCIUM 7.7 MG/DL (8.5-10.1)
[2022-04-24 16:42] LABS: TOTAL PROTEIN 6.2 GM/DL (6.4-8.2)
[2022-04-24 16:44] LABS: BILIRUBIN,TOTAL 1.3 MG/DL (0.1-1.0)
[2022-04-24 16:45] LABS: CREATININE SERUM 2.23 MG/DL (0.60-1.30)
[2022-04-24 16:50] LABS: INR 1.4 (0.8-1.4); PROTHROMBIN TIME PATIENT 17.4 SEC (12.2-14.7)
--- NOTE | 2022-04-24 17:19 | ED GI ---
General Chief Complaint: Rect Problems Stated Complaint: GI BLEED Source of Information: Patient, EMS, Family Exam Limitations: No Limitations History of Present Illness Date Seen by Provider: Apr 24, 2022 Time Seen by Provider: 17:44 Initial Comments To ER by EMS from home with reports of bright red blood per rectum that began earlier this afternoon. History of liver cirrhosis and recurrent GI bleeds. She is had esophageal varices banded by Dr. Montemayor at [facility] in [place], she is had colonoscopy with cauterization of a lower GI bleed, she has severe internal and external hemorrhoids. She has a Pleurx catheter in the left side abdominal wall for recurrent ascites placed by Dr. Grace. Timing/Duration: 4-6 Hours Severity/Quality: Moderate Radiation: No Radiation Associated Symptoms: Denies Symptoms Allergies and Home Medications Allergies Coded Allergies: codeine (Unverified Allergy, Unknown, Pt has received Morphine in the paste, 05/23/20) Patient Home Medication List Home Medication List Reviewed: Yes Cetirizine HCl (Cetirizine HCl) 10 Mg Tablet, 10 MG PO DAILY, (Reported) Entered as Reported by: HOLLI GARDINER on 10/07/21 1438 Fluticasone Propionate (Flonase Allergy Relief) 9.9 Ml [place].susp, 1 SPRAY NSEACH DAILY PRN for CONGESTION, (Reported) Entered as Reported by: HOLLI GARDINER on 10/07/21 1438 Fluticasone/Salmeterol (Advair 250-50 Diskus) 1 Each Blst.w.dev, 1 EACH IH DAILY, (Reported) Entered as Reported by: HOLLI GARDINER on 10/07/21 1438 Furosemide (Furosemide) 20 Mg Tablet, 20 MG PO Q48H, (Reported) Entered as Reported by: HOLLI GARDINER on 10/07/21 1438 Hydroxyzine HCl (Hydroxyzine HCl) 10 Mg Tablet, 10 MG PO BID, (Reported) Entered as Reported by: HOLLI GARDINER on 10/07/21 1438 Iron Ps Cmplx/Vit B12/FA (Ferrex 150 Forte Capsule) 1 Each Capsule, 1 EACH PO DAILY, (Reported) Entered as Reported by: HOLLI GARDINER on 10/07/21 1438 Lactulose (Lactulose) 10 Gm/15 Ml Solution, 15 ML PO BID, (Reported) Entered as Reported by: HOLLI GARDINER on 10/07/21 1438 Lorazepam (Ativan) 1 Mg Tablet, 0.5 MG PO BID PRN for ANXIETY OR SLEEP, (Reported) Entered as Reported by: HOLLI GARDINER on 10/07/21 1438 Metoprolol Succinate (Metoprolol Succinate) 25 Mg Tab.er.24h, 12.5 MG PO DAILY, (Reported) Entered as Reported by: HOLLI GARDINER on 01/07/22 1208 Pantoprazole Sodium (Pantoprazole Sodium) 40 Mg Tablet.dr, 40 MG PO DAILY, (Reported) Entered as Reported by: HOLLI GARDINER on 10/07/21 1438 Zmf742/FA/Omega3/Dha/Fish Oil ( Gummies) 400 Mcg-32.5 Mg (25 Mg-7.5 Mg) Tab.chew, 1 EACH PO DAILY, (Reported) Entered as Reported by: SD CHILDS on 01/12/22 1507 Rifaximin (Xifaxan) 550 Mg Tablet, 550 MG PO BID Prescribed by: JOHANA PURI on 01/15/22 0653 Spironolactone (Spironolactone) 50 Mg Tablet, 25 MG PO DAILY, (Reported) Entered as Reported by: SD CHILDS on 01/12/22 1503 Review of Systems Review of Systems Constitutional: see HPI EENTM: No Symptoms Reported Respiratory: No Symptoms Reported Cardiovascular: No Symptoms Reported Gastrointestinal: See HPI, Rectal Bleeding Genitourinary: No Symptoms Reported Musculoskeletal: no symptoms reported Skin: no symptoms reported Psychiatric/Neurological: No Symptoms Reported Endocrine: No Symptoms Reported Past Wiekemy-Axncju-Sicfak Hx Immunizations Up To Date Tetanus Booster (TDap): Unknown First/Initial COVID19 Vaccinat: 2019 Second COVID19 Vaccination Juan Pablo: 2020 Third COVID19 Vaccination Date: MAY Seasonal Allergies Seasonal Allergies: Yes Past Medical History Surgery/Hospitalization HX: CKD, ANEMIA, CARDIAC TAMPONADE, CAD, PACEMAKER, OA, LIVER CIRRHOSIS, AFIB, HYPERLIPIDEMIA, TIA, COPD, GERD, DIVERTICULOSIS Surgeries: Yes (L TKR 2009;CARDIOVERSION FOR AFIB;BANDING ESOPH. 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 Sexually Transmitted Disease: No HIV/AIDS: No Genitourinary: Yes (CHRONIC RENAL INSUFFICIENCY) Gastrointestinal: Yes (ELEVATED AMMONIA;ESOPHAGEAL VARICES BANDING ) Colitis, Gastroesophageal Reflux, Liver Disease/Jaundice, Gastrointestinal Bleed, Diverticulosis, Hemorrhoids, Esophageal Varices, Ulcer, Cirrhosis Musculoskeletal: Yes Arthritis Endocrine: No HEENT: Yes (GLASSES) Loss of Vision: Denies Hearing Impairment: Denies Cancer: No Psychosocial: Yes Anxiety Integumentary: No Blood Disorders: Yes (IRON DEF ANEMIA, thrombocytopenia) Adverse Reaction/Blood Tranf: Yes (HAS HAD BLOOD WITH NO REACTION) Family Medical History Cardiovascular disease SON No Pertinent Family Hx SOCIAL HISTORY: -HX OF HEAVY CIGARETTE SMOKING--QUIT AGE 63 -HX OF HEAVY ALCOHOL USE--QUIT AGE 63 ESOPHAGEAL BANDING 2019 Physical Exam Vital Signs Capillary Refill : Height/Weight/BMI Height: 5'5.00" Weight: 184lbs. 8.0oz. 83.455410ys; 23.00 BMI Method:Estimated General Appearance: WD/WN, no apparent distress Neck: non-tender, full range of motion Respiratory: no respiratory distress, no accessory muscle use Gastrointestinal: normal bowel sounds, soft, other (abd distention. Pleur-x catheter left abdominal wall with dressing ovelying the tubing. No surrounding erythema) Extremities: normal range of motion, non-tender Neurologic/Psychiatric: alert, normal mood/affect, oriented x 3 Skin: normal color, warm/dry Progress/Results/Core Measures Results/Orders Lab Results Laboratory Tests Test 04/24/22 16:21 Range/Units White Blood Count 3.9 L 4.3-11.0 10^3/uL Red Blood Count 2.71 L 3.80-5.11 10^6/uL Hemoglobin 8.7 L 11.5-16.0 g/dL Hematocrit 26 L 35-52 % Mean Corpuscular Volume 96 80-99 fL Mean Corpuscular Hemoglobin 32 25-34 pg Mean Corpuscular Hemoglobin Concent 34 32-36 g/dL Red Cell Distribution Width 16.8 H 10.0-14.5 % Platelet Count 88 L 130-400 10^3/uL Mean Platelet Volume 9.2 9.0-12.2 fL Immature Granulocyte % (Auto) 1 % Neutrophils (%) (Auto) 64 42-75 % Lymphocytes (%) (Auto) 18 12-44 % Monocytes (%) (Auto) 12 0-12 % Eosinophils (%) (Auto) 4 0-10 % Basophils (%) (Auto) 1 0-10 % Neutrophils # (Auto) 2.5 1.8-7.8 10^3/uL Lymphocytes # (Auto) 0.7 L 1.0-4.0 10^3/uL Monocytes # (Auto) 0.5 0.0-1.0 10^3/uL Eosinophils # (Auto) 0.2 0.0-0.3 10^3/uL Basophils # (Auto) 0.0 0.0-0.1 10^3/uL Immature Granulocyte # (Auto) 0.0 0.0-0.1 10^3/uL Percent Immature Platelet Fraction 0.9 0.0-7.6 % Prothrombin Time 17.4 H 12.2-14.7 SEC INR Comment 1.4 0.8-1.4 Activated Partial Thromboplast Time 34 24-35 SEC Sodium Level 131 L 135-145 MMOL/L Potassium Level 4.0 3.6-5.0 MMOL/L Chloride Level 110 H 98-107 MMOL/L Carbon Dioxide Level 13 L 21-32 MMOL/L Anion Gap 8 5-14 MMOL/L Blood Urea Nitrogen 49 H 7-18 MG/DL Creatinine 2.23 H 0.60-1.30 MG/DL Estimat Glomerular Filtration Rate 21 BUN/Creatinine Ratio 22 Glucose Level 137 H 70-105 MG/DL Calcium Level 7.7 L 8.5-10.1 MG/DL Corrected Calcium 9.1 8.5-10.1 MG/DL Total Bilirubin 1.3 H 0.1-1.0 MG/DL Aspartate Amino Transf (AST/SGOT) 51 H 5-34 U/L Alanine Aminotransferase (ALT/SGPT) 29 0-55 U/L Alkaline Phosphatase 184 H 40-136 U/L Total Protein 6.2 L 6.4-8.2 GM/DL Albumin 2.2 L 3.2-4.5 GM/DL My Orders Orders - FACUNDO HENDRICKSON APRN Protime With Inr (04/24/22 17:28) Cbc No Diff (04/24/22 21:00) Red Cells Leukocytes Reduced (04/24/22 17:36) Ed Admission (Communication) (04/24/22 17:36) Type And Screen (04/24/22 17:36) Departure Communication (Admissions) Spoke with Dr. Grace. We will admit the patient here to medicine consult him. He is familiar with her. Spoke with Dr. Puri will admit to cardiac stepdown, serial H&H. I did discuss CODE STATUS with the patient, she would like to be DO NOT RESUSCITATE status. Impression Primary Impression: Lower GI bleed Disposition: ADMITTED INPATIENT Condition: Stable Admissions Decision to Admit Reason: Admit from ER (Trauma) Decision to Admit/Date: Apr 24, 2022 Time/Decision to Admit Time: 17:43 Departure-Patient Inst. Referrals: MICHELINE FERGUSON MD (PCP/Family) Primary Care Physician FACUNDO HENDRICKSON APRN Apr 24, 2022 17:19
[2022-04-24] MEDS ORDERED: NS IV 1000 ML 1,000 ML IV SCH (18:00)
[2022-04-24] MEDS: NS IV 1000 ML 1,000 ML IV SCH (19:15)
[2022-04-24] MEDS ORDERED: diphenhydrAMINE 25 MG TAB (BENADRYL) PO PRN (19:30)
[2022-04-24] MEDS ORDERED: MELATONIN 3 MG TABLET PO PRN (19:30)
[2022-04-24] MEDS ORDERED: LACTULOSE SYRUP 10GM/15ML (ENULOSE) 30ML UDC PO PRN (19:30)
[2022-04-24] MEDS ORDERED: ONDANSETRON 4 MG/2 ML (SDV) Z0FRAN IV PRN (19:30)
[2022-04-24] MEDS ORDERED: MILK OF MAGNESIA 400 MG/5 ML 30 ML UDC PO PRN (19:30)
[2022-04-24] MEDS ORDERED: ONDANSETRON 4 MG (ZOFRAN) ORAL DISSOLVE TAB PO PRN (19:30)
[2022-04-24] MEDS ORDERED: ACETAMINOPHEN 325 MG TABLET PO PRN (19:30)
[2022-04-24] MEDS ORDERED: polyethylene glycoL POWDER 17 GM (MIRALAX) PACK PO PRN (19:30)
[2022-04-24] MEDS ORDERED: ANTACID SUSP 30 ML UDC (MYLANTA) PO PRN (19:30)
[2022-04-24] MEDS ORDERED: CALCIUM CARBONATE 500 MG (TUMS) TAB.CHEW PO PRN (19:30)
[2022-04-24] MEDS ORDERED: diphenhydrAMINE 50 MG/ML INJ (BENADRYL) IVP PRN (19:30)
[2022-04-24] MEDS ORDERED: BISACODYL 10 MG SUPP (DULCOLAX) PR PRN (19:30)
[2022-04-24 21:30] LABS: HEMOGLOBIN 7.5 g/dL (11.5-16.0)
[2022-04-24 21:31] LABS: MEAN PLATELET VOLUME 9.3 fL (9.0-12.2); WHITE BLOOD COUNT 3.8 10^3/uL (4.3-11.0)
[2022-04-24] MEDS: DOCUSATE SODIUM 100 MG (COLACE) CAP PO SCH (21:43)
[2022-04-24] MEDS: SENNOSIDES 8.6 MG (SENOKOT) TAB PO SCH (21:43)
[2022-04-24] MEDS ORDERED: NS IV 500 ML 500 ML IV SCH ×2 (22:30)
[2022-04-24] MEDS ORDERED: NS IV 500 ML 500 ML ONE (22:41)
[2022-04-24] MEDS: PANTOPRAZOLE 40 MG (PROTONIX) VIAL IV SCH (22:53)
[2022-04-25] VITALS (8 sets, daily range): BP systolic 93–112; BP diastolic 49–72
[2022-04-25] MEDS: NS IV 1000 ML 1,000 ML IV SCH ×2 (02:09→09:54)
--- NOTE | 2022-04-25 06:29 | Short Stay Summary-Hospitalist ---
History of Present Illness HPI/Chief Complaint Chief complaint: Hematochezia History of present illness: This is an 82-year-old female clinic patient of [facility] known to this examiner who has a past medical history of liver cirrhosis variceal banding and hemorrhoid banding in the past who presented to the ER with hematochezia. General surgery consulted no evidence of needing scopes she did receive 1 unit of blood due to hemoglobin 7.5. She overall did very well was back to her baseline activity globin 9.5 and she was discharged in improved condition. Source: patient Date Seen 04/25/22 Time Seen by a Provider: 11:00 Attending Physician Tatyana Macario MD PCP Admitting Physician: Emiliana Matta DO Attending Physician: Emiliana Matta DO Referring Physician Date of Admission Apr 24, 2022 at 17:39 Home Medications & Allergies Home Medications Reviewed patient Home Medication Reconciliation performed by pharmacy medication reconciliations monitor technician and/or nursing. Patients Allergies have been reviewed. Allergies Allergies Coded Allergies codeine (Unverified Allergy, Unknown, Pt has received Morphine in the paste, 05/23/20) Past Nbuavox-Oxpqhj-Lcggzr Hx Patient Social History Marrital Status: single Employed/Student: retired Tobacco Use?: No Tobacco type used: Cigarettes Smoking Status: Former Smoker Use of E-Cig and/or Vaping dev: No Substance use?: No Alcohol Use?: No Pt feels they are or have been: Yes Immunizations Up To Date Date of Influenza Vaccine: May 30, 2019 First/Initial COVID19 Vaccinat: 2020 Second COVID19 Vaccination Juan Pablo: 2020 Tetanus Booster (TDap): Unknown Date of Pneumonia Vaccine: Apr 10, 2012 Seasonal Allergies Seasonal Allergies: Yes Current Status Advance Directives: Yes Advance Directive Location: DNR Communicates: Verbally Primary Language: Tanzanian Preferred Spoken Language: Tanzanian Sensory deficits: Vision impairment, Hearing impairment Implanted or Applied Medical D: Pacemaker Past Medical History Surgeries: Abdominal, Adenoidectomy, Cardiac, Joint Replacement, Orthopedic, Pacemaker, Tonsillectomy Pneumonia, COPD Currently Using CPAP: No Currently Using BIPAP: No Atrial Fibrillation, High Cholesterol, Hypertension 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 Sexually Transmitted Disease: No HIV/AIDS: No Colitis, Gastroesophageal Reflux, Liver Disease/Jaundice, Gastrointestinal Bleed, Diverticulosis, Hemorrhoids, Esophageal Varices, Ulcer, Cirrhosis Arthritis Loss of Vision: Denies Hearing Impairment: Denies Anxiety Blood Disorders: Yes (IRON DEF ANEMIA, thrombocytopenia) Adverse Reaction/Blood Tranf: Yes (HAS HAD BLOOD WITH NO REACTION) PMHx: Osteoarthritis HTN HLD Complete heart block s/p pacemaker placement PSurgHx: Left knee replacement Pacemaker placement Cardioversion for atrial fibrillation Family Medical History Cardiovascular disease SON No Pertinent Family Hx SOCIAL HISTORY: -HX OF HEAVY CIGARETTE SMOKING--QUIT AGE 63 -HX OF HEAVY ALCOHOL USE--QUIT AGE 63 ESOPHAGEAL BANDING 2019 Review of Systems Constitutional: see HPI, malaise, weakness Physical Exam Physical Exam Vital Signs Vital Signs - First Documented 04/24/22 16:20 Temp 36.4 Pulse 97 Resp 20 B/P (MAP) 101/69 (80) Pulse Ox 100 O2 Delivery Room Air Capillary Refill : Height, Weight, BMI Height: 5'5.00" Weight: 184lbs. 8.0oz. 83.775405xa; 20.91 BMI Method:Estimated General Appearance: No Apparent Distress, WD/WN, Chronically ill Respiratory: Lungs Clear, Normal Breath Sounds Cardiovascular: Regular Rate, Rhythm Neurologic/Psychiatric: Alert, Oriented x3, No Motor/Sensory Deficits, Normal Mood/Affect Results Results/Procedures Labs Laboratory Tests 04/24/22 16:21 04/24/22 21:23 04/25/22 11:55 Patient resulted labs reviewed. Short Stay Diagnosis Discharge Diagnosis-Short Stay Admission Diagnosis Hematochezia Anemia Liver cirrhosis Final Discharge Diagnosis Hematochezia Anemia Liver cirrhosis Conclusion Plan Discharge home Clinical Quality Measures DVT/VTE Risk/Contraindication: Contraindications-Pharm: Other *list below* Other: EMILIANA Ayala DO Apr 25, 2022 06:29
--- NOTE | 2022-04-25 07:36 | Consultation - Surgery ---
JEAN PINEDO 04/25/22 0736: History of Present Illness History of Present Illness Patient Consulted On(niraj/time) 04/25/22 07:30 Date Seen by Provider: Apr 25, 2022 Time Seen by Provider: 07:31 Reason for Visit: GI bleed History of Present Illness Consult requested by Dr. Puri 82yo Female with h/o recurrent GI bleeds, diverticulosis, liver cirrhosis, and internal and external hemorrhoids presents with complaint of bloody stools that started 2 days ago. Pt states that she began passing large amounts of red blood with minimal stool present and began to feel weak. Pt states that her weakness has resolved since being admitted but states that she continues to have bloody stools (x4 overnight). Pt is tolerating diet and is voiding. Pt denies abd pain, CP, n/v, SOB, and sweats. Family is at bedside and says that they will try to be transferred to [facility] in [place] where pt is followed by Dr. Montemayor. Allergies and Home Medications Allergies Coded Allergies: codeine (Unverified Allergy, Unknown, Pt has received Morphine in the paste, 05/23/20) Patient Home Medication List Home Medication List Reviewed: Yes Cetirizine HCl (Cetirizine HCl) 10 Mg Tablet, 10 MG PO DAILY, (Reported) Entered as Reported by: HOLLI GARDINER on 10/07/21 1438 Fluticasone Propionate (Flonase Allergy Relief) 9.9 Ml [place].susp, 1 SPRAY NSEACH DAILY PRN for CONGESTION, (Reported) Entered as Reported by: HOLLI GARDINER on 10/07/21 1438 Fluticasone/Salmeterol (Advair 250-50 Diskus) 1 Each Blst.w.dev, 1 EACH IH DAILY, (Reported) Entered as Reported by: HOLLI GARDINER on 10/07/21 1438 Furosemide (Furosemide) 20 Mg Tablet, 20 MG PO Q48H, (Reported) Entered as Reported by: HOLLI GARDINER on 10/07/21 1438 Hydroxyzine HCl (Hydroxyzine HCl) 10 Mg Tablet, 10 MG PO BID, (Reported) Entered as Reported by: HOLLI GARDINER on 10/07/21 1438 Iron Ps Cmplx/Vit B12/FA (Ferrex 150 Forte Capsule) 1 Each Capsule, 1 EACH PO DAILY, (Reported) Entered as Reported by: HOLLI GARDINER on 10/07/21 1438 Lactulose (Lactulose) 10 Gm/15 Ml Solution, 15 ML PO BID, (Reported) Entered as Reported by: HOLLI GARDINER on 10/07/21 1438 Lorazepam (Ativan) 1 Mg Tablet, 0.5 MG PO BID PRN for ANXIETY OR SLEEP, (Reported) Entered as Reported by: HOLLI GARDINER on 10/07/21 1438 Metoprolol Succinate (Metoprolol Succinate) 25 Mg Tab.er.24h, 12.5 MG PO DAILY, (Reported) Entered as Reported by: HOLLI GARDINER on 01/07/22 1208 Pantoprazole Sodium (Pantoprazole Sodium) 40 Mg Tablet.dr, 40 MG PO DAILY, (Reported) Entered as Reported by: HOLLI GARDINER on 10/07/21 1438 Iqr423/FA/Omega3/Dha/Fish Oil ( Gummies) 400 Mcg-32.5 Mg (25 Mg-7.5 Mg) Tab.chew, 1 EACH PO DAILY, (Reported) Entered as Reported by: SD CHILDS on 01/12/22 1507 Rifaximin (Xifaxan) 550 Mg Tablet, 550 MG PO BID Prescribed by: JOHANA PURI on 01/15/22 0653 Spironolactone (Spironolactone) 50 Mg Tablet, 25 MG PO DAILY, (Reported) Entered as Reported by: SD CHILDS on 01/12/22 1503 Past Gaeieuh-Bwxvcm-Gaevzx Hx Patient Social History Smoking Status: Former Smoker Former Smoker, Quit: Apr 10, 2001 Type Used: Cigarettes 2nd Hand Smoke Exposure: No Recent Hopitalizations: No Alcohol Use?: No Have you traveled recently?: No Immunizations Up To Date Tetanus Booster (TDap): Unknown Date of Pneumonia Vaccine: Apr 10, 2012 Date of Influenza Vaccine: May 30, 2019 Seasonal Allergies Seasonal Allergies: Yes Surgeries History of Surgeries: Yes (L TKR 2009;CARDIOVERSION FOR AFIB;BANDING ESOPH. VARICES) Surgeries: Abdominal, Adenoidectomy, Cardiac, Joint Replacement, Orthopedic, Pacemaker, Tonsillectomy Respiratory History of Respiratory Disorde: Yes (COVID PNEUMONIA 09/2021-HOSPITALIZED) Respiratory Disorders: Pneumonia, COPD Cardiovascular History of Cardiac Disorders: Yes (CAROTID DISEASE; RBBB ON EKG, PACEMAKER; C ARDIOVERSION ) Cardiac Disorders: Atrial Fibrillation, High Cholesterol, Hypertension Neurological History of Neurological Disord: Yes (HX OF HEPATIC ENCEPHALOPATHY/HYPER AMMONEMIA) Reproductive System Sexually Transmitted Disease: No HIV/AIDS: No SEWER CONNECTOR History: Menopausal Genitourinary History of Genitourinary Disor: Yes (CHRONIC RENAL INSUFFICIENCY) Gastrointestinal History of Gastrointestinal Di: Yes (ELEVATED AMMONIA;ESOPHAGEAL VARICES BANDING ) Gastrointestinal Disorders: Colitis, Gastroesophageal Reflux, Liver Disease/Jaundice, Gastrointestinal Bleed, Diverticulosis, Hemorrhoids, Esophageal Varices, Ulcer, Cirrhosis Musculoskeletal History of Musculoskeletal Dis: Yes Musculoskeletal Disorders: Arthritis Endocrine History of Endocrine Disorders: No HEENT History of HEENT Disorders: Yes (GLASSES) Loss of Vision: Denies Hearing Impairment: Denies Cancer History of Cancer: No Psychosocial History of Psychiatric Problem: Yes Behavioral Health Disorders: Anxiety Integumentary History of Skin or Integumenta: No Blood Transfusions History of Blood Disorders: Yes (IRON DEF ANEMIA, thrombocytopenia) Adverse Reaction to a Blood Tr: Yes (HAS HAD BLOOD WITH NO REACTION) Family Medical History Significant Family History: No Pertinent Family Hx Family Medial History: Cardiovascular disease SON Review of Systems-General Constitutional: No chills, No diaphoresis EENTM: No ear discharge, No hearing loss Respiratory: No cough, No dyspnea on exertion Cardiovascular: No chest pain, No edema Gastrointestinal: No abdominal pain, No constipation; hematemesis; No nausea, No vomiting Genitourinary: No decreased output, No discharge Musculoskeletal: No gout, No muscle stiffness Skin: No change in color, No change in hair/nails Psychiatric/Neurological: Denies Anxiety, Denies Depressed All Other Systems Reviewed Negative Unless Noted: Yes Physical Exam-General Problems Physical Exam Vital Signs Vital Signs - First Documented 04/24/22 16:20 Temp 36.4 Pulse 97 Resp 20 B/P (MAP) 101/69 (80) Pulse Ox 100 O2 Delivery Room Air Capillary Refill : General Appearance: no apparent distress, thin HEENT: PERRL/EOMI, normal ENT inspection Neck: supple, normal inspection Respiratory: no respiratory distress, no accessory muscle use Cardiovascular: normal peripheral pulses, no edema Gastrointestinal: non tender, soft, distended (mild), other (Pleurix catheter present LUQ) Back: normal inspection, no CVA tenderness Extremities: normal inspection, no pedal edema Neurologic/Psychiatric: alert, normal mood/affect Skin: normal color, warm/dry Lymphatic: no adenopathy Data Review Labs Laboratory Tests 04/24/22 16:21: White Blood Count 3.9L, Red Blood Count 2.71L, Hemoglobin 8.7L, Hematocrit 26L, Mean Corpuscular Volume 96, Mean Corpuscular Hemoglobin 32, Mean Corpuscular Hemoglobin Concent 34, Red Cell Distribution Width 16.8H, Platelet Count 88L, Mean Platelet Volume 9.2, Immature Granulocyte % (Auto) 1, Neutrophils (%) (Auto) 64, Lymphocytes (%) (Auto) 18, Monocytes (%) (Auto) 12, Eosinophils (%) (Auto) 4, Basophils (%) (Auto) 1, Neutrophils # (Auto) 2.5, Lymphocytes # (Auto) 0.7L, Monocytes # (Auto) 0.5, Eosinophils # (Auto) 0.2, Basophils # (Auto) 0.0, Immature Granulocyte # (Auto) 0.0, Percent Immature Platelet Fraction 0.9, Prothrombin Time 17.4H, INR Comment 1.4, Activated Partial Thromboplast Time 34, Sodium Level 131L, Potassium Level 4.0, Chloride Level 110H, Carbon Dioxide Leve l 13L, Anion Gap 8, Blood Urea Nitrogen 49H, Creatinine 2.23H, Estimat Glome rular Filtration Rate 21, BUN/Creatinine Ratio 22, Glucose Level 137H, Calcium Level 7.7L, Corrected Calcium 9.1, Total Bilirubin 1.3H, Aspartate Amino Transf (AST/SGOT) 51H, Alanine Aminotransferase (ALT/SGPT) 29, Alkaline Phosphatase 184H, Total Protein 6.2L, Albumin 2.2L 04/24/22 21:23: White Blood Count 3.8L, Red Blood Count 2.31L, Hemoglobin 7.5L, Hematocrit 22L, Mean Corpuscular Volume 96, Mean Corpuscular Hemoglobin 33, Mean Corpuscular Hemoglobin Concent 34, Red Cell Distribution Width 17.0H, Platelet Count 88L, Mean Platelet Volume 9.3, Percent Immature Platelet Fraction 0.8 Assessment/Plan Assessment/Plan Assessment/Plan GI Bleed Bloody stools h/o esophageal varices and banding Liver cirrhosis Diverticulosis Anemia h/o colonoscopy with cauterization of a lower GI bleed internal and external hemorrhoids Pt's hgb has decreased from yesterday, continue to monitor and transfuse if needed Continue diet Family states that they are trying to transfer patient to [facility] in [place] today Clinical Quality Measures DVT/VTE Risk/Contraindication: Contraindications-Pharm: Other *list below* Other: TRINIDAD Gutierres DO 04/25/22 1146: History of Present Illness History of Present Illness History of Present Illness Consult requested by Dr. Puri for lower GI bleed Patient 82-year-old female with recurrent GI bleeds and has been hospitalized multiple times. She has liver cirrhosis and diverticulosis and esophageal varices that required banding previously. Patient has been passing a large amount of bright red blood that began yesterday. She began having more weakness. She has brought by EMS to the hospital for further evaluation. She has been seeing Dr. Montemayor at [facility]. She does not have any abdominal pain. She has no nausea or vomiting. She was on hospice care prior to coming to the hospital. She denies any fever sweats chills shortness of breath or chest pain. Allergies and Home Medications Allergies Coded Allergies: codeine (Unverified Allergy, Unknown, Pt has received Morphine in the paste, 05/23/20) Patient Home Medication List Home Medication List Reviewed: Yes Cetirizine HCl (Cetirizine HCl) 10 Mg Tablet, 10 MG PO DAILY, (Reported) Entered as Reported by: HOLLI GARDINER on 10/07/21 143 Fluticasone Propionate (Flonase Allergy Relief) 9.9 Ml [place].susp, 1 SPRAY NSEACH DAILY PRN for CONGESTION, (Reported) Entered as Reported by: HOLLI GARDINER on 10/07/21 1438 Fluticasone/Salmeterol (Advair 250-50 Diskus) 1 Each Blst.w.dev, 1 EACH IH DAILY, (Reported) Entered as Reported by: HOLLI GARDINER on 10/07/21 1438 Furosemide (Furosemide) 20 Mg Tablet, 20 MG PO Q48H, (Reported) Entered as Reported by: HOLLI GARDINER on 10/07/21 143 Hydroxyzine HCl (Hydroxyzine HCl) 10 Mg Tablet, 10 MG PO BID, (Reported) Entered as Reported by: HOLLI GARDINER on 10/07/21 1438 Iron Ps Cmplx/Vit B12/FA (Ferrex 150 Forte Capsule) 1 Each Capsule, 1 EACH PO DAILY, (Reported) Entered as Reported by: HOLLI GARDINER on 10/07/21 1438 Lactulose (Lactulose) 10 Gm/15 Ml Solution, 15 ML PO BID, (Reported) Entered as Reported by: HOLLI GARDINER on 10/07/21 1438 Lorazepam (Ativan) 1 Mg Tablet, 0.5 MG PO BID PRN for ANXIETY OR SLEEP, (Reported) Entered as Reported by: HOLLI GARDINER on 10/07/21 1438 Metoprolol Succinate (Metoprolol Succinate) 25 Mg Tab.er.24h, 12.5 MG PO DAILY, (Reported) Entered as Reported by: HOLLI GARDINER on 01/07/22 1208 Pantoprazole Sodium (Pantoprazole Sodium) 40 Mg Tablet.dr, 40 MG PO DAILY, (Reported) Entered as Reported by: HOLLI GARDINER on 10/07/21 1438 [id number]/FA/Omega3/Dha/Fish Oil ( Gummies) 400 Mcg-32.5 Mg (25 Mg-7.5 Mg) Tab.chew, 1 EACH PO DAILY, (Reported) Entered as Reported by: SD CHILDS on 01/12/22 1507 Rifaximin (Xifaxan) 550 Mg Tablet, 550 MG PO BID Prescribed by: JOHANA PURI on 01/15/22 0653 Spironolactone (Spironolactone) 50 Mg Tablet, 25 MG PO DAILY, (Reported) Entered as Reported by: SD CHILDS on 01/12/22 1503 Past Eyjqveh-Nycncu-Dnglef Hx Family Medical History Family Medial History: Cardiovascular disease SON Review of Systems-General Constitutional: No chills, No diaphoresis; weakness EENTM: No blurred vision, No double vision Respiratory: No cough, No dyspnea on exertion Cardiovascular: No chest pain Gastrointestinal: No abdominal pain, No nausea, No vomiting Genitourinary: No decreased output, No discharge Musculoskeletal: No gout, No muscle stiffness Skin: No change in color, No change in hair/nails Psychiatric/Neurological: Denies Anxiety, Denies Depressed All Other Systems Reviewed Negative Unless Noted: Yes (Negative excepted noted.) Physical Exam-General Problems Physical Exam General Appearance: no apparent distress, other (fatigued) HEENT: PERRL/EOMI, normal ENT inspection Neck: supple, normal inspection Respiratory: chest non-tender, no respiratory distress, no accessory muscle use Cardiovascular: regular rate, rhythm, no edema Gastrointestinal: non tender, soft, other (Pleurix catheter present LUQ, small volume ascites) Rectal: deferred Back: normal inspection, no CVA tenderness Extremities: normal inspection, no pedal edema Neurologic/Psychiatric: alert, normal mood/affect, oriented x 3 Skin: normal color, warm/dry Lymphatic: no adenopathy Assessment/Plan Assessment/Plan Assessment/Plan GI Bleed lower Bloody stools h/o esophageal varices and banding Liver cirrhosis Diverticulosis Anemia h/o colonoscopy with cauterization of a lower GI bleed internal and external hemorrhoids Pt's hgb has decreased from yesterday, continue to monitor and transfuse if needed Continue diet Was on hospice care Family states that they are trying to transfer patient to [facility] in [place] today If stays and bleeding continues may need to repeat endoscopy. Supervisory-Addendum Brief Verification & Attestation Participated in pt care: history, MDM, physical Personally performed: exam, history, MDM, supervision of care Care discussed with: Medical Student Procedures: n/a Results interpretation: Verified all documentation Verification and Attestation of Medical Student E/M Service A medical student performed and documented this service in my presence. I reviewed and verified all information documented by the medical student and made modifications to such information, when appropriate. I personally performed the physical exam and medical decision making. Trinidad Adams Apr 25, 2022,11:44 JEAN PINEDO Apr 25, 2022 07:36 TRINIDAD ADAMS DO Apr 25, 2022 11:46
[2022-04-25] MEDS: SENNOSIDES 8.6 MG (SENOKOT) TAB PO SCH (08:00)
[2022-04-25] MEDS: DOCUSATE SODIUM 100 MG (COLACE) CAP PO SCH (08:00)
[2022-04-25] MEDS: PANTOPRAZOLE 40 MG (PROTONIX) VIAL IV SCH (08:41)
[2022-04-25 12:09] LABS: HEMOGLOBIN 9.5 g/dL (11.5-16.0)
== END 2022-04-25 14:30 | disposition home or self-care (01) ==
LOC: EDUNIT# 16:08 → ER 16:09 → 4TH 17:39 → CSD 18:12
PROVIDERS: ADMIT Internal Medicine; ATTEND Internal Medicine
DX: K92.1 Melena (principal); Z87.891 Personal history of nicotine dependence; D64.9 Anemia, unspecified; K74.60 Unspecified cirrhosis of liver; Z79.899 Other long term (current) drug therapy
CPT/HCPCS: 36430; 80053; 85014; 85018; 85025; 85027; 85610; 85730; 86850; 86900; 86901; 86920; 96361 ×2; 96375; 96376; 99284; G0378; P9016; 36415

== ENCOUNTER 2022-04-29 08:36 | Inpatient (IN) | payer MEDICARE ==
[~2022-04-29] VITALS: Ht 165.1 cm; Wt 65.7 kg
[2022-04-29] VITALS (7 sets, daily range): BP systolic 109–131; BP diastolic 53–61
[2022-04-29 09:02] LABS: BASOPHILS % (AUTO) 0 % (0-10); EOSINOPHILS # (AUTO) 0.1 10^3/uL (0.0-0.3); EOSINOPHILS % (AUTO) 2 % (0-10); HEMATOCRIT 24 % (35-52); HEMOGLOBIN 8.4 g/dL (11.5-16.0); LYMPHOCYTES # (AUTO) 1.5 10^3/uL (1.0-4.0); LYMPHOCYTES % (AUTO) 19 % (12-44); MEAN CORPUSCULAR HEMOGLOBIN 33 pg (25-34); MEAN CORPUSCULAR HGB CONC 35 g/dL (32-36); MEAN CORPUSCULAR VOLUME 95 fL (80-99); MONOCYTES # (AUTO) 0.3 10^3/uL (0.0-1.0); MONOCYTES % (AUTO) 4 % (0-12); NEUTROPHILS # (AUTO) 5.6 10^3/uL (1.8-7.8); NEUTROPHILS % (AUTO) 74 % (42-75); PLATELET COUNT 110 10^3/uL (130-400); WHITE BLOOD COUNT 7.7 10^3/uL (4.3-11.0)
--- NOTE | 2022-04-29 09:09 | ED Abdominal Pain ---
General Chief Complaint: Abdominal/GI Problems Stated Complaint: ABDOMINAL PAIN Nursing Triage Note: PT TO RM 3 BY EMS WITH CC OF ABD PAIN SINCE THIS AM. PT REPORTS HAS HX OF CIRRHOSIS AND ASCITES. PT STATES TAKE 1L OF FLUID OFF ABD EVERY OTHER DAY. LAST L TAKEN OFF YESTERDAY. DENIES NAUSEA AND VOMITING. PT REPORTS LAST BM YESTERDAY. PT A&OX4 Source of Information: Patient, EMS, Family Exam Limitations: No Limitations History of Present Illness Date Seen by Provider: Apr 29, 2022 Time Seen by Provider: 08:39 Initial Comments 82-year-old female with past medical history of cirrhosis with chronic ascites and a Pleurx catheter with draining it every other day coming in due to abdominal pain with distention. Drained about a liter off of it yesterday, today feels like its more fluid than usual, it is hard for her, and she is having abdominal pain over her entire abdomen which is constant, crampy, nothing seems to make it better or worse. Denies any fever, chest pain, nausea, vomiting, diarrhea, weakness that is focal, numbness, headache, vision changes, or any other concerns. Had a normal bowel movement yesterday. Does feel slightly short of breath with the extra fluid. Allergies and Home Medications Allergies Coded Allergies: codeine (Unverified Allergy, Unknown, Pt has received Morphine in the paste, 05/23/20) Patient Home Medication List Home Medication List Reviewed: Yes Cetirizine HCl (Cetirizine HCl) 10 Mg Tablet, 10 MG PO DAILY, (Reported) Entered as Reported by: HOLLI GARDINER on 10/07/21 1438 Fluticasone Propionate (Flonase Allergy Relief) 9.9 Ml [place].susp, 1 SPRAY NSEACH DAILY PRN for CONGESTION, (Reported) Entered as Reported by: HOLLI GARDINER on 10/07/21 1438 Fluticasone/Salmeterol (Advair 250-50 Diskus) 1 Each Blst.w.dev, 1 EACH IH DAILY, (Reported) Entered as Reported by: HOLLI GARDINER on 10/07/21 1438 Furosemide (Furosemide) 20 Mg Tablet, 20 MG PO Q48H, (Reported) Entered as Reported by: HOLLI GARDINER on 10/07/21 1438 Hydroxyzine HCl (Hydroxyzine HCl) 10 Mg Tablet, 10 MG PO BID, (Reported) Entered as Reported by: HOLLI GARDINER on 10/07/21 1438 Iron Ps Cmplx/Vit B12/FA (Ferrex 150 Forte Capsule) 1 Each Capsule, 1 EACH PO DAILY, (Reported) Entered as Reported by: HOLLI GARDINER on 10/07/21 1438 Lactulose (Lactulose) 10 Gm/15 Ml Solution, 15 ML PO BID, (Reported) Entered as Reported by: HOLLI GARDINER on 10/07/21 1438 Lorazepam (Ativan) 1 Mg Tablet, 0.5 MG PO BID PRN for ANXIETY OR SLEEP, (Reported) Entered as Reported by: HOLLI GARDINER on 10/07/21 1438 Metoprolol Succinate (Metoprolol Succinate) 25 Mg Tab.er.24h, 12.5 MG PO DAILY, (Reported) Entered as Reported by: HOLLI GARDINER on 01/07/22 1208 Pantoprazole Sodium (Pantoprazole Sodium) 40 Mg Tablet.dr, 40 MG PO DAILY, (Reported) Entered as Reported by: HOLLI GARDINER on 10/07/21 1438 Pgz574/FA/Omega3/Dha/Fish Oil ( Gummies) 400 Mcg-32.5 Mg (25 Mg-7.5 Mg) Tab.chew, 1 EACH PO DAILY, (Reported) Entered as Reported by: SD CHILDS on 01/12/22 1507 Rifaximin (Xifaxan) 550 Mg Tablet, 550 MG PO BID Prescribed by: JOHANA PURI on 01/15/22 0653 Spironolactone (Spironolactone) 50 Mg Tablet, 25 MG PO DAILY, (Reported) Entered as Reported by: SD CHILDS on 01/12/22 1503 Review of Systems Review of Systems Constitutional: No fever EENTM: No Blurred Vision Respiratory: Denies Cough Cardiovascular: Denies Chest Pain Gastrointestinal: Abdomen Distended, Abdominal Pain Genitourinary: No Symptoms Reported Musculoskeletal: no symptoms reported Skin: no symptoms reported Psychiatric/Neurological: No Symptoms Reported Endocrine: No Symptoms Reported Hematologic/Lymphatic: No Symptoms Reported All Other Systems Reviewed Negative Unless Noted: Yes Past Ebimods-Qzrosy-Vlxppx Hx Patient Social History Tobacco Use?: No Pt feels they are or have been: No Immunizations Up To Date Tetanus Booster (TDap): Unknown First/Initial COVID19 Vaccinat: 2019 Second COVID19 Vaccination Juan Pablo: 2020 Third COVID19 Vaccination Date: MAY 2021 Seasonal Allergies Seasonal Allergies: Yes Past Medical History Surgery/Hospitalization HX: CKD, ANEMIA, CARDIAC TAMPONADE, CAD, PACEMAKER, OA, LIVER CIRRHOSIS, AFIB, HYPERLIPIDEMIA, TIA, COPD, GERD, DIVERTICULOSIS Surgeries: Yes (L TKR 2009;CARDIOVERSION FOR AFIB;BANDING ESOPH. VARICES) Abdominal, Adenoidectomy, Cardiac, Joint Replacement, Orthopedic, Pacemaker, Tonsillectomy Respiratory: Yes (COVID PNEUMONIA 09/2021-HOSPITALIZED) Pneumonia, COPD Currently Using CPAP: No Currently Using BIPAP: No Cardiac: Yes (CAROTID DISEASE; RBBB ON EKG, PACEMAKER; CARDIOVERSION ) Atrial Fibrillation, High Cholesterol, Hypertension Neurological: Yes (HX OF HEPATIC ENCEPHALOPATHY/HYPER AMMONEMIA) [employer] History: Menopausal Sexually Transmitted Disease: No HIV/AIDS: No Genitourinary: Yes (CHRONIC RENAL INSUFFICIENCY) Gastrointestinal: Yes (ELEVATED AMMONIA;ESOPHAGEAL VARICES BANDING ) Colitis, Gastroesophageal Reflux, Liver Disease/Jaundice, Gastrointestinal Bleed, Diverticulosis, Hemorrhoids, Esophageal Varices, Ulcer, Cirrhosis Musculoskeletal: Yes Arthritis Endocrine: No HEENT: Yes (GLASSES) Loss of Vision: Denies Hearing Impairment: Denies Cancer: No Psychosocial: Yes Anxiety Integumentary: No Blood Disorders: Yes (IRON DEF ANEMIA, thrombocytopenia) Adverse Reaction/Blood Tranf: Yes (HAS HAD BLOOD WITH NO REACTION) Family Medical History Cardiovascular disease SON No Pertinent Family Hx SOCIAL HISTORY: -HX OF HEAVY CIGARETTE SMOKING--QUIT AGE 63 -HX OF HEAVY ALCOHOL USE--QUIT AGE 63 ESOPHAGEAL BANDING 2019 Physical Exam Vital Signs Vital Signs - First Documented 04/29/22 08:40 Temp 37.6 Pulse 110 Resp 22 B/P (MAP) 130/65 (86) Pulse Ox 100 O2 Delivery Room Air Capillary Refill : Less Than 3 Seconds Height/Weight/BMI Height: 5'5.00" Weight: 184lbs. 8.0oz. 83.247852iw; 24.00 BMI Method:Estimated General Appearance: WD/WN, no apparent distress HEENT: PERRL/EOMI, normal ENT inspection, pharynx normal Neck: non-tender, full range of motion, supple, normal inspection Respiratory: chest non-tender, lungs clear, normal breath sounds, no respiratory distress, no accessory muscle use Cardiovascular: no edema, no murmur, tachycardia Gastrointestinal: normal bowel sounds, distended (Fluid wave); No guarding, No rebound; tenderness Extremities: normal range of motion, non-tender, normal inspection, no pedal edema, no calf tenderness, normal capillary refill Back: normal inspection, no CVA tenderness Neurologic/Psychiatric: no motor/sensory deficits, alert, normal mood/affect, oriented x 3 Skin: normal color, warm/dry Lymphatic: no adenopathy Focused Exam Lactate Level 04/29/22 08:55: Lactic Acid Level 1.62 Lactic Acid Level Laboratory Tests Test 04/29/22 08:55 Lactic Acid Level 1.62 MMOL/L (0.50-2.00) Procedures/Interventions Progress Informed consent was obtained verbally with the patient as she does have capacity at this time. A diagnostic paracentesis was performed. Ultrasound guidance was utilized and a pocket of ascites that was safe was used in her right lower quadrant away from her Pleurx catheter on the left side. The area was cleaned and allowed to dry, numbed with lidocaine 2% with epinephrine, 4 cc were used. Then a 22-gauge needle with a 20 cc syringe was used to pull back to the cloudy yellow ascites. Patient tolerated the procedure well and had no bleeding afterwards. Bandage was placed afterwards. Progress/Results/Core Measures Results/Orders Lab Results Laboratory Tests Test 04/29/22 08:40 04/29/22 08:55 04/29/22 09:40 04/29/22 09:59 Range/Units Lactate Dehydrogenase 217 125-220 U/L White Blood Count 7.7 4.3-11.0 10^3/uL Red Blood Count 2.54 L 3.80-5.11 10^6/uL Hemoglobin 8.4 L 11.5-16.0 g/dL Hematocrit 24 L 35-52 % Mean Corpuscular Volume 95 80-99 fL Mean Corpuscular Hemoglobin 33 25-34 pg Mean Corpuscular Hemoglobin Concent 35 32-36 g/dL Red Cell Distribution Width 17.0 H 10.0-14.5 % Platelet Count 110 L 130-400 10^3/uL Mean Platelet Volume 10.0 9.0-12.2 fL Immature Granulocyte % (Auto) 1 % Neutrophils (%) (Auto) 74 42-75 % Lymphocytes (%) (Auto) 19 12-44 % Monocytes (%) (Auto) 4 0-12 % Eosinophils (%) (Auto) 2 0-10 % Basophils (%) (Auto) 0 0-10 % Neutrophils # (Auto) 5.6 1.8-7.8 10^3/uL Lymphocytes # (Auto) 1.5 1.0-4.0 10^3/uL Monocytes # (Auto) 0.3 0.0-1.0 10^3/uL Eosinophils # (Auto) 0.1 0.0-0.3 10^3/uL Basophils # (Auto) 0.0 0.0-0.1 10^3/uL Immature Granulocyte # (Auto) 0.1 0.0-0.1 10^3/uL Percent Immature Platelet Fraction 1.1 0.0-7.6 % Prothrombin Time 16.8 H 12.2-14.7 SEC INR Comment 1.3 0.8-1.4 Activated Partial Thromboplast Time 36 H 24-35 SEC Sodium Level 130 L 135-145 MMOL/L Potassium Level 4.1 3.6-5.0 MMOL/L Chloride Level 106 98-107 MMOL/L Carbon Dioxide Level 14 L 21-32 MMOL/L Anion Gap 10 5-14 MMOL/L Blood Urea Nitrogen 43 H 7-18 MG/DL Creatinine 2.12 H 0.60-1.30 MG/DL Estimat Glomerular Filtration Rate 23 BUN/Creatinine Ratio 20 Glucose Level 121 H 70-105 MG/DL Lactic Acid Level 1.62 0.50-2.00 MMOL/L Calcium Level 7.5 L 8.5-10.1 MG/DL Corrected Calcium 8.9 8.5-10.1 MG/DL Total Bilirubin 1.5 H 0.1-1.0 MG/DL Aspartate Amino Transf (AST/SGOT) 45 H 5-34 U/L Alanine Aminotransferase (ALT/SGPT) 26 0-55 U/L Alkaline Phosphatase 196 H 40-136 U/L Total Protein 6.2 L 6.4-8.2 GM/DL Albumin 2.2 L 3.2-4.5 GM/DL Lipase 71 8-78 U/L Urine Color YELLOW Urine Clarity CLEAR Urine pH 5.0 5-9 Urine Specific [place] 1.020 1.016-1.022 Urine Protein NEGATIVE NEGATIVE Urine Glucose (UA) NEGATIVE NEGATIVE Urine Ketones NEGATIVE NEGATIVE Urine Nitrite NEGATIVE NEGATIVE Urine Bilirubin NEGATIVE NEGATIVE Urine Urobilinogen 0.2 < = 1.0 MG/DL Urine Leukocyte Esterase TRACE H NEGATIVE Urine RBC (Auto) NEGATIVE NEGATIVE Urine RBC NONE /HPF Urine WBC 0-2 /HPF Urine Squamous Epithelial Cells 0-2 /HPF Urine Crystals NONE /LPF Urine Bacteria FEW H /HPF Urine Casts NONE /LPF Urine Mucus SMALL H /LPF Urine Culture Indicated YES My Orders Orders - MILEY SLOAN MD Cbc With Automated Diff (04/29/22 08:51) Comprehensive Metabolic Panel (04/29/22 08:51) Lipase (04/29/22 08:51) Protime With Inr (04/29/22 08:51) Partial Thromboplastin Time (04/29/22 08:51) Ua Culture If Indicated (04/29/22 08:51) Ct Abd/Pelvis Wo(Kidney Stone) (04/29/22 08:51) Body Fluid Cell Count (04/29/22 08:51) Glucose,Body Fluid (04/29/22 08:51) Total Protein,Body Fluid (04/29/22 08:51) Body Fluid Culture (04/29/22 08:51) Ldh,Body Fluid (04/29/22 08:51) Albumin,Body Fluid (04/29/22 08:51) Blood Culture (04/29/22 08:51) Ed Iv/Invasive Line Start (04/29/22 08:51) Lactic Acid Analyzer (04/29/22 08:51) Urine Culture (04/29/22 09:40) Ceftriaxone 1 Gm Pre-Mix (Rocephin 1 Gm (04/29/22 10:00) LDH (04/29/22 10:00) Vital Signs/I&O 04/29/22 08:40 Temp 37.6 Pulse 110 Resp 22 B/P (MAP) 130/65 (86) Pulse Ox 100 O2 Delivery Room Air Blood Pressure Mean: 86 Progress Progress Note : Progress Note 82-year-old female with liver disease coming in due to worsening abdominal pain and distention. ABCs were intact and vitals were stable on presentation although she is mildly tachycardic. I do feel a fluid wave on exam and she does have abdominal pain. [id number] ultrasound does show ascites. She typically gets 1 L of ascites pulled off every other day. She had 1 L pulled off yesterday and 1 L pulled off this morning. They are unsure if it was cloudy or not. No fevers that they know of but she has had chills in the past day. I did a diagnostic paracentesis and an IV was placed and basic labs were obtained as well as lactic acid and blood cultures. Her white blood cell count is normal, lactic acid is normal, hemoglobin around 8.5 which is near her baseline and she does not exhibit any signs of bleeding in stool, and is not having any vomiting. Her MELD score today is 24. CT abdomen and pelvis was obtained and does not show any acute findings that are new for her. Given that the diagnostic paracentesis showed cloudy ascites and she has abdominal pain with chills, my concern was for SBP. She was given ceftriaxone immediately after the cultures were obtained. I contacted Dr. Ferguson who admit the patient under observation status until the cultures come back from the peritoneal fluid. I then contacted Dr. Grace for consultation as well. Diagnostic Imaging Diagonstic Imaging: CT (abd/pelvis) Comments [email or web address] [place], [place] NAME: JANICE RUTLEDGE [facility] REC#: [id number] PT STATUS: REG ER : 1940 PHYSICIAN: MILEY SLOAN MD ADMIT DATE: 04/29/22/ER Draft Date of Exam:04/29/22 CT ABD/PELVIS WO(KIDNEY STONE) Clinical Indication: Patient with abdominal pain since this morning. Patient's history of ascites and cirrhosis. Patient has a liter of fluid taking off of abdomen every other day. Last liter was taken off yesterday. Patient was in hospital last week for bleed in the abdomen. Exam: CT exam of the abdomen and pelvis is performed without IV or oral contrast using stone protocol. Coronal and sagittal reformatted images were created. Auto Exposure Controls were utilized during the CT exam to meet ALARA standards for radiation dose reduction. Comparisons: CT scan of abdomen and pelvis with contrast dated 01/27/2022. Findings: There are small bilateral pleural effusions which has decreased on the right and slightly increased on the left. There is a moderate to large amounts of abdominal ascites again noted. There is a pleural drain seen the distal portion overlying the pelvis. There are liver findings consistent with cirrhosis. Lobulated liver surface is seen. There is no gross liver mass. There is prominence of the caudate lobe. The portal vein is prominent measuring 1.9 cm in AP dimensions. 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 There is wall thickening involving the distal esophagus which may be related to esophagitis or contraction. Stomach shows no significant abnormality. Splenomegaly is again seen. Spleen measures 14.5 cm in craniocaudal dimension. Pancreas is unremarkable. Multiple gallstones seen throughout the gallbladder noted. There is no significant distention of the gallbladder. There are no dilated intrahepatic or extrahepatic ducts. There is no lymphadenopathy. Both kidneys are unremarkable with no hydronephrosis or mass. There are no urinary tract stones. Bladder is partially obscured by ascites, but is unremarkable as visualized. There is no intestinal obstruction. There is diverticulosis involving the sigmoid colon with no CT evidence of diverticulitis. Appendix is not definitively seen on this exam and may be obscured or surgically absent. There is no intra-abdominal free air. There is aneurysmal dilation of the distal abdominal aorta which measures roughly 3.4 cm in transverse dimensions measured on the coronal sequence. Uterus and adnexal structures show no significant abnormality. Fluid-filled umbilical region is seen related to ascites. There is anasarca again seen. IMPRESSION: 1: There is interval wall thickening of the esophagus and esophagitis versus contraction may be considered. 2: There are abdominal findings consistent with liver cirrhosis with findings of portal hypertension, hepatomegaly, periesophageal varices and abdominal ascites. 3: There is moderate to large amounts of abdominal ascites again seen. Peritoneal drain seen in place in the pelvis. 4: There are no urinary tract stones seen. 5: Cholelithiasis. 6: Distal abdominal aortic aneurysm is again noted. Dictated on workstation # [id number] Dict: 04/29/22922 Trans: 04/29/22 0958 [facility] [id number] Interpreted by: SARBJIT LOUIE MD Electronically signed by: Departure Impression Primary Impression: Cirrhosis of liver with ascites Qualified Codes: K70.31 - Alcoholic cirrhosis of liver with ascites Additional Impression: Abdominal pain Qualified Codes: R10.84 - Generalized abdominal pain Disposition: ADMITTED INPATIENT Condition: Stable Admissions Decision to Admit Reason: Admit from ER (General) Decision to Admit/Date: Apr 29, 2022 Time/Decision to Admit Time: 10:25 Departure-Patient Inst. Referrals: MICHELINE FERGUSON MD (PCP/Family) Primary Care Physician MILEY SLOAN MD Apr 29, 2022 09:09
[2022-04-29 09:15] LABS: ALBUMIN 2.2 GM/DL (3.2-4.5)
[2022-04-29 09:16] LABS: POTASSIUM 4.1 MMOL/L (3.6-5.0)
[2022-04-29 09:17] LABS: CALCIUM 7.5 MG/DL (8.5-10.1)
[2022-04-29 09:18] LABS: INR 1.3 (0.8-1.4); PROTHROMBIN TIME PATIENT 16.8 SEC (12.2-14.7); TOTAL PROTEIN 6.2 GM/DL (6.4-8.2)
[2022-04-29 09:20] LABS: BILIRUBIN,TOTAL 1.5 MG/DL (0.1-1.0)
[2022-04-29 09:22] LABS: CREATININE SERUM 2.12 MG/DL (0.60-1.30)
[2022-04-29 09:49] LABS: BILIRUBIN,URINE NEGATIVE (NEGATIVE); CLARITY,URINE CLEAR; COLOR,URINE YELLOW; GLUCOSE, URINE (UA) NEGATIVE (NEGATIVE); KETONES,URINE NEGATIVE (NEGATIVE); LEUKOCYTE ESTERASE ,URINE TRACE (NEGATIVE); NITRITE,URINE NEGATIVE (NEGATIVE); PROTEIN,URINE NEGATIVE (NEGATIVE)
[2022-04-29 09:57] LABS: BACTERIA,URINE FEW /HPF; SQUAMOUS EPITHELIAL CELL,UR 0-2 /HPF; WBC,URINE 0-2 /HPF
--- NOTE | 2022-04-29 09:58 | Diagnostic Imaging Report ---
Clinical Indication: Patient with abdominal pain since this morning. Patient's history of ascites and cirrhosis. Patient has a liter of fluid taking off of abdomen every other day. Last liter was taken off yesterday. Patient was in hospital last week for bleed in the abdomen. Exam: CT exam of the abdomen and pelvis is performed without IV or oral contrast using stone protocol. Coronal and sagittal reformatted images were created. Auto Exposure Controls were utilized during the CT exam to meet ALARA standards for radiation dose reduction. Comparisons: CT scan of abdomen and pelvis with contrast dated 01/27/2022. Findings: There are small bilateral pleural effusions which has decreased on the right and slightly increased on the left. There is a moderate to large amounts of abdominal ascites again noted. There is a pleural drain seen the distal portion overlying the pelvis. There are liver findings consistent with cirrhosis. Lobulated liver surface is seen. There is no gross liver mass. There is prominence of the caudate lobe. The portal vein is prominent measuring 1.9 cm in AP dimensions. 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 There is wall thickening involving the distal esophagus which may be related to esophagitis or contraction. Stomach shows no significant abnormality. Splenomegaly is again seen. Spleen measures 14.5 cm in craniocaudal dimension. Pancreas is unremarkable. Multiple gallstones seen throughout the gallbladder noted. There is no significant distention of the gallbladder. There are no dilated intrahepatic or extrahepatic ducts. There is no lymphadenopathy. Both kidneys are unremarkable with no hydronephrosis or mass. There are no urinary tract stones. Bladder is partially obscured by ascites, but is unremarkable as visualized. There is no intestinal obstruction. There is diverticulosis involving the sigmoid colon with no CT evidence of diverticulitis. Appendix is not definitively seen on this exam and may be obscured or surgically absent. There is no intra-abdominal free air. There is aneurysmal dilation of the distal abdominal aorta which measures roughly 3.4 cm in transverse dimensions measured on the coronal sequence. Uterus and adnexal structures show no significant abnormality. Fluid-filled umbilical region is seen related to ascites. There is anasarca again seen. IMPRESSION: 1: There is interval wall thickening of the esophagus and esophagitis versus contraction may be considered. 2: There are abdominal findings consistent with liver cirrhosis with findings of portal hypertension, hepatomegaly, periesophageal varices and abdominal ascites. 3: There is moderate to large amounts of abdominal ascites again seen. Peritoneal drain seen in place in the pelvis. 4: There are no urinary tract stones seen. 5: Cholelithiasis. 6: Distal abdominal aortic aneurysm is again noted. Dictated by: Dictated on workstation # [id number]
[2022-04-29] MEDS ORDERED: cefTRIAXone 1 GM PRE-MIX 50 ML IV STA (10:00)
[2022-04-29 10:29] LABS: BODY FLUID RBC COUNT 0.003 10^6/uL; BODY FLUID WBC TOTAL COUNT 0.266 10^3/uL
[2022-04-29 10:46] LABS: ALBUMIN,BODY FLUID < 0.4 G/DL
[2022-04-29 10:50] LABS: BODY FLUID SOURCE PERITON; GLUCOSE,BODY FLUID 108 MG/DL; TOTAL PROTEIN,BODY FLUID < 0.8 G/DL
[2022-04-29 10:51] LABS: BODY FLUID APPEARENCE SLT CLDY; BODY FLUID COLOR YELLOW
[2022-04-29 10:54] LABS: LDH,BODY FLUID 38 U/L
--- NOTE | 2022-04-29 12:31 | Consultation - Surgery ---
ALYSA ALMENDAREZ 04/29/22 1230: History of Present Illness History of Present Illness Patient Consulted On(niraj/time) 04/29/22 12:29 Date Seen by Provider: Apr 29, 2022 Time Seen by Provider: 12:29 History of Present Illness Consult requested by Dr. Macario. Patient is an 82 y/o F with history of liver cirrhosis and chronic ascites with Pleurx catheter placement that presents with complaints of some lower abdominal discomfort onset earlier this morning. Patient's daughter reports she drained off about 2 L of fluid since last night and the patient began feeling very thirsty. Patient also reports some shortness of breath due to the fluid accum ulation. She rates her discomfort at a 5/10 currently. Patient temperature was found to be normal when it was taken in the ED this morning. Patient denies any chest pain, nausea, or vomiting at this time. Allergies and Home Medications Allergies Coded Allergies: codeine (Unverified Allergy, Unknown, Pt has received Morphine in the paste, 05/23/20) Patient Home Medication List Home Medication List Reviewed: Yes Ascorbic Acid (Vitamin C) 500 Mg Tablet, 500 MG PO DAILY, (Reported) Entered as Reported by: HOLLI GARDINER on 04/29/221509 Last Action: Reviewed Docusate Sodium (Docusate Sodium) 100 Mg Capsule, 100 MG PO DAILY, (Reported) Entered as Reported by: HOLLI GARDINER on 04/29/221509 Last Action: Reviewed Fluticasone Propionate (Flonase Allergy Relief) 50 Mcg/Actuation [place].susp, 1 SPRAY NSEACH HS, (Reported) Entered as Reported by: HOLLI GARDINER on 10/07/211437 Last Action: Reviewed Fluticasone/Salmeterol (Advair 250-50 Diskus) 1 Each Blst.w.dev, 1 EACH IH DAILY, (Reported) Entered as Reported by: HOLLI GARDINER on 10/07/211437 Last Action: Reviewed Furosemide (Furosemide) 20 Mg Tablet, 20 MG PO DAILY, (Reported) Entered as Reported by: HOLLI GARDINER on 10/07/211437 Last Action: Reviewed Hydroxyzine HCl (Hydroxyzine HCl) 10 Mg Tablet, 10 MG PO BID, (Reported) Entered as Reported by: HOLLI GARDINER on 10/07/211437 Last Action: Reviewed Iron Ps Cmplx/Vit B12/FA (Ferrex 150 Forte Capsule) 150 Mg-25 Mcg-1 Mg Capsule, 1 EACH PO BID, (Reported) Entered as Reported by: HOLLI GARDINER on 04/29/221509 Last Action: Reviewed Lactulose (Lactulose) 10 Gm/15 Ml Solution, 15 ML PO BID, (Reported) Entered as Reported by: HOLLI GARDINER on 10/07/211437 Last Action: Reviewed Loratadine (Loratadine) 10 Mg Tablet, 10 MG PO DAILY, (Reported) Entered as Reported by: HOLLI GARDINER on 04/29/221509 Last Action: Reviewed Lorazepam (Ativan) 1 Mg Tablet, 0.5-1 MG PO BID PRN for ANXIETY, (Reported) Entered as Reported by: HOLLI GARDINER on 10/07/211437 Last Action: Reviewed Mesalamine (Lialda) 1.2 Gram Tablet.dr, 2.4 GM PO BID, (Reported) Entered as Reported by: HOLLI GARDINER on 04/29/221509 Last Action: Reviewed Ondansetron HCl (Ondansetron HCl) 4 Mg Tablet, 4 MG PO Q8H PRN for CONSTIPATION- 1ST LINE, (Reported) Entered as Reported by: HOLLI GARDINER on 04/29/221509 Last Action: Reviewed Pantoprazole Sodium (Pantoprazole Sodium) 40 Mg Tablet.dr, 40 MG PO DAILY, (Reported) Entered as Reported by: HOLLI GARDINER on 10/07/211437 Last Action: Reviewed Polyethylene Glycol 3350 (Miralax) 17 Gram Powd.pack, 17 GM PO DAILY, (Reported) Entered as Reported by: HOLLI GARDINER on 04/29/221509 Last Action: Reviewed Sodium Bicarbonate (Sodium Bicarbonate) 650 Mg Tablet, 1,300 MG PO BID, (Reported) Entered as Reported by: HOLLI GARDINER on 04/29/221509 Last Action: Reviewed Spironolactone (Spironolactone) 50 Mg Tablet, 25 MG PO 1800, (Reported) Entered as Reported by: SD CHILDS on 01/12/221502 Last Action: Reviewed Discontinued Medications Cetirizine HCl (Cetirizine HCl) 10 Mg Tablet, 10 MG PO DAILY, (Reported) Discontinued Reason: Duplicate Order Entered as Reported by: HOLLI GARDINER on 10/07/21 1438 Last Action: Discontinued Diphenhydramine HCl (Benadryl Allergy) 25 Mg Tablet, 25 MG PO, (Reported) Discontinued Reason: No Longer Taking Entered as Reported by: HOLLI GARDINER on 04/29/22 1510 Last Action: Discontinued Iron Ps Cmplx/Vit B12/FA (Ferrex 150 Forte Capsule) 1 Each Capsule, 1 EACH PO DAILY, (Reported) Discontinued Reason: Duplicate Order Entered as Reported by: HOLLI GARDINER on 10/07/21 1438 Last Action: Discontinued Metoprolol Succinate (Metoprolol Succinate) 25 Mg Tab.er.24h, 12.5 MG PO DAILY, (Reported) Discontinued Reason: No Longer Taking Entered as Reported by: HOLLI GARDINER on 01/07/22 1208 Last Action: Discontinued Sic553/FA/Omega3/Dha/Fish Oil ( Gummies) 400 Mcg-32.5 Mg (25 Mg-7.5 Mg) Tab.chew, 1 EACH PO DAILY, (Reported) Discontinued Reason: No Longer Taking Entered as Reported by: SD CHILDS on 01/12/22 1507 Last Action: Discontinued Rifaximin (Xifaxan) 550 Mg Tablet, 550 MG PO BID Discontinued Reason: No Longer Taking Prescribed by: JOHANA PURI on 01/15/22 0653 Last Action: Discontinued Past Neppidg-Lrkeod-Fxauwl Hx Patient Social History Smoking Status: Former Smoker Former Smoker, Quit: Apr 10, 2001 Type Used: Cigarettes 2nd Hand Smoke Exposure: No Recent Hopitalizations: No Alcohol Use?: No Have you traveled recently?: Yes Immunizations Up To Date Tetanus Booster (TDap): Unknown Date of Pneumonia Vaccine: Apr 10, 2012 Date of Influenza Vaccine: May 30, 2019 Seasonal Allergies Seasonal Allergies: Yes Surgeries History of Surgeries: Yes (L TKR 2009;CARDIOVERSION FOR AFIB;BANDING ESOPH. 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 Genitourinary History of Genitourinary Disor: Yes (CHRONIC RENAL INSUFFICIENCY) Gastrointestinal History of Gastrointestinal Di: Yes (ELEVATED AMMONIA;ESOPHAGEAL VARICES BANDING ) Gastrointestinal Disorders: Colitis, Gastroesophageal Reflux, Liver Disease/Jaundice, Gastrointestinal Bleed, Diverticulosis, Hemorrhoids, Esophageal Varices, Ulcer, Cirrhosis Musculoskeletal History of Musculoskeletal Dis: Yes Musculoskeletal Disorders: Arthritis Endocrine History of Endocrine Disorders: No HEENT History of HEENT Disorders: Yes (GLASSES) Loss of Vision: Denies Hearing Impairment: Denies Cancer History of Cancer: No Psychosocial History of Psychiatric Problem: Yes Behavioral Health Disorders: Anxiety Integumentary History of Skin or Integumenta: No Blood Transfusions History of Blood Disorders: Yes (IRON DEF ANEMIA, thrombocytopenia) Adverse Reaction to a Blood Tr: Yes (HAS HAD BLOOD WITH NO REACTION) Family Medical History Significant Family History: No Pertinent Family Hx Family Medial History: Cardiovascular disease SON Review of Systems-General Constitutional: chills; No fever EENTM: No hearing loss, No blurred vision Respiratory: No cough; short of breath Cardiovascular: No chest pain, No edema Gastrointestinal: abdominal pain (lower abdominal pain); No nausea, No vomiting Genitourinary: No dysuria : No Musculoskeletal: No back pain, No joint pain Skin: change in color (mild jaundice) Psychiatric/Neurological: Denies Anxiety, Denies Depressed Physical Exam-General Problems Physical Exam Vital Signs Vital Signs - First Documented 04/29/22 08:40 Temp 37.6 Pulse 110 Resp 22 B/P (MAP) 130/65 (86) Pulse Ox 100 O2 Delivery Room Air Capillary Refill : Less Than 3 Seconds General Appearance: no apparent distress HEENT: PERRL/EOMI, pharynx normal Neck: non-tender, supple Respiratory: chest non-tender, no respiratory distress, no accessory muscle use Cardiovascular: no edema, no JVD Gastrointestinal: distended (due to chronic ascites), tenderness (lower abdomen) Rectal: deferred Back: normal inspection, no vertebral tenderness Extremities: no pedal edema, no calf tenderness Neurologic/Psychiatric: progressive assembler and 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 II-XII nml as tested, alert, normal mood/affect Skin: warm/dry, jaundice Lymphatic: no adenopathy Data Review Labs Laboratory Tests 04/29/22 08:40: Lactate Dehydrogenase 217 04/29/22 08:55: White Blood Count 7.7, Red Blood Count 2.54L, Hemoglobin 8.4L, Hematocrit 24L, Mean Corpuscular Volume 95, Mean Corpuscular Hemoglobin 33, Mean Corpuscular Hemoglobin Concent 35, Red Cell Distribution Width 17.0H, Platelet Count 110L, Mean Platelet Volume 10.0, Immature Granulocyte % (Auto) 1, Neutrophils (%) (Auto) 74, Lymphocytes (%) (Auto) 19, Monocytes (%) (Auto) 4, Eosinophils (%) (Auto) 2, Basophils (%) (Auto) 0, Neutrophils # (Auto) 5.6, Lymphocytes # (Auto) 1.5, Monocytes # (Auto) 0.3, Eosinophils # (Auto) 0.1, Basophils # (Auto) 0.0, Immature Granulocyte # (Auto) 0.1, Percent Immature Platelet Fraction 1.1, Prothrombin Time 16.8H, INR Comment 1.3, Activated Partial Thromboplast Time 36H , Sodium Level 130L, Potassium Level 4.1, Chloride Level 106, Carbon Dioxide Level 14L, Anion Gap 10, Blood Urea Nitrogen 43H, Creatinine 2.12H, Estimat Glomerular Filtration Rate 23, BUN/Creatinine Ratio 20, Glucose Level 121H, Lactic Acid Level 1.62, Calcium Level 7.5L, Corrected Calcium 8.9, Total Bilirubin 1.5H, Aspartate Amino Transf (AST/SGOT) 45H, Alanine Aminotransferase (ALT/SGPT) 26, Alkaline Phosphatase 196H, Total Protein 6.2L, Albumin 2.2L, Lipase 71 04/29/22 09:40: Urine Color YELLOW, Urine Clarity CLEAR, Urine pH 5.0, Urine Specific [place] 1.020, Urine Protein NEGATIVE, Urine Glucose (UA) NEGATIVE, Urine Ketones NEGATIVE, Urine Nitrite NEGATIVE, Urine Bilirubin NEGATIVE, Urine Urobilinogen 0.2, Urine Leukocyte Esterase TRACEH, Urine RBC (Auto) NEGATIVE, Urine RBC NONE, Urine WBC 0-2, Urine Squamous Epithelial Cells 0-2, Urine Crystals NONE, Urine Bacteria FEWH, Urine Casts NONE, Urine Mucus SMALLH, Urine Culture Indicated YES 04/29/22 09:59: Body Fluid Source [place], Body Fluid Color YELLOW, Body Fluid Appearance SLT CLDY, Body Fluid WBC 0.266, Body Fluid RBC 0.003, Body Fl Polynuclear WBCs (%)(Auto) 48.5, Body Fluid Mononuclear Cells % Auto 51.5, Body Fluid Slide Review Yes, Body Fluid Glucose 108, Body Fluid Total Protein < 0.8, Body Fluid Albumin < 0.4, Body Fluid Lactate Dehydrogenase 38 Assessment/Plan Assessment/Plan Assessment/Plan Chronic Ascites History of Liver Cirrhosis TRINIDAD ADAMS DO 04/29/221956: History of Present Illness History of Present Illness History of Present Illness Because requested by Dr. Macario for ascites abdominal pain. Patient is 82-year-old female with recently hospitalized for acute GI bleed. Patient's not having bleeding at this time she states. She is having abdominal pain that brought her to the emergency department. She has diffuse abdominal pain is crampy in nature. She has a Pleurx catheter which she drains a pproximately a liter off every other day. Patient states nothing was seems to make her pain better or worse. She feels more distended she also notes that she thinks that she had a fever. She also notes erythema to the left upper extremity and had a superficial wound or skin tear present. He currently is feeling okay. She denies any nausea vomiting fever sweats chills shortness of breath or chest pain at this time. Allergies and Home Medications Allergies Coded Allergies: codeine (Unverified Allergy, Unknown, Pt has received Morphine in the paste, 05/23/20) Patient Home Medication List Home Medication List Reviewed: Yes Ascorbic Acid (Vitamin C) 500 Mg Tablet, 500 MG PO DAILY, (Reported) Entered as Reported by: HOLLI GARDINER on 04/29/221509 Last Action: Reviewed Docusate Sodium (Docusate Sodium) 100 Mg Capsule, 100 MG PO DAILY, (Reported) Entered as Reported by: HOLLI GARDINER on 04/29/22 151 Last Action: Reviewed Fluticasone Propionate (Flonase Allergy Relief) 50 Mcg/Actuation [place].susp, 1 SPRAY NSEACH HS, (Reported) Entered as Reported by: HOLLI GARDINER on 10/07/21 1438 Last Action: Reviewed Fluticasone/Salmeterol (Advair 250-50 Diskus) 1 Each Blst.w.dev, 1 EACH IH DAILY, (Reported) Entered as Reported by: HOLLI GARDINER on 10/07/211437 Last Action: Reviewed Furosemide (Furosemide) 20 Mg Tablet, 20 MG PO DAILY, (Reported) Entered as Reported by: HOLLI GARDINER on 10/07/211437 Last Action: Reviewed Hydroxyzine HCl (Hydroxyzine HCl) 10 Mg Tablet, 10 MG PO BID, (Reported) Entered as Reported by: HOLLI GARDINER on 10/07/211437 Last Action: Reviewed Iron Ps Cmplx/Vit B12/FA (Ferrex 150 Forte Capsule) 150 Mg-25 Mcg-1 Mg Capsule, 1 EACH PO BID, (Reported) Entered as Reported by: HOLLI GARDINER on 04/29/221509 Last Action: Reviewed Lactulose (Lactulose) 10 Gm/15 Ml Solution, 15 ML PO BID, (Reported) Entered as Reported by: HOLLI GARDINER on 10/07/211437 Last Action: Reviewed Loratadine (Loratadine) 10 Mg Tablet, 10 MG PO DAILY, (Reported) Entered as Reported by: HOLLI GARDINER on 04/29/221509 Last Action: Reviewed Lorazepam (Ativan) 1 Mg Tablet, 0.5-1 MG PO BID PRN for ANXIETY, (Reported) Entered as Reported by: HOLLI GARDINER on 10/07/211437 Last Action: Reviewed Mesalamine (Lialda) 1.2 Gram Tablet.dr, 2.4 GM PO BID, (Reported) Entered as Reported by: HOLLI GARDINER on 04/29/221509 Last Action: Reviewed Ondansetron HCl (Ondansetron HCl) 4 Mg Tablet, 4 MG PO Q8H PRN for CONSTIPATION- 1ST LINE, (Reported) Entered as Reported by: HOLLI GARDINER on 04/29/221509 Last Action: Reviewed Pantoprazole Sodium (Pantoprazole Sodium) 40 Mg Tablet.dr, 40 MG PO DAILY, (Reported) Entered as Reported by: HOLLI GARDINER on 10/07/211437 Last Action: Reviewed Polyethylene Glycol 3350 (Miralax) 17 Gram Powd.pack, 17 GM PO DAILY, (Reported) Entered as Reported by: HOLLI GARDINER on 04/29/221509 Last Action: Reviewed Sodium Bicarbonate (Sodium Bicarbonate) 650 Mg Tablet, 1,300 MG PO BID, (Reported) Entered as Reported by: HOLLI AGRDINER on 04/29/22 151 Last Action: Reviewed Spironolactone (Spironolactone) 50 Mg Tablet, 25 MG PO 1800, (Reported) Entered as Reported by: SD CHILDS on 01/12/22 1503 Last Action: Reviewed Discontinued Medications Cetirizine HCl (Cetirizine HCl) 10 Mg Tablet, 10 MG PO DAILY, (Reported) Discontinued Reason: Duplicate Order Entered as Reported by: HOLLI GARDINER on 10/07/21 143 Last Action: Discontinued Diphenhydramine HCl (Benadryl Allergy) 25 Mg Tablet, 25 MG PO, (Reported) Discontinued Reason: No Longer Taking Entered as Reported by: HOLLI GARDINER on 04/29/221509 Last Action: Discontinued Iron Ps Cmplx/Vit B12/FA (Ferrex 150 Forte Capsule) 1 Each Capsule, 1 EACH PO DAILY, (Reported) Discontinued Reason: Duplicate Order Entered as Reported by: HOLLI GARDINER on 10/07/211437 Last Action: Discontinued Metoprolol Succinate (Metoprolol Succinate) 25 Mg Tab.er.24h, 12.5 MG PO DAILY, (Reported) Discontinued Reason: No Longer Taking Entered as Reported by: HOLLI GARDINER on 01/07/22 1208 Last Action: Discontinued Von752/FA/Omega3/Dha/Fish Oil ( Gummies) 400 Mcg-32.5 Mg (25 Mg-7.5 Mg) Tab.chew, 1 EACH PO DAILY, (Reported) Discontinued Reason: No Longer Taking Entered as Reported by: SD CHILDS on 01/12/22 1507 Last Action: Discontinued Rifaximin (Xifaxan) 550 Mg Tablet, 550 MG PO BID Discontinued Reason: No Longer Taking Prescribed by: JOHANA PURI on 01/15/22 0616 Last Action: Discontinued Past Fdoioxh-Kgshwh-Desmxd Hx Reviewed Nursing Assessment Reviewed/Agree w Nursing PMH: Yes Family Medical History Significant Family History: No Pertinent Family Hx Family Medial History: Cardiovascular disease SON Review of Systems-General Constitutional: chills, fever EENTM: No hearing loss, No blurred vision Respiratory: No cough; short of breath Cardiovascular: No chest pain, No edema Gastrointestinal: abdominal pain (Diffuse); No nausea, No vomiting Genitourinary: No dysuria Musculoskeletal: No back pain, No joint pain Skin: change in color (mild jaundice, left upper extremity change) Psychiatric/Neurological: Denies Anxiety, Denies Depressed All Other Systems Reviewed Negative Unless Noted: Yes Physical Exam-General Problems Physical Exam General Appearance: WD/WN, no apparent distress HEENT: PERRL/EOMI, normal ENT inspection Neck: non-tender, supple Respiratory: chest non-tender, no respiratory distress, no accessory muscle use Cardiovascular: regular rate, rhythm, no JVD Gastrointestinal: distended (due to chronic ascites), tenderness (lower abdomen, pleur-x catheter left side abdomen) Rectal: deferred Back: normal inspection, no vertebral tenderness Extremities: no pedal edema, no calf tenderness, other (left upper extremity with erythema and superficial wound) Neurologic/Psychiatric: alert, normal mood/affect, oriented x 3 Skin: warm/dry, jaundice Lymphatic: no adenopathy Assessment/Plan Assessment/Plan Assessment/Plan Chronic ascites abdominal distention Cirrhosis of liver shortness of breath anemia multifactorial, recent gi bleed and chronic disease Possible sbp On Ceftriaxone and ER obtained fluid for culture Drain fluid through pleur-x today to see if this doesn't relieve some of her symptoms Pain control Supervisory-Addendum Brief Verification & Attestation Participated in pt care: history, MDM, physical Personally performed: exam, history, MDM, supervision of care Care discussed with: Medical Student Procedures: n/a Results interpretation: Verified all documentation Verification and Attestation of Medical Student E/M Service A medical student performed and documented this service in my presence. I reviewed and verified all information documented by the medical student and made modifications to such information, when appropriate. I personally performed the physical exam and medical decision making. Trinidad Adams, Apr 29, 2022,20:10 ALYSA ALMENDAREZ Apr 29, 2022 12:30 TRINIDAD ADAMS DO Apr 29, 2022 19:57
[2022-04-29] MEDS ORDERED: ONDANSETRON 4 MG/2 ML (SDV) Z0FRAN IV PRN (12:45)
[2022-04-29] MEDS ORDERED: CATHETER FLUSH 10 ML SYR IVP PRN (12:45)
[2022-04-29] MEDS ORDERED: ACETAMINOPHEN 500 MG TAB (TYLENOL) PO PRN (12:45)
[2022-04-29] MEDS ORDERED: RT-ALBUTEROL SULF 2.5 MG/3 ML PRE-MIX VIAL INH PRN (14:30)
[2022-04-29] MEDS: CATHETER FLUSH 10 ML SYR IVP SCH ×2 (14:36→22:12)
[2022-04-29] MEDS ORDERED: ASCO500T17 PO (15:10)
[2022-04-29] MEDS ORDERED: ONDA-105 PO (15:10)
[2022-04-29] MEDS ORDERED: POLY17PO6 PO (15:10)
[2022-04-29] MEDS ORDERED: MESA1.2T2 PO (15:10)
[2022-04-29] MEDS ORDERED: LORA10TA7 PO (15:10)
[2022-04-29] MEDS ORDERED: IRON1CAP9 PO (15:10)
[2022-04-29] MEDS ORDERED: DIPH25TA65 PO (15:10)
[2022-04-29] MEDS ORDERED: NF-SODBICA PO (15:10)
[2022-04-29] MEDS ORDERED: DOCU100C37 PO (15:10)
[2022-04-29 16:56] LABS: BASOPHILS % (AUTO) 0 % (0-10); EOSINOPHILS % (AUTO) 0 % (0-10); MEAN PLATELET VOLUME 9.3 fL (9.0-12.2)
[2022-04-29 16:58] LABS: HEMATOCRIT 21 % (35-52); HEMOGLOBIN 7.4 g/dL (11.5-16.0); LYMPHOCYTES # (AUTO) 1.1 10^3/uL (1.0-4.0); LYMPHOCYTES % (AUTO) 9 % (12-44); MEAN CORPUSCULAR HEMOGLOBIN 33 pg (25-34); MEAN CORPUSCULAR HGB CONC 35 g/dL (32-36); MEAN CORPUSCULAR VOLUME 94 fL (80-99); MONOCYTES % (AUTO) 8 % (0-12); NEUTROPHILS # (AUTO) 9.9 10^3/uL (1.8-7.8); NEUTROPHILS % (AUTO) 81 % (42-75); PLATELET COUNT 105 10^3/uL (130-400); WHITE BLOOD COUNT 12.2 10^3/uL (4.3-11.0)
[2022-04-29] MEDS: RT--FLUTICASONE/SALMETEROL 113-14 (AIRDUO RespiCLICK) IH SCH (19:39)
[2022-04-29] MEDS: SODIUM BICARBONATE 650 MG TABLET PO SCH (20:02)
--- NOTE | 2022-04-29 20:55 | History & Physical ---
HPI History of Present Illness: 82 yo F that is well known to me that presents with increasing abdominal pain and left arm pain. She is a known cirrhotic patient that was recently on hospice and has had multiple recent hospitalizations for upper and lower GI bleeds with multiple banding. She has pleurex catheter in place and has been taking off 1L o f fluid every 2-3 days but the last few days she has been taking off 1L daily. 2 days ago she started having more abdominal pain that was not getting better with draining the fluid. She had a lower GI bleed over the weekend that resolved on its own but she was monitored in the hospital. Daughter and grand daughter are here with the patient this afternoon and states that her left arm started turning red after she got in the ambulance to come to the hospital. Source: patient, family Exam Limitations: no limitations Date seen by provider: Apr 29, 2022 Time Seen by Provider: 12:15 Attending Physician Micheline Macario MD PCP Admitting Physician: Micheline Macario MD Attending Physician: Micheline Macario MD Consult Date of Admission Apr 29, 2022 at 11:29 Home Medications Home Medications Reviewed patient Home Medication Reconciliation performed by pharmacy medication reconciliations donor floor technician and/or nursing. Patients Allergies have been reviewed. Allergies Coded Allergies: codeine (Unverified Allergy, Unknown, Pt has received Morphine in the paste, 05/23/20) GOZ-Lhtptu-Gjnzko Hx Patient Social History Living Status: Lives with daughter and mainly independent Smoking Status: Former Smoker 2nd Hand Smoke Exposure: No Recent Hopitalizations: No Alcohol Use?: No Have you traveled recently?: Yes Immunizations Up To Date Tetanus Booster (TDap): Unknown Influenza Vaccine Up-to-Date: Yes; Up-to-Date First/Initial COVID19 Vaccinat: 2019 Second COVID19 Vaccination Juan Pablo: 2020 Third COVID19 Vaccination Date: MAY 2021 Past Medical History PMHx: ETOH Cirrhois Upper and Lower Varices that required banding Osteoarthritis HTN HLD Complete heart block s/p pacemaker placement PSurgHx: Left knee replacement Pacemaker placement Cardioversion for atrial fibrillation Family Medical History Significant Family History: No Pertinent Family Hx Other Significan Family Hx: SOCIAL HISTORY: -HX OF HEAVY CIGARETTE SMOKING--QUIT AGE 63 -HX OF HEAVY ALCOHOL USE--QUIT AGE 63 ESOPHAGEAL BANDING 2019 Family History: Cardiovascular disease SON Review of Systems ([facility]) Constitutional: chills, malaise, weakness EENTM: no symptoms reported; No mouth pain, No nose congestion, No nose pain, No throat pain Respiratory: No cough; dyspnea on exertion, short of breath Cardiovascular: No chest pain; edema; No palpitations Gastrointestinal: abdominal pain; No constipation, No diarrhea; loss of appetite, nausea; No vomiting Genitourinary: no symptoms reported; No dysuria, No frequency, No hematuria Musculoskeletal: joint pain, muscle pain Skin: pruritus, rash Psychiatric/Neurological: Weakness Reviewed Test Results Reviewed Test Results Lab Laboratory Tests Test 04/29/22 08:40 04/29/22 08:55 04/29/22 09:40 04/29/22 09:59 Range/Units Lactate Dehydrogenase 217 125-220 U/L White Blood Count 7.7 4.3-11.0 10^3/uL Red Blood Count 2.54 L 3.80-5.11 10^6/uL Hemoglobin 8.4 L 11.5-16.0 g/dL Hematocrit 24 L 35-52 % Mean Corpuscular Volume 95 80-99 fL Mean Corpuscular Hemoglobin 33 25-34 pg Mean Corpuscular Hemoglobin Concent 35 32-36 g/dL Red Cell Distribution Width 17.0 H 10.0-14.5 % Platelet Count 110 L 130-400 10^3/uL Mean Platelet Volume 10.0 9.0-12.2 fL Immature Granulocyte % (Auto) 1 % Neutrophils (%) (Auto) 74 42-75 % Lymphocytes (%) (Auto) 19 12-44 % Monocytes (%) (Auto) 4 0-12 % Eosinophils (%) (Auto) 2 0-10 % Basophils (%) (Auto) 0 0-10 % Neutrophils # (Auto) 5.6 1.8-7.8 10^3/uL Lymphocytes # (Auto) 1.5 1.0-4.0 10^3/uL Monocytes # (Auto) 0.3 0.0-1.0 10^3/uL Eosinophils # (Auto) 0.1 0.0-0.3 10^3/uL Basophils # (Auto) 0.0 0.0-0.1 10^3/uL Immature Granulocyte # (Auto) 0.1 0.0-0.1 10^3/uL Percent Immature Platelet Fraction 1.1 0.0-7.6 % Prothrombin Time 16.8 H 12.2-14.7 SEC INR Comment 1.3 0.8-1.4 Activated Partial Thromboplast Time 36 H 24-35 SEC Sodium Level 130 L 135-145 MMOL/L Potassium Level 4.1 3.6-5.0 MMOL/L Chloride Level 106 98-107 MMOL/L Carbon Dioxide Level 14 L 21-32 MMOL/L Anion Gap 10 5-14 MMOL/L Blood Urea Nitrogen 43 H 7-18 MG/DL Creatinine 2.12 H 0.60-1.30 MG/DL Estimat Glomerular Filtration Rate 23 BUN/Creatinine Ratio 20 Glucose Level 121 H 70-105 MG/DL Lactic Acid Level 1.62 0.50-2.00 MMOL/L Calcium Level 7.5 L 8.5-10.1 MG/DL Corrected Calcium 8.9 8.5-10.1 MG/DL Total Bilirubin 1.5 H 0.1-1.0 MG/DL Aspartate Amino Transf (AST/SGOT) 45 H 5-34 U/L Alanine Aminotransferase (ALT/SGPT) 26 0-55 U/L Alkaline Phosphatase 196 H 40-136 U/L Total Protein 6.2 L 6.4-8.2 GM/DL Albumin 2.2 L 3.2-4.5 GM/DL Lipase 71 8-78 U/L Urine Color YELLOW Urine Clarity CLEAR Urine pH 5.0 5-9 Urine Specific [place] 1.020 1.016-1.022 Urine Protein NEGATIVE NEGATIVE Urine Glucose (UA) NEGATIVE NEGATIVE Urine Ketones NEGATIVE NEGATIVE Urine Nitrite NEGATIVE NEGATIVE Urine Bilirubin NEGATIVE NEGATIVE Urine Urobilinogen 0.2 < = 1.0 MG/DL Urine Leukocyte Esterase TRACE H NEGATIVE Urine RBC (Auto) NEGATIVE NEGATIVE Urine RBC NONE /HPF Urine WBC 0-2 /HPF Urine Squamous Epithelial Cells 0-2 /HPF Urine Crystals NONE /LPF Urine Bacteria FEW H /HPF Urine Casts NONE /LPF Urine Mucus SMALL H /LPF Urine Culture Indicated YES Body Fluid Source PERITON Body Fluid Color YELLOW Body Fluid Appearance SLT CLDY Body Fluid WBC 0.266 10^3/uL Body Fluid RBC 0.003 10^6/uL Body Fl Polynuclear WBCs (%)(Auto) 48.5 % Body Fluid Mononuclear Cells % Auto 51.5 % Body Fluid Slide Review Yes Body Fluid Glucose 108 MG/DL Body Fluid Total Protein < 0.8 G/DL Body Fluid Albumin < 0.4 G/DL Body Fluid Lactate Dehydrogenase 38 U/L Test 04/29/22 16:25 Range/Units White Blood Count 12.2 H 4.3-11.0 10^3/uL Red Blood Count 2.28 L 3.80-5.11 10^6/uL Hemoglobin 7.4 L 11.5-16.0 g/dL Hematocrit 21 L 35-52 % Mean Corpuscular Volume 94 80-99 fL Mean Corpuscular Hemoglobin 33 25-34 pg Mean Corpuscular Hemoglobin Concent 35 32-36 g/dL Red Cell Distribution Width 16.8 H 10.0-14.5 % Platelet Count 105 L 130-400 10^3/uL Mean Platelet Volume 9.3 9.0-12.2 fL Immature Granulocyte % (Auto) 1 % Neutrophils (%) (Auto) 81 H 42-75 % Lymphocytes (%) (Auto) 9 L 12-44 % Monocytes (%) (Auto) 8 0-12 % Eosinophils (%) (Auto) 0 0-10 % Basophils (%) (Auto) 0 0-10 % Neutrophils # (Auto) 9.9 H 1.8-7.8 10^3/uL Lymphocytes # (Auto) 1.1 1.0-4.0 10^3/uL Monocytes # (Auto) 1.0 0.0-1.0 10^3/uL Eosinophils # (Auto) 0.0 0.0-0.3 10^3/uL Basophils # (Auto) 0.0 0.0-0.1 10^3/uL Immature Granulocyte # (Auto) 0.1 0.0-0.1 10^3/uL Percent Immature Platelet Fraction 1.0 0.0-7.6 % Physical Exam-([facility]) Physical Exam Vital Signs VS - Last 72 Hours, by Label 04/29/22 04/29/22 04/29/22 04/29/22 08:40 11:48 11:50 12:32 Temp 37.6 36.7 Pulse 110 103 104 Resp 22 20 18 B/P (MAP) 130/65 (86) 111/60 117/60 (79) Pulse Ox 100 100 100 O2 Delivery Room Air Room Air Room Air Room Air 04/29/22 04/29/22 04/29/22 04/29/22 13:30 14:14 16:11 17:00 Temp 36.7 37.0 Pulse 97 104 71 85 Resp 21 20 B/P (MAP) 113/59 (77) 131/59 (83) Pulse Ox 100 98 97 O2 Delivery Room Air Room Air 04/29/22 04/29/22 04/29/22 04/29/22 17:15 17:30 19:00 19:29 Temp 37.3 Pulse 94 93 88 86 Resp 20 20 17 B/P (MAP) 114/61 (78) 115/53 (73) 109/55 (73) Pulse Ox 96 97 97 O2 Delivery Room Air Room Air Room Air 04/29/22 04/29/22 19:39 20:00 O2 Delivery Room Air Room Air Capillary Refill : Less Than 3 Seconds General Appearance: WD/WN, no apparent distress HEENT: PERRL/EOMI, pale conjunctivae (R), pale conjunctivae (L) Respiratory: chest non-tender, lungs clear, normal breath sounds, no respiratory distress, no accessory muscle use Cardiovascular: regular rate, rhythm, systolic murmur Gastrointestinal: soft, distended; No guarding, No rebound; tenderness (mild ttp RUQ) Back: no CVA tenderness, no vertebral tenderness Extremities: pedal edema (1-2+ equal bilaterally) Neurologic/Psychiatric: 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 II-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 nml as tested, alert, oriented x 3 Skin: cool, ecchymosis Lymphatic: no adenopathy Assessment/Plan Assessment/Plan Admission Status: Observation (1) Cirrhosis of liver with ascites Status: Acute Assessment & Plan: - ESLD, Pleurex drain in place, culture of peritoneal fluid pending, Continue Rocephin, General surgery consult placed Dr Grace, poor prognosis, recommend hospice, patient and family not ready at this time Qualifiers: Qualified Codes: K70.31 - Alcoholic cirrhosis of liver with ascites (2) Acute on chronic renal failure Status: Acute Assessment & Plan: - Gentle oral hydration Qualifiers: Qualified Codes: N17.9 - Acute kidney failure, unspecified; N18.4 - Chronic kidney disease, stage 4 (severe) (3) Ascites Status: Chronic Qualifiers: Qualified Codes: 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 - Alcoholic cirrhosis of liver with ascites (4) Left arm cellulitis Status: Acute Assessment & Plan: - Will continue to monitor, IV taken out of that arm (5) Rectal varices Status: Acute Assessment & Plan: - Multiple recent bleeds, continue to monitor (6) CAD (coronary artery disease) Status: Chronic (7) History of ETOH abuse Status: Acute (8) History of atrial fibrillation Status: Acute Assessment & Plan: - Rate controlled, unable to tolerate OAC due to severe life threatening bleeding (9) Iron deficiency anemia Status: Chronic Copy Copies To 1: MICHELINE MACARIO MD, HOLLY R MD Apr 29, 2022 20:55
[2022-04-29] MEDS: LACTULOSE SYRUP 10GM/15ML (ENULOSE) 30ML UDC PO SCH (22:30)
[2022-04-30] VITALS (11 sets, daily range): BP systolic 99–131; BP diastolic 57–83
[2022-04-30 03:33] LABS: EOSINOPHILS # (AUTO) 0.1 10^3/uL (0.0-0.3); LYMPHOCYTES % (AUTO) 22 % (12-44); MEAN CORPUSCULAR VOLUME 93 fL (80-99)
[2022-04-30 03:35] LABS: BASOPHILS % (AUTO) 0 % (0-10); EOSINOPHILS % (AUTO) 1 % (0-10); LYMPHOCYTES # (AUTO) 1.5 10^3/uL (1.0-4.0); MEAN CORPUSCULAR HEMOGLOBIN 33 pg (25-34); MEAN CORPUSCULAR HGB CONC 35 g/dL (32-36); MEAN PLATELET VOLUME 8.6 fL (9.0-12.2); MONOCYTES # (AUTO) 0.7 10^3/uL (0.0-1.0); MONOCYTES % (AUTO) 10 % (0-12); NEUTROPHILS # (AUTO) 4.5 10^3/uL (1.8-7.8); NEUTROPHILS % (AUTO) 66 % (42-75); PLATELET COUNT 72 10^3/uL (130-400); WHITE BLOOD COUNT 6.8 10^3/uL (4.3-11.0)
[2022-04-30 03:45] LABS: ALBUMIN 1.8 GM/DL (3.2-4.5)
[2022-04-30 03:46] LABS: HEMATOCRIT 18 % (35-52); HEMOGLOBIN 6.2 g/dL (11.5-16.0)
[2022-04-30 03:47] LABS: CALCIUM 7.2 MG/DL (8.5-10.1)
[2022-04-30 03:48] LABS: TOTAL PROTEIN 4.9 GM/DL (6.4-8.2)
[2022-04-30 03:52] LABS: CREATININE SERUM 2.06 MG/DL (0.60-1.30)
[2022-04-30] MEDS ORDERED: NS IV 500 ML 500 ML IV SCH (04:00)
[2022-04-30] MEDS: CATHETER FLUSH 10 ML SYR IVP SCH ×3 (06:46→22:50)
[2022-04-30] MEDS: FUROSEMIDE 20 MG (LASIX) TAB PO SCH (06:54)
[2022-04-30] MEDS: LACTULOSE SYRUP 10GM/15ML (ENULOSE) 30ML UDC PO SCH ×2 (09:10→19:49)
[2022-04-30] MEDS: SODIUM BICARBONATE 650 MG TABLET PO SCH ×2 (09:10→19:49)
[2022-04-30] MEDS: PANTOPRAZOLE 40 MG (PROTONIX) TAB PO SCH (09:10)
[2022-04-30] MEDS: SPIRONOLACTONE 25 MG (ALDACTONE) TAB PO SCH (09:10)
[2022-04-30] MEDS: cefTRIAXone 1 GM PRE-MIX 50 ML IV SCH (09:58)
--- NOTE | 2022-04-30 15:21 | Progress Note - Surgery ---
Subjective Date Seen by a Provider: Apr 30, 2022 Time Seen by a Provider: 07:35 Subjective/Events-last exam Feeling a little better today. Abdomen better since fluid drained. Left arm still red and slightly tender. WBC down. No blood per stool, but hgb down and being transfused. Denies n/v fever sweats chills shortness of breath or chest pain at this time. Focused Exam Lactate Level 04/29/22 08:55: Lactic Acid Level 1.62 Objective Exam Vital Signs Date Time Temp Pulse Resp B/P (MAP) Pulse Ox O2 Delivery O2 Flow Rate FiO2 04/30/22 13:28 79 04/30/22 11:48 36.7 70 19 122/57 (78) 100 Room Air 04/30/22 09:18 36.4 78 18 131/83 99 Room Air 04/30/22 08:07 36.2 79 19 129/80 (96) 100 Room Air 04/30/22 08:00 Room Air 04/30/22 07:15 80 04/30/22 06:47 36.4 81 16 116/74 100 Room Air 04/30/22 06:14 36.8 80 18 108/67 100 Room Air 04/30/22 05:49 37.1 84 18 109/68 100 04/30/22 04:10 36.7 86 20 103/59 (74) 99 Room Air 04/30/22 01:00 86 04/30/22 00:03 36.9 68 22 100/60 (73) 98 Room Air 04/29/22 20:00 Room Air 04/29/22 19:39 Room Air 04/29/22 19:29 37.3 86 17 109/55 (73) 97 Room Air 04/29/22 19:00 88 04/29/22 17:30 93 20 115/53 (73) 97 Room Air 04/29/22 17:15 94 20 114/61 (78) 96 Room Air 04/29/22 17:00 85 20 131/59 (83) 97 Room Air 04/29/22 16:11 37.0 71 21 113/59 (77) 98 Room Air I & O 04/30/22 07:00 Intake Total 1450 ml Balance 1450 ml Capillary Refill : Less Than 3 Seconds General Appearance: No Apparent Distress, WD/WN HEENT: PERRL/EOMI, Normal ENT Inspection Neck: Normal Inspection, Non Tender Respiratory: Chest Non Tender, No Accessory Muscle Use, No Respiratory Distress Cardiovascular: Regular Rate, Rhythm, No JVD Gastrointestinal: soft, distended (less), tenderness (minimal) Neurologic/Psychiatric: Alert, Oriented x3 Skin: Warm/Dry, Jaundice, Other (erythema left upper ext) Lymphatic: No Adenopathy Results Lab Laboratory Tests 04/29/22 16:25: White Blood Count 12.2H, Red Blood Count 2.28L, Hemoglobin 7.4L, Hematocrit 21L, Mean Corpuscular Volume 94, Mean Corpuscular Hemoglobin 33, Mean Corpuscular Hemoglobin Concent 35, Red Cell Distribution Width 16.8H, Platelet Count 105L, Mean Platelet Volume 9.3, Immature Granulocyte % (Auto) 1, Neutrophils (%) (Auto) 81H, Lymphocytes (%) (Auto) 9L, Monocytes (%) (Auto) 8, Eosinophils (%) ( Auto) 0, Basophils (%) (Auto) 0, Neutrophils # (Auto) 9.9H, Lymphocytes # (Auto) 1.1, Monocytes # (Auto) 1.0, Eosinophils # (Auto) 0.0, Basophils # (Auto) 0.0, Immature Granulocyte # (Auto) 0.1, Percent Immature Platelet Fraction 1.0 04/30/22 03:25: White Blood Count 6.8, Red Blood Count 1.90L, Hemoglobin 6.2*L, Hematocrit 18*L, Mean Corpuscular Volume 93, Mean Corpuscular Hemoglobin 33, Mean Corpuscular Hemoglobin Concent 35, Red Cell Distribution Width 16.8H, Platelet Count 72L, Mean Platelet Volume 8.6L, Immature Granulocyte % (Auto) 1, Neutrophils (%) (Auto) 66, Lymphocytes (%) (Auto) 22, Monocytes (%) (Auto) 10, Eosinophils (%) (Auto) 1, Basophils (%) (Auto) 0, Neutrophils # (Auto) 4.5, Lymphocytes # (Auto) 1.5, Monocytes # (Auto) 0.7, Eosinophils # (Auto) 0.1, Basophils # (Auto) 0.0, Immature Granulocyte # (Auto) 0.0, Percent Immature Platelet Fraction 0.8, Sodium Level 128L, Potassium Level 4.0, Chloride Level 107, Carbon Dioxide Level 14L, Anion Gap 7, Blood Urea Nitrogen 46H, Creatinine 2.06H, Estimat Glomerular Filtration Rate 23, BUN/Creatinine Ratio 22, Glucose Level 91, Calcium Level 7.2L, Corrected Calcium 9.0, Total Bilirubin 1.0, Aspartate Amino Transf (AST/SGOT) 32, Alanine Aminotransferase (ALT/SGPT) 19, Alkaline Phosphatase 140H , Total Protein 4.9L, Albumin 1.8L Microbiology 04/29/22 Gram Stain - Final, Resulted 04/29/22 Body Fluid Culture - Preliminary, Resulted No growth 04/29/22 Urine Culture - Final, Complete Mixed Bacterial Radha See Comments Assessment/Plan Assessment/Plan Assessment/Plan Chronic ascites abdominal distention Cirrhosis of liver shortness of breath anemia multifactorial, recent gi bleed and chronic disease Possible sbp On Ceftriaxone and ER obtained fluid for culture Drain fluid through pleur-x yesterday abdomen improved wbc improving. no growth cultures yet from peritoneal fluid. TRINIDAD ADAMS DO Apr 30, 2022 15:21
[2022-04-30 15:22] LABS: HEMOGLOBIN 8.5 g/dL (11.5-16.0)
[2022-04-30] MEDS: RT--FLUTICASONE/SALMETEROL 113-14 (AIRDUO RespiCLICK) IH SCH (15:50)
--- NOTE | 2022-04-30 20:43 | Progress Note ---
Subjective Subjective/Events-last exam She is feeling better this AM. Left arm is still red and swollen. Abdominal pain is much improved. Appetite is coming back Review of Systems General: Malaise Pulmonary: No Dyspnea, No Cough Cardiovascular: No: Chest Pain, Palpitations Gastrointestinal: Abdominal Pain; No: Nausea Neurological: Weakness, Incoordination Focused Exam Lactate Level 04/29/22 08:55: Lactic Acid Level 1.62 Objective Exam Last Set of Vital Signs Vital Signs Date Time Temp Pulse Resp B/P (MAP) Pulse Ox O2 Delivery O2 Flow Rate FiO2 04/30/22 19:19 36.2 97 18 113/72 (86) 97 Room Air Capillary Refill : Less Than 3 Seconds I&O Intake and Output 04/30/22 00:00 Intake Total 1190 ml Balance 1190 ml Intake Oral 1040 ml IV Total 150 ml # Voids 2 # Bowel Movements 1 Daily Weight Change Yes, 2-13 lbs General: Alert, Oriented X3, Cooperative, No Acute Distress Lungs: Clear to Auscultation, Normal Air Movement Heart: Regular Rate Abdomen: Normal Bowel Sounds, Soft, Other (mild distention) Extremities: Other (1+ pitting edema) Neuro: Normal Speech, Cranial Nerves 3-12 NL Results/Procedures Lab Laboratory Tests 04/30/22 03:25: White Blood Count 6.8, Red Blood Count 1.90L, Hemoglobin 6.2*L, Hematocrit 18*L, Mean Corpuscular Volume 93, Mean Corpuscular Hemoglobin 33, Mean Corpuscular Hemoglobin Concent 35, Red Cell Distribution Width 16.8H, Platelet Count 72L, Mean Platelet Volume 8.6L, Immature Granulocyte % (Auto) 1, Neutrophils (%) (Auto) 66, Lymphocytes (%) (Auto) 22, Monocytes (%) (Auto) 10, Eosinophils (%) (Auto) 1, Basophils (%) (Auto) 0, Neutrophils # (Auto) 4.5, Lymphocytes # (Auto) 1.5, Monocytes # (Auto) 0.7, Eosinophils # (Auto) 0.1, Basophils # (Auto) 0.0, Immature Granulocyte # (Auto) 0.0, Percent Immature Platelet Fraction 0.8, Sodium Level 128L, Potassium Level 4.0, Chloride Level 107, Carbon Dioxide Level 14L, Anion Gap 7, Blood Urea Nitrogen 46H, Creatinine 2.06H, Estimat Glomerular Filtration Rate 23, BUN/Creatinine Ratio 22, Glucose Level 91, Calcium Level 7.2L, Corrected Calcium 9.0, Total Bilirubin 1.0, Aspartate Amino Transf (AST/SGOT) 32, Alanine Aminotransferase (ALT/SGPT) 19, Alkaline Phosphatase 140H , Total Protein 4.9L, Albumin 1.8L 04/30/22 15:00: Hemoglobin 8.5L, Hematocrit 24L Microbiology 04/29/22 Gram Stain - Final, Resulted 04/29/22 Body Fluid Culture - Preliminary, Resulted No growth 04/29/22 Urine Culture - Final, Complete Mixed Bacterial Radha See Comments 04/29/22 Blood Culture - Preliminary, Resulted No growth Assessment/Plan Assessment/Plan (1) Cirrhosis of liver with ascites Status: Acute Assessment & Plan: - ESLD, Pleurex drain in place, culture of peritoneal fluid pending, Continue Rocephin, General surgery consult placed Dr Grace, poor prognosis, recommend hospice, patient and family not ready at this time 04/30: Pain is much improved, will continue to monitor and drain PRN, cultures NGTD Qualifiers: Qualified Codes: K70.31 - Alcoholic cirrhosis of liver with ascites (2) Acute on chronic renal failure Status: Acute Assessment & Plan: - Gentle oral hydration Qualifiers: Qualified Codes: N17.9 - Acute kidney failure, unspecified; N18.4 - Chronic kidney disease, stage 4 (severe) (3) Ascites Status: Chronic Qualifiers: Qualified Codes: K70.31 - Alcoholic cirrhosis of liver with ascites (4) Left arm cellulitis Status: Acute Assessment & Plan: - Will continue to monitor, IV taken out of that arm 04/30: Continue IV antibiotics (5) Rectal varices Status: Acute Assessment & Plan: - Multiple recent bleeds, continue to monitor (6) CAD (coronary artery disease) Status: Chronic (7) History of ETOH abuse Status: Acute (8) History of atrial fibrillation Status: Acute Assessment & Plan: - Rate controlled, unable to tolerate OAC due to severe life threatening bleeding (9) Iron deficiency anemia Status: Chronic Assessment & Plan: 04/30: hgb dropped this AM, 1 unit pRBCs this AM MICHELINE FERGUSON MD Apr 30, 2022 20:43
[2022-05-01 03:42] VITALS: BP 104/62
[2022-05-01] MEDS: FUROSEMIDE 20 MG (LASIX) TAB PO SCH (06:20)
[2022-05-01] MEDS: CATHETER FLUSH 10 ML SYR IVP SCH ×3 (06:21→20:05)
--- NOTE | 2022-05-01 07:46 | Progress Note - Surgery ---
CHETAN GOYAL 05/01/22 0746: Subjective Date Seen by a Provider: May 01, 2022 Time Seen by a Provider: 07:44 Subjective/Events-last exam Patient is awake and alert this morning. Patient states that they were up moving around and tolerated it well. Patient states that their arm has not had as much exudate as previously. Patient also reported feeling a little nauseous last night, but feels better today. Review of Systems General: No Chills, No Night Sweats HEENT: No Head Aches, No Visual Changes Pulmonary: No Dyspnea, No Cough Cardiovascular: No: Chest Pain, Palpitations, Orthopnea Gastrointestinal: Nausea; No: Vomiting, Abdominal Pain Genitourinary: No Dysuria, No Frequency Musculoskeletal: No: neck pain, back pain Neurological: No: Weakness, Numbness Focused Exam Lactate Level 04/29/22 08:55: Lactic Acid Level 1.62 Objective Exam Vital Signs Date Time Temp Pulse Resp B/P (MAP) Pulse Ox O2 Delivery O2 Flow Rate FiO2 05/01/22 03:42 36.4 80 18 104/62 (76) 99 Room Air 05/01/22 01:00 87 04/30/22 23:24 36.6 87 18 99/58 (72) 100 Room Air 04/30/22 20:55 Room Air 04/30/22 19:19 36.2 97 18 113/72 (86) 97 Room Air 04/30/22 19:00 77 04/30/22 15:57 36.5 80 18 116/71 (86) 100 Room Air 04/30/22 13:28 79 04/30/22 11:48 36.7 70 19 122/57 (78) 100 Room Air 04/30/22 09:18 36.4 78 18 131/83 99 Room Air 04/30/22 08:07 36.2 79 19 129/80 (96) 100 Room Air 04/30/22 08:00 Room Air I & O 05/01/22 07:00 Intake Total 1640 ml Output Total 500 ml Balance 1140 ml Capillary Refill : Less Than 3 Seconds General Appearance: No Apparent Distress, WD/WN HEENT: PERRL/EOMI, Normal ENT Inspection Neck: Normal Inspection, Non Tender Respiratory: Chest Non Tender, No Accessory Muscle Use, No Respiratory Distress Cardiovascular: Regular Rate, Rhythm, No JVD Gastrointestinal: soft, distended (less), tenderness (minimal) Neurologic/Psychiatric: Alert, Oriented x3 Skin: Warm/Dry, Jaundice, Other (erythema left upper ext) Lymphatic: No Adenopathy Results Lab Laboratory Tests 04/30/22 15:00: Hemoglobin 8.5L, Hematocrit 24L Microbiology 04/29/22 Gram Stain - Final, Resulted 04/29/22 Body Fluid Culture - Preliminary, Resulted No growth 04/29/22 Urine Culture - Final, Complete Mixed Bacterial Radha See Comments 04/29/22 Blood Culture - Preliminary, Resulted No growth Assessment/Plan Assessment/Plan Assessment/Plan Chronic ascites abdominal distention Cirrhosis of liver shortness of breath anemia multifactorial, recent gi bleed and chronic disease Possible sbp On Ceftriaxone and ER obtained fluid for culture Drain fluid through pleur-x 04/29 abdomen improved wbc improving. no growth cultures yet from peritoneal fluid. TRINIDAD GRACE DO 05/01/22 1611: Subjective Subjective/Events-last exam Patient feeling okay. Has more distention today. Needing drained. Denies n/v fever sweats chills shortness of breath or chest pain. Hgb 8.5 after transfusion prbc. Objective Exam General Appearance: No Apparent Distress, WD/WN HEENT: PERRL/EOMI, Normal ENT Inspection Neck: Normal Inspection, Non Tender Respiratory: Chest Non Tender, No Accessory Muscle Use, No Respiratory Distress Cardiovascular: Regular Rate, Rhythm, No JVD Gastrointestinal: distended (more), tenderness (minimal) Extremity: Other (left upper extremity skin less erythema ) Neurologic/Psychiatric: Alert, Oriented x3 Skin: Warm/Dry, Jaundice, Other (erythema left upper ext) Lymphatic: No Adenopathy Assessment/Plan Assessment/Plan Assessment/Plan Chronic ascites abdominal distention Cirrhosis of liver shortness of breath anemia multifactorial, recent gi bleed and chronic disease Possible sbp- no growth from culture On Ceftriaxone and ER obtained fluid for culture no growth and final Drain fluid through pleur-x today since increasing ascites continue to drain as needed. will sign off, call if needed. Supervisory-Addendum Brief Verification & Attestation Participated in pt care: history, MDM, physical Personally performed: exam, history, MDM, supervision of care Care discussed with: Medical Student Procedures: n/a Results interpretation: Verified all documentation Verification and Attestation of Medical Student E/M Service A medical student performed and documented this service in my presence. I reviewed and verified all information documented by the medical student and made modifications to such information, when appropriate. I personally performed the physical exam and medical decision making. Trinidad Grace, May 01, 2022,16:11 CHETAN GOYAL May 01, 2022 07:46 TRINIDAD GRACE DO May 01, 2022 16:11
[2022-05-01 08:02] VITALS: BP 131/70
--- NOTE | 2022-05-01 09:07 | Physical Therapy Evaluation ---
PT Evaluation-General Medical Diagnosis Admission Date Apr 29, 2022 at 13:05 Medical Diagnosis: abdominal pain/cirrhosis Onset Date: Apr 29, 2022 Therapy Diagnosis Therapy Diagnosis: debility/weakness Height/Weight Height (Feet): 5 Height (Inches): 5.00 Weight (Pounds): 184 Weight (Ounces): 8.0 Precautions Precautions/Isolations: Fall Prevention, Standard Precautions Referral Physician: Renaldo Reason for Referral: Evaluation/Treatment Medical History Pertinent Medical History: Atrial Fib, CAD, COPD, HTN Additional Medical History Covid; cirrhosis/pleural catheter Current History ER secondary to abdominal pain Reviewed History: Yes Social History Current Living Status: Children Entry Into Home: Stairs Without Railing PT Steps Into Home: 1 Prior Prior Level of Function SCALE: Activities may be completed with or without assistive devices. 8-Ojctsgglfy-lzucayb completes the activity by him/herself with no assistance from a helper. 5-Set-up or Clean-up Assistance-helper sets up or cleans up; patient completes activity. [place] assists only prior to or following the activity. 4-Supervision or Touching Assistance-helper provides verbal cues and/or touching/steadying and/or contact guard assistance as patient completes activity. Assistance may be provided throughout the activity or intermittently. 3-Partial/Moderate Assistance-helper does LESS THAN HALF the effort. [place] lifts, holds or supports trunk or limbs, but provides less than half the effort. 2-Substantial/Maximal Assistance-helper does MORE THAN HALF the effort. [place] lifts or holds trunk or limbs and provides more than half the effort. 7-Qwjbpsyll-cfvfjc does ALL the effort. Patient does none of the effort to complete the activity. Or, the assistance of 2 or more helpers is required for the patient to complete the activity. If activity was not attempted, code reason: 7-Patient Refused. 9-Not Applicable-not attempted and the patient did not perform the activity before the current illness, exacerbation or injury. 10-Not Attempted due to Environmental Limitations-(lack of equipment, weather restraints, etc.). 88-Not Attempted due to Medical Conditions or Safety Concerns. Bed Mobility: 6 Transfers (B,C,W/C): 6 Gait: 6 Stairs: 6 Indoor Mobility (Ambulation): Independent Stairs: Independent Prior Devices Use: Walker (PRN) PT Evaluation-Current Subjective Patient agrees to PT. Objective Patient Orientation: Normal For Age Attachments: Drains ROM/Strength ROM Lower Extremities bilateral LE WFL Strength Lower Extremities 4-/5 grossly bilateral LE all planes Integumentary/Posture Integumentary refer to nursing notes Bladder Incontinence: Yes Posture slight trunk flexed posture Neuromuscular (Tone, Coordination, Reflexes) grossly intact Sensory Vision: Wears Glasses Hearing: Functional Transfers Roll Left to Right (QC): 6 Lying to Sitting/Side of Bed(Q: 6 Sit to Stand (QC): 4 Chair/Kse-tu-Vjflr Xfer(QC): 4 Gait Mode of Locomotion: Walk Anticipated Mode of Locomotion: Walk Walk 10 feet (QC): 4 Walk 50 ft with 2 Turns(QC): 4 Walk 150 ft (QC): 4 Distance: 225' Gait Assistive Device: FWW Comments/Gait Description FWW for energy conservation/safe and functional gait sequence Balance Sitting Static: Normal Sitting Dynamic: Normal Standing Static: Normal Standing Dynamic: Normal Assessment/Needs 82 y.o. female, will benefit from short term skilled PT to address functional strength and mobility to improve current LOF to safely return to home at maximum LOF. 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 Goals Time Frame: May 09, 2022 Roll Left & Right (QC): 6 Sit to Lying (QC): 6 Lying-Sitting on Side/Bed(QC): 6 Sit to Stand (QC): 6 Chair/Shb-sd-Vhbct Xfer(QC): 6 Toilet Transfer (QC): 6 Walk 10 feet (QC): 6 Walk 50ft with 2 Turns (QC): 6 Walk 150 ft (QC): 6 PT Plan Problem List Problem List: Activity Tolerance, Functional Strength Treatment/Plan Treatment Plan: Continue Plan of Care Treatment Plan: Bed Mobility, Education, Functional Activity [place], Functional Strength, Gait, Safety, Therapeutic Exercise, Transfers Treatment Duration: May 09, 2022 Frequency: 6 times per week Estimated Hrs Per Day: .25 hour per day Time/GCodes Time In: 820 Time Out: 830 Total Billed Treatment Time: 10 Total Billed Treatment 1 visit EVModC 10 min ANAIS CAMP PT May 01, 2022 09:07
[2022-05-01] MEDS: RT--FLUTICASONE/SALMETEROL 113-14 (AIRDUO RespiCLICK) IH SCH ×2 (09:16→21:37)
[2022-05-01] MEDS: SPIRONOLACTONE 25 MG (ALDACTONE) TAB PO SCH (09:43)
[2022-05-01] MEDS: SODIUM BICARBONATE 650 MG TABLET PO SCH ×2 (09:43→20:04)
[2022-05-01] MEDS: cefTRIAXone 1 GM PRE-MIX 50 ML IV SCH (09:44)
[2022-05-01] MEDS: LACTULOSE SYRUP 10GM/15ML (ENULOSE) 30ML UDC PO SCH ×2 (09:44→20:04)
[2022-05-01] MEDS: PANTOPRAZOLE 40 MG (PROTONIX) TAB PO SCH (09:44)
--- NOTE | 2022-05-01 10:37 | Progress Note ---
Subjective Subjective/Events-last exam Patient feeling well this AM. States that her belly feels tight but not having pain. Good appetite. Normal BM this AM. Review of Systems General: Malaise Pulmonary: No Dyspnea, No Cough Cardiovascular: No: Chest Pain, Palpitations Gastrointestinal: Abdominal Pain; No: Nausea, Vomiting, Diarrhea, Constipation Neurological: Weakness, Incoordination Focused Exam Lactate Level 04/29/22 08:55: Lactic Acid Level 1.62 Objective Exam Last Set of Vital Signs Vital Signs Date Time Temp Pulse Resp B/P (MAP) Pulse Ox O2 Delivery O2 Flow Rate FiO2 05/01/22 09:16 Room Air 05/01/22 08:02 36.1 100 18 131/70 (90) 100 Capillary Refill : Less Than 3 Seconds I&O Intake and Output 05/01/22 00:00 Intake Total 1600 ml Output Total 500 ml Balance 1100 ml Intake Oral 1440 ml IV Total 50 ml Other 110 ml Output Urine Total 500 ml # Voids 3 # Bowel Movements 2 General: Alert, Oriented X3, No Acute Distress Lungs: Clear to Auscultation, Normal Air Movement Heart: Regular Rate, No Murmurs Abdomen: Normal Bowel Sounds, Soft, Other (mild distention, no rebound or guarding) Extremities: Other (left UE: Swelling and erythema(improving), non tender, skin tear on left UE) Neuro: Normal Speech Psych/Mental Status: Mental Status NL, Mood NL Results/Procedures Lab Laboratory Tests 04/30/22 15:00: Hemoglobin 8.5L, Hematocrit 24L Microbiology 04/29/22 Gram Stain - Final, Resulted 04/29/22 Body Fluid Culture - Preliminary, Resulted No growth 04/29/22 Urine Culture - Final, Complete Mixed Bacterial Radha See Comments 04/29/22 Blood Culture - Preliminary, Resulted No growth Assessment/Plan Assessment/Plan (1) Cirrhosis of liver with ascites Status: Acute Assessment & Plan: - ESLD, Pleurex drain in place, culture of peritoneal fluid pending, Continue Rocephin, General surgery consult placed Dr Grace, poor prognosis, recommend hospice, patient and family not ready at this time 04/30: Pain is much improved, will continue to monitor and drain PRN, cultures NGT D 05/01: Cultures NGTD, will likely drain tomorrow prior to d/c home Qualifiers: Qualified Codes: K70.31 - Alcoholic cirrhosis of liver with ascites (2) Acute on chronic renal failure Status: Acute Assessment & Plan: - Gentle oral hydration 05/01: At her baseline Qualifiers: Qualified Codes: N17.9 - Acute kidney failure, unspecified; N18.4 - Chronic kidney disease, stage 4 (severe) (3) Ascites Status: Chronic Qualifiers: Qualified Codes: K70.31 - Alcoholic cirrhosis of liver with ascites (4) Left arm cellulitis Status: Acute Assessment & Plan: - Will continue to monitor, IV taken out of that arm 04/30: Continue IV antibiotics 05/01: Improving, continue IV antibiotics 1 more day (5) Iron deficiency anemia Status: Chronic Assessment & Plan: 04/30: hgb dropped this AM, 1 unit pRBCs this AM 05/01: Hgb stable this AM, recheck in AM and if stable will plan to d/c home Qualifiers: Qualified Codes: D50.0 - Iron deficiency anemia secondary to blood loss (chronic) (6) Rectal varices Status: Acute Assessment & Plan: - Multiple recent bleeds, continue to monitor (7) CAD (coronary artery disease) Status: Chronic (8) History of ETOH abuse Status: Acute (9) History of atrial fibrillation Status: Acute Assessment & Plan: - Rate controlled, unable to tolerate OAC due to severe life threatening bleeding MICHELINE FERGUSON MD May 01, 2022 10:37
[2022-05-01 11:28] VITALS: BP 126/51
[2022-05-01 16:23] VITALS: BP 96/53
[2022-05-01] MEDS ORDERED: SPIRONOLACTONE 25 MG PO SCH (18:00)
[2022-05-01 19:47] VITALS: BP 111/58
[2022-05-01 23:37] VITALS: BP 101/59
[2022-05-02 04:10] VITALS: BP 126/66
[2022-05-02 05:40] LABS: HEMOGLOBIN 8.2 g/dL (11.5-16.0); NEUTROPHILS # (AUTO) 2.6 10^3/uL (1.8-7.8)
[2022-05-02 05:42] LABS: BASOPHILS % (AUTO) 1 % (0-10); EOSINOPHILS # (AUTO) 0.2 10^3/uL (0.0-0.3); EOSINOPHILS % (AUTO) 4 % (0-10); HEMATOCRIT 24 % (35-52); LYMPHOCYTES # (AUTO) 1.2 10^3/uL (1.0-4.0); LYMPHOCYTES % (AUTO) 26 % (12-44); MEAN CORPUSCULAR HEMOGLOBIN 32 pg (25-34); MEAN CORPUSCULAR HGB CONC 35 g/dL (32-36); MEAN CORPUSCULAR VOLUME 91 fL (80-99); MONOCYTES # (AUTO) 0.6 10^3/uL (0.0-1.0); MONOCYTES % (AUTO) 12 % (0-12); NEUTROPHILS % (AUTO) 55 % (42-75); PLATELET COUNT 82 10^3/uL (130-400); WHITE BLOOD COUNT 4.7 10^3/uL (4.3-11.0)
[2022-05-02 05:56] LABS: POTASSIUM 3.9 MMOL/L (3.6-5.0)
[2022-05-02 05:57] LABS: CALCIUM 7.5 MG/DL (8.5-10.1)
[2022-05-02 06:02] LABS: CREATININE SERUM 2.06 MG/DL (0.60-1.30)
[2022-05-02] MEDS: CATHETER FLUSH 10 ML SYR IVP SCH (06:43)
[2022-05-02] MEDS: FUROSEMIDE 20 MG (LASIX) TAB PO SCH (06:43)
[2022-05-02 07:10] VITALS: BP 109/56
[2022-05-02] MEDS: cefTRIAXone 1 GM PRE-MIX 50 ML IV SCH (08:44)
[2022-05-02] MEDS: PANTOPRAZOLE 40 MG (PROTONIX) TAB PO SCH (08:44)
[2022-05-02] MEDS: SODIUM BICARBONATE 650 MG TABLET PO SCH (08:44)
[2022-05-02] MEDS: LACTULOSE SYRUP 10GM/15ML (ENULOSE) 30ML UDC PO SCH (08:44)
[2022-05-02] MEDS: RT--FLUTICASONE/SALMETEROL 113-14 (AIRDUO RespiCLICK) IH SCH (09:08)
--- NOTE | 2022-05-02 10:07 | Discharge Summary ---
Diagnosis/Chief Complaint Date of Admission Apr 29, 2022 at 13:05 Date of Discharge 05/02/22 Admission Diagnosis Admission Diagnosis See problem list Discharge Diagnosis See below Problems/Diagnosis: (1) Cirrhosis of liver with ascites Assessment & Plan: - ESLD, Pleurex drain in place, culture of peritoneal fluid pending, Continue Rocephin, General surgery consult placed Dr Grace, poor prognosis, recommend hospice, patient and family not ready at this time 04/30: Pain is much improved, will continue to monitor and drain PRN, cultures NGTD 05/01: Cultures NGTD, will likely drain tomorrow prior to d/c home 05/02: Drained 3L yesterday, feeling much better, ok to d.c home today Qualifiers: Qualified Codes: K70.31 - Alcoholic cirrhosis of liver with ascites Status: Acute (2) Acute on chronic renal failure Assessment & Plan: - Gentle oral hydration 05/01: At her baseline Qualifiers: Qualified Codes: N17.9 - Acute kidney failure, unspecified; N18.4 - Chronic kidney disease, stage 4 (severe) Status: Acute (3) Ascites Qualifiers: Qualified Codes: K70.31 - Alcoholic cirrhosis of liver with ascites Status: Chronic (4) Left arm cellulitis Assessment & Plan: - Will continue to monitor, IV taken out of that arm 04/30: Continue IV antibiotics 05/01: Improving, continue IV antibiotics 1 more day 05/02: Much improved, less likely infectious and more likely from infiltration of IV, will watch off antibiotics at home, continue compression wraps Status: Acute (5) Iron deficiency anemia Assessment & Plan: 04/30: hgb dropped this AM, 1 unit pRBCs this AM 05/01: Hgb stable this AM, recheck in AM and if stable will plan to d/c home Qualifiers: Qualified Codes: D50.0 - Iron deficiency anemia secondary to blood loss (chronic) Status: Chronic (6) Rectal varices Assessment & Plan: - Multiple recent bleeds, continue to monitor Status: Acute (7) CAD (coronary artery disease) Status: Chronic (8) History of ETOH abuse Status: Acute (9) History of atrial fibrillation Assessment & Plan: - Rate controlled, unable to tolerate OAC due to severe life threatening bleeding Status: Acute Chief Complaint/HPI Chief Complaint/HPI 82 yo F that is well known to me that presents with increasing abdominal pain and left arm pain. She is a known cirrhotic patient that was recently on hospice and has had multiple recent hospitalizations for upper and lower GI bleeds with multiple banding. She has pleurex catheter in place and has been taking off 1L of fluid every 2-3 days but the last few days she has been taking off 1L daily. 2 days ago she started having more abdominal pain that was not getting better with draining the fluid. She had a lower GI bleed over the weekend that resolved on its own but she was monitored in the hospital. Daughter and grand daughter are here with the patient this afternoon and states that her left arm started turning red after she got in the ambulance to come to the hospital. Discharge Summary-Simple/Stand Consultations Dr Grace: General surgery Discharge Physical Examination Allergies: Coded Allergies: codeine (Unverified Allergy, Unknown, Pt has received Morphine in the paste, 05/23/20) Vitals & I&Os Vital Sign - Last 12Hours Date Time Temp Pulse Resp B/P (MAP) Pulse Ox O2 Delivery O2 Flow Rate FiO2 05/02/22 09:08 99 Room Air 05/02/22 07:10 36.0 80 18 109/56 (73) Intake and Output 05/02/22 00:00 Intake Total 1165 ml Output Total 480 ml Balance 685 ml General Appearance: Alert, Oriented X3, Cooperative, No Acute Distress Respiratory: Clear to Auscultation, Normal Air Movement Cardiovascular: Regular Rate, No Murmurs Abdominal: Soft, Other (mild distention, no rebound or guarding) Extremities: Other (Left UE: erythema and swelling (improving)) Neuro: Normal Speech, Cranial Nerves 3-12 NL Psych/Mental Status: Mental Status NL, Mood NL Hospital Course See final discharge diagnosis. Discussion & Recommendations 82 yo F that presented to ER with increasing abdominal pain and weakness. She had noticed that her ascites was accumulating faster and they were having to take more off at home. She had additional 3L off in the ER and she is feeling much better. Required transfusion x 1 during admission. Will have close f.u with Renaldo on Discharge Condition at discharge Guarded Instructions to patient/family Please see electronic discharge instructions given to patient. Discharge Medications Reviewed and agree with Discharge Medication list on patient's Discharge Instruction sheet Copy Copies To 1: MICHELINE FERGUSON MD, HOLLY R MD May 02, 2022 10:07
--- NOTE | 2022-05-02 10:09 | Discharge Summary ---
Discharge [facility] Reconcile Patient Problems Problems Reviewed?: Yes Discharge Medications New, Converted or Re-Newed RX: Other Continued Medications: Ascorbic Acid (Vitamin C) 500 Mg Tablet 500 MG PO DAILY, TAB Docusate Sodium (Docusate Sodium) 100 Mg Capsule 100 MG PO DAILY, CAP Fluticasone Propionate (Flonase Allergy Relief) 50 Mcg/Actuation [place].susp 1 SPRAY NSEACH HS, EACH Fluticasone/Salmeterol (Advair 250-50 Diskus) 1 Each Blst.w.dev 1 EACH IH DAILY Furosemide (Furosemide) 20 Mg Tablet 20 MG PO DAILY, TAB Hydroxyzine HCl (Hydroxyzine HCl) 10 Mg Tablet 10 MG PO BID, TAB Iron Ps Cmplx/Vit B12/FA (Ferrex 150 Forte Capsule) 150 Mg-25 Mcg-1 Mg Capsule 1 EACH PO BID, CAP Lactulose (Lactulose) 10 Gm/15 Ml Solution 15 ML PO BID, EA Loratadine (Loratadine) 10 Mg Tablet 10 MG PO DAILY, TAB Lorazepam (Ativan) 1 Mg Tablet 0.5-1 MG PO BID PRN for ANXIETY, TAB TAKES TO 1 (1MG) TAB Mesalamine (Lialda) 1.2 Gram Tablet.dr 2.4 GM PO BID, TAB TAKES 2 (1.2GM) TABS Ondansetron HCl (Ondansetron HCl) 4 Mg Tablet 4 MG PO Q8H PRN for CONSTIPATION-1ST LINE, TAB Pantoprazole Sodium (Pantoprazole Sodium) 40 Mg Tablet.dr 40 MG PO DAILY, TAB Polyethylene Glycol 3350 (Miralax) 17 Gram Powd.pack 17 GM PO DAILY, EACH Sodium Bicarbonate (Sodium Bicarbonate) 650 Mg Tablet 1300 MG PO BID, TAB TAKES 2 (650MG) TABS Spironolactone (Spironolactone) 50 Mg Tablet 25 MG PO 1800, TAB TAKES 1/2 OF (25MG) TAB Patient Instructions Goal/Follow Up Appt: Frachel with Dr Macario Activity & Diet Discharge Diet: Low Sodium Diet Activity as Tolerated: Yes MICHELINE MACARIO MD May 02, 2022 10:09
--- NOTE | 2022-05-02 10:57 | Physical Therapy Daily Note ---
PT Daily Note-Current Subjective No issues reported on arrival. Son present and assisting pt with sitting edge of bed for personal hygiene. Mental Status Patient Orientation: Person, Place, Time, Situation Transfers SCALE: Activities may be completed with or without assistive devices. 8-Tfwlavuzja-ncubbuv completes the activity by him/herself with no assistance from a helper. 5-Set-up or Clean-up Assistance-helper sets up or cleans up; patient completes activity. [place] assists only prior to or following the activity. 4-Supervision or Touching Assistance-helper provides verbal cues and/or touching/steadying and/or contact guard assistance as patient completes activity. Assistance may be provided throughout the activity or intermittently. 3-Partial/Moderate Assistance-helper does LESS THAN HALF the effort. [place] lifts, holds or supports trunk or limbs, but provides less than half the effort. 2-Substantial/Maximal Assistance-helper does MORE THAN HALF the effort. [place] lifts or holds trunk or limbs and provides more than half the effort. 5-Edqtkmfpv-zwntuu does ALL the effort. Patient does none of the effort to complete the activity. Or, the assistance of 2 or more helpers is required for the patient to complete the activity. If activity was not attempted, code reason: 7-Patient Refused. 9-Not Applicable-not attempted and the patient did not perform the activity before the current illness, exacerbation or injury. 10-Not Attempted due to Environmental Limitations-(lack of equipment, weather restraints, etc.). 88-Not Attempted due to Medical Conditions or Safety Concerns. Roll Left & Right (QC): 4 Sit to Lying (QC): 4 Lying to Sitting/Side of Bed(Q: 4 Sit to Stand (QC): 4 Chair/Vza-lz-Guhhe Xfer(QC): 4 Gait Training Does the Patient Walk?: Yes Distance: 150ft Walk 10 feet (QC): 6 Walk 50 ft with 2 Turns(QC): 6 Walk 150 ft (QC): 6 Gait Assistive Device: FWW Exercises Supine Ex: LE Protocol Supine Reps: 10 Assessment Current Status: Good Progress Good safety with transfers and during gait. Pt requested to sit up in the chair after treatment. PT Field Sales Associate Goals Field Sales Associate Goals PT Prison Goals Time Frame: May 09, 2022 Roll Left & Right (QC): 6 Sit to Lying (QC): 6 Lying-Sitting on Side/Bed(QC): 6 Sit to Stand (QC): 6 Chair/Nso-gc-Ktshu Xfer(QC): 6 Toilet Transfer (QC): 6 Walk 10 feet (QC): 6 Walk 50ft with 2 Turns (QC): 6 Walk 150 ft (QC): 6 PT Plan Treatment/Plan Treatment Plan: Continue Plan of Care Treatment Plan: Bed Mobility, Education, Functional Activity [place], Functional Strength, Gait, Safety, Therapeutic Exercise, Transfers Treatment Duration: May 09, 2022 Frequency: 6 times per week Estimated Hrs Per Day: .25 hour per day Time/GCodes Time In: 0825 Time Out: 0840 Total Billed Treatment Time: 15 Total Billed Treatment 1, gt 15 QUENTIN MEDINA PT May 02, 2022 10:57
[2022-05-02 11:27] VITALS: BP 109/56
[2022-05-02] MEDS ORDERED: SPIRONOLACTONE 25 MG (ALDACTONE) TAB PO SCH (18:00)
== END 2022-05-02 11:15 | disposition home health service (06) | DRG 433 ==
LOC: EDUNIT# 08:36 → ER 08:40 → 4TH 11:29 → OBSVTOIN 13:05
PROVIDERS: ADMIT Family Medicine; ATTEND Family Medicine
DX: K74.60 Unspecified cirrhosis of liver (principal); R18.8 Other ascites; N17.9 Acute kidney failure, unspecified; N18.4 Chronic kidney disease, stage 4 (severe); L03.114 Cellulitis of left upper limb; I44.2 Atrioventricular block, complete; D50.9 Iron deficiency anemia, unspecified; I86.8 Varicose veins of other specified sites; Z66 Do not resuscitate; I25.10 Atherosclerotic heart disease of native coronary artery without angina pectoris; I48.91 Unspecified atrial fibrillation; Z87.891 Personal history of nicotine dependence; M19.90 Unspecified osteoarthritis, unspecified site; I12.9 Hypertensive chronic kidney disease with stage 1 through stage 4 chronic kidney disease, or unspecified chronic kidney disease; E78.5 Hyperlipidemia, unspecified; Z95.0 Presence of cardiac pacemaker; Z96.652 Presence of left artificial knee joint; E78.00 Pure hypercholesterolemia, unspecified; J44.9 Chronic obstructive pulmonary disease, unspecified; K21.9 Gastro-esophageal reflux disease without esophagitis; K57.90 Diverticulosis of intestine, part unspecified, without perforation or abscess without bleeding; F41.9 Anxiety disorder, unspecified
CPT/HCPCS: 36415; 36430; 36569; 74176; 76937; 80048; 80053; 81000; 82042; 82945; 83605; 83615; 83690; 84157; 85014; 85018; 85025; 85610; 85730; 86850; 86900; 86901; 86920; 87040; 87070; 87088; 87205; 89051; 94640; G0378